=== PATIENT | male | born 1950 | race Caucasian/White ===

== ENCOUNTER 2018-07-30 15:42 | Outpatient (REF) | payer MEDICARE, MEDICAID, SELFPAY ==
[2018-07-30 21:36] LABS: Anion Gap 12.3 mmol/L (3-11); BUN 9 mg/dL (7-18); CO2 24.7 mmol/L (21.0-32.0); CREATININE 0.94 mg/dL (0.70-1.30); Calcium 9.6 mg/dL (8.5-10.1); Chloride 98 mmol/L (98-107); Glucose 105 mg/dL (70-100); Potassium 3.9 mmol/L (3.5-5.1); Sodium 135 mmol/L (136-145)
== END 2018-07-30 16:02 ==
LOC: NCHCN 15:42
PROVIDERS: PCP Nurse Practitioner Family; Visit Provider Nurse Practitioner Family
DX: I10 Essential (primary) hypertension (principal)
CPT/HCPCS: 80048

== ENCOUNTER 2019-07-18 10:43 | Outpatient (REF) | payer MEDICARE, MEDICAID, SELFPAY ==
[2019-07-18 21:07] LABS: Anion Gap 10.4 mmol/L (3-11); BUN 9 mg/dL (7-18); CO2 24.6 mmol/L (21.0-32.0); CREATININE 1.04 mg/dL (0.70-1.30); Chloride 98 mmol/L (98-107); Glucose 95 mg/dL (70-100); Potassium 4.4 mmol/L (3.5-5.1); Sodium 133 mmol/L (136-145)
[2019-07-18 21:27] LABS: HGB 14.9 g/dL (13.5-17.5); Mean Corp. HGB Concentration 33.9 g/dL (32.0-36.0); Mean Corpuscular Hemoglobin 31.9 pg (27.0-33.0); Mean Corpuscular Volume 94.2 fL (80-95); Mean Platelet Volume 10.2 fL (8.0-11.0); Platelet Count 221 x1000/uL (130-400); RBC 4.67 m/cumm (4.50-6.00); RBC Distribution Width 13.6 % (11.8-14.1); White Blood Cell Count 7.45 k/cumm (4.4-10.8)
[2019-07-18 21:55] LABS: Hemoglobin A1C 5.6 % (4.5-6.2)
== END 2019-07-18 11:03 ==
LOC: NCHCN 10:43
PROVIDERS: PCP Nurse Practitioner Family; Visit Provider Nurse Practitioner Family
DX: I10 Essential (primary) hypertension (principal); R73.9 Hyperglycemia, unspecified; J44.9 Chronic obstructive pulmonary disease, unspecified; R91.1 Solitary pulmonary nodule; E78.5 Hyperlipidemia, unspecified; E66.9 Obesity, unspecified
CPT/HCPCS: 80048; 85027; 83036

== ENCOUNTER 2020-01-14 09:45 | Outpatient (REF) | payer MEDICARE, MEDICAID, SELFPAY ==
[2020-01-14 20:34] LABS: ALT 30 U/L (16-63); AST 29 U/L (15-37); Albumin 4.1 g/dL (3.4-5.0); Alkaline Phosphatase 126 U/L (46-116); Anion Gap 6.8 mmol/L (3-11); BUN 10 mg/dL (7-18); Bilirubin, Total 0.4 mg/dL (0.2-1.0); CO2 30.2 mmol/L (21.0-32.0); CREATININE 1.13 mg/dL (0.70-1.30); Calcium 9.2 mg/dL (8.5-10.1); Calculated LDL 127 mg/dL (<100); Chloride 99 mmol/L (98-107); Cholesterol 191 mg/dL (<200); Glucose 121 mg/dL (74-106); HDL Cholesterol 53 mg/dL (40-60); Potassium 4.5 mmol/L (3.5-5.1); Sodium 136 mmol/L (136-145); Total Protein 7.7 g/dL (6.4-8.2); Triglyceride 56 mg/dL (<150)
== END 2020-01-14 10:05 ==
LOC: NCHCO 09:45
PROVIDERS: PCP Nurse Practitioner Family; Visit Provider Nurse Practitioner Family
DX: E78.5 Hyperlipidemia, unspecified (principal); I10 Essential (primary) hypertension
CPT/HCPCS: 80053; 80061

== ENCOUNTER 2020-02-26 07:47 | Outpatient (REF) | payer MEDICARE, MEDICAID, SELFPAY ==
[2020-02-26 21:28] LABS: ALT 33 U/L (16-63); AST 34 U/L (15-37); Albumin 4.2 g/dL (3.4-5.0); Alkaline Phosphatase 113 U/L (46-116); Anion Gap 7.5 mmol/L (3-11); BUN 16 mg/dL (7-18); Bilirubin, Total 0.4 mg/dL (0.2-1.0); CO2 28.5 mmol/L (21.0-32.0); CREATININE 1.02 mg/dL (0.70-1.30); Calculated LDL 93 mg/dL (<100); Chloride 99 mmol/L (98-107); Cholesterol 155 mg/dL (<200); Glucose 101 mg/dL (74-106); HDL Cholesterol 55 mg/dL (40-60); Potassium 4.5 mmol/L (3.5-5.1); Sodium 135 mmol/L (136-145); Total Protein 7.7 g/dL (6.4-8.2); Triglyceride 39 mg/dL (<150)
== END 2020-02-26 08:07 ==
LOC: NCHCN 07:47
PROVIDERS: PCP Nurse Practitioner Family; Visit Provider Nurse Practitioner Family
DX: E78.5 Hyperlipidemia, unspecified (principal)
CPT/HCPCS: 80053; 80061

== ENCOUNTER 2021-02-22 07:56 | Outpatient (REF) | payer MEDICARE, MEDICAID, SELFPAY ==
[2021-02-22 22:37] LABS: ALT 24 U/L (16-63); AST 23 U/L (15-37); Albumin 4.3 g/dL (3.4-5.0); Alkaline Phosphatase 132 U/L (46-116); Anion Gap 10.4 mmol/L (3-11); Bilirubin, Total 0.6 mg/dL (0.2-1.0); CO2 27.6 mmol/L (21.0-32.0); CREATININE 0.9 mg/dL (0.70-1.30); Calcium 9.1 mg/dL (8.5-10.1); Calculated LDL 62 mg/dL (<100); Chloride 100 mmol/L (98-107); Cholesterol 129 mg/dL (<200); Glucose 120 mg/dL (74-106); HDL Cholesterol 52 mg/dL (40-60); Potassium 3.9 mmol/L (3.5-5.1); Sodium 138 mmol/L (136-145); Triglyceride 79 mg/dL (<150)
[2021-02-22 22:53] LABS: BUN 17 mg/dL (7-18); Total Protein 8.1 g/dL (6.4-8.2)
== END 2021-02-22 07:57 | disposition home or self-care (01) ==
LOC: NCHCN 07:56
PROVIDERS: PCP Nurse Practitioner Family; Visit Provider Nurse Practitioner Family
DX: E78.5 Hyperlipidemia, unspecified (principal); I10 Essential (primary) hypertension
CPT/HCPCS: 80053; 80061

== ENCOUNTER 2021-02-25 11:31 | Outpatient (REF) | payer MEDICARE, MEDICAID, SELFPAY ==
[2021-02-25 13:32] LABS: ALT 24 U/L (16-63); AST 24 U/L (15-37); Albumin 4.3 g/dL (3.4-5.0); Alkaline Phosphatase 127 U/L (46-116); Bilirubin, Direct 0.2 mg/dL (0.0-0.2); Bilirubin, Total 0.6 mg/dL (0.2-1.0); Total Protein 8.1 g/dL (6.4-8.2)
[2021-02-25 13:51] LABS: GGT 23 U/L (15-85)
[2021-02-25 18:21] LABS: Vitamin D 25 Total 16.7 ng/mL (30-100)
== END 2021-02-25 11:32 | disposition home or self-care (01) ==
LOC: NCHCN 11:31
PROVIDERS: PCP Nurse Practitioner Family; Visit Provider Nurse Practitioner Family
DX: M89.9 Disorder of bone, unspecified (principal); E83.30 Disorder of phosphorus metabolism, unspecified; R74.8 Abnormal levels of other serum enzymes
CPT/HCPCS: 80076; 82306; 82977

== ENCOUNTER 2021-05-31 12:59 | Outpatient (REF) | payer MEDICARE, MEDICAID, SELFPAY ==
[2021-05-31 22:03] LABS: Vitamin D 25 Total 24.5 ng/mL (30-100)
[2021-05-31 22:23] LABS: ALT 22 U/L (16-63); AST 28 U/L (15-37); Albumin 4.3 g/dL (3.4-5.0); Alkaline Phosphatase 114 U/L (46-116); BUN 8 mg/dL (7-18); Bilirubin, Total 0.5 mg/dL (0.2-1.0); CREATININE 0.9 mg/dL (0.70-1.30); Calcium 9.1 mg/dL (8.5-10.1); Chloride 102 mmol/L (98-107); Glucose 93 mg/dL (74-106); Potassium 4.5 mmol/L (3.5-5.1); Sodium 139 mmol/L (136-145); Total Protein 7.8 g/dL (6.4-8.2)
== END 2021-05-31 13:00 | disposition home or self-care (01) ==
LOC: NCHCN 12:59
PROVIDERS: PCP Nurse Practitioner Family; Visit Provider Nurse Practitioner Family
DX: E55.9 Vitamin D deficiency, unspecified (principal); I10 Essential (primary) hypertension; R74.8 Abnormal levels of other serum enzymes
CPT/HCPCS: 80053; 82306

== ENCOUNTER 2021-06-14 17:42 | Outpatient (REF) | payer MEDICARE, MEDICAID, SELFPAY ==
[2021-06-14 15:21] LABS: Anion Gap 9.4 mmol/L (3-11); BUN 11 mg/dL (7-18); CO2 26.6 mmol/L (21.0-32.0); CREATININE 0.9 mg/dL (0.70-1.30); Calcium 9.4 mg/dL (8.5-10.1); Chloride 98 mmol/L (98-107); Glucose 97 mg/dL (74-106); Potassium 4.6 mmol/L (3.5-5.1); Sodium 134 mmol/L (136-145)
[2021-06-14 15:35] LABS: Vitamin D 25 Total 25.4 ng/mL (30-100)
== END 2021-06-14 17:43 | disposition home or self-care (01) ==
LOC: NCHCN 17:42
PROVIDERS: PCP Nurse Practitioner Family; Visit Provider Nurse Practitioner Family
DX: I10 Essential (primary) hypertension (principal); E55.9 Vitamin D deficiency, unspecified
CPT/HCPCS: 80048; 82306

== ENCOUNTER 2022-05-05 12:02 | Outpatient (REF) | payer MEDICARE, MEDICAID, SELFPAY ==
--- NOTE | 2022-05-05 11:30 | SKI_PTH ---
PATIENT: Chris Shelton LOC: [facility] [place] U#:[id number] AGE/SX: 71/M ROOM: RE05/05/[address]: Radha Terrazas : 1950 BED: DIS: 05/05/2022 SPEC #: [id number] RECD: 05/05/22 17:17 STATUS: SHAILESH DUNN #: [id number] BURT: 05/05/22 11:[address]: Radha Terrazas DEPT: Surgical Specimen RECD BY: Franny Dempsey Tissues: 1 - SKIN BIOPSY(SHAVE/PUNCH) Procedures: SKIN LEVEL 4 Comments: [id number]
--- OUTSIDE RECORDS SUMMARY | 2022-05-05 12:06 | XMS_ITS | Encounter Summary ---
:1950 Author Organization Formerly [facility] [place] [address] Care Team Providers Name Role Phone Radha Terrazas APRN Primary Care Provider Encounter Details Date Type Department Care Team Description 07/22/2019 Ancillary Procedure Radiology Library at Elio Pruitt, [facility] [place] [facility] [address] [address] Pulmonary Medicine [phone] [place], [place] [address] (Wo rk) Social History Tobacco Use Types Packs/Day Years Used Date Never Assessed Sex Assigned at Date Recorded Not on file documented as of this encounter Plan of Treatment Not on filedocumented as of this encounter Procedures Procedure Name Priority Date/Time Associated Diagnosis Comme nts FILM LIBRARY Routine 07/22/2019 12:00 AM Results for this STORAGE ONLY CT EDT procedure ar e in CHEST the results section. documented in this encounter Results Film Library- Storage Only CT Chest (07/22/2019 12:00 AM EDT) Specimen (Source) Anatomical Location Collection Method / Collectio n Time Received Time / Laterality Volume Narrative [facility] - 08/20/2019 2:56 PM EDT This exam is auto-finalizing. It's purpo se is for storage only. Armin Pruitt MD [facility] FILM LIBRARY ORDERABLES Performing Organization Address City/State/ZIP Code Phon e Number [place], [place] documented in this encounter Visit Diagnoses Not on filedocumented in this encounter Care Teams Home Demonstration Agent Relationship Specialty Start Date End Date Radha Terrazas APRN PCP - General Family Medicine 05/23/19 [address] [place] [address] documented as of this encounter
--- OUTSIDE RECORDS SUMMARY | 2022-05-05 12:06 | XMS_ITS | Encounter Summary ---
:1950 Author Organization [facility] [place] [address] Care Team Providers Name Role Phone Radha Terrazas APRN Primary Care Provider Encounter Details Date Type Department Care Team Description 07/09/2019 Telephone Pulmonology at [facility] [address] Social History Tobacco Use Types Packs/Day Years Used Date Never Assessed Sex Assigned at Date Recorded Not on file documented as of this encounter Miscellaneous Notes Telephone Encounter - Israel Amaya II - 07/09/2019 11:24 AM EDT [facility] No answer. Needs in-person visit. documented in this encounter Plan of Treatment Not on filedocumented as of this encounter Visit Diagnoses Not on filedocumented in this encounter Care Teams Snack Bar Cashier Relationship Specialty Start Date End Date Radha Terrazas APRN PCP - General Family Medicine 05/23/19 [address] [place] [address] documented as of this encounter
--- OUTSIDE RECORDS SUMMARY | 2022-05-05 12:06 | XMS_ITS | Clinical Summary ---
:1950 Author Organization [facility] [address] Care Team Providers Name Role Phone MkRadha Fletcher GHOSH Primary Care Provider Social History Tobacco Use Types Packs/Day Years Used Date Never Assessed Sex Assigned at Date Recorded Not on file Last Filed Vital Signs Vital Sign Reading Time Taken Comments Blood Pressure 104/76 06/25/2019 10:11 AM EDT Pulse 103 06/25/2019 10:11 AM EDT Temperature 36.4 ??C (97.5 ??F) 06/25/2019 10:11 AM EDT Respiratory Rate 18 06/25/2019 10:11 AM EDT Oxygen Saturation 94% 06/25/2019 10:11 AM EDT Inhaled Oxygen Concentration - - Weight - - Height - - Body Mass Index - - Plan of Treatment Health Maintenance Due Date Last Done Comments Covid-19 Vaccine (#1) 1954 Hepatitis C Screening 1967 Lipid Screening 1967 Tdap adult 1968 Tetanus vaccine 1968 Colonoscopy 1994 Zoster vaccine (1 of 2) 1999 Advance Directive 2004 Pneumoccocal Vaccine: 65+ (1 - PCV) 2014 Influenza (Flu) vaccine (1 of 1 - Influenza standard 06/23/2022 series) Insurance Payer Benefit Plan / Subscriber ID Effective Dates Phone Addre ss Type Group MEDICARE MEDICARE PART [id number] 2019-Presen [phone] [place] [address] [place] [id number] 2019-Prese [phone] [address] [place] [address] Care Teams Lead Accountant Relationship Specialty Start Date End Date Radha Terrazas APRN PCP - General Family Medicine 05/23/19 [address] [place], [place] [address]
--- OUTSIDE RECORDS SUMMARY | 2022-05-05 12:07 | XMS_ITS | Encounter Summary ---
:1950 Author Organization [facility] Address [address] [place] [address] Care Team Providers Name Role Phone Radha Terrazas APRN Primary Care Provider Encounter Details Date Type Department Care Team Description 02/09/2021 Orders Only [facility] Mainor Linares MD Radiology - Main Cam pus [address] [address] [address] [place], [place] [address] (Wo rk) Social History Tobacco Use Types Packs/Day Years Used Date Former Smoker Quit: 2016 Smokeless Tobacco: Never Used Alcohol Use Standard Drinks/Week Comments Not Currently 0 (1 standard drink = 0.6 oz pure alcoho l) Quit 10 years ago Alcohol Habits Answer Date Recorded How often do you have a drink containing alcohol? Not asked 09/21/2020 How many drinks containing alcohol do you have on a Not aske d 09/21/2020 typical day when you are drinking? How often do you have six or more drinks on one Not asked 09/21/2020 occasion? Comment: Quit 10 years ago 09/21/2020 Sex Assigned at Date Recorded Male 02/19/2021 14:37 EDT COVID-19 Exposure Response Date Recorded In the last month, have you been in contact with No / Unsure 02/05/2021 10:44 EDT someone who was confirmed or suspected to have Coronavirus / COVID-19? documented as of this encounter Functional Status Functional Status Response Date of Assessment Because of a physical, mental, or emotional condition, No 10/14/2020 does this person have difficulty doing errands alone such as visiting a doctor's office or shopping? Cognitive Status Response Date of Assessment Because of a physical, mental, or emotional condition, No 10/14/2020 does this person have serious difficulty concentrating, remembering, or making decisions? documented as of this encounter Plan of Treatment Upcoming Encounters Date Type Specialty Care Team Description 09/26/2022 Office Visit Hematology and Oncology Nessa Sullivan MD [address] [place], [facility] [address] [place], [place] [address] (Wo rk) documented as of this encounter Visit Diagnoses Not on filedocumented in this encounter Care Teams Engineering Leader Relationship Specialty Start Date End Date Radha Terrazas APRN PCP - General 08/23/20 [address] [place] [address] documented as of this encounter
--- OUTSIDE RECORDS SUMMARY | 2022-05-05 12:07 | XMS_ITS | Encounter Summary ---
:1950 Author Organization [facility] Address [address] [place] [address] Care Team Providers Name Role Phone Radha Terrazas APRN Primary Care Provider Reason for Visit (Routine/Next Available) - Receiving Office to Obtain Authorization Specialty Diagnoses / Procedures Referred By Contact Refer red To Contact Procedures Imaging, External CT OUTSIDE IMAGES CHEST Referral ID Status Reason Start Expiration Visits Visits Date Date Requested Authorized [id number] Receiving Office 1 to Obtain 1 Authorization Encounter Details Date Type Department Care Team Description 07/26/2021 Hospital Encounter [facility] Secondary Reads [place] Social History Tobacco Use Types Packs/Day Years Used Date Former Smoker Quit: 2015 Smokeless Tobacco: Never Used Alcohol Use Standard [...] at Date Recorded Male 02/19/2021 14:37 EDT documented as of this encounter Functional Status [...] making decisions? documented as of this encounter Medications at Time of Discharge Medication Sig Dispensed Refills Start Date End Date acetaminophen (TYLENOL) Take 2 Tabs by mouth 0 500 mg tablet every 6 hours as needed for Pain or Fever (mild pain). albuterol 90 mcg/actuation Inhale 1-2 Puffs as 0 inhaler directed every 4 hours as needed for Wheezing. aspirin 81 mg EC tablet Take 81 mg by mouth 0 daily. atorvastatin (LIPITOR) 10 Take 20 mg by mouth 0 mg tablet at bedtime. calcium carbonate (TUMS) Take 2 Tabs by mouth 0 1 12/02/2019 200 mg calcium (500 mg) 4 times daily as tablet,chewable needed for Heartburn. docusate sodium (COLACE) Take 1 Cap by mouth 2 0 10/01/2020 100 mg capsule times daily as needed for Constipation. documented as of this encounter Discharge Disposition Disposition Code Departure Means Destination Home or Self Care documented in this encounter Plan of Treatment Upcoming Encounters Date Type Specialty Care Team Description 09/26/2022 Office Visit Hematology and Oncology Nessa Sullivan MD 111 [facility], [facility] 2 [place], [place] [address] (Wo rk) documented as of this encounter Procedures Procedure Name Priority Date/Time Associated Diagnosis Comme nts CT OUTSIDE IMAGES Routine 09/17/2021 12:32 Result s for this CHEST EST procedure are i n the results section. documented in this encounter Results CT OUTSIDE IMAGES CHEST (09/17/2021 12:32 EST) Specimen Narrative 09/17/2021 12:32 EST This is a non-reportable exam. documented in this encounter Visit Diagnoses Not on filedocumented in this encounter Care Teams Manager Travel Relationship Specialty Start Date End Date Radha Terrazas APRN PCP - General 08/23/20 [address] [place] [address] documented as of this encounter
--- OUTSIDE RECORDS SUMMARY | 2022-05-05 12:07 | XMS_ITS | Encounter Summary ---
:1950 Author Organization [facility] Address [address] [place] [address] Care Team Providers Name Role Phone Radha Terrazas APRN Primary Care Provider Reason for Visit Reason Onset Date Comments Other 03/22/2022 Encounter Details Date Type Department Care Team Description 03/22/2022 Telephone [facility] Nessa Sullivan MD Other Hematology & Oncology - 111 [facility], [address] [place], [place] [id number] [place] [phone] (Wo rk) Social History Tobacco Use Types [...] making decisions? documented as of this encounter Miscellaneous Notes Telephone Encounter - Swathi Kebede - 03/22/2022 1030 EDT FAXED REQUEST TO [facility] RADIOLOGY DEPT TO PUSH RECENT CT CHEST TO US. Swathi Kebede 03/22/2022 10:31 documented in this encounter Plan of Treatment Upcoming Encounters Date Type Specialty Care Team Description 09/26/2022 Office Visit Hematology and Oncology Nessa Sullivan MD 111 [facility], [address] [place], [place] [address] (Wo rk) documented as of this encounter Visit Diagnoses Not on filedocumented in this encounter Care Teams Missile Facilities Repairer Relationship Specialty Start Date End Date Radha Terrazas APRN PCP - General 08/23/[address] [place] [address] documented as of this encounter
--- OUTSIDE RECORDS SUMMARY | 2022-05-05 12:07 | XMS_ITS | Encounter Summary ---
:1950 Author Organization [facility] Address [address] [place] [address] Care Team Providers Name Role Phone Radha Terrazas APRN Primary Care Provider Reason for Visit Reason Onset Date Comments Appointment Related 08/16/2021 Encounter Details Date Type Department Care Team Description 08/16/2021 Telephone [facility] Nessa Sullivan MD Appointment Related Hematology & Oncology 111 [facility], [facility] 111 [facility], [address] [place], [place] [address] [place] [address] [phone] (Wo rk) Social History Tobacco Use Types [...] this encounter Miscellaneous Notes Telephone Encounter - Ian Tolentino MA - 08/16/2021 0954 EDT Called patient to remind them about upcoming televideo appointment scheduled for 08/17/21. Left a voicemail. IAN TOLENTINO MA documented in this encounter Plan of Treatment Upcoming Encounters Date Type Specialty Care Team Description 09/26/2022 Office Visit Hematology and Oncology Nessa Sullivan MD 111 [facility], [facility] 2 [place], [place] [phone] (Wo rk) documented as of this encounter Visit Diagnoses Not on filedocumented in this encounter Care Teams Sign Builder Relationship Specialty Start Date End Date Radha Terrazas APRN PCP - General 08/23/20 [address] [place] [address] documented as of this encounter
--- OUTSIDE RECORDS SUMMARY | 2022-05-05 12:07 | XMS_ITS | Encounter Summary ---
:1950 Author Organization [facility] Address [address] [place] [address] Care Team Providers Name Role Phone Radha Terrazas APRN Primary Care Provider Reason for Referral Laboratory Services (STAT) - New Request Specialty Diagnoses / Procedures Referred By Contact Refer red To Contact Diagnoses NSCLC of right lung (HCC-CMS) (HCC) Nessa Sullivan MD Procedures CREATININE [address] [phone] Referral ID Status Reason Start Date Expiration Date Visits V isits Requested Authorized [id number] New Request 02/14/2022 1 1 Reason for Visit Reason Onset Date Comments Pre-visit Orders 02/14/2022 Follow-up 02/14/2022 Encounter Details Date Type Department Care Team Description 02/14/2022 Telephone [facility] Center Nessa Sullivan MD Pre-visit Orders; Hematology & Oncology 111 [facility] Follow-up - [address] [place] [address] [phone] (Wo rk) Social History Tobacco Use [...] documented as of this encounter Miscellaneous Notes Addendum Note - Beatrice Samuel RN - 02/14/2022 1239 EDT Addended by: BEATRICE SAMUEL on: 02/14/2022 12:39 Modules accepted: Orders Telephone Encounter - Beatrice Samuel RN - 02/14/2022 1239 EDT Order for BUN faxed to [facility]. elephone Encounter - Gerald Bennett - 02/14/2022 1142 EDT Lynn prasad requesting a BUN lab order as well for this patient. Please fax to [phone] signed by Gerald Bennett at 02/14/2022 11:43 EDT Telephone Encounter - Beatrice Samuel RN - 02/14/2022 1131 EDT Faxed Creatinine order to [facility] OP lab.[facility] radiology made aware. Telephone Encounter - Gerald Bennett - 02/14/[address] Chest scheduled Do we have updated labs within last 30 days for this patient? [facility] lab is asking that we send lab orders if this is not the case. Patient has CT scheduled for 02/16. [email or web address] signed by Gerald Bennett at 02/14/2022 11:19 EDT documented in this encounter Plan of Treatment Upcoming Encounters Date Type Specialty Care Team Description 09/26/2022 Office Visit Hematology and Oncology Nessa Sullivan MD [address] [facility], [facility] 2 [place], [place] [address] (Wo rk) Scheduled Orders Name Type Priority Associated Diagnoses Order S chedule CREATININE Lab STAT NSCLC of right lung (HCC-CMS ) Expected: 02/14/2022 (HCC) (Approximate), Expires: 02/14/2023 BUN Lab Routine NSCLC of right lung (HCC-CMS ) Expected: 02/14/2022 (HCC) (Approximate), Expires: 02/14/2023 documented as of this encounter Visit Diagnoses Diagnosis NSCLC of right lung (HCC-CMS) (HCC) - Pr imary documented in this encounter Care Teams Operations Management Professionals Relationship Specialty Start Date End Date Radha Terrazas APRN PCP - General 08/23/[address] [place] [address] documented as of this encounter
--- OUTSIDE RECORDS SUMMARY | 2022-05-05 12:07 | XMS_ITS | Encounter Summary ---
:1950 Author Organization [facility] Address [address] [place] [address] Care Team Providers Name Role Phone Radha Terrazas APRN Primary Care Provider Reason for Visit (Routine/Next Available) - Receiving Office to Obtain Authorization Specialty Diagnoses / Procedures Referred By Contact Refer red To Contact Procedures Unknown, Provider, CT OUTSIDE IMAGES CHEST Phone: Referral ID Status Reason Start Expiration Visits Visits Date Date Requested Authorized [id number] Receiving Office 03/22/2022 1 1 to Obtain Authorization Encounter Details Date Type Department Care Team Description 03/10/2022 Hospital Encounter [facility] Secondary Reads [place] Social History Tobacco Use [...] capsule times daily as needed for Constipation. lisinopriL (PRINIVIL) 10 Take 10 mg by mouth 0 mg tablet daily. documented as of this encounter Discharge Disposition Disposition Code Departure Means Destination Home or Self Care documented in this encounter Plan of Treatment Upcoming Encounters Date Type Specialty Care Team Description 09/26/2022 Office Visit Hematology and Oncology Nessa Sullivan MD 111 [facility], [facility] 2 [place], [place] [address] (Wo rk) documented as of this encounter Procedures Procedure Name Priority Date/Time Associated Diagnosis Comme nts CT OUTSIDE IMAGES Routine 03/22/2022 11:10 Result s for this CHEST EDT procedure are i n the results section. documented in this encounter Results CT OUTSIDE IMAGES CHEST (03/22/2022 11:10 EDT) Specimen Narrative 03/22/2022 11:10 EDT This is a non-reportable exam. documented in this encounter Visit Diagnoses Not on filedocumented in this encounter Care Teams Train Attendant Relationship Specialty Start Date End Date Radha Terrazas APRN PCP - General 08/23/20 [address] [place] [address] documented as of this encounter
--- OUTSIDE RECORDS SUMMARY | 2022-05-05 12:07 | XMS_ITS | Encounter Summary ---
:1950 Author Organization [facility] Address [address] [place] [address] Care Team Providers Name Role Phone Radha Terrazas APRN Primary Care Provider Reason for Visit Reason Onset Date Comments Appointment Related 10/25/2021 CT Scan 10/25/2021 Order to [facility] Encounter Details Date Type Department Care Team Description 10/25/2021 Telephone [facility] Center Nessa Sullivan MD Appointment Related; Hematology & Oncology [address] [facility] [address] Scan (Order to - [facility], [facility]) 111 [facility], [address] [place], [place] [address] [place] [address] [phone] (Wo rk) Social History Tobacco Use [...] this encounter Miscellaneous Notes Telephone Encounter - Mercedes Najera - 10/25/2021 1037 EST Patient's daughter, Dorcas calling to see if 03/17 appt can be changed to a zoom meeting? Would alsolike to confirm that order for ct scan has been sent to [facility]? Please call back to discuss documented in this encounter Plan of Treatment Upcoming Encounters Date Type Specialty Care Team Description 09/26/2022 Office Visit Hematology and Oncology Nessa Sullivan MD 111 [facility], [facility], [address] [place], [place] [address] (Wo rk) documented as of this encounter Visit Diagnoses Not on filedocumented in this encounter Care Teams Applications System Analyst Relationship Specialty Start Date End Date Radha Terrazas APRN PCP - General 08/23/20 [address] [place] [address] documented as of this encounter
--- OUTSIDE RECORDS SUMMARY | 2022-05-05 12:07 | XMS_ITS | Encounter Summary ---
:1950 Author Organization [facility] Address [address] [place] [address] Care Team Providers Name Role Phone Radha Terrazas APRN Primary Care Provider Reason for Referral Radiology Services (Routine/Next Available) - Authorized Specialty Diagnoses / Procedures Referred By Contact Refer red To Contact Diagnoses NSCLC of right lung ([facility]) ([facility]) Nessa Sullivan MD Procedures CT CHEST W CONTRAST CHG DIAGNOSTIC COMPUTED TOMOGRAPHY THORAX W/CONTRAST [address] [facility] Level 2 [place] [address] Referral ID Status Reason Start Date Expiration Date Visits V isits Requested Authorized [id number] Authorized 08/18/2021 10/22/2021 1 1 Reason for Visit Reason Comments Telemedicine Video Visit Encounter Details Date Type Department Care Team Description 08/17/2021 Telemedicine [facility] Nessa Sullivan, NSCL C of right lung Hematology & MD ([facility]) ([facility]) Oncology - [address] (Primary D x) [address] [place] [address] (Wo rk) Social History Tobacco Use [...] making decisions? documented as of this encounter Progress Notes Nessa Sullivan MD - 08/17/2021 1400 EDT Oncology follow up visit Date of Visit:08/17/2021 Reason for Consultation: Adjuvant therapy for squamous cell carcinoma of lung Referring Physician: Radha Terrazas Oncologic history: Chris Shelton is a 70 y.o. male with COPD, right lung nodule (which had been followed by serial CT scans and deemed to be stable). He had 1 week history of trouble breathing prior to presentation which progressively got worse and eventually he was seen at [facility] ED on 09/21/2020 and was transferred to [facility] due to refractory right-sided pneumothorax despite chest tube placement (had persistent air leak). He had a right-sided chest tube placement here at [facility] on 09/22/2020 and subsequently, was taken to the OR where Dr. Singh performed right video-assisted thoracoscopic surgery, right upper lobe wedge resection, right middle lobe wedge resection of nodule and mechanical and talc pleurodesis on 09/25/2020. His course was complicated by difficulty voiding, urinary retention - requiring delayed removal of [place] and he was put on Flomax. He also developed euvolemic hyponatremia due to decreased solute intake. He feels that he is recovering well from surgery after resolution of above complications. Currently denies any fevers, chills, night sweats. He did have some epistaxis after the Covid swab but it was minor and he is improving. Does not report any headaches or any neurologic issues. He has also complained of sinus issues (which I think could be contributing to foul taste in his mouth that he complained about earlier). History of Present Illness: Doing much better than the last time I saw him. Breathing is good, doing covid 19 precautions. Does not report any fevers, chills, night sweats, nausea, vomiting, diarrhea, constipation, abdominal pain, SHARPE or chest pain or any new neurologic issues (KELLY/blurred vision/focal deficits). Patient Active Problem List Diagnosis Date Noted ??? Spontaneous pneumothorax 09/21/2020 Priority: Medium PM PSH Past Medical History: Diagnosis Date ??? COPD (chronic obstructive pulmonary disease) ([facility]) ??? GIB (gastrointestinal bleeding) ??? HTN (hypertension) ??? Umbilical hernia recurred after mesh failure Past Surgical History: Procedure Laterality Date ??? UMBILICAL HERNIA REPAIR Lt foot surgery in 80s SOCIAL HISTORY FAMILY HISTORY Social History Tobacco Use ??? Smoking status: Former Smoker Quit date: 2016 Years since quittin.8 ??? Smokeless tobacco: Never Used Substance Use Topics ??? Alcohol use: Not Currently Comment: Quit 10 years ago Worked at [employer], and prior to his admission was moving heavy furniture around without difficulty.Previously he has worked in [employer]. Lives alone, but came to clinic with his daughter Dorcas.No family history on file. ALLERGIES No Known Allergies Current Outpatient Medications Medication ??? acetaminophen (TYLENOL) 500 mg tablet ??? albuterol 90 mcg/actuation inhaler ??? aspirin 81 mg EC tablet ??? atorvastatin (LIPITOR) 10 mg tablet ??? calcium carbonate (TUMS) 200 mg calcium (500 mg) tablet,chewable ??? docusate sodium (COLACE) 100 mg capsule No current facility-administered medications for this visit. REVIEW OF SYSTEMS: A complete 10 point review of systems was performed and is otherwise negative. Physical Exam: There were no vitals taken for this visit. General: Appears better than last visit, on the video. A full physical exam could not be done as this was a televisit, performed d/t COVID 19 pandemic. Labs: Lab Results Component Value Date WBC 7.66 09/29/2020 HGB 10.8 (L) 09/29/2020 HGB 11.3 (L) 2020 HGB 11.9 (L) 09/26/2020 HCT 31.3 (L) 09/29/2020 MCV 87 09/29/2020 RDWCV 14.3 (H) 09/29/2020 PLT 271 09/29/2020 Lab Results Component Value Date NA 130 (L) 10/01/2020 K 4.5 10/01/2020 CL 94 (L) 10/01/2020 CO2 31 10/01/2020 BUN 17 10/01/2020 CREATININE 0.55 (L) 10/01/2020 CALCGFR 105 10/01/2020 A. LUNG, RIGHT, UPPER LOBE, VIDEO-ASSISTED THORACOSCOPIC WEDGE RESECTION: - Squamous cell carcinoma, invasive, non-keratinizing (0.5 cm maximal dimension) (AJCC: pT1a, pNX). See comment and synoptic report. - Adjacent squamous cell carcinoma in situ. - Vascular invasion present (slide A9). - Tumor at least 0.15 cm from parenchymal (stapled) margin. - Uninvolved lung shows bullous emphysema with patchy subpleural interstitial fibrosis. - Apical pulmonary cap. 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 ?? B. LUNG, RIGHT, MIDDLE LOBE, VIDEO-ASSISTED THORACOSCOPIC WEDGE RESECTION: - Pulmonary hamartoma (2.0 cm maximal dimension). See comment. - Uninvolved lung shows: - Distal acinar (paraseptal) and centrilobular emphysema. - Subpleural interstitial fibrosis with foci of peribronchiolar metaplasia and incipient honeycomb change. - Fibrinous and eosinophilic pleuritis with reactive mesothelial hyperplasia consistent with historyof pneumothorax. Imaging: CT chest from [facility] 07.26.21 report was unremarkable, however, the images were not sent. I requestedthem again and checked PACS again on 09.11.21 and still no images received. Unfortunately, [facility] radiologist did not compare the CT to the most recent scan from [facility]. Assessment: Chris Shelton is a 70 y.o. male with past medical history of smoking (quit >5 years ago), COPD, hypertension, who developed spontaneous pneumothorax in August 2020, had persistent air leak after chest tube placement and was transferred to [facility] from [facility] ED for refractory pneumothorax. He underwent right video-assisted thoracoscopic surgery, right upper lobe wedge resection, rightmiddle lobe wedge resection of nodule and mechanical and talc pleurodesis on 09/25/2020. Right upper lobe lesion pathology showed squamous cell carcinoma, invasive, nonkeratinizing (0.5 cm) AJCC: pT1a, pNX. There was also adjacent squamous cell carcinoma in situ. Vascular invasion was present, however margins were negative (tumor at least 0.15 cm from parenchymal/stapled margin). Right middle lobe lung lesion was found to be a pulmonary hematoma (2 cm maximum dimension). He did not have any staging scans done at that time, so I ordered CT c/a/p. I explained to Chris and his daughter Dorcas that if this is the only tumor then I do not feel strongly about adjuvant chemotherapy given the size of the tumor being so small and margins being negative. However vascular invasion and the fact that this was not a lobectomy and lymph node dissection but rather was a wedge resection, does increase the risk of recurrence. He is 70 years old and after assessing pros and cons ofchemotherapy, it was decided to follow him with active surveillance. Last CT chest from 07.26.21 at [facility] was reported to be unremarkable, but I do not have the images despite requesting those multiple times. Plan: 1. F/U with me in [address] chest with contrast. I will continue CT chest for active surveillance every 6 months for first 2 years and then he will get annual exam and imaging for 5 years. Afterthat he can continue with low-dose lung CTs and follow-up with his PCP. 2. He is on ASA and statin, he has coronary and aortic atherosclerosis noted on prior imaging, and will continue to f/u with PCP. 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 I have asked the clinic to send the CT abd/pelvis results from 10/2020 to PCP. MD Kvng. The concept of ???Telemedicine?? has been described to the patient. Patient has been informed of the anticipated benefits and possible risks. Patient understands the information provided regarding telemedicine, has had the opportunity to ask questions about this information, and all questions have been answered to patient???s satisfaction. Patient consents for the use of telemedicine in his/her medical care and authorizes the transmission of any relevant medical information to providers and their staff involved in patient???s medical or mental health care. TELEMEDICINE VIDEO VISIT Today's visit was provided through telemedicine Zoom video conferencing: The location of the patient : Home The location of the provider: Office The following staff and their role did participate in today's encounter visit: Nessa Sullivan MD documented in this encounter Plan of Treatment Upcoming Encounters Date Type Specialty Care Team Description 09/26/2022 Office Visit Hematology and Oncology Nessa Sullivan MD [address] [facility], [facility], [facility] 2 [place], [place] [address] (Wo rk) Scheduled Orders Name Type Priority Associated Diagnoses Order S chedule CT CHEST W CONTRAST Imaging Routine NSCLC of right lung E xpected: 08/18/2021, ([facility]) Expires: 2022 documented as of this encounter Visit Diagnoses Diagnosis NSCLC of right lung (HCC-CMS) (HCC) - Pr imary documented in this encounter Historical Medications This list may reflect changes made after this encounter. Medication Sig Dispensed Refills Start Date End Date lisinopriL (PRINIVIL) 10 Take 10 mg by mouth 0 mg tablet daily. added in this encounter Care Teams Cement Mixer Driver Relationship Specialty Start Date End Date Radha Terrazas APRN PCP - General 08/23/20 [address] [place] [address] documented as of this encounter
--- OUTSIDE RECORDS SUMMARY | 2022-05-05 12:07 | XMS_ITS | Encounter Summary ---
:1950 Author Organization [facility] Address [address] [place] [address] Care Team Providers Name Role Phone Radha Terrazas APRN Primary Care Provider Reason for Visit Reason Onset Date Comments Other 09/14/2021 Encounter Details Date Type Department Care Team Description 09/14/2021 Telephone [facility] Nessa Sullivan MD Other Hematology & Oncology - [address] [facility], [address] [place], [place] [id number] [place] [phone] (Wo rk) Social History Tobacco Use Types [...] Notes Telephone Encounter - Swathi Kebede - 09/14/2021 1053 EST FAXED RECENT NOTES TO PCP RADHA SEBASTIAN PER REQUEST. Swathi Kebede 09/14/2021 10:54 documented in this encounter Plan of Treatment Upcoming Encounters Date Type Specialty Care Team Description 09/26/2022 Office Visit Hematology and Oncology Nessa Sullivan MD 111 [facility] 2 [place], [place] [address] (Wo rk) documented as of this encounter Visit Diagnoses Not on filedocumented in this encounter Care Teams Transmission Supervisor Relationship Specialty Start Date End Date Radha Terrazas, DAVINA PCP - General 08/23/20 [address] [place] [address] documented as of this encounter
--- OUTSIDE RECORDS SUMMARY | 2022-05-05 12:07 | XMS_ITS | Clinical Summary ---
:1950 Author Organization [facility] Address [address] [place] [address] Care Team Providers Name Role Phone Radha Terrazas APRN Primary Care Provider Allergies No known active allergies Medications Medication Sig Dispensed Refills Start Date End Date Status atorvastatin (LIPITOR) Take 20 mg by 0 Active 10 mg tablet mouth at bedtime. albuterol 90 Inhale 1-2 Puffs 0 Active mcg/actuation inhaler as directed every 4 hours as needed for Wheezing. aspirin 81 mg EC tablet Take 81 mg by 0 Active mouth daily. acetaminophen (TYLENOL) Take 2 Tabs by 0 10/01/2020 Active 500 mg tablet mouth every 6 hours as needed for Pain or Fever (mild pain). calcium carbonate Take 2 Tabs by 0 10/01/2020 Active (TUMS) 200 mg calcium mouth 4 times (500 mg) daily as needed tablet,chewable for Heartburn. Additional Information Patient not taking. Reported on 08/17/2021 docusate sodium (COLACE) 100 Take 1 Cap by mouth 2 times 0 10/01/2020 Active mg capsule daily as needed for Constipation. lisinopriL (PRINIVIL) 10 mg Take 10 mg by mouth daily. 0 Active tablet Active Problems Patient Care Coordination Note Formatting of this note might be differe nt from the original. Patient has given permission for [facility] to verbally discuss the following information with Dorcas Solorzano who has the following relationship to the patient: Son/Daughter: Scheduling/Appt/Billing/Payment Informat ion (does not include clinical information unless specifically indicated with separate option) Medical Information including symptoms, diagnosis, medications, test results and treatment plan (does not include Mental Health unless specifically indicated with separate option) Permission remains in effect until the p atient elects to revoke it. 2020 # [id number] [place] Afshan Leigh 02/03/21 10:49 Problem Noted Date Spontaneous pneumothorax 09/21/2020 Encounters Date Type Specialty Care Team Description 03/22/2022 Telephone Hematology and Nessa Sullivan Other Oncology MD Kane 03/17/2022 Telemedicine Hematology and Nessa Sullivan NSCLC of rig ht lung Oncology MD Kane ([facility]) (HCC) (Primary Dx) 03/10/2022 Hospital Encounter 03/08/2022 Telephone Hematology Nessa Sterling Pre-visit Or ders Oncology MD Kane 02/14/2022 Telephone Hematology Nessa Sterling Pre-visit Or ders; Oncology MD Kane Follow-up from Last 3 Months Surgical History Surgery Date Site/Laterality Comments UMBILICAL HERNIA REPAIR Medical History Medical History Date Comments HTN (hypertension) COPD (chronic obstructive pulmonary disease) ([facility]) (HCC) Umbilical hernia recurred after mesh failure GIB (gastrointestinal bleeding) Social History Tobacco Use Types Packs/Day Years [...] at Date Recorded Male 02/19/2021 14:37 EDT Last Filed Vital Signs Vital Sign Reading Time Taken Comments Blood Pressure 150/85 10/14/2020 1449 EST Pulse 99 10/14/2020 1449 EST Temperature 36.8 ??C (98.2 ??F) 10/13/2020 1456 EST Respiratory Rate 16 10/13/2020 1456 EST Oxygen Saturation 97% 10/14/2020 1449 EST Inhaled Oxygen Concentration - - Weight 81.1 kg (178 lb 11.2 oz) 10/13/2020 1456 EST Height 177.8 cm (5' 10) 09/21/2020 1440 EST Body Mass Index 25.64 09/21/2020 1440 EST Plan of Treatment Upcoming Encounters Date Type Specialty Care Team Description 09/26/2022 Office Visit Hematology and Oncology Nessa Sullivan MD [address] [facility], [facility], [facility] 2 [place], [place] [address] (Wo rk) Health Maintenance Due Date Last Done Comments Hepatitis C Screen 1950 COVID-19 Vaccine (#1) 1955 Fall Risk Screening 2014 Procedures Procedure Name Priority Date/Time Associated Diagnosis Comme nts CT OUTSIDE IMAGES Routine 03/22/2022 11:10 Result s for this CHEST EDT procedure are i n the results section. from Last [address] OUTSIDE IMAGES CHEST (03/22/2022 11:10 EDT) Specimen Narrative 03/22/2022 11:10 EDT This is a non-reportable exam. from Last 3 Months Insurance Payer Benefit Plan / Subscriber ID Effective Phone Address T ype Group Dates MEDICARE MEDICARE A/B [id number] Effective for [address] [place] [address] MED[place] [id number] 2020-Pre [address] [place] sent [facility] [id number] Chris Shelton Personal/Family Self 1950 [address] (Home) [place] [address] Advance Directives For more information, please contact: [phone] Latest Code Status on File Code Status Date Activated Date Inactivated Comments Full Code 09/21/2020 14:13 10/01/2020 17:41 Reason for decision includes: Full code consistent with over all plan of care Who participated in the discussion? Not Discussed Care Teams Family Independence Case Manager Relationship Specialty Start Date End Date Radha Terrazas, GELATIN POWDER MIXER PCP - General 08/23/[address] [place] [id number]
--- OUTSIDE RECORDS SUMMARY | 2022-05-05 12:07 | XMS_ITS | Encounter Summary ---
:[address] [facility] Address [address] [place] [address] Care Team Providers Name Role Phone Radha Terrazas APRN Primary Care Provider Reason for Referral Radiology Services (Routine/Next Available) - Receiving Office to Obtain Authorization Specialty Diagnoses / Procedures Referred By Contact Refer red To Contact Diagnoses NSCLC of right lung ([facility]) ([facility]) Nessa Sullivan MD External Procedures CT CHEST W CONTRAST 111 [facility] Level [address] [place] [address] Referral ID Status Reason Start Expiration Visits Visits Date Date Requested Authorized [id number] Receiving Office 03/18/2022 1 1 to Obtain Authorization Reason for Visit Reason Comments Telemedicine Video Visit Encounter Details Date Type Department Care Team Description 03/17/2022 Telemedicine [facility] Nessa Sullivan NSCL C of right lung Hematology & MD ([facility]) ([facility]) Oncology - [facility] [address] (Primary D x) [address] [place] [address] (Wo rk) Social History Tobacco [...] encounter Progress Notes Nessa Sullivan MD - 03/17/2022 1130 EDT Images from the original note were not included. Oncology follow up visit Date of Visit:03/17/2022 Reason for Consultation: Adjuvant therapy for squamous cell carcinoma of lung Referring Physician: Radha Terrazas Oncologic history: Chris Shelton is a 71 y.o. male with COPD, right lung nodule (which had been followed by serial CT scans and deemed to be stable). He had 1 week history of trouble breathing prior to presentation which progressively got worse and eventually he was seen at [facility] ED on 09/21/2020 and was transferred to [facility] due to refractory right-sided pneumothorax despite chest tube placement (had persistent air leak). He had a right-sided chest tube placement here at [facility] on 09/22/2020 and subsequently, was taken to [...] complained about earlier). History of Present Illness: Multiple episodes of pneumonia (3-4 times in past 6 months). He was admitted multiple times and required steroid taper, currently on maintenance prednisone 5 mg p.o. daily with good results. Requiring supplemental oxygen 2 to 3 L with exertion. Otherwise sleeping well, and finally starting to get better after all these episodes of pneumonia. Currently does not report any fevers, chills, night sweats,changes in his appetite, nausea, vomiting, diarrhea, constipation. Breathing is relatively stable now. He is relieved to hear his CT chest results. Patient Active Problem List Diagnosis Date Noted ??? Spontaneous pneumothorax 09/21/2020 Priority: [facility] Past Medical History: Diagnosis Date ??? COPD (chronic obstructive pulmonary disease) ([facility]) ??? GIB (gastrointestinal bleeding) ??? HTN (hypertension) ??? Umbilical hernia recurred after mesh failure Past Surgical History: Procedure Laterality Date ??? UMBILICAL HERNIA REPAIR Lt foot surgery in 80s SOCIAL HISTORY FAMILY HISTORY Social History Tobacco Use ??? Smoking status: Former Smoker Quit date: 2016 Years since quittin.4 ??? Smokeless tobacco: Never Used Substance Use Topics ??? Alcohol use: Not Currently Comment: Quit 10 years ago Worked at [employer], and prior to his admission was moving heavy furniture around without difficulty.Previously he has worked in [employer]. Lives alone, but came to clinic with his daughter Dorcas.No family history on file. ALLERGIES No Known Allergies Current Outpatient Medications Medication ??? acetaminophen (TYLENOL) 500 mg tablet ??? albuterol 90 mcg/actuation inhaler ??? aspirin 81 mg EC tablet ??? atorvastatin (LIPITOR) 10 mg tablet ??? calcium carbonate (TUMS) 200 mg calcium (500 mg) tablet,chewable ??? docusate sodium (COLACE) 100 mg capsule ??? lisinopriL (PRINIVIL) 10 mg tablet No current facility-administered medications for this visit. [...] with historyof pneumothorax. Imaging: CT chest from [facility] 03.10.22: report was unremarkable, however, the images were not sent. I requested them again - this seems to be an ongoing issue though that images are not received in time from OSH. Assessment: Chris Shelton is a 71 y.o. male with past medical history of smoking (quit >5 years ago), COPD, hypertension, who developed spontaneous pneumothorax in August 2020, had persistent air leak after chest tube placement and was transferred to [facility] from [facility] ED for refractory pneumothorax. He underwent [...] with active surveillance. Last CT chest from 03.10.22 at [facility] was reported to be unremarkable, but [...] ectasia of the infra renal aorta, I have d/w him regarding possible referral to vascular for subsequent imaging or f/u with his PCP with imaging to see if the size is changing, he decided to f/u with PCP. Clinic team sent CT abd/pelvis results from 10/2020 to PCP. Reportedly the thoracic aortic dilatation isstable on 03.10.22 scan. MD Kvng. The concept of ???Telemedicine?? has [...] and Oncology Nessa Sullivan MD 111 [facility], [facility], [facility] 2 [place], [place] [address] (Wo rk) Scheduled Orders Name Type Priority Associated Diagnoses Order S chedule CT CHEST W CONTRAST Imaging Routine NSCLC of right lung E xpected: 03/18/2022, (HCC-CMS) (HCC) Expires: documented as of this encounter Visit Diagnoses Diagnosis NSCLC of right lung (HCC-CMS) (HCC) - Pr imary documented in this encounter Care Teams House Player Relationship Specialty Start Date End Date Radha Terrazas APRN PCP - General 08/23/20 [address] [place] [address] documented as of this encounter
--- OUTSIDE RECORDS SUMMARY | 2022-05-05 12:07 | XMS_ITS | Encounter Summary ---
:1950 Author Organization [facility] Address [address] [place] [address] Care Team Providers Name Role Phone Mk Radha Fletcher GHOSH Primary Care Provider Reason for Visit Consultation (Routine) - Specialty Diagnoses / Procedures Referred By Contact Refer red To Contact Pulmonology Diagnoses Pulmonary Nodule Jennifer Monge APRN [facility] Pulmonology 5c Procedures Telemed [facility] [address] [place] [address] [place] [address] Fax: Referral ID Status Reason Start Date Expiration Date Visits V isits Requested Authorized [id number] Consult, 05/23/2019 05/22/2020 1 1 [facility] Encounter Details Date Type Department Care Team Description 06/25/2019 TH Visit Pulmonology at [facility] Armin Pruitt, Stage 3 severe COPD by GOLD classification; (TeleHealth) [facility] Pulmonary nodule; [facility] Ex-smoker; [place], [place] Center Dyspnea on exertion [phone] Pulmonary [phone] [place], [place] [address] Social History Tobacco Use Types Packs/Day Years Used Date Never Assessed Sex Assigned at Date Recorded Not on file documented as of this encounter Last Filed Vital Signs Vital Sign Reading Time Taken Comments Blood Pressure 104/76 06/25/2019 10:11 AM EDT Pulse 103 06/25/2019 10:11 AM EDT Temperature 36.4 ??C (97.5 ??F) 06/25/2019 10:11 AM EDT Respiratory Rate 18 06/25/2019 10:11 AM EDT Oxygen Saturation 94% 06/25/2019 10:11 AM EDT Inhaled Oxygen Concentration - - Weight - - Height - - Body Mass Index - - documented in this encounter Progress Notes Armin Pruitt MD - 06/25/2019 10:00 AM EDT [facility] Section of Pulmonary Medicine COPD Clinic Consultation Date of Encounter: 06/25/2019 Referring Provider: Jennifer Monge Aprn [address] [place] [address] PCP: Radha Terrazas KINESIOLOGIST [address] [place] [address] Reason for Consult: I was asked to evaluate this patient for COPD management and a pulmonary nodule.I have personally interviewed and examined the patient. I have independently viewed his pulmonary function testing data. I saw Chris Shelton via telemedicine today. I was at [facility] and he was at [facility]. RT Jasmin ([facility]) assisted. HPI: I saw Chris Shelton in the COPD clinic today. 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 It sounds like he smoked heavily and drank fairly heavily several years but quit drinking a few years back and quit smoking completely 2 years ago. He had some exertional dyspnea for many years but this got better when he quit smoking. 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 He is able to climb up hills but often finds he stopped half way up to catch his breath if the hill is particularly steep or long. A little cough but not much sputum production. He rarely needs prednisone or antibiotics. He uses no inhaled medications. He was noted to have a pulmonary nodule on CT imaging in September 2017 at the [facility] and in September 2018 at [facility]. I do not yet have those images but both reports describe a 1.8 x 1.3 x 1.8 cm well-circumscribed right lower lobe nodule with areas of fat and calcification. There apparently is also some small calcified right lung nodules consistent with old granulomatous disease. September 2018 scan felt hilar and mediastinal lymph nodes were prominent. Review of Systems: Weight stable, no fevers or chills, no exertional chest pain, no ankle swelling Past Medical History: Hypertension, hyperlipidemia, PTSD, decreased hearing bilaterally, pulmonary nodule, GI bleed Past Surgical History: No cardiopulmonary surgical history Medications: No inhaled therapy, takes aspirin, atorvastatin, lisinopril, multivitamin Allergies: No known drug allergies Social History: Lived [place] Cat at home No birds in house 40 pack year smoking history, quit 2017 Family History: Uncle had TB Immunizations: Up-to-date with influenza and pneumococcal vaccinations Examination: BP 104/76 Pulse (!) 103 Temp 36.4 ??C (97.5 ??F) Resp 18 SpO2 94% General: Comfortable at rest Resp: Hyperinflated, chest expansion equal Resonant to percussion with vesicular breath sounds throughout No crackles or wheeze Skin: No rash Extremities: No clubbing, no cyanosis, no edema, calves soft and non tender Neurologic: No obvious cranial nerve palsy or limb weakness, normal gait Psych: Normal mood and affect Labs: None Imaging: No images available yet but I reviewed the written report of the CT scan performed September 2018 at [facility]. Summary is as in the HPI Pulmonary Function Tests: June 2019 FVC 3.03 (71%) FEV1 1.46L (47%) Ratio 0.48 Assessment: 1. COPD: GOLD stage 3 category A. This is moderate / severe disease. 2. Former smoker (43 pack years), quit 2 years ago 3. Pulmonary nodules GOLD Staging - Airflow FEV1 >80% 1 FEV1 <80% 2 FEV1 <50% 3 FEV1 <30% 4 GOLD Staging - Symptoms Annual Exacerbations CAT <10 CAT >10 0 or 1 A B 2 or more Ember Pa Shashigennyjose does have COPD. Technically he has GOL D stage III COPD with an FEV1 of 47% predicted although I suspect this would actually improved to GOL D stage II disease with appropriate bronchodilator therapy. Although he is minimally short of breath with exertion it does limit him somewhat with activities he likes to do such as hiking and camping. He agreed to try Anoro 1 puff daily and seeif we notice any improvement in his symptoms. Do not yet have images from CT scans of his chest but the description of the nodules is suspicious for old granulomatous disease. The larger nodule might be a Harmatoma by description. I doubt these nodules are malignant based on the description but I think a follow-up scan now is reasonable. Depending on what that shows we may stop any further imaging or he may choose to pursue lung cancer screeningat [facility], something he will be eligible for anyway. Follow up: In 2 weeks in person at [facility] with a CT scan of the chest same day Thank you for referring this patient to the pulmonary clinic. Armin Pruitt MD documented in this encounter Plan of Treatment Not on filedocumented as of this encounter Visit Diagnoses Diagnosis Stage 3 severe COPD by GOLD classificati on Pulmonary nodule Solitary pulmonary nodule Ex-smoker Personal history of tobacco use, present ing hazards to health Dyspnea on exertion Other dyspnea and respiratory abnormalit y documented in this encounter Care Teams Lambskin Trimmer Relationship Specialty Start Date End Date Radha Terrazas APRN PCP - General Family Medicine 05/23/19 [address] [place] [address] documented as of this encounter
--- OUTSIDE RECORDS SUMMARY | 2022-05-05 12:07 | XMS_ITS | Encounter Summary ---
:1950 Author Organization [facility] Address [address] [place] [address] Care Team Providers Name Role Phone Radha Terrazas APRN Primary Care Provider Reason for Visit Reason Onset Date Comments Pre-visit Orders 07/23/2021 Encounter Details Date Type Department Care Team Description 07/23/2021 Telephone [facility] Nessa Sullivan MD Pre-visit Orders Hematology & Oncology - 111 [facility], [address] [place], [place] [address] [place] [address] [phone] (Wo rk) Social History Tobacco Use [...] this encounter Miscellaneous Notes Telephone Encounter - Reina Paul, RN - 07/23/[address] chest order faxed to [facility] at [phone] signed by Reina Paul RN at 07/23/2021 11:01 EDTTelephone Encounter - Claire Iqbal - 07/23/2021 1014 EDT Candice is calling to report that she misplaced the patient's order for a chest CT. Please fax order [facility] at [phone]. documented in this encounter Plan of Treatment Upcoming Encounters Date Type Specialty Care Team Description 09/26/2022 Office Visit Hematology and Oncology Nessa Sullivan MD [address] [facility], [facility], [facility] 2 [place], [place] [address] (Wo rk) documented as of this encounter Visit Diagnoses Not on filedocumented in this encounter Care Teams Feed Inspection Supervisor Relationship Specialty Start Date End Date Radha Terrazas APRN PCP - General 08/23/20 [address] [place] [address] documented as of this encounter
--- OUTSIDE RECORDS SUMMARY | 2022-05-05 12:07 | XMS_ITS | Encounter Summary ---
:1950 Author Organization [facility] Address [address] [place] [address] Care Team Providers Name Role Phone Radha Terrazas APRN Primary Care Provider Reason for Visit Reason Onset Date Comments Other 09/13/2021 Encounter Details Date Type Department Care Team Description 09/13/2021 Telephone [facility] Nessa Sullivan MD Other Hematology & Oncology - 111 [facility], [address] [place], [place] [id number] [place] [phone] (Wo rk) Social History Tobacco Use Types [...] Notes Telephone Encounter - Swathi Kebede - 09/13/2021 1038 EST FAXED REQUEST TO [facility] TO PUSH CT IMAGES FROM 07/26/21 AND FAX REPORTS. Swathi Kebede 09/13/2021 10:38 documented in this encounter Plan of Treatment Upcoming Encounters Date Type Specialty Care Team Description 09/26/2022 Office Visit Hematology and Oncology Nessa Sullivan MD 111 [facility], [facility], [facility] 2 [place], [place] [address] (Wo rk) documented as of this encounter Visit Diagnoses Not on filedocumented in this encounter Care Teams Machine Ii Coremaker Relationship Specialty Start Date End Date Radha Terrazas APRN PCP - General 08/23/[address] [place] [address] documented as of this encounter
--- OUTSIDE RECORDS SUMMARY | 2022-05-05 12:07 | XMS_ITS | Encounter Summary ---
:1950 Author Organization [facility] Address [address] [place] [address] Care Team Providers Name Role Phone Radha Terrazas APRN Primary Care Provider Reason for Referral Radiology Services (Routine/Next Available) - Authorized Specialty Diagnoses / Procedures Referred By Contact Refer red To Contact Diagnoses NSCLC of right lung (HCC-CMS) (HCC) Nessa Sullivan MD Procedures CT CHEST WO CONTRAST CHG DIAGNOSTIC COMPUTED TOMOGRAPHY THORAX W/O CNTRST [address] [phone] Referral ID Status Reason Start Date Expiration Date Visits V isits Requested Authorized [id number] Authorized 03/08/2022 10/22/2022 1 1 Reason for Visit Reason Onset Date Comments Pre-visit Orders 03/08/2022 Encounter Details Date Type Department Care Team Description 03/08/2022 Telephone [facility] Nessa Sullivan MD Pre-visit Orders Hematology & Oncology - 111 [facility] [address] [address] [place], [place] [phone] (Wo rk) Social History Tobacco Use [...] encounter Miscellaneous Notes Telephone Encounter - Reina Paul RN - 03/08/2022 1439 EDT Spoke with Lynn. Verified CT w/o contrast okay and new order will be sent.. elephone Encounter - Antonio Martin - 03/08/2022 1421 EDT Lynn calling to let Dr Sullivan know that patient is scheduled currently for a CT scan 03/10. Due to a national IV shortage they will only be able to do this without contrast. If that's ok with Dr Sullivan they will need new orders. If she wants to wait they can reschedule. Please call back to advise. documented in this encounter Plan of Treatment Upcoming Encounters Date Type Specialty Care Team Description 09/26/2022 Office Visit Hematology and Oncology Nessa Sullivan MD 111 [place] [facility], [facility], [facility] 2 [place], [place] [address] (Wo rk) Scheduled Orders Name Type Priority Associated Diagnoses Order S chedule CT CHEST WO CONTRAST Imaging Routine NSCLC of right lung Expected: 03/08/2022, (HCC-CMS) (HCC) Expires: documented as of this encounter Visit Diagnoses Diagnosis NSCLC of right lung (HCC-CMS) (HCC) - Pr imary documented in this encounter Care Teams Register Of Deeds Relationship Specialty Start Date End Date Radha Terrazas APRN PCP - General 08/23/20 [address] [place] [phone] documented as of this encounter
--- OUTSIDE RECORDS SUMMARY | 2022-05-05 12:07 | XMS_ITS | Encounter Summary ---
:1950 Author Organization [facility] Address [address] [place] [address] Care Team Providers Name Role Phone Radha Terrazas APRN Primary Care Provider Encounter Details Date Type Department Care Team Description 02/19/2021 Orders Only [facility] Sarah Beth Summers Malignan t neoplasm of Hematology & Oncology - RN lung , unspecified [place] laterality, unspecified 111 [facility] part of lung (HCC-CMS) [place] [address] (Primary Dx) [phone] Social History Tobacco Use Types Packs/Day Years [...] Oncology Nessa Sullivan MD 111 [facility], [facility], [facility] 2 [place], [place] [address] (Wo rk) documented as of this encounter Visit Diagnoses Diagnosis Malignant neoplasm of lung, unspecified laterality, unspecified part of lung (HCC-CMS) (HCC) - Primary documented in this encounter Care Teams Pediatric Oncologist Relationship Specialty Start Date End Date Radha Terrazas APRN PCP - General 08/23/20 [address] [place] [address] documented as of this encounter
--- OUTSIDE RECORDS SUMMARY | 2022-05-05 12:08 | XMS_ITS | Encounter Summary ---
:1950 Author Organization [facility] Address [address] [place] [address] Care Team Providers Name Role Phone Radha Terrazas APRN Primary Care Provider Reason for Referral Radiology Services (Routine) - Authorization Not Required Specialty Diagnoses / Procedures Referred By Contact Refer red To Contact Diagnoses NSCLC of right lung (HCC-CMS) (HCC) SCC (squamous cell carcinoma) Hamartoma of lung (HCC-CMS) (HCC) Spontaneous pneumothorax Aneurysm (HCC-CMS) (HCC) Atherosclerosis Nessa Sullivan MD Procedures CT CHEST W CONTRAST [address] [phone] Referral ID Status Reason Start Expiration Visits Visits Date Date Requested Authorized [id number] Authorization Not 11/29/2020 1 1 Required Reason for Visit Radiology Services (Routine) - Authorization Not Required Specialty Diagnoses / Procedures Referred By Contact Refer red To Contact Diagnoses NSCLC of right lung (HCC-CMS) (HCC) SCC (squamous cell carcinoma) Hamartoma of lung (HCC-CMS) (HCC) Spontaneous pneumothorax Aneurysm (HCC-CMS) (HCC) Atherosclerosis Nessa Sullivan MD Procedures CT CHEST W CONTRAST [address] [address] Referral ID Status Reason Start Expiration Visits Visits Date Date Requested Authorized [id number] Authorization Not 11/29/2020 1 1 Required Encounter Details Date Type Department Care Team Description 02/05/2021 Hospital Encounter Therese Chavez CT NSCLC of right lung ([facility] ); [address] [facility] SCC (squamous cell carcinoma ); [place] [address] Hamartoma of lung ([facility]); [phone] Spontaneous pne umothorax; Aneurysm ([facility]); Atherosclerosis Social History Tobacco Use Types Packs/Day Years [...] Hematology and Oncology Nessa Sullivan MD [address] [place] [address] [facility], [facility], Level 2 [place], [place] [address] (Wo rk) documented as of this encounter Procedures Procedure Name Priority Date/Time Associated Diagnosis Comme nts CT CHEST W CONTRAST Routine 02/05/2021 11:30 NSCLC of right yahir ng Results for this EDT (HCC-CMS) procedure are in SCC (squamous cell the resul ts carcinoma) section. Hamartoma of lung (HCC-CMS) Spontaneous pneumothorax Aneurysm (HCC-CM S) Atherosclerosis documented in this encounter Results CT CHEST W CONTRAST (02/05/2021 11:30 EDT) Anatomical Region Laterality Modality Chest Computed Tomography Specimen Impressions [facility] - 02/05/2021 12:24 EDT 1. ??No evidence of recurrent or metastatic disease in the chest in this patient who is status post r ight upper (squamous cell carcinoma) and middle lobe (hematoma) wedge resection as well as pleurodesis. 2. ??Chronic bronchitis and emphysema. 3. ??Mild basilar fibrosis. 4. ??Coronary and aortic atherosclerosis . 5. ??Increase in size of right axillary lymph nodes, related to recent Covid 19 vaccination. Narrative [facility] - 02/05/2021 12:[address] CHEST W CONTRAST ??02/05/2021 11:30 AM Clinical History/Comments: Complex Patient Condition - See Comments Technique: A single breath-hold helical CT acquisit ion was performed through the chest on a multidetector-row scanner with a reconstructed slice thickness of 3 mm and retrospectively reconstructed 0.9 mm thick sec tions with 0.45 mm overlapping intervals . ??The scans were obtained from the lung apices through the bases during the intravenous administration of 70-100 cc of 350-370 mg% nonionic contrast injected at a rate of 2 cc/second. Scans were revie wed on a dedicated PACS workstation for analysis. Exam description: CT of the chest with c ontrast Comparison: 3 months prior Findings: Lower neck: No abnormalities. Chest wall soft tissues: New asymmetric right axillary lymph nodes in keeping with recent Covid 19 vaccination. Mediastinum and kaycee: No enlarged medias tinal or hilar lymph nodes. ??The esophagus appears normal. Heart and mediastinal vasculature: ??Harjinder cified plaques of the coronary arteries and aorta. Large airways: ??Mild diffuse large airw ays thickening. Secretions within the lower portions of the trachea. Lungs: ??Excessive centrilobular and par aseptal emphysema. Reticulations within the periphery of the lower lobes, right greater than left. Status post wedge resection within the right middle lobe. Addit ional suture material within the medial aspects of the right upper lobe extending to the apex. No new or enlarging nodules. Pleura: Right-sided pleural thickening. Upper abdomen (limited to upper abdomen, not optimized for abdominal imaging): No abnormalities. Bones: ??Multilevel degenerative disc di sease within the thoracic spine. Old right-sided rib fractures. Procedure Note Eduardo Jordan MD - 02/05/2021 CT CHEST W CONTRAST 02/05/2021 11:30 AM Clinical History/Comments: Complex Patient Condition - See Comments Technique: A single breath-hold helical CT acquisit ion was performed through the chest on a multidetector-row scanner with a reconstructed slice thickness of 3 mm and retrospectively reconstructed 0.9 mm thick sections with 0.45 mm overlapping intervals. The scans were obtained from the lung apices through the bases during the intravenous administration of 70-100 cc of 350-370 mg% nonionic contrast injected at a rate of 2 cc/second. Scans were reviewed on a dedicated [facility]. Exam description: CT of the chest with c ontrast Comparison: 3 months prior Findings: Lower neck: No abnormalities. Chest wall soft tissues: New asymmetric right axillary lymph nodes in keeping with recent Covid 19 vaccination. Mediastinum and kaycee: No enlarged medias tinal or hilar lymph nodes. The esophagus appears normal. Heart and mediastinal vasculature: Calci fied plaques of the coronary arteries and aorta. Large airways: Mild diffuse large airway s thickening. Secretions within the lower portions of the trachea. Lungs: Excessive centrilobular and jose e eptal emphysema. Reticulations within the periphery of the lower lobes, right greater than left. Status post wedge resection within the right middle lobe. Additional suture material within the medial aspects of th e right upper lobe extending to the apex. No new or enlarging nodules. Pleura: Right-sided pleural thickening. Upper abdomen (limited to upper abdomen, not optimized for abdominal imaging): No abnormalities. Bones: Multilevel degenerative disc dise ase within the thoracic spine. Old right-sided rib fractures. IMPRESSION 1. No evidence of recurrent or metastati c disease in the chest in this patient who is status post right upper (squamous cell carcinoma) and middle lobe (hematoma) wedge resection as well as pleurodesis. 2. Chronic bronchitis and emphysema. 3. Mild basilar fibrosis. 4. Coronary and aortic atherosclerosis. 5. Increase in size of right axillary ly mph nodes, related to recent Covid 19 vaccination. Performing Organization Address City/State/ZIP Code Phon e Number [facility] documented in this encounter Visit Diagnoses Diagnosis NSCLC of right lung (HCC-CMS) (HCC) SCC (squamous cell carcinoma) Squamous cell carcinoma of skin, site un specified Hamartoma of lung (HCC-CMS) (HCC) Benign neoplasm of bronchus and lung Spontaneous pneumothorax Other pneumothorax Aneurysm (HCC-CMS) (HCC) Aneurysm of unspecified site Atherosclerosis Generalized and unspecified atherosclero sis documented in this encounter Administered Medications Inactive Administered Medications - up to 3 most recent administrations Medication Order MAR Action Action Date Dose Rate Site iohexoL (OMNIPAQUE 350) solution 100 Given 02/05/2021 11:30 EDT 60 mL mL 100 mL, intravenous, Once in imaging, 1 dose, Starting on Mon02/05/21 at 1122, Until Mon02/05/21 at 1130, Routine, Imaging Protocol Orders documented in this encounter Orders Medications Ordered That Might Not Have Count Last Ord ered Date First Ordered Date Been Administered iohexoL (OMNIPAQUE 350) solution 100 mL 1 02/06/20 21 documented in this encounter Care Teams Payroll Clerk Relationship Specialty Start Date End Date Radha Terrazas APRN PCP - General 08/23/[address] [place] [address] documented as of this encounter
--- OUTSIDE RECORDS SUMMARY | 2022-05-05 12:08 | XMS_ITS | Encounter Summary ---
:1950 Author Organization [facility] Address [address] [place] [address] Care Team Providers Name Role Phone Radha Terrazas APRN Primary Care Provider Reason for Visit Reason Onset Date Comments Labs Only 12/23/2020 Encounter Details Date Type Department Care Team Description 12/23/2020 Telephone [facility] Nessa Sullivan MD Labs Only Hematology & Oncology - 111 [facility], [address], [address] [place], [place] [id number] [place] [phone] (Wo rk) Social History Tobacco Use Types [...] this encounter Miscellaneous Notes Telephone Encounter - Adrianna Patel RN - 12/23/2020 1352 EST Called, spoke with Dorcas and confirmed lab order sent to [facility] elephone Encounter - Adrianna Patel RN - 12/23/2020 1350 EST Orders entered and sent to [facility] for creatinine w/ GFR elephone Encounter - Laverne Manning - 12/23/2020 1313 EST Patient needs labs for CT; please send to [facility] as soon as possible Please call when ready documented in this encounter Plan of Treatment Upcoming Encounters Date Type Specialty Care Team Description 09/26/2022 Office Visit Hematology and Oncology Nessa Sullivan MD 111 [facility], [facility] 2 [place], [place] [phone] (Wo rk) documented as of this encounter Visit Diagnoses Diagnosis NSCLC of right lung (HCC-CMS) (HCC) - Pr imary documented in this encounter Care Teams Senior Web Services Developer Relationship Specialty Start Date End Date Radha Terrazas APRN PCP - General 08/23/[address] [place] [address] documented as of this encounter
--- OUTSIDE RECORDS SUMMARY | 2022-05-05 12:08 | XMS_ITS | Encounter Summary ---
:[address] [facility] Address [address] [place] [address] Care Team Providers Name Role Phone Radha Terrazas APRN Primary Care Provider Reason for Visit Reason Onset Date Comments Appointment Related 12/30/2020 Encounter Details Date Type Department Care Team Description 12/30/2020 Telephone [facility] Nessa Sullivan MD Appointment Related Hematology & Oncology 111 [facility], [facility] 111 [facility], Level 2 [place], [place] [id number] [place] [address] [phone] (Wo rk) Social History Tobacco Use [...] this encounter Miscellaneous Notes Telephone Encounter - Bonny Corcoran - 12/30/2020 1013 EST Called pts daughter back to see if she wants to move scans out till March because rosario is booked out that far. documented in this encounter Plan of Treatment Upcoming Encounters Date Type Specialty Care Team Description 09/26/2022 Office Visit Hematology and Oncology Nessa Sullivan MD 111 [facility], [facility] 2 [place], [place] [phone] (Wo rk) documented as of this encounter Visit Diagnoses Not on filedocumented in this encounter Care Teams Loading Manager Relationship Specialty Start Date End Date Radha Terrazas APRN PCP - General 08/23/[address] [place] [address] documented as of this encounter
--- OUTSIDE RECORDS SUMMARY | 2022-05-05 12:08 | XMS_ITS | Encounter Summary ---
:1950 Author Organization [facility] Address [address] [place] [address] Care Team Providers Name Role Phone Radha Terrazas APRN Primary Care Provider Reason for Visit Reason Onset Date Comments Labs Only 12/29/2020 Encounter Details Date Type Department Care Team Description 12/29/2020 Telephone [facility] Nessa Sullivan MD Labs Only Hematology & Oncology - 111 [facility], [address], Level 2 [place], [place] [id number] [place] [phone] (Wo rk) Social History Tobacco Use Types [...] this encounter Miscellaneous Notes Telephone Encounter - Josseline Sampson RN - 12/29/2020 1036 EST BMP order routed to [facility] lab and called to confirm order was sent. elephone Encounter - Ej Panda - 12/29/2020 1025 EST Facesheet for pt's lab states that provider wants GFR ratio, but only ordered creatinine and no BUN.highway technician looking for clarification. Paged nurse. Pt at lab. documented in this encounter Plan of Treatment Upcoming Encounters Date Type Specialty Care Team Description 09/26/2022 Office Visit Hematology and Oncology Nessa Sullivan MD [address] [facility], [facility], Level 2 [place], [place] [phone] (Wo rk) documented as of this encounter Visit Diagnoses Not on filedocumented in this encounter Care Teams General Farmworker Relationship Specialty Start Date End Date Radha Terrazas APRN PCP - General 08/23/[address] [place] [address] documented as of this encounter
--- OUTSIDE RECORDS SUMMARY | 2022-05-05 12:08 | XMS_ITS | Encounter Summary ---
:1950 Author Organization [facility] Address [address] [place] [address] Care Team Providers Name Role Phone Radha Terrazas APRN Primary Care Provider Encounter Details Date Type Department Care Team Description 11/30/2020 Orders Only [facility] MD Radiology - Main [place] [address] [address] [address] [place], [place] [phone] (Wo rk) Social History [...] Hematology and Oncology Nessa Sullivan MD 111 [facility], [facility] 2 [place], [place] [phone] (Wo rk) documented as of this encounter Visit Diagnoses Not on filedocumented in this encounter Care Teams Chef Kitchen Manager Relationship Specialty Start Date End Date Radha Terrazas APRN PCP - General 08/23/[address] [place] [phone] documented as of this encounter
--- OUTSIDE RECORDS SUMMARY | 2022-05-05 12:08 | XMS_ITS | Encounter Summary ---
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 Spontaneous pneumothorax; 111 [facility] Main Aneurysm (HCC-CMS); [place], [place] [address], [address] 2 Atherosclerosis [address] [place], [place] [phone] (Wo rk) Social History Tobacco Use [...] encounter Progress Notes Nessa Sullivan MD - 11/27/2020 1030 EST Oncology follow up visit Date of Visit:11/27/2020 Reason for Consultation: Adjuvant therapy for squamous cell carcinoma of lung Referring Physician: Radha Terrazas Oncologic history: Chris Shelton is a 70 y.o. male with COPD, right lung nodule (which had been followed by serial CT scans and deemed to be stable). He had 1 week history of trouble breathing prior to presentation which progressively got worse and eventually he was seen at [facility] ED on 09/21/2020 and was transferred to [facility] due to refractory right-sided pneumothorax despite chest tube placement (had persistent air leak). He had a right-sided chest tube placement here at [facility] on 09/22/2020 and subsequently, was taken to [...] complained about earlier). History of Present Illness: Healing well from surgery, outside is normal but he feels a twinge every now and then and feels thatthings are still healing inside. Does not report any fevers, chills, night sweats, nausea, vomiting,diarrhea, constipation, abdominal pain, SHARPE or chest pain or any new neurologic issues (KELLY/blurred vision/focal deficits). Patient Active Problem List Diagnosis Date Noted ??? Spontaneous pneumothorax 09/21/2020 Priority: [facility] PS Past Medical History: Diagnosis Date ??? COPD (chronic obstructive pulmonary disease) ([facility]) ??? GIB (gastrointestinal bleeding) ??? HTN (hypertension) ??? Umbilical hernia recurred after mesh failure Past Surgical History: Procedure Laterality Date ??? UMBILICAL HERNIA REPAIR Lt foot surgery in 80s SOCIAL HISTORY FAMILY HISTORY Social History Tobacco Use ??? Smoking status: Former Smoker Quit date: 2016 Years since quittin.1 ??? Smokeless tobacco: Never Used Substance Use Topics ??? 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 Lives alone, but came to clinic [...] docusate sodium (COLACE) 100 mg capsule ??? senna (SENOKOT) 8.6 mg tablet ??? TAMSulosin (FLOMAX) 0.4 mg capsule No current facility-administered medications for [...] consistent with historyof pneumothorax. Imaging: CT chest 21: IMPRESSION 1. Status post middle and upper lobe bleb resection without evidence of complication. 2. No new pulmonary nodules. 3. Severe smoking-related lung disease. 4. Coronary and aortic atherosclerotic disease. Upon my review, the Rt axillary nodes are enlarged but they appear normal in architecture along withthe subcarinal node, likely reactive given recent surgical resection and pleurodesis, will need close f/u on imaging. CT abdomen pelvis with contrast 11.19.20: IMPRESSION 1. No lymphadenopathy or metastatic disease identified in the abdomen or pelvis. 2. 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 Ectasia of the infrarenal abdominal aorta. I have personally reviewed above imaging and discussed with patient/family. Assessment: Chris Shelton is a 70 y.o. male with past medical history of smoking (quit >5 years ago), COPD, hypertension, who developed spontaneous pneumothorax in August 2020, had persistent air leak after chest tube placement and was transferred to [facility] from [facility] ED for refractory pneumothorax. He underwent [...] decided to follow him with active surveillance. Today, we reviewed CT c/a/p from 11.19.20. I'll f/u on the borderline nodes on next imaging, their architecture appears normal. He also has atherosclerosis and aneurismal changes as noted above. I have asked him to discuss with his PCP regarding those and will also send my note to them. Plan: 1. F/U with me in [address] chest with contrast. (I have reached out to pulmonary team regarding further w/u of the subcarinal node and will update the patient if changes in plan are warranted. Otherwise, I will continue CT chest for active surveillance every 6 months for first 2 years and thenhe will get annual exam and imaging for 5 years. After that he can continue with low-dose lung CTs and follow-up with his PCP. 2. He is on ASA and statin, I discussed with him regarding coronary and aortic atherosclerosis, and he will d/w them further. Regarding the aneurismal changes in splenic and iliac vessels and ectasia of the infra renal aorta, I d/w him regarding possible referral to vascular for subsequent imaging or f/u with his PCP with imaging to see if the size is changing. He will see his PCP for now. MD Kvng. The concept of ???Telemedicine?? has [...] : Home The location of the provider: Home office The following staff and their role did participate in today's encounter visit: Nessa Sullivan MD documented in this encounter Plan of Treatment Upcoming Encounters Date Type Specialty Care Team Description 09/26/2022 Office Visit Hematology and Oncology Nessa Sullivan MD [address] venue [facility], [facility], Level 2 [place], [place] [phone] (Wo rk) documented as of this encounter Results CT CHEST W CONTRAST (02/05/2021 11:30 EDT) Anatomical Region Laterality Modality Chest Computed Tomography Specimen Impressions [facility] - 02/05/2021 12:24 EDT 1. ??No evidence [...] related to recent Covid 19 vaccination. Narrative [facility] - 02/05/2021 12:[address] CHEST W [...] [facility]. Exam description: CT of the [...] Organization Address City/State/ZIP Code Phon e Number [facility] documented in this encounter Visit Diagnoses Diagnosis NSCLC of right lung (HCC-CMS) (HCC) - Pr imary SCC (squamous cell carcinoma) Squamous cell carcinoma of skin, site un specified Hamartoma of lung (HCC-CMS) (HCC) Benign neoplasm of bronchus and lung Spontaneous pneumothorax Other pneumothorax Aneurysm (HCC-CMS) (HCC) Aneurysm of unspecified site Atherosclerosis Generalized and unspecified atherosclero sis NSCLC of right lung (HCC-CMS) (HCC) SCC (squamous cell carcinoma) Squamous cell carcinoma of skin, site un specified Hamartoma of lung (HCC-CMS) (HCC) Benign neoplasm of bronchus and lung Spontaneous pneumothorax Other pneumothorax Aneurysm (HCC-CMS) (HCC) Aneurysm of unspecified site Atherosclerosis Generalized and unspecified atherosclero sis documented in this encounter Discontinued Medications Medication Sig Discontinue Reason Start Date End Date senna (SENOKOT) 8.6 mg Take 1-2 Tabs by 10/01/2020 0 11/27/2020 tablet mouth daily as needed (constipation). documented as of this encounter Care Teams Conference Services Manager Relationship Specialty Start Date End Date Radha Terrazas APRN PCP - General 08/23/[address] [place] [phone] documented as of this encounter
--- OUTSIDE RECORDS SUMMARY | 2022-05-05 12:08 | XMS_ITS | Encounter Summary ---
:1950 Author Organization [facility] Address [address] [place] [address] Care Team Providers Name Role Phone Radha Terrazas APRN Primary Care Provider Reason for Visit Reason Comments Telemedicine Video Visit Encounter Details Date Type Department Care Team Description 02/09/2021 Telemedicine [facility] Nessa Sullivan Mali gnant neoplasm of lung, unspecified laterality, unspecified part of lung (HCC-CMS) (Primary Dx); Hematology & MD Hamartoma of lung (HCC-CMS); Oncology - Main [address] [place] [address] SCC (squam ous cell carcinoma) [address] [place] [address] [address], [place] [phone] (Wo rk) Social History Tobacco [...] documented as of this encounter Progress Notes Chacorta Jimenes MD - 02/09/2021 1100 EDT Oncologyfollow up visit Date of Visit:02/09/2021 Reason for Consultation: Adjuvant therapy for squamous cell carcinoma of lung Referring Physician: Radha Terrazas The concept of ???Telemedicine?? has been described [...] role did participate in today's encounter visit: MD Chacorta Evans MD Oncologic history: Chris Shelton is a 70 y.o. male with COPD, right lung nodule (which had been followed by serial CT scans and deemed to be stable). He had 1 week history of trouble breathing prior to presentation which progressively got worse and eventually he was seen at [facility] ED on 09/21/2020 and was transferred to [facility] due to refractory right-sided pneumothorax despite chest tube placement (had persistent air leak). He had a right-sided chest tube placement here at [facility] on 09/22/2020 and subsequently, was taken to [...] euvolemic hyponatremia due to decreased solute intake. History of Present Illness: He feels that he is recovering well from surgery after resolution of above complications. Currently denies any fevers, chills, night sweats. Does not report any headaches or any neurologic issues. He has also complained of sinus issues (which I think could be contributing to foul taste in his mouth that he complained about earlier). He has an occasional cough but his lung capacity feels is improving significantly Patient Active Problem List Diagnosis Date Noted ??? Spontaneous pneumothorax 09/21/2020 Priority: Medium [facility] PSH Past Medical History: Diagnosis Date ??? COPD (chronic obstructive pulmonary disease) ([facility] ??? GIB (gastrointestinal bleeding) ??? HTN (hypertension) ??? Umbilical hernia recurred after mesh failure Past Surgical History: Procedure Laterality Date ??? UMBILICAL HERNIA REPAIR Lt foot surgery in 80s SOCIAL HISTORY FAMILY HISTORY Social History Tobacco Use ??? Smoking status: Former Smoker Quit date: 2016 Years since quittin.3 ??? Smokeless tobacco: Never Used Substance Use Topics ??? 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 Lives alone, but came to clinic with [...] as this was a televisit, performed d/t RADHA 19 pandemic. Labs: Lab Results Component Value [...] consistent with historyof pneumothorax. Imaging: CT chest 02-05-21 IMPRESSION 1. No evidence of recurrent or metastatic disease in the chest in this patient who is status post right upper (squamous cell carcinoma) and middle lobe (hematoma) wedge resection as well as pleurodesis. 2. Chronic bronchitis and emphysema. 3. Mild basilar fibrosis. 4. Coronary and aortic atherosclerosis. 5. Increase in size of right axillary lymph nodes, related to recent Covid 19 vaccination. ?? Assessment: Chris Shelton is a 70 y.o. male with past medical history of smoking (quit >5 years ago), COPD, hypertension, who developed spontaneous pneumothorax in August 2020, had persistent air leak after chest tube placement and was transferred to [facility] from [facility] ED for refractory pneumothorax. He underwent [...] a pulmonary hematoma (2 cm maximum dimension). I explained to Chris and his daughter [...] old and after assessing pros and cons of chemotherapy, it was decided to follow him with active surveillance. Today, we reviewed CT c/a/p from 02-05-. Still RITA and it cleared the previous suspicion of borderline lymphadenopathy so will go back to follow up with imaging every 6 months Plan: 1. F/U with in [address] chest with contrast. 2. Will follow up with surgery in regards of clearance for weight lifting so he can go back to work. This case was seen and discussed with Dr.Rehman Chacorta Jimenes MD PGY5 Hematology/Oncology pager [phone]. Attestation: I performed or was present during the potter or critical portions of the visit and participated in the management of the patient on 02.09.21. I agree with the findings and plan of care as documented in the resident's/fellow's note. Nessa Sullivan MD 02/10/2021 7:35 documented in this encounter Plan of Treatment Upcoming Encounters Date Type Specialty Care Team Description 09/26/2022 Office Visit Hematology and Oncology Nessa Sullivan MD 111 [facility] venue [facility], [facility] [place] [facility], [facility] 2 [place], [place] [phone] (Wo rk) documented as of this encounter Visit Diagnoses Diagnosis Malignant neoplasm of lung, unspecified laterality, unspecified part of lung (HCC-CMS) (HCC) - Primary Hamartoma of lung (HCC-CMS) (HCC) Benign neoplasm of bronchus and lung SCC (squamous cell carcinoma) Squamous cell carcinoma of skin, site un specified documented in this encounter Care Teams Meteorology Professor Relationship Specialty Start Date End Date Radha Terrazas APRN PCP - General 08/23/[address] [place] [phone] documented as of this encounter
--- OUTSIDE RECORDS SUMMARY | 2022-05-05 12:08 | XMS_ITS | Encounter Summary ---
:1950 Author Organization [facility] Address [address] [place] [address] Care Team Providers Name Role Phone Radha Terrazas APRN Primary Care Provider Reason for Visit Reason Onset Date Comments Results 10/26/2020 10/20/2020 laborator y test results Encounter Details Date Type Department Care Team Description 10/26/2020 Telephone [facility] Johan Torres Res ults (10/20/2020 Cardiothoracic Surgery - MD laboratory test Main [place] [address] [place] results) [address] [phone] [facility] Level 5 [place] [phone] (Wo rk) Social History Tobacco [...] been in contact with No / Unsure 10/14/2020 13:42 EST someone who was confirmed or suspected to [...] this encounter Miscellaneous Notes Telephone Encounter - Abigail Roth - 10/26/2020 1517 EST 10/20/20 laboratory test results received from [employer] and scanned into [employer]. Routing to Dr. Torres for her review. documented in this encounter Plan of Treatment Upcoming Encounters Date Type Specialty Care Team Description 09/26/2022 Office Visit Hematology and Oncology Nessa Sullivan MD 111 [facility], [facility] 2 [place] [phone] (Wo rk) documented as of this encounter Visit Diagnoses Not on filedocumented in this encounter Care Teams Hat Cutter Relationship Specialty Start Date End Date Radha Terrazas APRN PCP - General 08/23/[address] [place] [phone] documented as of this encounter
--- OUTSIDE RECORDS SUMMARY | 2022-05-05 12:08 | XMS_ITS | Encounter Summary ---
:1950 Author Organization [facility] Address [address] [place] [address] Care Team Providers Name Role Phone Radha Terrazas APRN Primary Care Provider Reason for Visit Reason Comments Urinary Retention Encounter Details Date Type Department Care Team Description 10/12/2020 Office Visit [facility] - Israel Aviles MD Urinary retention due [facility] [address] to benign prostatic [address] hyperplasia ([place] [address] [place]) [phone] [id number] Social History Tobacco Use Types Packs/Day Years Used Date Former Smoker Quit: 2016 Alcohol Use Standard Drinks/Week Comments Not Currently [...] been in contact with No / Unsure 10/12/2020 9:13 EST someone who was confirmed or suspected to have Coronavirus / COVID-19? documented as of this encounter Progress Notes Israel Aviles MD - 10/12/2020 0915 EST Chief Complaint: No chief complaint on file. Reason for Consult: Urology was asked to see Chris at the request of Radha Terrazas for evaluation of post op urinary retention. HPI: Chris is a 70 y.o. male with COPD, right lung mass was admitted to [facility] 09/21/20 for right pneumothorax. Had Thoractomy/wedge resection of mass RML on 09/25. Biopsy shows invasive SCCa of lung. Waddell in place. On tamsulosin. Here for voiding trial. Denies pre-surgical obstructive LUTS or previous urinary retention. C/o SHARPE but otherwise feeling reasonably well. No fever. Patient Active Problem List Diagnosis ??? Spontaneous pneumothorax PMH PSH Past Medical History: Diagnosis Date ??? COPD (chronic obstructive pulmonary disease) ([facility]) ??? GIB (gastrointestinal bleeding) ??? HTN (hypertension) ??? Umbilical hernia recurred after mesh failure Past Surgical History: Procedure Laterality Date ??? UMBILICAL HERNIA REPAIR Social History Family History Social History Tobacco Use ??? Smoking status: Former Smoker Quit date: 2016 Years since quittin.9 Substance Use Topics ??? Alcohol use: Not Currently Comment: Quit 10 years ago No family history on file. Medications Current Outpatient Medications: ??? acetaminophen (TYLENOL) 500 mg tablet, Take 2 Tabs by mouth every 6 hours as needed for Pain or Fever (mild pain)., Disp: , Rfl: ??? albuterol 90 mcg/actuation inhaler, Inhale 1-2 Puffs as directed every 4 hours as needed for Wheezing., Disp: , Rfl: ??? aspirin 81 mg EC tablet, Take 81 mg by mouth daily., Disp: , Rfl: ??? atorvastatin (LIPITOR) 10 mg tablet, Take 20 mg by mouth at bedtime., Disp: , Rfl: ??? calcium carbonate (TUMS) 200 mg calcium (500 mg) tablet,chewable, Take 2 Tabs by mouth 4 times daily as needed for Heartburn., Disp: , Rfl: ??? docusate sodium (COLACE) 100 mg capsule, Take 1 Cap by mouth 2 times daily as needed for Constipation., Disp: , Rfl: ??? methocarbamoL (ROBAXIN) 500 mg tablet, Take 1 Tab by mouth 3 times daily as needed for Pain or Muscle Spasms., Disp: 21 Tab, Rfl: 0 ??? senna (SENOKOT) 8.6 mg tablet, Take 1-2 Tabs by mouth daily as needed (constipation)., Disp: , Rfl: ??? TAMSulosin (FLOMAX) 0.4 mg capsule, Take 1 Cap by mouth daily for 90 days., Disp: 30 Cap, Rfl: 2 Allergies No Known Allergies Review of Systems: Review of Systems Constitutional: Negative. HENT: Positive for hearing loss. Eyes: Negative. Respiratory: Positive for shortness of breath. Cardiovascular: Negative. Gastrointestinal: Negative. Genitourinary: Negative. Musculoskeletal: Negative. Skin: Negative. Neurological: Negative. Endo/Heme/Allergies: Negative. Psychiatric/Behavioral: Negative. Objective/Physical Exam: Vital Signs: There were no vitals taken for this visit. Exam: Constitutional: Alert, in no distress. Using wheelchair. BIG SANDY Respiratory: Respirations unlabored. Intact dressing right side of chest Cardiovascular: Pulse regular. Gastrointestinal: Abdomen soft, non tender. Genital: Circumcised phallus with patent meatus at the tip, [address] Testes descended bilaterally without masses. Rectal: deferred Musculoskeletal: Extremities warm without edema. Skin: Skin warm and dry. Neuro: alert and oriented Data Review: NA Labs: BMP: Lab Results Component Value Date NA 130 (L) 10/01/2020 K 4.5 10/01/2020 CL 94 (L) 10/01/2020 CO2 31 10/01/2020 BUN 17 10/01/2020 CREATININE 0.55 (L) 10/01/2020 CALCIUM 9.0 09/22/2020 MG 1.9 09/29/2020 LABALBU 2.9 (L) 2020 Other Studies: N/A Impression: Lung CA/pneumothorax: post thoracotomy urinary retention. Waddell out today for voiding trial. Is on tamsulosin. Daughter present. Denies previous symptoms. Will call back later today to check in. Continue alpha jaylan. Suggestions/Recommendations: As above. 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
--- OUTSIDE RECORDS SUMMARY | 2022-05-05 12:08 | XMS_ITS | Encounter Summary ---
:1950 Author Organization [facility] Address [address] [place] [address] Care Team Providers Name Role Phone Radha Terrazas APRN Primary Care Provider Reason for Referral Radiology Services (Routine) - Authorization Not Required Specialty Diagnoses / Procedures Referred By Contact Refer red To Contact Diagnoses SCC (squamous cell carcinoma) NSCLC of right lung (HCC-CMS) (HCC) Hamartoma of lung (HCC-CMS) (HCC) Nessa Sullivan MD Procedures CT ABDOMEN PELVIS W CONTRAST [address] [address] Referral ID Status Reason Start Expiration Visits Visits Date Date Requested Authorized [id number] Authorization Not 11/01/2020 1 1 Required adiology Services (Routine) - Authorization Not Required Specialty Diagnoses / Procedures Referred By Contact Refer red To Contact Diagnoses SCC (squamous cell carcinoma) NSCLC of right lung (HCC-CMS) (HCC) Hamartoma of lung (HCC-CMS) (HCC) Nessa Sullivan MD Procedures CT CHEST W CONTRAST [address] [address] Referral ID Status Reason Start Expiration Visits Visits Date Date Requested Authorized [id number] Authorization Not 11/01/2020 1 1 Required Reason for Visit Reason Comments New Patient Visit Consult (Routine) - Authorization Not Required Specialty Diagnoses / Referred By Contact Referred To Contact Procedures Hematology and Diagnoses Spontaneous pneumothorax Lung nodule Lung cancer ([facility]) ([facility]) Johan Torres MD [facility] Hem/Onc Oncology [address] [place] [address] [address], [address] [place], [place] Fax: [phone] Referral ID Status Reason Start Expiration Visits Visits Date Date Requested Authorized [id number] Authorization Specialty 10/01/20 1 1 Not Required Services 20 Required Encounter Details Date Type Department Care Team Description 10/13/2020 Office Visit [facility] Nessa Sullivan Tul, SCC (squamous cell carcinoma) (Primary Dx); Hematology & MD NSCLC of right lung ([facility]); Oncology - Main [address] [place] [address] Hamartoma of lung ([facility]) [address] [place] [address] [address], [place] [address] (Wo rk) Social History Tobacco [...] / COVID-19? documented as of this encounter Last Filed Vital Signs Vital Sign Reading Time Taken Comments Blood Pressure 159/89 10/13/2020 1456 EST Pulse 112 10/13/2020 1456 EST Temperature 36.8 ??C (98.2 ??F) 10/13/2020 1456 EST Respiratory Rate 16 10/13/2020 1456 EST Oxygen Saturation 92% 10/13/2020 1456 EST Inhaled Oxygen Concentration - - Weight 81.1 kg (178 lb 11.2 oz) 10/13/2020 1456 EST Height - - Body Mass Index 25.64 09/21/2020 1440 EST documented in this encounter Progress Notes Nessa Sullivan MD - 10/13/2020 1500 EST Images from the original note were not included. Oncology New Patient Consult Date of Visit:10/13/2020 Reason for Consultation: Adjuvant therapy for squamous cell carcinoma of lung Referring Physician: Radha Terrazas History of Present Illness: Chris Shelton is a 70 y.o. male with COPD, right lung nodule (which had been followed by serial CT scans and deemed to be stable). He had 1 week history of trouble breathing prior to presentation which progressively got worse and eventually he was seen at [facility] ED on 09/21/2020 and was transferred to [facility] due to refractory right-sided pneumothorax despite chest tube placement (had persistent air leak). He had a right-sided chest tube placement here at [facility] on 09/22/2020 and subsequently, was taken [...] his mouth that he complained about earlier). Patient Active Problem List Diagnosis Date Noted ??? Spontaneous pneumothorax 09/21/2020 Priority: Medium [facility] Past Medical History: Diagnosis Date ??? COPD (chronic obstructive pulmonary disease) ([facility]) ??? GIB (gastrointestinal bleeding) ??? [...] Comment: Quit 10 years ago Worked at [employer], and prior to his admission was moving heavy furniture around without difficulty.Previously he has worked in [facility] [employer] [facility]. Lives alone, but came to clinic with his daughter Dorcas.No family history on file. ALLERGIES No Known Allergies Current Outpatient Medications Medication ??? acetaminophen (TYLENOL) 500 mg tablet ??? albuterol 90 mcg/actuation inhaler ??? aspirin 81 mg EC tablet ??? atorvastatin (LIPITOR) 10 mg tablet ??? calcium carbonate (TUMS) 200 mg calcium (500 mg) tablet,chewable ??? docusate sodium (COLACE) 100 mg capsule ??? methocarbamoL (ROBAXIN) 500 mg tablet ??? senna (SENOKOT) 8.6 mg tablet ??? TAMSulosin (FLOMAX) 0.4 mg capsule No current facility-administered medications for this visit. REVIEW OF SYSTEMS: A complete 10 point review of systems was performed and is otherwise negative. Physical Exam: BP (!) 159/89 Pulse (!) 112 Temp 36.8 ??C (98.2 ??F) (Skin) Resp 16 Wt 81.1 kg (178 lb 11.2 oz) SpO2 92% BMI 25.64 kg/m?? General: Nontoxic, no apparent distress, appears stated age. Has bilateral periorbital edema. Eyes: Sclerae anicteric, pupils equally reactive to light. Extraocular movements grossly intact. ENT/neck: Oral mucosa without lesions. Oropharynx is clear. Neck is supple, without masses or thyromegaly. Chest is clear to auscultation bilaterally. Multiple right-sided healing wounds on the chest wall from VATS. No erythema or pus noted around the incisions. Cardiovascular: Regular rate and rhythm, no murmurs, gallops or rubs. Abdomen is soft, nontender, nondistended with normal abdominal bowel sounds, no hepatosplenomegaly, no palpable masses. Extremities: No clubbing, cyanosis or edema. Heme/lymph: No cervical, supraclavicular, axillary adenopathy. Neuro: Oriented and appropriate. CN II-XII grossly intact, non focal. Labs: Lab Results Component Value Date WBC [...] CREATININE 0.55 (L) 10/01/2020 CALCGFR 105 10/01/2020 No results found for: PROTIME, INR, PTT A. LUNG, RIGHT, UPPER LOBE, VIDEO-ASSISTED THORACOSCOPIC [...] reactive mesothelial hyperplasia consistent with historyof pneumothorax. Assessment: Chris Shelton is a 70 y.o. male with past medical history of smoking (quit 5 years ago), COPD, hypertension, who developed spontaneous pneumothorax in August 2020, had persistent air leak after chest tube placement and was transferred to [facility] from [facility] ED for refractory pneumothorax.He underwent right video-assisted thoracoscopic surgery, right upper lobe wedge resection, right middle lobe wedge resection of nodule and mechanical and talc pleurodesis on 09/25/2020. Right upper lobelesion pathology showed squamous cell carcinoma, invasive, nonkeratinizing (0.5 cm) AJCC: pT1a, pNX.There was also adjacent squamous cell carcinoma in situ. Vascular invasion was present, however margins were negative (tumor at least 0.15 cm from parenchymal/stapled margin). Right middle lobe lung lesion was found to be a pulmonary hematoma (2 cm maximum dimension). I tried to look up the imaging from this admission and to see if there was any PET scan done for staging after the cancer was found. However, I did not find any scans though there are some x-rays in [facility]. I am not sure if this is because of the cyber attack that I am not able to see any scans or if they were never done. I explained to Chris and his daughter [...] decided to follow him with active surveillance. Though again this will depend on if this is the only tumor (squamous cell cancer right upper lobe). I told him that the hemartoma is a benign tumor and would not need any further therapy after resection. Plan: 1. I have reached out to our clinic staff to obtain CT images if they were done at [facility] (the only scan I could find in PACS was the July 2020 CT chest, which I reviewed with patient and his daughter). We will need to check if he had any PET scan or other scans to complete staging (CT abdomen and pelvis). If this is the only lesion, the size is small and he would not need a brain MRI, given no concerning symptoms. 2. I will continue CT chest for active surveillance every 6 months for first 2 years and then he will get annual exam and imaging for 5 years. After that he can continue with low-dose lung CTs and follow-up with his PCP. MD Kvng. documented in this encounter Plan of Treatment Upcoming Encounters Date Type Specialty Care Team Description 09/26/2022 Office Visit Hematology and Oncology Nessa Sullivan MD [address] [facility], [facility], [address] [place], [place] [address] (Wo rk) documented as of this encounter Results CT ABDOMEN PELVIS W CONTRAST (11/19/2020 12:38 EST) Anatomical Region Laterality Modality Body, Abdomen, Pelvis, Abdomen and Pelvis Computed Tomography Specimen Impressions [facility] - 11/19/2020 15:08 EST 1. No lymphadenopathy or metastatic dise ase identified in the abdomen or pelvis. 2. 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 Ectasia of the infrarenal abdominal aorta. Narrative [facility] - 11/19/2020 15:[address] ABDOMEN PELVIS W CONTRAST ??11/19/2020 12:30 PM Signs and Symptoms/Comments: ?? Complex Patient Condition - See Comments Technique: CT of the abdomen and pelvis was perform ed following the administration intravenous contrast; coronal and sagittal multiplanar reconstructions generated. Comparison: Prior chest CTs. Ultrasound October 04, 2017 Findings: Lower chest: For findings in the chest r efer to the dedicated report of the concurrent chest CT. Hepatobiliary: No suspicious hepatic les ion. Tiny hypoattenuating hepatic lesions are too small to accurately characterize on CT. Cholelithiasis. Normal caliber biliary tree. Spleen, pancreas, adrenal glands: No kirt picious lesions. Kidneys, ureters, bladder: No suspicious renal lesion. No hydroureteronephrosis. Urinary bladder is mildly thick-walled circumferentially. Prostate, seminal vesicles: Unremarkable for age. Bowel: Extensive colonic diverticulosis. No obstruction or acute inflammatory changes. Normal appendix. Peritoneal cavity / Subperitoneal space: No free fluid or free air. Lymphovascular: Aorta and branch vessels are atherosclerotic, with a fusiform splenic artery aneurysm measuring up to 1.6 cm in diameter. Right common iliac artery aneurysm measuring up to 2.2 cm in cale meter. Infrarenal abdominal aorta is ect atic at 2.5 cm. Circumaortic left renal vein. No lymphadenopathy. Abdominal wall: No bowel containing leti ia. Small periumbilical fat containing hernia. Musculoskeletal: No suspicious osseous l esions. Multilevel degenerative disc disease and facet arthropathy. Mild leftward curvature of the lumbar spine. Travel Clerk: No additional findings. Procedure Note Figueroa Fan MD - 021 CT ABDOMEN PELVIS W CONTRAST 11/19/2020 1 2:30 PM Signs and Symptoms/Comments: Complex Patient Condition - See Comments Technique: CT of the abdomen and pelvis was perform ed following the administration intravenous contrast; coronal and sagittal multiplanar reconstructions generated. Comparison: Prior chest CTs. Ultrasound October 04, 2017 Findings: Lower chest: For findings in the chest r efer to the dedicated report of the concurrent chest CT. Hepatobiliary: No suspicious hepatic les ion. Tiny hypoattenuating hepatic lesions are too small to accurately characterize on CT. Cholelithiasis. Normal caliber biliary tree. Spleen, pancreas, adrenal glands: No kirt picious lesions. Kidneys, ureters, bladder: No suspicious renal lesion. No hydroureteronephrosis. Urinary bladder is mildly thick-walled circumferentially. Prostate, seminal vesicles: Unremarkable for age. Bowel: Extensive colonic diverticulosis. No obstruction or acute inflammatory changes. Normal appendix. Peritoneal cavity / Subperitoneal space: No free fluid or free air. Lymphovascular: Aorta and branch vessels are atherosclerotic, with a fusiform splenic artery aneurysm measuring up to 1.6 cm in diameter. Right common iliac artery aneurysm measuring up to 2.2 cm in diameter. Infrarenal abdominal aorta is ectatic at 2.5 cm. Circumaortic left renal vein. No lymphadenopathy. Abdominal wall: No bowel containing leti ia. Small periumbilical fat containing hernia. Musculoskeletal: No suspicious osseous l esions. Multilevel degenerative disc disease and facet arthropathy. Mild leftward curvature of the lumbar spine. Travel Clerk: No additional findings. IMPRESSION 1. No lymphadenopathy or metastatic dise ase identified in the abdomen or pelvis. 2. 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 Ectasia of the infrarenal abdominal aorta. Performing Organization Address City/State/ZIP Code Phon e Number [facility] CT CHEST W CONTRAST (11/19/2020 12:38 EST) Anatomical Region Laterality Modality Chest Computed Tomography Specimen Impressions [facility] - 11/19/2020 13:26 EST 1. Status post middle and upper lobe bleb resection without evidence of complication. 2. No new pulmonary nodules. 3. Severe smoking-related lung disease. 4. Coronary and aortic atherosclerotic d isease Narrative [facility] - 11/19/2020 13:[address] CHEST W CONTRAST ??11/19/2020 12:30 PM Clinical History/Comments: Lung carcinoma Technique: A single breath-hold helical CT acquisit ion was performed through the chest on a multidetector-row scanner with a reconstructed slice thickness of 3 mm and retrospectively reconstructed 0.9 mm thick sec tions with 0.45 mm overlapping intervals . ??The scans were obtained from the lung apices through the bases during the intravenous administration of 70-100 cc of 370 mg% nonionic contrast injected at a r ate of 2 cc/second. Scans were reviewed on a dedicated PACS workstation for analysis. Comparison: Outside studies 10/08/2018 and 0 Findings: CT of the chest performed after IV contr ast administration. Lower neck: No significant abnormality Mediastinum: The proximal brachiocephali c and left subclavian arteries are mildly narrowed by atherosclerotic plaque. Mixed hard and soft plaque is present throughout the azygos arch and descending aort a. The cardiac chambers and great vessel s are normal size, and there is no evidence of pericardial disease. Subepicardial fat in the LV apex is likely normal variant. The coronary arteries are heavily calcified. A subcarinal node has enlarged from 7 mm to 12 mm in short axis. There are no other enlarged or enlarging mediastinal or hilar nodes. The central airways and esophagus are normal size. Pleura: Tiny right pleural effusion is n ew since last July and likely surgery related. No pleural fluid is seen on the left. Lungs: The patient has had interval wedg e resection of a right middle lobe hamartoma and right apical bulla wedge resection. Mild fibrosis in the right base is likely operative. No new nodules are ident ified. Airways are diffusely thickened w ith secretions in the lower lobes. Severe emphysema is present in the upper lobes. Upper abdomen (limited to upper abdomen, not optimized for abdominal imaging):For a discussion of findings in the abdomen, please refer to the report of the dedicated abdominal CT from today. Bones and soft tissues of the chest wall : Enlarged right axillary nodes are stable and have fatty kaycee, consistent with benign etiology. The soft tissues otherwise unremarkable. Stable multilevel verteb ral body height loss is likely due to os teoporosis. No skeletal metastases are identified. Procedure Note Mainor Linares MD - 11/19/2020 CT CHEST W CONTRAST 11/19/2020 12:30 PM Clinical History/Comments: Lung carcinoma Technique: A single breath-hold helical CT acquisit ion was performed through the chest on a multidetector-row scanner with a reconstructed slice thickness of 3 mm and retrospectively reconstructed 0.9 mm thick sections with 0.45 mm overlapping intervals. The scans were obtained from the lung apices through the bases during the intravenous administration of 70-100 cc of 370 mg% nonionic contrast injected at a rate of 2 cc/second. Scans were reviewed on a dedicated PACS workstation for analysis. Comparison: Outside studies 10/08/2018 and 0 Findings: CT of the chest performed after IV contr ast administration. Lower neck: No significant abnormality Mediastinum: The proximal brachiocephali c and left subclavian arteries are mildly narrowed by atherosclerotic plaque. Mixed hard and soft plaque is present throughout the azygos arch and descending aorta. The cardiac chambers and great vessels are normal si ze, and there is no evidence of pericardial disease. Subepicardial fat in the LV apex is likely normal variant. The coronary arteries are heavily calcified. A subcarinal node has enlarged from 7 mm to 12 mm in short axis. There are no other enlarged or enlarging mediastinal or hilar nodes. The central airways and esophagus are normal size. Pleura: Tiny right pleural effusion is n ew since last July and likely surgery related. No pleural fluid is seen on the left. Lungs: The patient has had interval wedg e resection of a right middle lobe hamartoma and right apical bulla wedge resection. Mild fibrosis in the right base is likely operative. No new nodules are identified. Airways are diffusely thickened with secretions in t he lower lobes. Severe emphysema is present in the upper lobes. Upper abdomen (limited to upper abdomen, not optimized for abdominal imaging):For a discussion of findings in the abdomen, please refer to the report of the dedicated abdominal CT from today. Bones and soft tissues of the chest wall : Enlarged right axillary nodes are stable and have fatty kaycee, consistent with benign etiology. The soft tissues otherwise unremarkable. Stable multilevel vertebral body height loss is likely due to osteoporosis. No s keletal metastases are identified. IMPRESSION 1. Status post middle and upper lobe ble b resection without evidence of complication. 2. No new pulmonary nodules. 3. Severe smoking-related lung disease. 4. Coronary and aortic atherosclerotic d isease Performing Organization Address City/State/ZIP Code Phon e Number [facility] documented in this encounter Visit Diagnoses Diagnosis SCC (squamous cell carcinoma) - Primary Squamous cell carcinoma of skin, site un specified NSCLC of right lung (HCC-CMS) (HCC) Hamartoma of lung (HCC-CMS) (HCC) Benign neoplasm of bronchus and lung SCC (squamous cell carcinoma) Squamous cell carcinoma of skin, site un specified NSCLC of right lung (HCC-CMS) (HCC) Hamartoma of lung (HCC-CMS) (HCC) Benign neoplasm of bronchus and lung documented in this encounter Discontinued Medications Medication Sig Discontinue Reason Start Date End Date methocarbamoL (ROBAXIN) Take 1 Tab by 10/01/2020 500 mg tablet mouth 3 times daily as needed for Pain or Muscle Spasms. documented as of this encounter Care Teams Count Room Clerk Relationship Specialty Start Date End Date Radha Terrazas APRN PCP - General 08/23/[address] [place] [address] documented as of this encounter
--- OUTSIDE RECORDS SUMMARY | 2022-05-05 12:08 | XMS_ITS | Encounter Summary ---
:1950 Author Organization [facility] Address [address] [place] [address] Care Team Providers Name Role Phone Radha Terrazas APRN Primary Care Provider Reason for Visit Reason Onset Date Comments Results 10/14/2020 10/13/20 Laboratory Test Results Encounter Details Date Type Department Care Team Description 10/14/2020 Telephone [facility] Johan Torres Res ults (10/13/20 Cardiothoracic Surgery - MD Laboratory Test Main [place] [address] Results) [address] [place], [place] [id number] [place] [address] [facility] [address] [place] [address] (Wo rk) Social History Tobacco [...] Notes Telephone Encounter - Abigail Roth - 10/14/2020 0845 EST 10/13/20 Laboratory test results received from [facility] and scanned into [employer]) for Dr. Torres's review. Patient to be seen today for post-operative visit. documented in this encounter Plan of Treatment Upcoming Encounters Date Type Specialty Care Team Description 09/26/2022 Office Visit Hematology and Oncology Nessa Sullivan MD 111 [facility], [facility] 2 [place], [place] [address] (Wo rk) documented as of this encounter Visit Diagnoses Not on filedocumented in this encounter Care Teams Procurement Internship Relationship Specialty Start Date End Date Radha Terrazas APRN PCP - General 08/23/[address] [place] [address] documented as of this encounter
--- OUTSIDE RECORDS SUMMARY | 2022-05-05 12:08 | XMS_ITS | Encounter Summary ---
:1950 Author Organization [facility] Address [address] [place] [address] Care Team Providers Name Role Phone Radha Terrazas APRN Primary Care Provider Reason for Visit Reason Onset Date Comments Results 11/26/2020 Encounter Details Date Type Department Care Team Description 11/26/2020 Telephone [facility] Parrish Torres MD Results Cardiothoracic Surgery - [address] [place] [address], [address], [address] [place], [place] [address] [place] [address] [phone] [address] (Wo rk) Social History Tobacco Use [...] this encounter Miscellaneous Notes Telephone Encounter - Jaquelin Sanders RN - 11/27/2020 0830 EST Labs reviewed and PCP has a copy. Pt no longer following with us. elephone Encounter - Abigail Roth - 11/26/2020 1641 EST 11/24/2020 laboratory test results received from [facility] and scanned into [employer]. Routing to CT Surgery cardiac nurse. documented in this encounter Plan of Treatment Upcoming Encounters Date Type Specialty Care Team Description 09/26/2022 Office Visit Hematology and Oncology Nessa Sullivan MD 111 [facility], [facility], [facility] [address] [place], [place] [address] (Wo rk) documented as of this encounter Visit Diagnoses Not on filedocumented in this encounter Care Teams Straw Baler Relationship Specialty Start Date End Date Radha Terrazas APRN PCP - General 08/23/[address] [place] [address] documented as of this encounter
--- OUTSIDE RECORDS SUMMARY | 2022-05-05 12:08 | XMS_ITS | Encounter Summary ---
:1950 Author Organization [facility] Address [address] [place] [address] Care Team Providers Name Role Phone Radha Terrazas APRN Primary Care Provider Encounter Details Date Type Department Care Team Description 11/02/2020 Orders Only [facility] Leonor Muñoz MD Radiology - Main [place] [address] [address] [address] [place], [place] [address] (Wo rk) Social History [...] Hematology and Oncology Nessa Sullivan MD 111 [facility], [facility] 2 [place], [place] [address] (Wo rk) documented as of this encounter Visit Diagnoses Not on filedocumented in this encounter Care Teams Head Cook Relationship Specialty Start Date End Date Radha Terrazas APRN PCP - General 08/23/20 [address] [place] [address] documented as of this encounter
--- OUTSIDE RECORDS SUMMARY | 2022-05-05 12:08 | XMS_ITS | Encounter Summary ---
:1950 Author Organization [facility] Address [address] [place] [address] Care Team Providers Name Role Phone Radha Terrazas APRN Primary Care Provider Reason for Visit Reason Onset Date Comments Other 10/13/2020 Encounter Details Date Type Department Care Team Description [facility] - [address] [place] [address], [address], [address] [place], [place] [address] [place] [address] [phone] (Wo rk) Social History Tobacco Use [...] / COVID-19? documented as of this encounter Miscellaneous Notes Telephone Encounter - Rena Parham - 10/13/2020 1633 EST TC to patient to advise that patient should arrive 30 minutes prior to his post operative appointment on Monday10/14/[address] Torres so that he may have a CXR. Did not reach patient, but left details on his voice mail. Waiting for patient to call the office to confirm this phone call. documented in this encounter Plan of Treatment Upcoming Encounters Date Type Specialty Care Team Description 09/26/2022 Office Visit Hematology and Oncology Nessa Sullivan MD 111 [facility], [facility] 2 [place], [place] [address] (Wo rk) documented as of this encounter Visit Diagnoses Not on filedocumented in this encounter Care Teams Environmental Compliance Inspector Relationship Specialty Start Date End Date Radha Terrazas APRN PCP - General 08/23/20 [address] [place] [phone] documented as of this encounter
--- OUTSIDE RECORDS SUMMARY | 2022-05-05 12:08 | XMS_ITS | Encounter Summary ---
:1950 Author Organization [facility] Address [address] [place] [address] Care Team Providers Name Role Phone Radha Terrazas APRN Primary Care Provider Reason for Visit Reason Onset Date Comments Home Health 11/25/2020 Encounter Details Date Type Department Care Team Description 11/25/2020 Telephone [facility] Parrish Torres MD [facility] Cardiothoracic Surgery - [address] [place] [address], [address], [address] 5 [place], [place] [address] [place] [address] [phone] (Wo rk) Social History Tobacco Use [...] Telephone Encounter - Jaquelin Sanders RN - 11/25/[address] Surgery Update Gaby RN with [facility] made aware that labs should now be followed by his PCP. Pt had his post-op visit on 10/[address] Torres and she is not following him anymore except prn. Gaby will call the PCP and future orders for his care to go to PCP. She verbalized understanding. elephone Encounter - Rena Parham - 11/25/2020 0811 EST Gaby, Nurse, from [facility] calls to see if patient still needs weekly labs drawn. documented in this encounter Plan of Treatment Upcoming Encounters Date Type Specialty Care Team Description 09/26/2022 Office Visit Hematology and Oncology Nessa Sullivan MD 111 [facility], [facility], [facility] 2 [place], [place] [address] (Wo rk) documented as of this encounter Visit Diagnoses Not on filedocumented in this encounter Care Teams Brick And Block Mason Relationship Specialty Start Date End Date Radha Terrazas APRN PCP - General 08/23/[address] [place] [address] documented as of this encounter
--- OUTSIDE RECORDS SUMMARY | 2022-05-05 12:08 | XMS_ITS | Encounter Summary ---
:1950 Author Organization [facility] Address [address] [place] [address] Care Team Providers Name Role Phone Radha Terrazas APRN Primary Care Provider Encounter Details Date Type Department Care Team Description 10/12/2020 Travel Social History Tobacco Use Types Packs/Day Years [...] / COVID-19? documented as of this encounter Plan of Treatment Upcoming Encounters Date Type Specialty Care Team Description 09/26/2022 Office Visit Hematology and Oncology Nessa Sullivan MD [address] [facility], [facility], Level 2 [place], [place] [address] (Wo rk) documented as of this encounter Visit Diagnoses Not on filedocumented in this encounter Care Teams Director Of Science Relationship Specialty Start Date End Date Radha Terrazas REIMBURSEMENT SPEC PCP - General 08/23/[address] [place] [phone] documented as of this encounter
--- OUTSIDE RECORDS SUMMARY | 2022-05-05 12:08 | XMS_ITS | Encounter Summary ---
:[address] [facility] Address [address] [place] [address] Care Team Providers Name Role Phone Radha Terrazas APRN Primary Care Provider Reason for Referral Radiology Services (Routine) - Authorization Not Required Specialty Diagnoses / Procedures Referred By Contact Refer red To Contact Diagnoses SCC (squamous cell carcinoma) NSCLC of right lung (HCC-CMS) (HCC) Hamartoma of lung (HCC-CMS) (HCC) Nessa Sullivan MD Procedures CT ABDOMEN PELVIS W CONTRAST [address] [address] Referral ID Status Reason Start Expiration Visits Visits Date Date Requested Authorized [id number] Authorization Not 11/01/2020 1 1 Required adiology Services (Routine) - Authorization Not Required Specialty Diagnoses / Procedures Referred By Contact Refer red To Contact Diagnoses SCC (squamous cell carcinoma) NSCLC of right lung (HCC-CMS) (HCC) Hamartoma of lung (HCC-CMS) (HCC) Nessa Sullivan MD Procedures CT CHEST W CONTRAST [address] [phone] Referral ID Status Reason Start Expiration Visits Visits Date Date Requested Authorized [id number] Authorization Not 11/01/2020 1 1 Required Reason for Visit Radiology Services (Routine) - Authorization Not Required Specialty Diagnoses / Procedures Referred By Contact Refer red To Contact Diagnoses SCC (squamous cell carcinoma) NSCLC of right lung (HCC-CMS) (HCC) Hamartoma of lung (HCC-CMS) (HCC) Nessa Sullivan MD Procedures CT ABDOMEN PELVIS W CONTRAST 111 [facility], [facility] 2 [place] [address] Referral ID Status Reason Start Expiration Visits Visits Date Date Requested Authorized [id number] Authorization Not 11/01/2020 1 1 Required Encounter Details Date Type Department Care Team Description 11/19/2020 Hospital Encounter Therese Chavez CT SCC (squamous cell carcinoma ); 790 [facility] NSCLC of right lung (HCC-CMS ); [place] [address] Hamartoma of lung (HCC-CMS) [phone] Social History Tobacco Use Types Packs/Day Years [...] Pain or Fever (mild pain). albuterol 90 Inhale 1-2 Puffs as 0 mcg/actuation inhaler directed every 4 hours as needed [...] sodium (COLACE) Take 1 Cap by mouth 0 100 mg capsule 2 times daily as needed for Constipation. senna (SENOKOT) 8.6 mg Take 1-2 Tabs by 0 020 11/27/2020 tablet mouth daily as needed (constipation). TAMSulosin (FLOMAX) 0.4 Take 1 Cap by mouth 30 Cap 2 08/202012/31/2020 mg capsule daily for 90 days. documented as of this encounter Discharge Disposition Disposition Code Departure Means Destination Home or Self Care documented in this encounter Plan of Treatment Upcoming Encounters Date Type Specialty Care Team Description 09/26/2022 Office Visit Hematology and Oncology Nessa Sullivan MD 111 [facility], [facility], Level 2 [place], [place] [address] (Wo rk) documented as of this encounter Procedures Procedure Name Priority Date/Time Associated Diagnosis Comme nts CT CHEST W CONTRAST Routine 11/19/2020 12:38 SCC (squamous les l Results for this EST carcinoma) procedure are in NSCLC of right lung the resu lts ([facility]) section. Hamartoma of lung (HCC-CMS) CT ABDOMEN PELVIS W Routine 11/19/2020 12:38 SCC (squamous les l Results for this CONTRAST EST carcinoma) procedure are in NSCLC of right lung the resu lts ([facility]) section. Hamartoma of lung (HCC-CMS) documented in this encounter Results CT ABDOMEN PELVIS W CONTRAST (11/19/2020 12:38 EST) Anatomical Region Laterality Modality Body, Abdomen, Pelvis, Abdomen and Pelvis Computed Tomography Specimen Impressions [facility] - 11/19/2020 15:08 EST 1. No lymphadenopathy or metastatic dise ase identified in the abdomen or pelvis. 2. 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 Ectasia of the infrarenal abdominal aorta. Narrative [facility] - 11/19/2020 15:[address] ABDOMEN PELVIS [...] Mild leftward curvature of the lumbar spine. Accountant Controller: No additional findings. Procedure Note Figueroa Fan [...] Mild leftward curvature of the lumbar spine. Accountant Controller: No additional findings. IMPRESSION 1. No lymphadenopathy or metastatic dise ase identified in the abdomen or pelvis. 2. 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 Ectasia of the infrarenal abdominal aorta. Performing Organization Address City/State/ZIP Code Phon e Number [facility] CT CHEST W CONTRAST (11/19/2020 12:38 EST) Anatomical Region Laterality Modality Chest Computed Tomography Specimen Impressions [facility] - 11/19/2020 13:26 EST 1. Status post middle and upper lobe bleb resection without evidence of complication. 2. No new pulmonary nodules. 3. Severe smoking-related lung disease. 4. Coronary and aortic atherosclerotic d isease Narrative [facility] - 11/19/2020 13:26 [...] Organization Address City/State/ZIP Code Phon e Number [facility] documented in this encounter Visit Diagnoses Diagnosis SCC (squamous cell carcinoma) Squamous cell carcinoma of skin, site un specified NSCLC of right lung (HCC-CMS) (HCC) Hamartoma of lung (HCC-CMS) (HCC) Benign neoplasm of bronchus and lung documented in this encounter Administered Medications Inactive Administered Medications - up to 3 most recent administrations Medication Order MAR Action Action Date Dose Rate Site iohexoL (OMNIPAQUE 350) solution 100 Given 11/19/2020 12:38 EST 95 mL mL 100 mL, intravenous, Once in imaging, 1 dose, Starting on Ivy 11/19/20 at 1224, Until Ivy 11/19/20 at 1238, Routine, Imaging Protocol Orders documented in this encounter Orders Medications Ordered That Might Not Have Count Last Ord ered Date First Ordered Date Been Administered iohexoL (OMNIPAQUE 350) solution 100 mL 1 11/19/19 21 documented in this encounter Care Teams Chain Maker Hand Relationship Specialty Start Date End Date Radha Terrazas, HUMAN RESOURCES CLERK PCP - General 08/23/20 [address] [place] [id number] documented as of this encounter
--- OUTSIDE RECORDS SUMMARY | 2022-05-05 12:08 | XMS_ITS | Encounter Summary ---
:1950 Author Organization [facility] Address [address] [place] [address] Care Team Providers Name Role Phone Radha Terrazas APRN Primary Care Provider Reason for Referral Radiology Services (Routine) - Authorization Not Required Specialty Diagnoses / Procedures Referred By Contact Refer red To Contact Diagnoses Spontaneous pneumothorax Randee Castro, SENIOR RELIABILITY ENGINEER Procedures XR CHEST 2 VIEWS [address] [address] Referral ID Status Reason Start Expiration Visits Visits Date Date Requested Authorized [id number] Authorization Not 1 1 Required 0 Reason for Visit Radiology Services (Routine) - Authorization Not Required Specialty Diagnoses / Procedures Referred By Contact Refer red To Contact Diagnoses Spontaneous pneumothorax Randee Castro, SENIOR RELIABILITY ENGINEER Procedures XR CHEST 2 VIEWS [address] [address] Referral ID Status Reason Start Expiration Visits Visits Date Date Requested Authorized [id number] Authorization Not 1 1 Required 0 Encounter Details Date Type Department Care Team Description 10/14/2020 Hospital [facility]counter [facility] Rad[facility] - [facility] pneumo thorax [address] [address] Social History Tobacco Use Types Packs/Day Years [...] Hematology and Oncology Nessa Sullivan MD [address] [facility], [facility], Level 2 [place], [place] [address] (Wo rk) documented as of this encounter Procedures Procedure Name Priority Date/Time Associated Diagnosis Comme nts XR CHEST 2 VIEWS Routine 10/14/2020 14:11 Spontaneous Results for this EST pneumothorax procedure are i n the results section. documented in this encounter Results XR CHEST 2 VIEWS (10/14/2020 14:11 EST) Anatomical Region Laterality Modality Computed Radiography Specimen Impressions [facility] - 10/14/2020 14:23 EST Satisfactory appearance of the chest, st atus post right VATS and wedge resection. Tiny amount of residual subcutaneous emp hysema in the right chest wall. Narrative [facility] - 10/14/2020 14:23 EST XR CHEST 2 VIEWS ??10/14/2020 2:00 PM Clinical History/Comments: s/p right vats and wedge resection, now at f/u in clinic Comparison:Chest x-ray dated 09/29/2020 Technique: PA and lateral views of the c hest were performed using dual energy technique with soft tissue and bone reconstructions. Findings: Previously seen right chest tubes have b een removed. Staple line noted in the right lower jordan g, and there is slight tenting of the right hemidiaphragm consistent with volume loss related to lung resection. Very slight blunting of the right costophrenic an gle on the frontal view is likely relate d to pulmonary hyperinflation due to COPD, less likely representing a very tiny pleural effusion. Left lung appears clear. No pneumothorax is seen. Cardiomediastinal silhouette is normal i n size and contour. Very mild aortic arch calcium is present. Mild lower thoracic spinal degenerative changes are noted. There is a tiny amount of residual subcutaneous emphysema in the right chest wall. Procedure Note Leonor Muñoz MD - 10/14/2020 XR CHEST 2 VIEWS 10/14/2020 2:00 PM Clinical History/Comments: s/p right vats and wedge resection, now at f/u in clinic Comparison:Chest x-ray dated 09/29/2020 Technique: PA and lateral views of the c hest were performed using dual energy technique with soft tissue and bone reconstructions. Findings: Previously seen right chest tubes have b een removed. Staple line noted in the right lower jordan g, and there is slight tenting of the right hemidiaphragm consistent with volume loss related to lung resection. Very slight blunting of the right costophrenic angle on the frontal view is likely related to pulmon reinaldo hyperinflation due to COPD, less likely representing a very tiny pleural effusion. Left lung appears clear. No pneumothorax is seen. Cardiomediastinal silhouette is normal i n size and contour. Very mild aortic arch calcium is present. Mild lower thoracic spinal degenerative changes are noted. There is a tiny amount of residual subcutaneous emphysema in the right chest wall. IMPRESSION Satisfactory appearance of the chest, st atus post right VATS and wedge resection. Tiny amount of residual subcutaneous emphysema in the right chest wall. Performing Organization Address City/State/ZIP Code Phon e Number [facility] documented in this encounter Visit Diagnoses Diagnosis Spontaneous pneumothorax Other pneumothorax documented in this encounter Care Teams Licensing Representative Relationship Specialty Start Date End Date Radha Terrazas APRN PCP - General 08/23/20 [address] [place] [id number] documented as of this encounter
--- OUTSIDE RECORDS SUMMARY | 2022-05-05 12:08 | XMS_ITS | Encounter Summary ---
:1950 Author Organization [facility] Address [address] [place] [address] Care Team Providers Name Role Phone Radha Terrazas APRN Primary Care Provider Reason for Visit Reason Onset Date Comments Appointment Related 02/08/2021 Encounter Details Date Type Department Care Team Description 02/08/2021 Telephone [facility] Nessa Sullivan MD Appointment Related Hematology & Oncology 111 [facility], [facility] 111 [facility], Level 2 [place], [place] [address] [place] [address] [phone] (Wo rk) Social History Tobacco Use [...] Telephone Encounter - Ian Tolentino MA - 02/08/2021 0911 EDT Called patient regarding telemedicine visit on 02/09/21. Left a voicemail with the patient. Will callback later. IAN TOLENTINO MA documented in this encounter Plan of Treatment Upcoming Encounters Date Type Specialty Care Team Description 09/26/2022 Office Visit Hematology and Oncology Nessa Sullivan MD 111 [facility], [facility] 2 [place], [place] [address] (Wo rk) documented as of this encounter Visit Diagnoses Not on filedocumented in this encounter Care Teams Weatherization Field Technician Relationship Specialty Start Date End Date Radha Terrazas APRN PCP - General 08/23/20 [address] [place] [address] documented as of this encounter
--- OUTSIDE RECORDS SUMMARY | 2022-05-05 12:08 | XMS_ITS | Encounter Summary ---
:1950 Author Organization [facility] Address [address] [place] [address] Care Team Providers Name Role Phone Radha Terrazas APRN Primary Care Provider Reason for Visit Reason Comments Post-OP Follow Up soreness, at times lighthead ed if he pushes it too much Follow Up (Other (Specify in Question)) - Authorization Not Required Specialty Diagnoses / Procedures Referred By Contact Refer red To Contact Cardiothoracic Surgery Diagnoses Spontaneous pneumothorax Johan Torres, Ep5 Ct Surgery MD [address] [place] [address] [facility] Fax: [address] [address] Referral ID Status Reason Start Expiration Visits Visits Date Date Requested Authorized [id number] Authorization Specialty 10/01/20 1 1 Not Required Services 20 Required Encounter Details Date Type Department Care Team Description 10/14/2020 Post-op Visit [facility] Johan Torres Sp ontaneous Cardiothoracic Surgery pneumothorax - [address] (Primary Dx) [address] [phone] [address] Social History Tobacco Use Types Packs/Day Years [...] EST Pulse 99 10/14/2020 1449 EST Temperature - - Respiratory Rate - - Oxygen Saturation 97% 10/14/2020 1449 EST Inhaled Oxygen Concentration - - Weight - - Height - - Body Mass Index - - documented in this encounter Functional Status Functional Status Response [...] making decisions? documented as of this encounter Patient Instructions Patient InstructionsJaquelin Sanders RN - 10/14/2020 14:[address] Torres follow with your Primary Care Provider. If you have shortness of breath, pain seek medical attention right away. Dr. Torres [phone] signed by Jaquelin Sanders RN at 10/14/2020 15:21 EST documented in this encounter Progress Notes Johan Torres MD - 10/14/2020 1430 EST Postop right VATS, right upper lobe wedge resection, right middle lobe wedge resection, mechanical and talc pleurodesis on 09/25/2020 SUBJECTIVE: Chris Shelton was seen in the office today. He was recently admitted for a right spontaneous pneumothorax. He had an unresolved air leak, therefore, he underwent the above procedure. 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 In addition he had ongoing issues with hyponatremia and was seen by nephrology for this. He was discharged to home on postop day #6. Feeling quite well, no shortness of breath, breathing easier. Has been ambulating more. States that he saw someoen from lung clinic for the squamous cell carcinoma that was found in the OR, and that they are planning on surveillance for now. OBJECTIVE: BP (!) 150/85 Pulse 99 SpO2 97% . His chest is clear to auscultation and percussion. His heart shows a regular rhythm without murmurs or rubs. Chest XRay: 10/14/20 IMPRESSION Satisfactory appearance of the chest, status post right VATS and wedge resection. Tiny amount of residual subcutaneous emphysema in the right chest wall. I have personally reviewed and visualized the above radiologic images ASSESSMENT: Chris Shelton returns to my clinic s/p right VATS, right upper lobe wedge resection,right middle lobe wedge resection, mechanical and talc pleurodesis I would not change any of his current medications at the present time, which include: Current Outpatient Medications Medication ??? acetaminophen (TYLENOL) 500 mg tablet ??? albuterol 90 mcg/actuation inhaler ??? aspirin 81 mg EC tablet ??? atorvastatin (LIPITOR) 10 mg tablet ??? calcium carbonate (TUMS) 200 mg calcium (500 mg) tablet,chewable ??? docusate sodium (COLACE) 100 mg capsule ??? senna (SENOKOT) 8.6 mg tablet ??? TAMSulosin (FLOMAX) 0.4 mg capsule No current facility-administered medications for this visit. . PLAN: 1. No change in medications. 2. Continue close follow up with Radha Terrazas. 3. Follow-up in this office on a PRN basis. Johan Torres MD 10/14/2020 documented in this encounter Plan of Treatment Upcoming Encounters Date Type Specialty Care Team Description 09/26/2022 Office Visit Hematology and Oncology Nessa Sullivan MD 111 [facility], [facility], [facility] 2 [place], [place] [address] (Wo rk) documented as of this encounter Visit Diagnoses Diagnosis Spontaneous pneumothorax - Primary Other pneumothorax documented in this encounter Care Teams Welfare Service Aide Relationship Specialty Start Date End Date Radha Terrazas APRN PCP - General 08/23/20 [address] [place] [address] documented as of this encounter
--- OUTSIDE RECORDS SUMMARY | 2022-05-05 12:08 | XMS_ITS | Encounter Summary ---
:1950 Author Organization [facility] Address [address] [place] [address] Care Team Providers Name Role Phone Radha Terrazas APRN Primary Care Provider Reason for Visit Reason Onset Date Comments Appointment Related 10/12/2020 Encounter Details Date Type Department Care Team Description 10/12/2020 Telephone [facility] Nessa Sullivan MD Appointment Related Hematology & Oncology 111 [facility], [address], Level 2 [place], [place] [address] [place] [address] [phone] (Wo rk) Social History Tobacco Use [...] this encounter Miscellaneous Notes Telephone Encounter - Angel Ivy - 10/12/2020 0949 EST Called Dorcas and told her I had nothing for 10/14 but told her that we could move out the appointment to 10/21 and he could see CT surgery at 11:[address] Edwards at 2:30 and she asked her dad and he will keep it scheduled as is. elephone Encounter - Meka Pierre - 10/12/2020 0905 EST Reason for Call: Appointment Related Summary/Symptoms: Patient's daughter Dorcas was hoping to change the NPV from 10/13 @ 3pm to 10/14 as patient has an a post op EP5 CT Surgery at 2:30 and he is coming from [place] Patient has hearing issues please call Dorcas back as soon as possible Meka Pierre 10/12/2020 9:05 documented in this encounter Plan of Treatment Upcoming Encounters Date Type Specialty Care Team Description 09/26/2022 Office Visit Hematology and Oncology Nessa Sullivan MD 111 [facility], [facility], [facility] 2 [place], [place] [address] (Wo rk) documented as of this encounter Visit Diagnoses Not on filedocumented in this encounter Care Teams Brake Machine Operator Relationship Specialty Start Date End Date Radha Terrazas APRN PCP - General 08/23/20 [address] [place] [address] documented as of this encounter
--- OUTSIDE RECORDS SUMMARY | 2022-05-05 12:08 | XMS_ITS | Encounter Summary ---
:1950 Author Organization [facility] Address [address] [place] [address] Care Team Providers Name Role Phone Radha Terrazas APRN Primary Care Provider Encounter Details Date Type Department Care Team Description 02/05/2021 Travel Social History Tobacco Use Types Packs/Day [...] Hematology and Oncology Nessa Sullivan MD 111 [facility], [facility], [facility] 2 [place], [place] [address] (Wo rk) documented as of this encounter Visit Diagnoses Not on filedocumented in this encounter Care Teams Concrete Gun Operator Relationship Specialty Start Date End Date Radha Terrazas APRN PCP - General 08/23/[address] [place] [address] documented as of this encounter
--- OUTSIDE RECORDS SUMMARY | 2022-05-05 12:08 | XMS_ITS | Encounter Summary ---
:1950 Author Organization [facility] Address [address] [place] [address] Care Team Providers Name Role Phone Radha Terrazas APRN Primary Care Provider Reason for Visit Reason Onset Date Comments Appointment Related 12/29/2020 CT and Follow up Encounter Details Date Type Department Care Team Description 12/29/2020 Telephone [facility] Nessa Sullivan MD Appointment Related Hematology & Oncology 111 [facility] (CT and Follow up) - [facility], [address], [address] 2 [place], [place] [address] [place] [address] [phone] (Wo rk) Social History Tobacco Use [...] this encounter Miscellaneous Notes Telephone Encounter - Mickie Roldan - 12/29/2020 1342 EST Patient has a CT scheduled at [facility] in January. Daughter would like to know if it can be done at [facility] instead and then he needs a follow up. Can that be a Zoom visit? Please call to confirm documented in this encounter Plan of Treatment Upcoming Encounters Date Type Specialty Care Team Description 09/26/2022 Office Visit Hematology and Oncology Nessa Sullivan MD 111 [facility], Level [address] [place], [place] [address] (Wo rk) documented as of this encounter Visit Diagnoses Not on filedocumented in this encounter Care Teams Damage Cutter Relationship Specialty Start Date End Date Radha Terrazas APRN PCP - General 08/23/[address] [place] [address] documented as of this encounter
--- OUTSIDE RECORDS SUMMARY | 2022-05-05 12:08 | XMS_ITS | Encounter Summary ---
:1950 Author Organization [facility] Address [address] [place] [address] Care Team Providers Name Role Phone Radha Terrazas APRN Primary Care Provider Encounter Details Date Type Department Care Team Description 11/02/2020 Orders Only [facility] Jaki Olivia MD Radiology - Main Cam pus [address] [place] [address] [place] [address] [phone] Social History Tobacco Use Types Packs/Day Years [...] Hematology and Oncology Nessa Sullivan MD 111 [facility] 2 [place], [place] [address] (Wo rk) documented as of this encounter Visit Diagnoses Not on filedocumented in this encounter Care Teams Division Order Technician Relationship Specialty Start Date End Date Radha Terrazas APRN PCP - General 08/23/[address] [place] [address] documented as of this encounter
--- OUTSIDE RECORDS SUMMARY | 2022-05-05 12:08 | XMS_ITS | Encounter Summary ---
:1950 Author Organization [facility] Address [address] [place] [address] Care Team Providers Name Role Phone Radha Terrazas APRN Primary Care Provider Reason for Visit Reason Onset Date Comments Results 10/07/2020 10/06/20 lab results Encounter Details Date Type Department Care Team Description 10/07/2020 Telephone [facility] Johan Torres Res ults (10/06/20 Cardiothoracic Surgery - lab results) [address] [phone] [facility] Level 5 [place] [address] (Wo rk) Social History Tobacco [...] been in contact with No / Unsure 09/21/2020 8:24 EST someone who was confirmed or suspected to have Coronavirus / COVID-19? documented as of this encounter Miscellaneous Notes Telephone Encounter - Jaquelin Sanders, ALICIA - 10/07/2020 1111 EST I have given to Dr. Torres for her review. elephone Encounter - Abigail Roth - 10/07/2020 1048 EST 10/06/2020 laboratory test results received from [facility]. Copy faxed to CT Surgery RN at extension [phone]. Original placed in patient's paper chart. documented in this encounter Plan of Treatment Upcoming Encounters Date Type Specialty Care Team Description 09/26/2022 Office Visit Hematology and Oncology Nessa Sullivan MD 111 [facility], [address] [place], [place] [address] (Wo rk) documented as of this encounter Visit Diagnoses Not on filedocumented in this encounter Care Teams Architect In Training Relationship Specialty Start Date End Date Radha Terrazas APRN PCP - General 08/23/20 [address] [place] [address] documented as of this encounter
--- OUTSIDE RECORDS SUMMARY | 2022-05-05 12:08 | XMS_ITS | Encounter Summary ---
:[address] [facility] Address [address] [place] [address] Care Team Providers Name Role Phone Radha Terrazas APRN Primary Care Provider Reason for Visit Reason Onset Date Comments Results 11/17/2020 Laboratory Test Resu lts Encounter Details Date Type Department Care Team Description 11/17/2020 Telephone [facility] Johan Torres Res ulsneha (Laboratory Cardiothoracic Surgery - MD Test Results) [phone] [place] [address] [facility] Level [address] [place] [address] (Wo rk) Social History Tobacco [...] Telephone Encounter - Jaquelin Sanders RN - 11/17/2020 1453 EST Labs reviewed and routed to Dr. Torres. elephone Encounter - Abigail Roth - 11/17/2020 1131 EST 11/10/2020 laboratory test results received from [facility] and scanned into [employer]. Routing to CT Surgery microsoft application developer. documented in this encounter Plan of Treatment Upcoming Encounters Date Type Specialty Care Team Description 09/26/2022 Office Visit Hematology and Oncology Nessa Sullivan MD 111 [facility], Level [address] [place], [place] [address] (Wo rk) documented as of this encounter Visit Diagnoses Not on filedocumented in this encounter Care Teams Securities Teller Relationship Specialty Start Date End Date Radha Terrazas APRN PCP - General 08/23/[address] [place] [address] documented as of this encounter
--- OUTSIDE RECORDS SUMMARY | 2022-05-05 12:08 | XMS_ITS | Encounter Summary ---
:1950 Author Organization [facility] Address [address] [place] [address] Care Team Providers Name Role Phone Radha Terrazas APRN Primary Care Provider Encounter Details Date Type Department Care Team Description 10/14/2020 Travel Social History Tobacco Use Types Packs/Day [...] Hematology and Oncology Nessa Sullivan MD 111 [facility], [facility], Level 2 [place], [place] [address] (Wo rk) documented as of this encounter Visit Diagnoses Not on filedocumented in this encounter Care Teams Product Development Actuary Relationship Specialty Start Date End Date Radha Terrazas, CANOE INSPECTOR PCP - General 08/23/20 [address] [place] [address] documented as of this encounter
--- OUTSIDE RECORDS SUMMARY | 2022-05-05 12:08 | XMS_ITS | Encounter Summary ---
:1950 Author Organization [facility] Address [address] [place] [address] Care Team Providers Name Role Phone Radha Terrazas APRN Primary Care Provider Reason for Visit Reason Onset Date Comments Results 11/19/2020 chemistry lab result s Encounter Details Date Type Department Care Team Description 11/19/2020 Telephone [facility] Johan Torres Res ults (chemistry Cardiothoracic Surgery - MD lab results) [phone] [place] [address] [facility] 5 [place] [address] (Wo rk) Social History Tobacco [...] Telephone Encounter - Jaquelin Sanders RN - 11/19/[address] Torres with lab results. elephone Encounter - Abigail Roth - 11/19/2020 1537 EST Chemistry lab results, dated 11/18/19, received from [facility] and scanned into [employer]. Routing to CT Surgery RN for review. documented in this encounter Plan of Treatment Upcoming Encounters Date Type Specialty Care Team Description 09/26/2022 Office Visit Hematology and Oncology Nessa Sullivan MD [address] [facility], [address] [place], [place] [address] (Wo rk) documented as of this encounter Visit Diagnoses Not on filedocumented in this encounter Care Teams Gore Seamer Relationship Specialty Start Date End Date Radha Terrazas APRN PCP - General 08/23/[address] [place] [address] documented as of this encounter
--- OUTSIDE RECORDS SUMMARY | 2022-05-05 12:08 | XMS_ITS | Encounter Summary ---
:1950 Author Organization [facility] Address [address] [place] [address] Care Team Providers Name Role Phone Radha Terrazas APRN Primary Care Provider Reason for Visit Reason Onset Date Comments Post-OP Follow Up 10/05/2020 Encounter Details Date Type Department Care Team Description 10/05/2020 Telephone [facility] Jaquelin Sanders RN Post -OP Follow Up Cardiothoracic Surgery - [facility] [address] [place] [address] Social History Tobacco Use Types Packs/Day Years [...] Notes Telephone Encounter - Abigail Roth - 10/05/2020 1648 EST Patient's daughter calling with patient's correct phone number of [phone]. Corrected phone number entered into [employer]. elephone Encounter - Jaquelin Sanders RN - 10/05/[address] Surgery Update Call out to patient to discuss progress. Patient's phone only with a fast busy signal x 3. I left a message for his emergency contact if she can ask him to call our office and ask to speak with me (nurse) to discuss his progress. documented in this encounter Plan of Treatment Upcoming Encounters Date Type Specialty Care Team Description 09/26/2022 Office Visit Hematology and Oncology Nessa Sullivan MD 111 [facility], [facility] 2 [place], [place] [phone] (Wo rk) documented as of this encounter Visit Diagnoses Not on filedocumented in this encounter Care Teams Sack Maker Relationship Specialty Start Date End Date Radha Terrazas APRN PCP - General 08/23/20 [address] [place] [address] documented as of this encounter
--- OUTSIDE RECORDS SUMMARY | 2022-05-05 12:08 | XMS_ITS | Encounter Summary ---
:1950 Author Organization [facility] Address [address] [place] [address] Care Team Providers Name Role Phone Radha Terrazas APRN Primary Care Provider Reason for Visit Reason Onset Date Comments Other 11/03/2020 Encounter Details Date Type Department Care Team Description 11/03/2020 Telephone [facility] Center Nessa Sullivan MD Other Hematology & Oncology - 111 [facility], [address] [place], [place] [phone] [place] [phone] (Wo rk) Social History Tobacco Use Types [...] Notes Telephone Encounter - Swathi Kebede - 11/03/2020 1015 EST FAXED TO [facility] TO SEE IF PET SCAN WAS DONE THERE BETWEEN JUL AND SEP 2020 .CHECKED WITH OUR RADIOLOGY DEPT WAS NOT DONE HERE.RECIVED FAX FROM [facility] PAUL DO PET SCANS THERE AND WAS NOT DONE HERE. Swathi Kebede 11/03/2020 10:18 documented in this encounter Plan of Treatment Upcoming Encounters Date Type Specialty Care Team Description 09/26/2022 Office Visit Hematology and Oncology Nessa Sullivan MD 111 [facility], Level [address] [place], [place] [address] (Wo rk) documented as of this encounter Visit Diagnoses Not on filedocumented in this encounter Care Teams Bone Worker Relationship Specialty Start Date End Date Radha Terrazas APRN PCP - General 08/23/20 [address] [place] [address] documented as of this encounter
--- OUTSIDE RECORDS SUMMARY | 2022-05-05 12:08 | XMS_ITS | Encounter Summary ---
:1950 Author Organization [facility] Address [address] [place] [address] Care Team Providers Name Role Phone Radha Terrazas APRN Primary Care Provider Reason for Visit Reason Onset Date Comments Appointment Related 02/08/2021 Encounter Details Date Type Department Care Team Description 02/08/2021 Telephone [facility] Nessa Sullivan MD Appointment Related Hematology & Oncology 111 [facility], [facility] 111 [facility], Level 2 [place], [place] [phone] [place] [address] [phone] (Wo rk) Social History Tobacco Use [...] Encounter - Ian Tolentino MA - 02/08/2021 1057 EDT Called patient a second time regarding telemedicine appt on 02/09/21. Unable to reach patient. IAN TOLENTINO MA documented in this encounter Plan of Treatment Upcoming Encounters Date Type Specialty Care Team Description 09/26/2022 Office Visit Hematology and Oncology Nessa Sullivan MD 111 [facility], Level [address] [place], [place] [address] (Wo rk) documented as of this encounter Visit Diagnoses Not on filedocumented in this encounter Care Teams Caster Operator Relationship Specialty Start Date End Date Radha Terrazas APRN PCP - General 08/23/20 [address] [place] [address] documented as of this encounter
--- OUTSIDE RECORDS SUMMARY | 2022-05-05 12:09 | XMS_ITS | Encounter Summary ---
:1950 Author Organization [facility] Address [address] [place] [address] Care Team Providers Name Role Phone Radha Terrazas APRN Primary Care Provider Encounter Details Date Type Department Care Team Description 09/21/2020 Hospital Encounter [facility] Secondary Reads [place] Social History Tobacco [...] / COVID-19? documented as of this encounter Medications at Time of Discharge Medication Sig Dispensed Refills Start Date End Date acetaminophen (TYLENOL) Take 2 Tabs by 0 10/01/20 20 500 mg tablet mouth every 6 hours as needed for Pain or Fever (mild pain). calcium carbonate (TUMS) Take 2 Tabs by 0 020 200 mg calcium (500 mg) mouth 4 times daily tablet,chewable as needed for Heartburn. docusate sodium (COLACE) Take 1 Cap by mouth 0 100 mg capsule 2 times daily as needed for Constipation. methocarbamoL (ROBAXIN) Take 1 Tab by mouth 21 Tab 0 07/202010/13/2020 500 mg tablet 3 times daily as needed for Pain or Muscle Spasms. senna (SENOKOT) 8.6 mg Take 1-2 Tabs by 0 020 11/27/2020 tablet mouth daily as needed (constipation). TAMSulosin (FLOMAX) 0.4 mg Take 1 Cap by mouth 30 Cap 2 10/02/2020 12/31/2020 capsule daily for 90 days. urea (URE-NA) 15 gram oral Take 15 g by mouth 60 Packet 0 1 12/02/2019 10/01/2020 powder packet 2 times daily for 30 days. documented as of this encounter Discharge Disposition Disposition Code Departure Means Destination Home or Self Care documented in this encounter Plan of Treatment Upcoming Encounters Date Type Specialty Care Team Description 09/26/2022 Office Visit Hematology and Oncology Nessa Sullivan MD 111 [facility], [facility] 2 [place], [place] [address] (Wo rk) documented as of this encounter Procedures Procedure Name Priority Date/Time Associated Diagnosis Comme nts XR OUTSIDE IMAGES Routine 10/01/2020 9:43 EST Res ults for this CHEST procedure are i n the results section. documented in this encounter Results XR OUTSIDE IMAGES CHEST (10/01/2020 9:43 EST) Specimen Narrative 10/01/2020 9:43 EST This is a non-reportable exam. documented in this encounter Visit Diagnoses Not on filedocumented in this encounter Care Teams Artificial Snow Making Machine Operator Relationship Specialty Start Date End Date Radha Terrazas APRN PCP - General 08/23/20 [address] [place] [address] documented as of this encounter
--- OUTSIDE RECORDS SUMMARY | 2022-05-05 12:09 | XMS_ITS | Encounter Summary ---
:1950 Author Organization [facility] Address [address] [place] [address] Care Team Providers Name Role Phone Radha Terrazas APRN Primary Care Provider Encounter Details Date Type Department Care Team Description 09/29/2020 Anesthesia Event [facility] [place] [facility] Alyce Turpin APRN [address] [place], [place] [phone] Anesthesia Record Procedure Summary Procedure Name Responsible Anesthesia Start Anesthesia Stop Anesthesiologist Time Time ANESTHESIA PAIN SERVICE FOLLOW-UP/ROUNDING Events No events on file. No medications on file. Agents No agents on file. Blood No blood administrations on file. Lines, Drains, and Airways No LDAs on file. documented in this encounter Social History Tobacco Use Types Packs/Day Years [...] [address] [facility], [facility], [facility] 2 [place], [place] [address] (Wo rk) documented as of this encounter Visit Diagnoses Not on filedocumented in this encounter Care Teams Activity Leader Relationship Specialty Start Date End Date Radha Terrazas APRN PCP - General 08/23/[address] [place] [address] documented as of this encounter
--- OUTSIDE RECORDS SUMMARY | 2022-05-05 12:09 | XMS_ITS | Encounter Summary ---
:1950 Author Organization [facility] Address [address] [place] [address] Care Team Providers Name Role Phone Radha Terrazas APRN Primary Care Provider Encounter Details Date Type Department Care Team Description 09/26/2020 Anesthesia Event [facility] [place] [facility] Darryl Watson MD 111 [facility] [address] [place] [address] [address] [place] [address] (Wo rk) Anesthesia Record Procedure Summary Procedure Name Responsible [...] Oncology Nessa Sullivan MD 111 [facility], [facility] 2 [place], [place] [address] (Wo rk) documented as of this encounter Visit Diagnoses Not on filedocumented in this encounter Care Teams Coding Support Specialist Relationship Specialty Start Date End Date Radha Terrazas APRN PCP - General 08/23/[address] [place] [address] documented as of this encounter
--- OUTSIDE RECORDS SUMMARY | 2022-05-05 12:09 | XMS_ITS | Encounter Summary ---
:1950 Author Organization [facility] Address [address] [place] [address] Care Team Providers Name Role Phone Radha Terrazas APRN Primary Care Provider Encounter Details Date Type Department Care Team Description 09/25/2020 Anesthesia Event [facility] Horacio Ramos MD 111 [facility] [address] (Wo rk) Anesthesia Record Procedure Summary Procedure [...] Hematology and Oncology Nessa Sullivan MD 111 [facility] [place] [facility], [facility], [facility] 2 [place], [place] [address] (Wo rk) documented as of this encounter Visit Diagnoses Not on filedocumented in this encounter Care Teams Industrial Maintenance Tech Relationship Specialty Start Date End Date Radha Terrazas APRN PCP - General 08/23/[address] [place] [address] documented as of this encounter
--- OUTSIDE RECORDS SUMMARY | 2022-05-05 12:09 | XMS_ITS | Encounter Summary ---
:1950 Author Organization [facility] Address [address] [place] [address] Care Team Providers Name Role Phone Radha Terrazas APRN Primary Care Provider Encounter Details Date Type Department Care Team Description 09/21/2020 Travel Social History Tobacco Use Types Packs/Day [...] Hematology and Oncology Nessa Sullivan MD [address] [place] [facility], [facility], Level [address] [place], [place] [address] (Wo rk) documented as of this encounter Visit Diagnoses Not on filedocumented in this encounter Care Teams Repairer Pump Relationship Specialty Start Date End Date Radha Terrazas CREATIVE WRITING TEACHER PCP - General 08/23/[address] [place] [phone] documented as of this encounter
--- OUTSIDE RECORDS SUMMARY | 2022-05-05 12:09 | XMS_ITS | Encounter Summary ---
:1950 Author Organization [facility] Address [address] [place] [address] Care Team Providers Name Role Phone Radha Terrazas APRN Primary Care Provider Reason for Visit Auth/Cert Specialty Diagnoses / Procedures Referred By Contact Refer red To Contact Diagnoses Spontaneous pneumothorax Pleural fistula Referral ID Status Reason Start Date Expiration Date Visits Requ ested Visits Authorized [id number] 1 1 Encounter Details Date Type Department Care Team Description 09/25/2020 Anesthesia Event [facility] OR Drew Verdugo MD [address] [phone] [place] [address] Reji Contreras III, MD [address] [phone] [place], [place] [id number] Anesthesia Record Procedure Summary Procedure Name Responsible Anesthesia Start Anesthesia Stop Anesthesiologist Time Time Right Video Assisted Drew Verdugo MD 09/25/20 1505 1807 Thoracoscopic Surgery, Pleurodesis, Wedge Resection (Right Chest) Events Date Time Event Comment 09/25/2020 1505 An Start The patient was re-evaluated immediately before moderate or deep sedation use, before anesthesia induction, or be fore the anesthesia procedure. 1505 An Start Data 1521 An Induction The patient was reevaluated immediately before moderate or deep sedation use and before anesthesia induction. 1527 An Intubation 1539 Anesthesia Ready 1602 An one lung vent Right lung isol ated and not ventilated. 1722 An Two-Lung Vent 1746 An Extubation 1757 an stop data 1807 Handoff to RN I completed my h andoff to the receiving nurse during which we: 1. Hien ntified the patient 2. Identified the responsible provider 3. Reviewed the pertinent medical history 4. Discussed the surgical course 5. Reviewed intra-o p anesthesia management and issues during anesthesi a 6. Set expectations for post-procedure p eriod 7. Allowed opportunity for questions and ac knowledgement of understanding. 180 An Stop Name Total dexaMETHasone 4 mg/mL injection 8 mg fentanyl citrate (PF) injection 150 mcg HYDROmorphone vial 2 mg/mL 0.8 mg lidocaine 2% (PF) injection glass vial 100 mg midazolam 1 mg/mL 2 mL vial 1 mg ondansetron (PF) (ZOFRAN) injection 4 mg propOFol (DIPRIVAN) injection 200 mg rocuronium 10 mg/mL vial 90 mg lactated ringers (LR) infusion Cannot be calculated ceFAZolin (ANCEF) syringe 2 g 2 g esmolol vial 10 mg/mL 40 mg sodium chloride (PF) 15 mL with bupivacaine (PF) ([place] SUSANNE) 5 mL 15 mL acetaminophen 10 mg/ml 100 mL infusion 1,000 mg Agents Name Insp Sevoflurane Exp Sevoflurane O2 N2O Air Blood No blood administrations on file. Lines, Drains, and Airways Type Details Placement Removal Wound Other (ERROR) 09/25/20 1658 by Garrett Oneal, plate shear operator 09/25/20; Incision; 09/25/20 0000 by Right, Lateral; Chest; 3 Garrett Oneal, trocar sites; N RN Chest Tube 09/21/20 (placed at 09/21/20 1436 by 09/25/20 16 07 by OSH;unaware of actual Sade Tobar RN Moreschi, Patrice, placement date); 1436 RN (unaware of exact time -OSH); Other (Comment) (lateral); 9 Latvian (per RN report from Gavin Stephenson); Suction; 09/25/20; 1607 Peripheral IV 09/21/20; 1525; 09/28/20; 09/21/20 1525 by 10/01 1440 by 20; 1.25; B Campuzano Peters, KalinaALICIA epperson Jo seph, RN Introcan; Left, Posterior, Lateral, Distal; Forearm; Inserted by RN; 1; None; 2% Chlorhexidine with IPA; 10/01/20; 1440; Discharged; No complications Epidural (must 09/25/20; 1131 (created 09/25/20 1131 by 0 0915 by document CSMTs and via procedure Horacio Chase MD Apjohn, McK enzie, urinary function) documentation); 09/29/20; RN 0915 (Removed by MD) Urethral Catheter 09/25/20; 1537; Inserted 09/25/20 1537 by 06/11 1030 by by RN; Intraoperative Garrett Oneal Apjohn, McKenzie, monitoring, Selected RN hand frame surgical elastic knitter procedures/Epidural; Non-latex; 16 fr; 10 ml; Yes; 09/29/20; 1030 Non-Surgical Airway 09/25/20; 1606 (created 09/25/20 1606 by 02/09 1746 by via procedure Marky Aldana, B enjamin documentation); 09/25/20; MD Joyce Cook, 1746 Chest Tube 09/25/20; 1729; In OR by 09/25/20 1729 by 1630 by MD; 1; Right; Fifth Tierra Mathew RN Reed, Krysta green, RN intercostal space; 32 Latvian; [place]/nonsuction water seal drainage; 09/29/20; 1630 (removed by ) Chest Tube 09/25/20; 1731; In OR by 09/25/20 1731 by 1630 by MD; 2; Right; Fifth Tierra Mathew RN Reed, Kels ey, RN intercostal space; 32 Latvian; [place]/nonsuction water seal drainage; 09/29/20; 1630 (removed by ) documented in this encounter Social History Tobacco Use Types Packs/Day Years Used Date Former Smoker Quit: 2015 Alcohol Use Standard Drinks/Week Comments Not Currently [...] / COVID-19? documented as of this encounter OR Notes Anesthesia Postprocedure Evaluation - Drew Verdugo MD - 09/25/2020 1807 EST Patient: Chris Shelton Vital signs were reviewed with the recovery nurse. Complete vitals history is available in the Epic flowsheets. Vitals Value Taken Time BP 107/66 09/25/20 1806 Temp 36.2 09/25/20 1807 Resp 24 09/25/20 1807 Pulse From Oximetry 97 BPM 09/25/20 1807 SpO2 100 % 09/25/20 1807 Vitals shown include unvalidated device data. Last Pain Score - Numeric Pain Level (Scale 1-10): 0 Type of Anesthesia - general Anesthesia Post Evaluation Post-procedure vitals reviewed and are stable. Level of consciousness: alert and oriented Temperature status: normothermia Respiratory status: airway patent and nasal cannula Cardiovascular status: acceptable and stable Hydration status: adequate Nausea/Vomiting: none Pain management: adequate and regional anesthesia for post-op analgesia Post-Op Assessment: patient tolerated procedure well with no complications and patient satisfied with anesthesia care Patient participation: able to participate Disposition: inpatient Anesthesia Complications: No apparent anesthesia complications nesthesia Procedure Notes - Marky Aldana MD - 09/25/2020 1603 ESTAssociated Order(s): Airway Airway Date/Time: 09/25/2020 15:27 Urgency: elective General Information and Staff Patient location during procedure: OR Anesthesiologist: Drew Verdugo MD Resident/PHLEBOTOMY LAB ASSISTANT: Marky Aldana MD Performed: resident/PHLEBOTOMY LAB ASSISTANT/AA Indications and Patient Condition Indications for airway management: anesthesia Sedation level: GA Preoxygenated: yes Patient position: sniffing MILS Maintained: No Ventilation assessment: 5 - Two providers required (Oral airway inserted, aguayo, prominent nose, sunken cheeks, adentulous) Final Airway Details Final airway type: endotracheal airway Successful airway: ETT - double lumen left Cuffed: yes Successful intubation technique: flexible bronchoscopy Facilitating devices/methods: intubating stylet Endotracheal tube insertion site: oral Blade: Daniele Blade size: #4 ETT DL size (fr): 39 Placement verified by: chest auscultation, capnometry and single lung ventilation Measured from: teeth Number of attempts at approach: 1 Anesthesia Procedure Notes - Horacio Chase MD - 09/25/2020 1130 ESTAssociated Order(s): Epidural Block Epidural Block Patient location during procedure: floor Start time: 09/25/2020 10:55 End time: 09/25/2020 11:15 Staffing Performed: anesthesiologist Anesthesiologist: Horacio Chase MD Preanesthetic Checklist Completed: patient identified, IV checked, risks and benefits discussed, surgical consent, monitors and equipment checked, pre-op evaluation and timeout performed Epidural Patient position: sitting Prep: ChloraPrep, site prepped and draped, skin prep agent completely dried prior to procedure, sterile gloves, mask used and subcutaneous lidocaine Patient monitoring: BP cuff, heart rate, cafeteria monitor and continuous pulse ox Approach: left paramedian Location: thoracic (1-12) T6-7 Injection technique: FELISHA saline Needle Needle type: Tuohy Needle gauge: 17 G Needle length: 3.5 in Catheter type: end hole Catheter size: 20 G Test dose: negative, lidocaine 1.5% with epinephrine 1-to-200,000 and 3 mL Assessment Events: no paresthesia Additional Notes 1 attempt Reason for block: at surgeon's request, for post-op pain management nesthesia Preprocedure Evaluation - Horacio Chase MD - 09/25/2020 1035 EST Anesthesia Preprocedure Evaluation Patient Medical History, including Anesthesia History reviewed. Chart and Nursing Notes reviewed, including NPO status and Medication History. Additional ROS/History Findings: Review of Systems Constitutional: Negative for chills and fever. Respiratory: Negative for cough and wheezing. Cardiovascular: Negative for chest pain. Gastrointestinal: Negative for heartburn, nausea and vomiting. Musculoskeletal: Negative for joint pain and neck pain. Relevant Problems Anesthesia (-) History of anesthesia complications (-) Motion sickness (-) PONV (postoperative nausea and vomiting) (-) Sleep apnea PULMONARY (-) Pneumonia (-) Recent URI (-) Sleep apnea Neuro/Psych (-) Neuromuscular disease ([facility]) (-) Seizures ([facility]) (-) TIA (transient ischemic attack) CARDIOVASCULAR (-) CAD (coronary artery disease) (-) SHARPE (dyspnea on exertion) (Lifts and moves furniture kristie not in the hospital) (-) KS (myocardial infarction) ([facility]) GASTROINTESTINAL (-) Gastroesophageal reflux disease /Renal (-) Liver disease (-) Renal disease ENDO/GI (-) Diabetes mellitus type 1 ([facility]) (-) Diabetes mellitus, type 2 ([facility]) (-) Hyperthyroidism (-) Hypothyroidism Other (-) Arthritis (-) Blood dyscrasia syndrome Past Medical History: Diagnosis Date ??? COPD (chronic obstructive pulmonary disease) ([facility]) ??? GIB (gastrointestinal bleeding) ??? HTN (hypertension) ??? Umbilical hernia recurred after mesh failure Past Surgical History: Procedure Laterality Date ??? UMBILICAL HERNIA REPAIR Past Anesthetics No issues with anesthesia Social History Socioeconomic History ??? Marital status: Spouse name: Not on file ??? Number of children: Not on file ??? Years of education: Not on file ??? Highest education level: Not on file Occupational History ??? Not on file Social Needs ??? Financial resource strain: Not on file ??? Food insecurity Worry: Not on file Inability: Not on file ??? Transportation needs Medical: Not on file Non-medical: Not on file Tobacco Use ??? Smoking status: Former Smoker Quit date: 2016 Years since quittin.9 Substance and Sexual Activity ??? Alcohol use: Not Currently Comment: Quit 10 years ago ??? Drug use: Not on file ??? Sexual activity: Not on file Lifestyle ??? Physical activity Days per week: Not on file Minutes per session: Not on file ??? Stress: Not on file Relationships ??? Social connections Talks on phone: Not on file Gets together: Not on file Attends baptism service: Not on file Active member of club or organization: Not on file Attends meetings of clubs or organizations: Not on file Relationship status: Not on file ??? Intimate partner violence Fear of current or ex partner: Not on file Emotionally abused: Not on file Physically abused: Not on file Forced sexual activity: Not on file Other Topics Concern ??? Not on file Social History Narrative ??? Not on file No current facility-administered medications on file prior to encounter. Current Outpatient Medications on File Prior to Encounter Medication Sig Dispense Refill ??? albuterol 90 mcg/actuation inhaler Inhale 1-2 Puffs as directed every 4 hours as needed for Wheezing. ??? aspirin 81 mg EC tablet Take 81 mg by mouth daily. ??? atorvastatin (LIPITOR) 10 mg tablet Take 20 mg by mouth at bedtime. ??? lisinopriL (PRINIVIL) 40 mg tablet Take 40 mg by mouth daily. Current Facility-Administered Medications Medication Route Frequency ??? acetaminophen (TYLENOL) tablet 1,000 mg oral Q6H PRN ??? albuterol inhaler 90-180 mcg inhalation Q4H PRN ??? aspirin EC tablet 81 mg oral DAILY ??? atorvastatin (LIPITOR) tablet 20 mg oral QHS ??? calcium carbonate (TUMS) 200 mg calcium (500 mg) per chewable tablet tablet,chewable 2 Tab oral QID PRN ??? calcium carbonate (TUMS) 200 mg calcium (500 mg) per chewable tablet tablet,chewable ??? ceFAZolin (ANCEF) syringe 2 g intravenous PRE-OP ONCE ??? chlorhexidine gluconate 2 % cloth 1 Each topical DAILY ??? docusate sodium (COLACE) capsule 100 mg oral BID Or ??? docusate (COLACE) liquid 100 mg per ng tube BID ??? electrolyte-A (PLASMALYTE-A) solution intravenous CONTINUOUS ??? enoxaparin (LOVENOX) injection 40 mg subcutaneous QHS ??? HYDROmorphone (DILAUDID) tablet 4 mg oral Q4H PRN ??? lidocaine 5 % (LIDODERM) patch 1 Patch transdermal DAILY ??? methocarbamoL (ROBAXIN) tablet 1,000 mg oral QID ??? ondansetron (PF) (ZOFRAN) injection 4 mg intravenous Q6H PRN ??? senna (SENOKOT) tablet 1-2 Tab oral BID PRN ??? sterile talc intrapleural powder 3 g intrapleural RE[employer]ERATION PLANT OPERATOR TO O.R. No Known Allergies Lab Results Component Value Date WBC 9.56 09/25/2020 HGB 13.5 (L) 09/25/2020 HCT 38.0 (L) 09/25/2020 MCV 86 09/25/2020 PLT 234 09/25/2020 Lab Results Component Value Date NA 125 (L) 09/25/2020 K 4.9 09/25/2020 CL 90 (L) 09/25/2020 CO2 24 09/25/2020 Lab Results Component Value Date BUN 8 (L) 09/25/2020 Lab Results Component Value Date CREATININE 0.48 (L) 09/25/2020 No results found for: INR, PROTIME No results found for: PTT Blood Type: O Patient Vitals for the past 24 hrs: BP Temp Temp src Resp SpO2 Weight 09/25/20 0957 108/77 36.7 ??C (98.1 ??F) Oral 16 92 % ??? 09/25/20 0630 109/73 36.5 ??C (97.7 ??F) Oral 18 93 % 77.1 kg (169 lb 14.4 oz) 09/25/20 0600 ? 91 % ??? 09/25/20 0500 ? 92 % ??? 09/25/20 0400 ? 90 % ??? 09/25/20 0300 ? 95 % ??? 09/25/20 0203 (!) 137/97 37.1 ??C (98.8 ??F) Oral 16 95 % ??? 09/24/20 2223 123/77 36.5 ??C (97.7 ??F) Oral 20 93 % ??? 09/24/20 1409 109/74 36.4 ??C (97.6 ??F) Oral 18 97 % ??? Physical Exam Airway Mallampati: II TM distance: >3 FB Neck ROM: full Cardiovascular Rhythm: regular Rate: normal Dental Comments: Edentulous Pulmonary Breath sounds clear to auscultation Abdominal Anesthesia Plan ASA 2 Anesthesia Type - general Block for post-op pain? Yes - via epidural Anesthesia plan and risks discussed. Informed consent obtained from patient. Specific risks discussed were bleeding, headache, dental injury, nausea, vomiting, nerve damage, infection and ICU placement. PAT Note (Notes from 08/26/20 through 09/25/20) No notes of this type exist for this encounter. documented in this encounter Plan of Treatment Upcoming Encounters Date Type Specialty Care Team Description 09/26/2022 Office Visit Hematology and Oncology Nessa [place] MD 111 [facility], [facility], [facility] [address] [place], [place] [phone] (Wo rk) documented as of this encounter Procedures Procedure Name Priority Date/Time Associated Comments Diagnosis ANESTHESIA Routine 09/25/2020 16:03 Results for this INTUBATION EST procedure are i n the results section. ANESTHESIA EPIDURAL Routine 09/25/2020 11:30 Resu lts for this BLOCK EST procedure are i n the results section. documented in this encounter Results KS AN ELECTIVE ENDOTRACHEAL AIRWAY (09/25/2020 16:03 EST) Narrative Marky Aldana MD - 09/25/2020 16: 03 EST Marky Aldana MD ? 09/25/2020 16:06 Airway Date/Time: 09/25/2020 15:27 Urgency: elective General Information and Staff Patient location during procedure: OR Anesthesiologist: Drew Verdugo MD Resident/PHLEBOTOMY LAB ASSISTANT: Marky Aldana MD Performed: resident/PHLEBOTOMY LAB ASSISTANT/AA Indications and Patient Condition Indications for airway management: anest hesia Sedation level: GA Preoxygenated: yes Patient position: sniffing MILS Maintained: No Ventilation assessment: 5 - Two provider s required (Oral airway inserted, aguayo, prominent nose, sunken cheeks, ad entulous) Final Airway Details Final airway type: endotracheal airway Successful airway: ETT - double lumen le ft Cuffed: yes Successful intubation technique: flexibl e bronchoscopy Facilitating devices/methods: intubating stylet Endotracheal tube insertion site: oral Blade: Daniele Blade size: #4 ETT DL size (fr): 39 Placement verified by: chest auscultatio n, capnometry and single lung ventilation Measured from: teeth Number of attempts at approach: 1 ANESTHESIA EPIDURAL BLOCK (09/25/2020 11:30 EST) Narrative [facility] - 09/25/2020 11:30 E Horacio Morfin MD ? 09/25/2020 11:31 Epidural Block Patient location during procedure: floor Start time: 09/25/2020 10:55 End time: 09/25/2020 11:15 Staffing Performed: anesthesiologist Anesthesiologist: Horacio Chase MD Preanesthetic Checklist Completed: patient identified, IV checke d, risks and benefits discussed, surgical consent, monitors and equipment checked, pre-op evaluation and timeout performed Epidural Patient position: sitting Prep: ChloraPrep, site prepped and drape d, skin prep agent completely dried prior to procedure, sterile gloves , mask used and subcutaneous lidocaine Patient monitoring: BP cuff, heart rate, cafeteria monitor and continuous pulse ox Approach: left paramedian Location: thoracic (1-12) ??T6-7 Injection technique: FELISHA saline Needle Needle type: Tuohy Needle gauge: 17 G Needle length: 3.5 in Catheter type: end hole Catheter size: 20 G Test dose: negative, lidocaine 1.5% with epinephrine 1-to-200,000 and 3 mL Assessment Events: no paresthesia Additional Notes 1 attempt Reason for block: at surgeon's request, for post-op pain management Performing Organization Address City/State/ZIP Code Phon e Number [facility] documented in this encounter Visit Diagnoses Not on filedocumented in this encounter Administered Medications Inactive Administered Medications - up to 3 most recent administrations Medication Order MAR Action Action Date Dose Rate Site acetaminophen (OFIRMEV) IV Given 09/25/2020 16:45 EST 1,000 mg solution PRN, Starting on Mon09/25/20 at 1645, Until Mon09/25/20 at 1807, Routine, Anesthesia Intraprocedure ceFAZolin (ANCEF) syringe 2 g Given 09/25/2020 15:37 EST 2 g 2 g, intravenous, Administer over 10 Minutes, PRE-OP ONCE, 1 dose, On Mon09/25/20 at 0600, Routine dexaMETHasone (DECADRON) injection Given 09/25/2020 15:56 EST 8 mg PRN, Starting on Mon09/25/20 at 1556, Until Mon09/25/20 at 1807, Routine, Anesthesia Intraprocedure esmoloL (BREVIBLOC) injection Given 09/25/2020 16:00 EST 20 mg PRN, Starting on Mon09/25/20 at 1600, Until Mon09/25/20 at 1807, Routine, Anesthesia Intraprocedure Given 09/25/2020 15:28 EST 20 mg fentaNYL citrate (PF) injection Given 09/25/2020 16:20 EST 50 mcg PRN, Starting on Mon09/25/20 at 1521, Until Mon09/25/20 at 1807, Routine, Anesthesia Intraprocedure Given 09/25/2020 15:21 EST 100 mcg HYDROmorphone (DILAUDUD) 2 mg/mL injecti on Given 09/25/2020 17:24 EST 0.4 mg PRN, Starting on Mon09/25/20 at 1631, Until Mon09/25/20 at 1807, Routine, Anesthesia Intraprocedure Given 09/25/2020 16:31 EST 0.4 mg lactated ringers (LR) infusion New Bag 09/25/2020 15:05 EST intravenous, FA IP EQF CONTINUOUS PRN FOR ONE STEP MEDS, Starting on Mon09/25/20 at 1505, Until Mon09/25/20 at 1807, Routine, Anesthesia Intraprocedure lidocaine (PF) 20 mg/mL (2 %) injection Given 09/25/2020 15:21 EST 100 mg PRN, Starting on Mon09/25/20 at 1521, Until Mon09/25/20 at 1807, Routine, Anesthesia Intraprocedure midazolam (PF) (VERSED) injection Given 09/25/2020 15:19 EST 1 mg PRN, Starting on Mon09/25/20 at 1519, Until Mon09/25/20 at 1807, Routine, Anesthesia Intraprocedure ondansetron (PF) (ZOFRAN) injection Given 09/25/2020 17:27 EST 4 mg PRN, Starting on Mon09/25/20 at 1727, Until Mon09/25/20 at 1807, Routine, Anesthesia Intraprocedure propOFol (DIPRIVAN) injection Given 09/25/2020 17:39 EST 70 mg PRN, Starting on Mon09/25/20 at 1522, Until Mon09/25/20 at 1807, Routine, Anesthesia Intraprocedure Given 09/25/2020 15:26 EST 30 mg Given 09/25/2020 15:22 EST 100 mg rocuronium (ZEMURON) injection Given 09/25/2020 17:20 EST 10 mg PRN, Starting on Mon09/25/20 at 1633, Until Mon09/25/20 at 1807, Routine, Anesthesia Intraprocedure Given 09/25/2020 16:33 EST 20 mg Given 09/25/2020 15:23 EST 60 mg sodium chloride (PF) 15 mL with bupivacaine (PF) Bolus 09/25/2020 17:27 EST 2 mL (MARCAINE) 5 mL FA IP EQF CONTINUOUS PRN FOR ONE STEP MEDS, Starting on Mon09/25/20 at 1620, Until Mon09/25/20 at 1807, Routine, Anesthesia Intraprocedure Bolus 09/25/2020 17:05 EST 3 mL Bolus 09/25/2020 16:31 EST 6 mL documented in this encounter Care Teams Family Services Assistant Relationship Specialty Start Date End Date Radha Terrazas APRN PCP - General 08/23/20 [address] [place] [phone] documented as of this encounter
--- OUTSIDE RECORDS SUMMARY | 2022-05-05 12:09 | XMS_ITS | Encounter Summary ---
:1950 Author Organization [facility] Address [address] [place] [address] Care Team Providers Name Role Phone Reina Terrazasily [place] GHOSH Primary Care Provider Encounter Details Date Type Department Care Team Description 2020 Anesthesia Event [facility] ANESTHES Mehul Cantor MD [address] [place], [place] [id number] [place] [id number] (Wo rk) Anesthesia Record Procedure Summary Procedure Name Responsible Anesthesia Start Anesthesia Stop Anesthesiologist Time Time ANESTHESIA PAIN SERVICE FOLLOW-UP/ROUNDING Events No events on file. No medications on file. Agents No agents on file. Blood No blood administrations on file. Lines, Drains, and Airways Type Details Placement Removal Wound Other (ERROR) 09/25/20 1658 by Garrett Oneal RN Wound 09/25/20; Incision; Right, 09/25/20 0000 by Vandana Lpoez; Chest; 3 trocar ALICIA Tucker sites; N Urethral Catheter 09/30/20; 0619; Inserted by 09/30/20 0619 by Latrice Rodriguez RN; Acute urinary retention; RN Straight-tip; 14 fr; 10 ml; Yes documented in this encounter Social History Tobacco [...] Hematology and Oncology Nessa [place] MD 111 [facility], [facility], [facility] [address] [place], [place] [phone] (Wo rk) documented as of this encounter Visit Diagnoses Not on filedocumented in this encounter Care Teams Valuer Relationship Specialty Start Date End Date Radha Terrazas APRN PCP - General 08/23/20 [address] [place] [phone] documented as of this encounter
--- OUTSIDE RECORDS SUMMARY | 2022-05-05 12:09 | XMS_ITS | Encounter Summary ---
:1950 Author Organization [facility] Address [address] [place] [address] Care Team Providers Name Role Phone Radha Terrazas APRN Primary Care Provider Encounter Details Date Type Department Care Team Description 09/19/2020 Hospital Encounter [facility] Secondary Reads [place] Social History Tobacco Use Types Packs/Day Years Used Date Never Assessed Sex Assigned at Date Recorded Male 02/19/2021 14:37 EDT documented as of this encounter Discharge Disposition Disposition Code Departure Means Destination Home or Self Care documented in this encounter Plan of Treatment Upcoming Encounters Date Type Specialty Care Team Description 09/26/2022 Office Visit Hematology and Oncology Nessa [place] MD 111 [facility], [facility] [address] [place], [place] [phone] (Wo rk) documented as of this encounter Procedures Procedure Name Priority Date/Time Associated Diagnosis Comme nts XR OUTSIDE IMAGES Routine 10/01/2020 9:45 EST Res ults for this CHEST procedure are i n the results section. documented in this encounter Results XR OUTSIDE IMAGES CHEST (10/01/2020 9:45 EST) Specimen Narrative 10/01/2020 9:45 EST This is a non-reportable exam. documented in this encounter Visit Diagnoses Not on filedocumented in this encounter Care Teams Wet Process Operator Relationship Specialty Start Date End Date Radha Terrazas APRN PCP - General 08/23/20 [address] [place] [phone] documented as of this encounter
--- OUTSIDE RECORDS SUMMARY | 2022-05-05 12:09 | XMS_ITS | Encounter Summary ---
:1950 Author Organization [facility] Address [address] [place] [address] Care Team Providers Name Role Phone Radha Terrazas APRN Primary Care Provider Encounter Details Date Type Department Care Team Description 09/20/2020 Hospital Encounter [facility] Secondary Reads [place] Social History Tobacco Use [...] Hematology and Oncology Nessa Sullivan MD [address] [facility], [facility] [address] [place], [place] [address] (Wo rk) documented as of this encounter Procedures Procedure Name Priority Date/Time Associated Diagnosis Comme nts XR OUTSIDE IMAGES Routine 10/01/2020 9:44 EST Res ults for this CHEST procedure are i n the results section. documented in this encounter Results XR OUTSIDE IMAGES CHEST (10/01/2020 9:44 EST) Specimen Narrative 10/01/2020 9:44 EST This is a non-reportable exam. documented in this encounter Visit Diagnoses Not on filedocumented in this encounter Care Teams Bottom Loader Relationship Specialty Start Date End Date Radha Terrazas APRN PCP - General 08/23/20 [address] [place] [address] documented as of this encounter
--- OUTSIDE RECORDS SUMMARY | 2022-05-05 12:09 | XMS_ITS | Encounter Summary ---
:1950 Author Organization [facility] Address [address] [place] [id number] Care Team Providers Name Role Phone Radha Terrazas APRN Primary Care Provider Reason for Visit Reason Onset Date Comments Other 09/24/2020 schedule patient for surgery Encounter Details Date Type Department Care Team Description 09/24/2020 Telephone [facility] Johan Torres, [facility] er (schedule Cardiothoracic Surgery - MD patient for surgery) [id number] [place] [address] [facility] [address] [place] [address] (Wo rk) Social History Tobacco [...] Notes Telephone Encounter - Abigail Roth - 09/24/2020 1330 EST Case request in [facility] for patient to have Right VATS, Pleurodesis, Possible Wedge Resection, PossibleThoracotomy on 09/25/2020, 2nd case, with Dr. Torres. [facility] portion of Case Request completed (Case #[id number]) and sent to OR Scheduling. Await response. documented in this encounter Plan of Treatment Upcoming Encounters Date Type Specialty Care Team Description 09/26/2022 Office Visit Hematology and Oncology Nessa Sullivan MD [address] [facility], [facility], [facility] [address] [place], [place] [address] (Wo rk) documented as of this encounter Visit Diagnoses Not on filedocumented in this encounter Care Teams Operations Examiner Relationship Specialty Start Date End Date Radha Terrazas APRN PCP - General 08/23/[address] [place] [address] documented as of this encounter
--- OUTSIDE RECORDS SUMMARY | 2022-05-05 12:09 | XMS_ITS | Encounter Summary ---
:[address] [facility] Address [address] [place] [address] Care Team Providers Name Role Phone Radha Terrazas APRN Primary Care Provider Encounter Details Date Type Department Care Team Description 09/27/2020 Anesthesia Event MAIN CUMMAQUID ANESTHES Darryl Watson MD 111 [facility] [address] [place] [address] [address] [place] [address] (Wo rk) Anesthesia Record Procedure [...] Hematology and Oncology Nessa Sullivan MD 111 [facility], [facility] 2 [place], [place] [address] (Wo rk) documented as of this encounter Visit Diagnoses Not on filedocumented in this encounter Care Teams Metal Drawer Relationship Specialty Start Date End Date Radha Terrazas APRN PCP - General 08/23/[address] [place] [address] documented as of this encounter
--- OUTSIDE RECORDS SUMMARY | 2022-05-05 12:09 | XMS_ITS | Encounter Summary ---
:1950 Author Organization [facility] Address [address] [place] [address] Care Team Providers Name Role Phone Radha Terrazas APRN Primary Care Provider Reason for Visit Auth/Cert Specialty Diagnoses / Procedures Referred By Contact Refer red To Contact Diagnoses Spontaneous pneumothorax Pleural fistula Referral ID Status Reason Start Date Expiration Date Visits Requ ested Visits Authorized [id number] 1 1 Encounter Details Date Type Department Care Team Description 09/25/2020 Surgery [facility] OR Johan Torres MD Right Video Assisted [address] [facility] e [address] [facility] Thoracoscopic Surgery, [place], [place] [id number] [place] [address], East Pleurodesis, Wedge [phone] Pavilion, Level 5 Resection [[id number] [place], [place] (CPT??)] [id number] (Wo rk) Surgery Details Date/Time Status Location OR Service Patient Case Case Traum a Class Class Type Case? 09/25/20 1330 Posted [facility] OR [facility] Cardiothoracic Inpatient F - Less than 24 hours Panel 1 Procedure LRB Anes Op Region Wound Class Commen ts Right Video Assisted Thoracoscopic Right General Chest C lass I/ Clean Surgery, Pleurodesis, Wedge Resection . Right General Chest Class I/ Clean Surgeon Surgeon Role Service Panel Johan Torres MD Primary Cardiothoracic 1 Jhonatan Epstein MD Resident - Assisting General 1 Special Needs 3gm Sterile Talc Ordered, Obtain from rica. Social History Tobacco Use Types Packs/Day Years [...] Sign Reading Time Taken Comments Blood Pressure 116/76 09/25/2020 1100 EST Pulse 96 09/22/2020 1454 EST Temperature 36.7 ??C (98.1 ??F) 09/25/2020 0957 EST Respiratory Rate 16 09/25/2020 0957 EST Oxygen Saturation 95% 09/25/2020 1300 EST Inhaled Oxygen Concentration - - Weight 77.1 kg (169 lb 14.4 oz) 09/25/2020 0630 EST Height 177.8 cm (5' 10) 09/21/2020 1440 EST Body Mass Index 24.38 09/21/2020 1440 EST documented in this encounter Discharge Summaries Herminiabhanumateo Randeeeliud Castellano APRN - 09/23/2020 0905 EST Cardiothoracic Surgery Discharge Summary Primary Care Provider: Radha Terrazas Attending Physician: Dr. Johan Torres Admit Date: 09/21/2020 Discharge Date: 10/01/2020 Disposition: Home with home health Problems and Procedures Admitting Diagnosis: Spontaneous pneumothorax Final Hospital Diagnosis: Spontaneous PTX Additional Problems Managed in the Hospital Active Hospital Problems Diagnosis Date Noted ??? *Spontaneous pneumothorax 09/21/2020 Resolved Hospital Problems No resolved problems to display. Operations and Procedures ?? Bedside placement 24Fr Rightchest tube on 09/22/2020 ?? RIGHT Video Assisted Thoracoscopic Surgery, Right upper lob wedge resection, right middle lobe wedge resection of nodule and mechanical and talc pleurodesis on 09/25/2020 History of Presentation Patient is a 69 y.o. male with a past medical history significant for COPD, and a right lower lobe lung nodule that had been followed by serial CT scans and deemed to be stable. Rhiannon notes he started having trouble breathing approximately 1 week ago, he said this came and went ultimately on Monday e vening his daughter convinced him to go to the ED at [facility], and on 1119 [facility] he underwent work-upincluding chest CT scan concerning for pneumothorax on the right side, general surgery at that institution was consulted and placed a right-sided 9 Lithuanian trocar guided chest tube, per chart review this resolve the pneumothorax but the patient had persistent air leak over the past 2 days. Surgeon at that institution reached out to Dr. Singh for elevation of care and further management of nonresolved airleak, as such patient presents to [facility] today to our service. ?? Upon speaking to Rhiannon he complains of some right-sided discomfort at the chest tube site but otherwise breathing is much improved since placement of the chest tube, is not having any pain unless he moves around in bed. Says his breathing is close to back to his baseline but a little bit short of breath at times. He notes he is normally able to climb a flight of stairs without shortness of breath, has not had uses albuterol inhaler for quite some time until this current episode. 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 Patient denies Abdominal pain, Nausea, Vomiting, Fever, Chills, Sweats, Constipation, Diarrhea, Melena, Change in bowel habits, dysuria, urinary frequency, numbness, or tingling. Endorses foul taste in his mouth. Hospital Course Rhiannon Shelton was admitted to the [facility] on 09/21/2020 via the transfer from [facility] ED. He had a refractory right-sided PTX despite chest tube placement. He was brought to the operating room where Dr. Torres performed surgery as described above. Intra-operatively the patient was noted to have a concerning mass at the RML that had been previously followed by serial CT scans. This area was resected and sent for biopsy. The patient additionally had his RUL resecteddue to the defect causing his PTX, this was also sent for pathology. He tolerated the procedure welland was brought to the Post Anesthesia Care Unit for recovery. After a brief period of time he was tr ansferred to the floor for continued rehabilitation. The patient continued to have an active air leak for several days post- operatively. By POD #4 the air leak had resolved and he was able to have his chest tubes removed. Patient was able to have his epidural removed without any issues. His waddell was removed on multiple occasions but unfortunately he had urinary retention. He was ultimately started on Flomax and was discharged home with a waddell catheter. He was referred to Urology at [facility] to have an outpatient voiding trial. During the patient's hospitalization he had ongoing issues with hyponatremia. His brandy was 125. Nephrology was consulted for this and ultimately recommended fluid restriction of 1L and added PO Urea-Na. He responded well to this with his Na being 130 at the time of discharge. The etiology was thoughtto be due to low protein intake. At the time of discharge the patient was recommended to consume a high protein diet and/or protein supplements. His PCP's office was notified of this and he was orderedto have weekly BMP's to closely follow this. Lastly, the pathology results came back on the patient prior to his discharge. 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 The patient was informed of these results as well as his PCP. He is being referred to [facility] for further review and follow up. By postoperative day #6 he had met all criteria for discharge to home. He had been weaned off supplemental oxygen to room air. Pain was controlled on oral medications. He had walked 5 minutes. He was tolerating a regular diet and had a bowel movement. Allergies and Immunizations No Known Allergies There is no immunization history on file for this patient. Transition of Care Plans Condition at Discharge Good Assessment at Discharge Blood pressure 110/75, pulse 88, temperature 36.8 ??C (98.2 ??F), temperature source Oral, resp. rate 20, height 177.8 cm (70), weight 77.1 kg (169 lb 14.4 oz), SpO2 96 %. Admission Wt: Last Wt: Last 5 Weights Filed This Admission 09/21/20 1552 09/22/20 0518 09/24/20 0600 09/25/20 0630 Weight: 77.8 kg (171 lb 8 oz) 76.1 kg (167 lb 12.3 oz) 79 kg (174 lb 1.6 oz) 77.1 kg (169 lb 14.4 oz) Pertinent Physical Exam Findings General Appearance: alert, cooperative, no distress Lung: clear to auscultation bilaterally Heart: regular rate and rhythm Abdomen: NT, ND, BS+ Extremities: Warm and well perfused, No edema Skin: Skin color, temperature, turgor normal. No rashes or lesions Incision(s)/Wound(s): Incisions approximated, clean/dry. Waddell in place draining yellow urine Important Lab Data Lab Results Component Value Date NA 130 (L) 10/01/2020 K 4.5 10/01/2020 CL 94 (L) 10/01/2020 CO2 31 10/01/2020 BUN 17 10/01/2020 CREATININE 0.55 (L) 10/01/2020 CALCGFR 105 10/01/2020 Complete Blood Count Lab Results Component Value Date ABO O 09/25/2020 WBC 7.66 09/29/2020 RBC 3.61 (L) 09/29/2020 HGB 10.8 (L) 09/29/2020 HCT 31.3 (L) 09/29/2020 MCV 87 09/29/2020 MCH 29.9 09/29/2020 MCHC 34.5 09/29/2020 PLT 271 09/29/2020 MPV 9.5 09/29/2020 RDWCV 14.3 (H) 09/29/2020 Coagulation No results found for: DDIMER, FIBRINOGEN, FDP, BLEEDINGTIME, PTT, APTT, PROTIME, INR Relevant Studies at Discharge CXR 09/29/2020 IMPRESSION 1. Pleural thickening on the right likely reflects minimal residual pleural effusion. 2. Possible tiny residual right pneumothorax. 3. Improved right lower lung hazy opacities likely reflecting improved atelectasis status post pleural decompression. Surgical Pathology A. LUNG, RIGHT, UPPER LOBE, VIDEO-ASSISTED THORACOSCOPIC [...] reactive mesothelial hyperplasia consistent with historyof pneumothorax. Discharge Follow Up Follow Up Appointments ?? The patient was referred to Dr. Torres with CT Surgery in 2 weeks with a chest x-ray. ?? The patient was referred to Urology at [facility] in 1 week for an outpatient voiding trial. ?? The patient was referred to his PCP, Radha Terrazas in 1-2 weeks for review of his hospitalization and medications. ?? The patient was referred to Lung [facility] at [facility] in the next few weeks for follow up on his new cancer diagnosis. For questions regarding this document or issues relating to this hospitalization on the Cardiothoracic Surgery Service, please contact Dr. Torres's office at . Discharge summary completed by Randee Castro APRN on 10/02/2020 documented in this encounter Discharge Instructions Discharge Instr - Randee Esquivel APRN - 10/01/2020 12:49 EST Waddell Care Preventing Infection Keep the drainage bag below the level of your bladder and off the floor at all times. Keep the catheter secured to your thigh to prevent it from moving. Don???t lie on your catheter or block the flow of urine in the tubing. Shower daily to keep the catheter clean. Clean your hands before and after touching the catheter or bag. Cleaning Your Catheter 1. Wash your hands thoroughly with soap and water. 2. Using mild soap and water, clean your genital area. ? Men should retract the foreskin, if needed, and clean the area, including the penis. ? Women should separate the labia, and clean the area from front to back. 3. Clean your urethra (urinary opening), which is where the catheter enters your body. 4. Clean the catheter from where it enters your body and then down, away from your body. Hold the catheter at the point it enters your body so that you don???t put tension on it. 5. Rinse the area well and dry it gently. documented in this encounter Medications at Time of Discharge [...] 90 days. documented as of this encounter Ordered Prescriptions Prescription Sig Dispensed Refills Start Date End Date docusate sodium (COLACE) Take 1 Cap by mouth 0 100 mg capsule 2 times daily as needed for Constipation. calcium carbonate (TUMS) Take 2 Tabs by 0 020 200 mg calcium (500 mg) mouth 4 times daily tablet,chewable as needed for Heartburn. acetaminophen (TYLENOL) Take 2 Tabs by 0 10/01/20 20 500 mg tablet mouth every 6 hours as needed for Pain or Fever (mild pain). methocarbamoL (ROBAXIN) Take 1 Tab by mouth 21 Tab 0 07/202010/13/2020 500 mg tablet 3 times daily as needed for Pain or Muscle Spasms. urea (URE-NA) 15 gram oral Take 15 g by mouth 60 Packet 0 1 12/02/2019 10/01/2020 powder packet 2 times daily for 30 days. TAMSulosin (FLOMAX) 0.4 mg Take 1 Cap by mouth 30 Cap 2 10/02/2020 12/31/2020 capsule daily for 90 days. senna (SENOKOT) 8.6 mg Take 1-2 Tabs by 0 020 11/27/2020 tablet mouth daily as needed (constipation). documented in this encounter Discharge Disposition Disposition Code Departure Means Destination Home-Health Care [facility] documented in this encounter Progress Notes Gaby Russell - 10/01/2020 1500 EST APPLIANCE ADJUSTER DISCHARGE NOTE: DISCHARGE DATE/TIME: Today 10/[address] OF DISCHARGE: home MODE OF TRANSPORT: dtr will come orange picker IM SIGNED (Y/): n/a FORMS ON CHART (Y/N): n/a ACCEPTING MD AND NUMBER: PCP Radha Terrazas [phone] RN REPORT/UNIT: [facility] for [facility] and [employer] [phone] PATIENT AWARE AND IN AGREEMENT OF PLAN: yes FAMILY NOTIFIED (IF APPLICABLE- Y/N): Yes dtr Dorcas MANUFACTURER REPRESENTATIVE/CHARGE/MD NOTIFIED (Y/N): yes Juana Russell RN CM #[id number] Deangelo Rao, PT - 10/01/2020 1316 EST [facility] Rehabilitation Therapy Acute Therapies [facility] Physical Therapy Discontinue/Discharge Note Date of Service: 10/01/2020 Precautions: activity as tolerated SUBJECTIVE: I feel much better OBJECTIVE: Intervention Completed Today: Time: 930 Total treatment time: 25 minutes. Timed code treatment minutes: 25 Vital signs were monitored and were stable throughout physical therapy session. HR 102 > 117 BP 110/75 at rest > 141/84 after activity SpO2 93% on RA with activity and NO SHARPE Airway clearance: cough dry Breath sounds: diminished > increased air entry post session Treatment: Therapeutic Exercises: ?? Breathing Exercises/airway clearance: Performed Paced/pursed lip breathing with all functional activity to maximize gas exchange and to decrease work of breathing with verbal cueing Performed IS to 1500 cc's x 10 followed by dry cough to clear airway with verbal cueing to maximize gas exchange/ventilation Therapeutic Activity: Bed mobility: rolling to sit independently Transfers: sit <> stand independently Gait/aerobic capacity training: Ambulated ~ 200 feet independently on RA with verbal cues for paced/pursed lip breathing control, with verbal cues for wide base of support to maximize balance and maintain center of gravity All above with verbal cues for safety and sequencing as well as energy conservation Stairs: up and down stairs per home set up independently with cues for pacing only Gait Speed^ (meters/second) independently 1.02 meters/sec. This test assesses walking speed over an established distance. Age/gender normative values (Willis, 2011) Age Gender 95% CI meters/second 20-29 Male 1.21-1.47 20-29 Female 1.08-1.49 30-39 Male 1.31-1.53 30-39 Female 1.25-1.41 40-49 Male 1.27-1.47 40-49 Female 1.22-1.42 50-59 Male 1.12-1.49 50-59 Female 1.10-1.55 60-69 Male 1.03-1.59 60-69 Female 0.97-1.45 70-79 Male 0.95-1.41 70-79 Female 0.83-1.50 80-89 Male 0.61-1.22 80-89 Female 0.56-1.17 Patients (age 65 and older) who are hospitalized with a gait speed < 0.4 meters/second had significantly decreased odds of discharge to home compared to patients with a gait speed > 0.6 meters/second. (Sophia, 2012) The minimal clinically important difference (MCID) for community-dwelling elderly is 0.05 to 0.13 meters/second. (Mary Ann, 2006) Patient/Family Education: Topic: Activity pacing/Energy conservation Balance Bed mobility Breathing exercises Discharge planning Equipment use Exercise Gait Home program Role of therapy Safety Stairs Transfers Learner: patient Method: verbal and demonstration Barriers to Learning: none noted Outcome: verbalized understanding and returned demonstration Team Communication: Functionally safe for HOME NO HOME PT NO equipment needed Patient has been seen in physical therapy since 09-30-20. In this reporting period 09-30-20 to 10-01-20 the patient has been seen by a physical therapist. Please refer to the physical therapy notes for specifics on the patient's functional status and treatment sessions. Relevant objective findings: AROUSAL, ATTENTION, AND COGNITION: Please refer above to Interventions Completed Today BALANCE, MOBILITY, AND GAIT: Gait Speed - Distance (M): 9.14 Gait Speed - Time (sec): 9 Gait Speed - Velocity (meters/sec): 1.02 meters/sec Please refer above to Interventions Completed Today ASSESSMENT: Physical therapy services in this setting have been discontinued secondary to: Goals met Physical Therapy Diagnosis: This patient was admitted for spontaneous pneumothorax>> s/p rightVATS for mechanical and talc pleurodesis right upper lobe wedge resection and right middle lobe wedge resection on 09/25/2020. Patient now presents with a physical therapy diagnosis of Impaired functional mobility with impairedstrength/deconditioning, impaired functional balance, impaired gas exchange/ventilation and impairedactivity tolerance/aerobic capacity. ? Physical Therapy Prognosis: Based on patient's prior level of independent function, good motivation,full understanding of postoperative activity guidelines/precations, progressing to NO need for physical assistance and NO need of supplemental O2 during last PT session, I now anticipate safe DC HOME. ?? Due to the above improved clinical findings , he is NOW functionally safe to be D/C to HOME when medically ready. ??ALL goals MET today ?? Short-Term Goals: n/a ?? n/a ?? Long-Term Goals: <7 days ?? Patient will be independent/supervision with all bed mobility demonstrating proper technique and sequencing ?? Patient will be independent/supervision with all transfers demonstrating proper technique and sequencing ?? Patient will ambulate without loss of balance with least restrictive device > = 150 feet independently/supervision while demonstrating proper technique and sequencing ?? Patient will be independent/supervision with stairs per home set up ?? Gait speed > 0.6 meters/sec with or without an assistive device ?? Patient will be independent with paced breathing exercises and use of IS >= 1000 mls followed by effective cough to clear airways ?? Patient will be independent with postoperative VATS guidelines, Home Walking program, symptom recognition, and techniques of energy conservation with all functional activity ?? Breath sounds will be Clear to auscultation and/or decreased adventitious sounds ?? All above with HR > 60 < 130; SBP > 90 < 180; RR < 35; Pain < 5/10; SPO2 > 87 % on least amount of FiO2 ?? PLAN: D/C Physical Therapy Recommended Discharge Destination: Home alone Recommended Discharge Services: No physical therapy follow-up services at this time Recommended Equipment Needs: No equipment necessary Other recommendations: No other consults recommended at this time Pager: [phone] DEANGELO MILLER, PT 10/01/2020 15:16 Desirae Benedict MD - 09/30/2020 1744 EST NEPHROLOGY CONSULT PROGRESS NOTE Admit Date: 09/21/2020 Hospital Day: LOS: 9 days Date of Service: 09/30/2020 Attending Physician: Johan Torres MD Reason for Consult: Hyponatremia 24-hour events/Subjective: No acute events overnight. Feeling better this morning. He was able to walk around. Breathing is better. He is tolerating the [place] ROS: 10 point review of system is as above, otherwise negative. Current medications; reviewed and notable for the following: Ure-Na 15 g BID Objective: I+O: Intake/Output Summary (Last 24 hours) at 09/30/2020 1747 Last data filed at 09/30/2020 1432 Gross per 24 hour Intake 30 ml Output 3100 ml Net -3070 ml Weight: Last 5 Weights Filed This Admission 09/21/20 1552 09/22/20 0518 09/24/20 0600 09/25/20 0630 Weight: 77.8 kg (171 lb 8 oz) 76.1 kg (167 lb 12.3 oz) 79 kg (174 lb 1.6 oz) 77.1 kg (169 lb 14.4 oz) Physical Examination: BP 119/72 (BP Cuff Location: Right arm, BP Patient Position: Semi fowlers) Pulse 88 Temp 36.4 ??C (97.5 ??F) (Oral) Resp 20 Ht 177.8 cm (70) Wt 77.1 kg (169 lb 14.4 oz) SpO2 97% BMI 24.38 kg/m?? General Appearance: No Acute Distress HEENT : Sclerae clear Heart: Regular Rate/Rhythm Lungs: Clear to Auscultation and Breathing non-labored; chest tubes removed Abdomen: Soft Extremities: No Edema : no waddell Neuro: No Tremors Psych: Awake, Alert, Oriented to Person, Place and Time Skin: normal coloration and turgor, no rashes, no suspicious skin lesions noted. Extracellular volume is assessed as normal Vascular Access: A dialysis access is not present. Data Review: Reviewed in [facility], notable for the following: Recent Labs 09/28/20 0958 09/29/20 0642 09/30/20 0544 NA 125* 126* 130* K 4.2 4.2 4.0 CL 87* 90* 92* CO2 30 33* 30 BUN 6* 7* 19 CREATININE 0.44* 0.49* 0.46* WBC 7.40 7.66 -- HGB 11.3* 10.8* -- PLT 283 271 -- Procedures/Studies during past 24 hours: Chest tubes removed ASSESSMENT: Euvolemic hyponatremia due to low solute intake. He is responding to Ure-Na with improvement in sodium to 130 this morning. RECOMMENDATIONS: - Continue Ure-Na 15 g BID for now - Encourage PO intake of protein-rich foods and supplements - Daily Na levels - Fluid restriction of 1L - Strict I/Os Desirae Russell MD 09/30/2020 17:44 Deangelo Rao, PT - 09/30/2020 1317 EST [facility] Rehabilitation Therapy Acute Therapies [facility] Physical Therapy Initial Evaluation Note Date of Service: 09/30/2020 Reason for Referral: Evaluate and treat Precautions: Activity as tolerated and Ambulate SUBJECTIVE: I would like to try Pain: No pain reported during the interview. OBJECTIVE: PatientProfile: Patient is a 70 y.o. male admitted on 09/21/2020 secondary to Spontaneous pneumothorax [J93.83] Per H&P note: Patient is a 69 y.o. male with a past medical history significant for COPD, and a right lower lobe lung nodule that had been followed by serial CT scans and deemed to be stable. Rhiannon notes he started having trouble breathing approximately 1 week ago, he said this came and went ultimately on Monday e vening his daughter convinced him to go to the ED at [facility], and on 11[address] [facility] he underwent work-upincluding chest CT scan concerning for pneumothorax on the right side, general surgery at that institution was consulted and placed a right-sided 9 Lithuanian trocar guided chest tube, per chart review this resolve the pneumothorax but the patient had persistent air leak over the past 2 days. Surgeon at that institution reached out to Dr. Singh for elevation of care and further management of nonresolved airleak, as such patient presents to [facility] today to our service. ?? Upon speaking to Rhiannon he complains of some right-sided discomfort at the chest tube site but otherwise breathing is much improved since placement of the chest tube, is not having any pain unless he moves around in bed. Says his breathing is close to back to his baseline but a little bit short of breath at times. He notes he is normally able to climb a flight of stairs without shortness of breath, has not had uses albuterol inhaler for quite some time until this current episode. 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 Patient denies Abdominal pain, Nausea, Vomiting, Fever, Chills, Sweats, Constipation, Diarrhea, Melena, Change in bowel habits, dysuria, urinary frequency, numbness, or tingling. Endorses foul taste in his mouth. OPERATIVE REPORT SERVICE DATE: ??09/25/2020 ?? PREOPERATIVE DIAGNOSIS:?Spontaneous pneumothorax with persistent air leak. ?? POSTOPERATIVE DIAGNOSIS:?Spontaneous pneumothorax with persistent air leak. ?? PROCEDURE:?Right video-assisted thorascopic surgery, mechanical and talc pleurodesis, right upperlobe wedge resection, right middle lobe wedge resection of nodule. ?? SURGEON:?Johan Torres MD. ?? The patient lives at [address] [facility] [address] Home environment Lives:alone Caregiver Support: Part-time assist Equipment Available: None Home Environment: apartment Home Layout: One story. 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 Spontaneous pneumothorax Past: Past Medical History: Diagnosis Date ??? COPD (chronic obstructive pulmonary disease) ([facility]) ??? GIB (gastrointestinal bleeding) ??? HTN (hypertension) ??? Umbilical hernia recurred after mesh failure Past Surgical History: Procedure Laterality Date ??? UMBILICAL HERNIA REPAIR Medications: Medications reviewed Arousal, Attention, and Cognition: Orientation: Oriented to person, place, and time Cardiopulmonary: Patient vital signs stable and patient not symptomatic during examination HR 106 at rest, 122 with activity and back to 112 at end of session BP 131/84 at rest, 125/72 with ambulation/activity SpO2 100% on 1 L nasal cannula at rest, 88% to 90% on room air trial with activity>> kept on room air and RN to monitor Pre:Breath Sounds:diminished all kellogg Crackles no Rhonchi no Wheeze no Post: Breath sounds: increased air entry Airway clearance: cough productive but not expectorated Integumentary/Anthropometric Characteristics: Palpation/Observation: No problem noted Skin: s/p right VATS procedure , incision sites C/D/I Edema: No Posture: Mild forward head, Protracted shoulders and Thoracic kyphosis Still with Waddell catheter in place Range of Motion and Joint Integrity: Active Range of Motion: Within normal limits except as noted Upper Quarter: Left Upper Extremity: Right Upper Extremity: Cervical Spine: WNL Lower Quarter: Left Lower Extremity: Right Lower Extremity: Lumbar Spine: N/E Muscle Performance: Strength: Manual muscle test completed in: Supine with Head of bed elevated 30 degrees All grossly >4/5 except noted below: Upper Quarter: Left Upper Extremity: Right Upper Extremity: Cervical Spine: functionally 3/5 Lower Quarter: Left Lower Extremity: Right Lower Extremity: Lumbar Spine: N/E Sensation, Reflexes, and Nerve Integrity: Light Touch Sensation: Upper Quarter:Intact C2-T1 Lower Quarter: Intact for lower extremities Neuromotor Function/Development: No problems noted Balance, Mobility, and Gait: Balance: No loss of balance observed throughout physical therapy session Gait Speed^ (meters/second) with close supervision and on room air 0.51 meters/sec. This test assesses walking speed over an established distance. Age/gender normative values (Willis, 2011) Age Gender 95% CI meters/second 20-29 Male 1.21-1.47 20-29 Female 1.08-1.49 30-39 Male 1.31-1.53 30-39 Female 1.25-1.41 40-49 Male 1.27-1.47 40-49 Female 1.22-1.42 50-59 Male 1.12-1.49 50-59 Female 1.10-1.55 60-69 Male 1.03-1.59 60-69 Female 0.97-1.45 70-79 Male 0.95-1.41 70-79 Female 0.83-1.50 80-89 Male 0.61-1.22 80-89 Female 0.56-1.17 Patients (age 65 and older) who are hospitalized with a gait speed < 0.4 meters/second had significantly decreased odds of discharge to home compared to patients with a gait speed > 0.6 meters/second. (Sophia, 2012) The minimal clinically important difference (MCID) for community-dwelling elderly is 0.05 to 0.13 meters/second. (Mary Ann, 2006) Mobility: Mobility evaluation as follows: All below with supervision assist of 1 and with cues for right thoracotomy/VATS precautions, sequencing and safety Rolling: Supine to sit: Sit to supine: Sit to stand: Stand to sit: Gait: Patient ambulated ~100 feet with minimal contact assist of 1/supervision while on room air trial, with very slow but steady gait pattern and cues for paced breathing and energy conservation Requiring several standing rest stops Self-Care, Home Management, Work, and Leisure: Outcomes: Not evaluated Informed Consent: The patient consented to the physical therapy evaluation. The patient agrees to and understands the physical therapy treatment plan and goals. Interventions Completed Today: Physical Therapy today at: 1030 Total treatment time: 30 minutes. Timed code treatment minutes: 10 Intervention included: Therapeutic exercises: Patient instructed in and performed Incentive Spirometer x 10 reps at 1000 ml's followed by dry cough which was non-productive. This was performed to effectively clear airway and maximize ventilation/gas exchange. Patient instructed in postoperative activity guidelines and VATS precautions, progressive walking plan for here with nursing to help expedite discharge to home along with cues for energy conservation techniques, self initiating rest periods coupled with pursed lip breathing to maximize functional endurance . Patient also instructed in planning movements and clustering activities to conserve energy. Patient instructed in deep breathing exercises and encouraged patient to cough in order to effectivelyclear airway to maximize gas exchange post -operatively to prevent post-op pulmonary complications. Patient/Family Education: Activity pacing/Energy conservation Balance Bed mobility Breathing exercises Discharge planning Equipment use Exercise Gait Positioning Precautions/protocol Role of therapy Safety Transfers Walking plan with nursing Symptom recognition Learner: patient and caregiver Method: verbal, demonstration Barriers to Learning: none noted Outcome: needs practice, verbalized understanding and returned demonstration Team Communication: Discussed with RN pre and post intervention. Recommend: ASSESSMENT: Upper Quarter Screen: No positive findings-no follow up needed Physical Therapy Diagnosis: This patient admitted for spontaneous pneumothorax>> s/p right VATS for mechanical and talc pleurodesis right upper lobe wedge resection and right middle lobe wedge resection on 09/25/2020. Patient now presents with a physical therapy diagnosis of Impaired functional mobility with impairedstrength/deconditioning, impaired functional balance, impaired gas exchange/ventilation and impairedactivity tolerance/aerobic capacity. Patient will continue to benefit from ongoing physical therapy in the acute care setting for safe discharge planning and to address these impairments which are likely related to pt's co-morbidities andrecent right VAT surgery. Physical Therapy Prognosis: Based on patient's prior level of independent function, good motivation,understanding of postoperative activity guidelines/precations, minimal need for physical assistance and minimal need for supplemental O2 during evaluation + intervention, anticipate steady functional gains with physical therapy and nursing in this setting to help expedite discharge to home and safe DCto home. Due to the above clinical findings and no support at home, anticipate D/C to HOME will be appropriate once he is functionally independent and weaned from oxygen fully and when medically ready. Physical therapy will continue to follow for safe discharge planning. Short-Term Goals: n/a ?? n/a Long-Term Goals: <7 days ?? Patient will be independent/supervision with all bed mobility demonstrating proper technique and sequencing ?? Patient will be independent/supervision with all transfers demonstrating proper technique and sequencing ?? Patient will ambulate without loss of balance with least restrictive device > = 150 feet independently/supervision while demonstrating proper technique and sequencing ?? Patient will be independent/supervision with stairs per home set up ?? Gait speed > 0.6 meters/sec with or without an assistive device ?? Patient will be independent with paced breathing exercises and use of IS >= 1000 mls followed by effective cough to clear airways ?? Patient will be independent with postoperative VATS guidelines, Home Walking program, symptom recognition, and techniques of energy conservation with all functional activity ?? Breath sounds will be Clear to auscultation and/or decreased adventitious sounds ?? All above with HR > 60 < 130; SBP > 90 < 180; RR < 35; Pain < 5/10; SPO2 > 87 % on least amount of FiO2 PLAN: Treatment/Intervention: Physical therapy will be provided by physical therapist and/or physical therapist evaluation assistant when medically appropriate. Frequency: daily for 2-3 or more times a week Intensity: 10- 50 minutes per session Duration: During hospitalization Interventions may include:Therapeutic exercises, Therapeutic activities and Gait training Patient/family education: Discharge planning, Equipment, Recommendations, Role of physical therapy/rehabilitation, Safety Further Data: Further mobility assessment Recommended Discharge Destination: Home alone but not until cleared for home by physical therapy Recommended Discharge Services: To be determined but likely will benefit from home nursing assessment Recommended Equipment Needs: No equipment necessary Other recommendations: No other consults recommended at this time Pager: [phone] DEANGELO MILLER, AIDEN 09/30/2020 15:20 Deangelo Rao, PT - 09/30/2020 3924 EST [facility] Rehabilitation Therapy Acute Therapy [facility] Physical Therapy Contact Note Date of Service: 09/30/2020 PT evaluation and intervention completed. Full note to follow. Patient ambulated on Room air ~ 100 feet with supervision with SpO2 88% and mild SHARPE Recommend: OOB to chair TID and ambulate in THOMAS TID with nursing assist of 1 WEAN O2 to keep SPO2 >= 88% Hopeful for Home when medically cleared In the next few days >>PENDING further functional and clinical progress HOME care services likely PT assessment ongoing DEANGELO MILLER, AIDEN 09/30/2020 13:15 [id number] Crow Sousa RN - 09/30/2020 1127 EST CM spoke with daughter who would be closest assist for patient upon discharge. Dorcas, daughter, can be reached at [phone] ext [phone] daily until 3pm and at [phone] after 3pm. Dorcas is tryingto coordinate when she would expect to orange picker patient and what that may entail as he lives alone and she lives an hour away from him. Stated he can be somewhat stubborn and would like to present information to him earlier to get him acclimated to the plans. If patient is requiring oxygen at home, a Home O2 eval will need to be performed and patient should meet requirements with his diagnosis of COPD. LOYDA will request MD care team to reach out to Dorcas for updates as she has not spoken with an MD since last Monday. LOYDA will continue to assist with discharge planning and follow up with Dorcas as information arises. [address] [phone] Jhonatan Epstein MD - 09/30/2020 0734 EST Surgery Progress Note Service Date: 09/30/2020 Admit Date: 09/21/2020 13:39 POD: 5 (09/21/2020) Procedure: R-VATS w/ mechanical and talc pleurodesis, RUL wedge resection, RML wedge resection ?? Chief Complaint: Spontaneous Pneumothorax 24 Hour Events: ?? Chest tube removed at bedside ?? PCEA removed by anesthesia ?? Straight cath for difficulty voiding this AM Subjective/Objective Subjective Mr. Shelton is feeling well, has slept more than ever since admission, denies pain/n/v/chest pain/SOB/lightheadedness/dizziness. Still manages to perform bedside exercises and tolerates PO well. Having difficulty with urination, nursing at bedside placing a waddell. Objective Vital Signs Temp: [36.4 ??C (97.5 ??F)-36.8 ??C (98.3 ??F)] , Heart Rate: [87 BPM-116 BPM] , Pulse: --, Pulse From Oximetry: --, Resp: [16-20] , BP: (104-131)/(63-80) , SpO2: [94 %-99 %] Physical Exam General Appearance: alert, cooperative, no distress Lung: clear to auscultation bilaterally Heart: regular rate and rhythm Abdomen: ND, NT, +BS Extremities: Warm and well perfused, no edema Skin: Skin color, temperature, turgor normal. No rashes or lesions Incision(s)/Wound(s): Right sided chest tube dressings are intact and draining small amounts of yellow serous fluid. Waddell being placed by nursing at bedside Is PICC or Central line present? No, PICC/Central line not present. Recent Labs 2058 09/29/20 0642 WBC 7.40 7.66 HGB 11.3* 10.8* HCT 33.3* 31.3* MCV 90 87 PLT 283 271 Recent Labs 09/28/2095709/29/20 0642 09/30/20 0544 NA 125* 126* 130* K 4.2 4.2 4.0 CL 87* 90* 92* CO2 30 33* 30 BUN 6* 7* 19 CREATININE 0.44* 0.49* 0.46* MG -- 1.9 -- CAION -- 1.09* -- SERGLU 112* -- -- Assessment/Plan Assessment 70 y.o.??male??with history of COPD who was transferred from OSH with spontaneous pneumothorax that did not response to a 9Fr tube, was transferred here and had a 24Fr tube but had persistent air leak and was taken to the OR for R VATS, mechanical and talc pleurodesis with RUL wedge resection and RML wedge resection. He is??now POD#??5 and is recovering appropriately from surgical standpoint. Chest tube incisions healing well with no air leaks. Post-removal cxr showed some residual right-sided pleural effusion and pneumothorax but improved RLL haziness from previous. Plan ReplaceFoley F/u urology outpatient F/u nephrology consult for hyponatremia, continue Ure-Na BID Fluid restriction to 1L Strict I/Os PT eval for safety, appreciate help Marcellus Barakat MS3 09/30/2020 7:34 Attestation statement: I was present with the medical student for the history, exam, medical decision making documented by him/her. I have personally performed my own physical exam and medical decisionmaking. I have verified and agree with (or, as indicated, have edited) the medical student's documentation. Jhonatan Epstein MD 09/30/2020 17:42 Jhonatan Purcell MD - 09/29/2020 1631 EST Procedure note: Chest tubes x2 removed at bedside and covered with occlusive dressing. Patient tolerated procedure and remained HD stable. No changes in respiratory status. Jhonatan Epstein MD 09/29/2020 16:31 Basil Alvarez - 09/29/2020 1307 EST Nutrition Initial Assessment: Medical Summary: Rhiannon Shelton is a 70 y.o. male admitted on 09/21/2020 who was transferred from OSH with spontaneous pneumothorax that did not response to a 9Fr tube, was transferred here and had a 24Fr tube but had persistent air leak and was taken to the OR for R VATS, mechanical and talc pleurodesis with RUL wedge resection and RML wedge resection. He is??now POD#??4 and is recovering appropriately from surgical standpoint. Chest tube draining still demonstrates intermittent air leak when coughing/deep inspiration. PCEA discontinued and pain appears managed at this time. ?? Subjective: Pt says the chocolate Boost is okay, says he'll drink it because he's thirsty. Was able to have a small bowel movement. Current Nutrition Orders: Diet Order: Regular Nutrition Focused Physical Findings: Digestive Systems: Last BM (09/29/20) Skin: surgical incisions Edema: none noted Anthropometrics: Height: 177.8cm Admission Weight: 77.1kg (09/25/20 Body mass index is 24.38 kg/m??. Wt Readings from Last 6 Encounters: 09/25/20 77.1 kg (169 lb 14.4 oz) ?? Pertinent Medications: Current Facility-Administered Medications Medication Route Frequency ??? acetaminophen (TYLENOL) tablet 1,000 mg oral Q6H PRN ??? albuterol inhaler 90-180 mcg inhalation Q4H PRN ??? aspirin EC tablet 81 mg oral DAILY ??? atorvastatin (LIPITOR) tablet 20 mg oral QHS ??? bisacodyL (DULCOLAX) suppository 10 mg rectal Now ??? calcium carbonate (TUMS) 200 mg calcium (500 mg) per chewable tablet tablet,chewable 2 Tab oral QID PRN ??? calcium carbonate (TUMS) 200 mg calcium (500 mg) per chewable tablet tablet,chewable ??? docusate sodium (COLACE) capsule 100 mg oral BID ??? enoxaparin (LOVENOX) injection 40 mg subcutaneous QHS ??? HYDROmorphone (DILAUDID) tablet 2 mg oral Q4H PRN ??? lidocaine 5 % (LIDODERM) patch 1 Patch transdermal DAILY ??? methocarbamoL (ROBAXIN) tablet 1,000 mg oral QID ??? ondansetron (PF) (ZOFRAN) injection 4 mg intravenous Q6H PRN ??? senna (SENOKOT) tablet 1-2 Tab oral BID PRN ??? urea (URE-NA) oral powder packet 15 g oral BID Relevant Labs: Lab Results Component Value Date WBC 7.66 09/29/2020 RBC 3.61 (L) 09/29/2020 HGB 10.8 (L) 09/29/2020 HCT 31.3 (L) 09/29/2020 MCV 87 09/29/2020 MCH 29.9 09/29/2020 PLT 271 09/29/2020 NA 126 (L) 09/29/2020 K 4.2 09/29/2020 CL 90 (L) 09/29/2020 CO2 33 (H) 09/29/2020 BUN 7 (L) 09/29/2020 CREATININE 0.49 (L) 09/29/2020 CALCIUM 9.0 09/22/2020 MG 1.9 09/29/2020 Estimated Nutrition Intake: 25-75% of meals ?? Assessment: Pt w/ variable PO intake and appetite in setting of acute illness. Eating 25- 75% of meals, likely not yet meeting calorie needs at this time. Recommend continue diet as ordered w/ high calorie/proteinBoost shakes, pt agreeable to continue w/ shakes. Add multivitamin w/ minerals to ensure micronutrient needs met. Continue to trend weight. Nutrition Risk Level: 2 (moderate) Medical Nutrition Therapy Plan and Recommendations: 1. Continue diet as ordered - encourage PO intake - Menu assist - Boost w/ meals 2. Add multivitamin w/ minerals 3. Monitor PO intake and BMs 4. Trend weight 5. Continue to monitor labs, I/Os, and skin Basil Benitez, MS RD CD Pager: [phone] Alyce Escudero CN - 09/29/2020 1036 EST Acute Pain Service Department of Anesthesiology DOS: 09/29/2020 CC: epidural for potential chest pain from R-VATS w/ mechanical and talc pleurodesis, RUL wedge resection, RML wedge resection Subjective: Deforge reports excellent pain control today. Epidural has been paused since 0145 d/t bradycardic episode with low bp. No c/o's of pruritis, chills, night sweats, or escalating back pain. No fever or excessive drowsiness. No new c/o's of weakness, numbness, or incontinence. Objective: Blood pressure 109/72, pulse 88, temperature 36.6 ??C (97.9 ??F), temperature source Oral, resp. rate 18, height 177.8 cm (70), weight 77.1 kg (169 lb 14.4 oz), SpO2 99 %. Temp (24hrs), Av.6 ??C (97.8 ??F), Min:36.2 ??C (97.2 ??F), Max:36.8 ??C (98.2 ??F) General: alert ,awake ,in NAD Heart: regular pulse Lungs: symmetric chest rise, non labored breathing Site: C/D/I, nontender, no discharge or erythema Neuro: Bilateral Lower extremities strength 5/5 WBC/Hgb/Hct/Plts: 7.66/10.8/31.3/271 (09/29 642) Assessment: 1. 70 y.o. male 2. POD #3 3. s/p right VATS with mechanical and talc pleurodesis,RUL wedge resection,RML wedge resection 4. T6-7 Epidural 5. Pain control: excellent 6. Anticoaguation:lovenox 40 mg subcutaneous @ 2100 09/28 7. Infusion rate: infusion off at time of rounds 8. Epidural solution: bupivacaine 0.95553% and hydromorphone 10mcg/ml Recommendations: 1. Pt without pain in light of epidural infusion dc. Decision to pull epidural catheter. Lovenox given 12hr prior to removal. Catheter removed by Dr. Duran Guerra,tip of epidural catheter intact. Minimal bleeding noted at epidural site. 2. APS to sign off. Please page APS at #[phone] with any questions. ALYCE ESCUDERO APRN 09/29/2020 10:37 Associated attestation - Rocky Light III, MD - 09/29/2020 1305 EST Attending Attestation: I have seen and evaluated the patient. I agree with the findings and plan of care as documented in the above note. Rocky Light MD 09/29/20 Jhonatan Epstein MD - 09/29/2020 4169 EST Surgery Progress Note Service Date: 09/29/2020 Admit Date: 09/21/2020 13:39 POD: 4 (09/21/2020) Procedure: R-VATS w/ mechanical and talc pleurodesis, RUL wedge resection, RML wedge resection Chief Complaint: Spontaneous Pneumothorax 24 Hour Events: ?? Chest tubes divided ?? Lightheadedness during BM, became bradycardic to 30's and hypotensive to 57/45 ?? Rapid response called ?? PCEA d/c'd, Narcan administered and 1Lfluid bolus, vitals rebounded appropriately Subjective/Objective Subjective is doing better this morning since his bradycardic episode at 0100. His PCEA is turned off and he doesn't express any pain currently. Denies lightheadedness/dizziness/chest pain/SOB/n/v. [place] manages to tolerate PO. Continues to do bedside exercise and use IS. Still feels need for BM Objective Vital Signs Temp: [36.2 ??C (97.2 ??F)-36.8 ??C (98.2 ??F)] , Heart Rate: [33 BPM-112 BPM] , Pulse: [88] , PulseFrom Oximetry: [88 BPM] , Resp: [16-20] , BP: (52-129)/(34-81) , SpO2: [92 %-99 %] Physical Exam General Appearance: alert, cooperative, no distress Lung: clear to auscultation bilaterally Heart: regular rate and rhythm Abdomen: NT, ND, BS+ Extremities: Warm and well perfused, No edema Skin: Skin color, temperature, turgor normal. No rashes or lesions Incision(s)/Wound(s): Chest tubes in place c/d/i draining serosang and intermittent airleak with cough, Waddell in place draining yellow urine, maybe single bubble in tube 2, unable to reproduce airleak however. Is PICC or Central line present? No, PICC/Central line not present. Recent Labs 09/28/20 0958 09/29/20 0642 WBC 7.40 7.66 HGB 11.3* 10.8* HCT 33.3* 31.3* MCV 90 87 PLT 283 271 Recent Labs 09/26/20 0935 09/28/20 0958 09/29/20 0642 NA 125* 125* 126* K 3.9 4.2 4.2 CL 89* 87* 90* CO2 26 30 33* BUN 11 6* 7* CREATININE -- 0.44* 0.49* MG -- -- 1.9 CAION -- -- 1.09* SERGLU -- 112* -- Assessment/Plan Assessment 70 y.o. male with history of COPD who was transferred from OSH with spontaneous pneumothorax that did not response to a 9Fr tube, was transferred here and had a 24Fr tube but had persistent air leak and was taken to the OR for R VATS, mechanical and talc pleurodesis with RUL wedge resection and RML wedge resection. He is now POD# 4 and is recovering appropriately from surgical standpoint. Chest tube draining still demonstrates intermittent air leak when coughing/deep inspiration. PCEA discontinued and pain appears managed at this time. Plan place to waterseal this am, plan for repeat PA/Lat cxr at 1400, if stable will dc tubes. If resp sxwill return to suction Remove PCEA and d/c waddell afterwards Regular Diet Hyponatremia workup, appears to be euvolemic, could be related to mineralocorticoid deficiency will discuss with nephrology today, start fluid restriction this am 2 L EP cards c/s this am for bradycardia (?vagal) vs developing heart block Marcellus Barakat 09/29/2020 7:27 Attestation statement: I was present with the medical student for the history, exam, medical decision making documented by him/her. I have personally performed my own physical exam and medical decisionmaking. I have verified and agree with (or, as indicated, have edited) the medical student's documentation. Jhonatan Epstein MD 09/29/2020 9:28 egiChase rose MD - 09/29/2020 0445 EST Rapid Response Team - Physician Note Rapid Response Team called to the bedside at 0200 on 09/29/2020 for hypotension and bradycardia. Subjective: Patient reported to the nurse prior to our arrival that he felt dizzy then he was noted to be bradycardic into the low 30s. Upon arrival, primary team at bedside and had administered narcan. Patient was complaining of having to have a bowel movement. Both HR and BP responded appropriately while we were in the room. Objective: BP 101/65 Pulse 88 Temp 36.4 ??C (97.6 ??F) (Oral) Resp 16 Ht 177.8 cm (70) Wt77.1 kg (169 lb 14.4 oz) SpO2 97% BMI 24.38 kg/m?? General: laying flat in bed, appears to be in no acute distress. Chest: diminished breath sounds throughout Data Reviewed: Reviewed hospital course. Reviewed labs from today and/or hospital course which are notable for: hyponatremia to 125, slightlyelevated AST to 51, stable hgb. Reviewed imaging from today and/or hospital course which are notable for: Most recent CXR on 09/28 [id number] with persistent small right apical pneumothorax, decreased right pleural effusion. Assessment: Rhiannon Shelton is 70 y.o. male with history notable for COPD who was initially admitted with spontaneous pneumothorax and hospital course notable for s/p R VATS, mechanical and talc pleurodesis with RUL and RML wedge resection who is currently POD#3 who developed hypotensive and bradycardic prompting initiation of the Rapid Response Team. Upon arrival, Rhiannon Shelton was found to bein no apparent distress with heart rates improving to the 60s and blood pressures climbing into the 90s/60s s/p narcan. Overall impression at this time is vasovagal episode due to possible straining while attempting to have a BM vs other cardiogenic causes vs. Opioid induced bradycardia (given the response with narcan). Plan: For hypotension, received 1L IVF. EKG was obtained. EKG showed 1st degree AV block. Appears that the primary team will repeat EKG at 0600 and if 1st degree AV block still present they plan to consult cardiology. We agree with this plan. Reviewed and confirmed Code Status is FULL. Disposition: no change Family was not updated. Primary team at bedside, will defer communication to them. Jamilah Levin MD 09/29/2020 4:45 I participated in the direct delivery of medical care for this patient, whose critical illness impairs one or more vital organ systems such that there is a high probability of imminent or life-threatening deterioration in the patient's condition. Called to bedside for symptomatic bradycardia, which was already improving by the time of my evaluation. On exam, RRR and bilateral breath sounds were present. Although, it is possible that this episode was vasovagal, review of telemetry showed sinus bradycardia as well as severe bradycardia with concern for sinus arrhythmia vs. Developing heart block (absent P-waves). I called Dr. Rivas (surgery resident) and discussed with her that based on telemetry review, would recommend cardiology consultation for further evaluation. Patient is not on any nj blocking agents. Continue telemetry at this time. Total time I spent in the delivery of critical care for the date of service was: 20 minutes Chase Knox MD 09/29/2020 6:41 Mame Pearce MD - 09/29/2020 0423 EST BRIEF ESS UPDATE NOTE Patient noted to be bradycardic and hypotension during attempted bowel movement earlier this morning. Rapid response called. I assessed the patient at bedside, breathing spontaneously, pulse in the mid30s, palpable femoral pulse, sonorous breathing. Epidural paused. Patient given narcan with immediate increase in responsiveness. CTABL and regular rhythm (lenard) on exam. Chest tubes with no air leak.As patient became more awake, HR seen to be increasing back to baseline 60-70s 1L bolus hung with improved BP. CXR with no evidence of pneumothorax. EKG obtained showing HR 78 and new 1st degree AV block with WI of 222. Unable to find previous EKG in chart. Tele review shows no history of heart block.After 15 min from initial rapid respons call, patient is asymptomatic, AAOx3 and HD stable; chief complaint being lack of bowel movement. Suppository x 1 ordered. This is likely a vagal episode, but new 1st degree heart block on EKG concerning. Will repeat EKG at 0600. If 1st degree block continues, will discuss EP cardiology consult. Mame Rivas MD 09/29/2020 4:39 General Surgery PGY-4 Pager [phone] Naresh Paz RN - 09/29/2020 0223 EST Rapid Response Team Nursing Note (SBAR) Team Times: Call Type: INCIDENT RESPONSE COORDINATOR Call Time: 199 Call Date: 09/29/20 Call Originator: Nurse ROBYN Arrival at Bedside: 201 Team Completion Time: 219 ROBYN Completion Time: 219 Code Status: Full Initial Vitals: BP: 93/64 Heart Rate: 86 BPM Resp: 16 SpO2: 95 % Skin Color: Appropriate, even tone Temp: 36.4 ??C (97.6 ??F) Temp src: Oral Neurological Assessment: Cardiovascular Assessment: Chest Pain: No Cardiac Rhythm: Normal sinus rhythm;Premature ventricular contraction EKG Status: Yes Respiratory Assessment: O2 Device: Nasal cannula O2 Flow Rate (L/min): 1 l/min Breath Sounds Bilateral: Diminished GI/ Assessment: Urinary Status: Waddell;Draining Patient Status: Disposition: Not Transferred Testing: X-Ray Team Members: ROBYN (Name): Adwoa Ness Hospitalist (Name): Jason ANC (Name): Lisesandra Patient Support (Name): Torsten Additional Detail: Called to bedside due to hypotension, and bradycardia. Per RN pt stated he felt dizzy, then appearedto have a bradycardic episode into the 30s. Surgical residents at bedside to assess. Atropine, and narcan given prior to ROBYN arrival. Medications had good results, pt heart rate in 70s. Pt was also given a 1L IVF bolus via IV placed by ROBYN. Pt bp elevated from 60s/30s-9s/60s. Pt endorses feeling much better, A&O x3. EKG was completed, labs were sent down, and CXR was done. Amaya Guerra MD - 2020 0946 EST Acute Pain Service Department of Anesthesiology DOS: 2020 CC: Chest Pain Subjective: Mr. Shelton reports excellent pain control today. No pain. Only has pain if chest tubes are accidentally pulled on. Does report some lightedheaded/dizziness this morning (last BP 123/75),but denies nausea. No symptoms over the weekend. PRN epidural doses have not been required. No c/o's of pruritis, chills, night sweats, or escalating back pain. No fever or excessive drowsiness. No new c/o's of weakness, numbness, or incontinence. Objective: Blood pressure 123/75, pulse 96, temperature 36.6 ??C (97.8 ??F), temperature source Oral, resp. rate 18, height 177.8 cm (70), weight 77.1 kg (169 lb 14.4 oz), SpO2 100 %. Temp (24hrs), Av.7 ??C (98.1 ??F), Min:36.6 ??C (97.8 ??F), Max:36.9 ??C (98.4 ??F) General: alert, cooperative, no distress Heart: regular pulse Lungs: symmetric chest rise, non labored breathing Site: some dried blood under locket, nontender, no discharge or erythema Neuro: Bilateral Lower extremities strength 5/5 WBC/Hgb/Hct/Plts: 9.07/11.9/33.9/241 (09/26 628) Assessment: 1. 70 y.o. male 2. POD #3 3. s/p R VATS, mechanical and talc pleurodesis, RUL wedge resection, RML wedge resection (09/25/20) 4. T6-7 Epidural 5. Pain control: excellent 6. Anticoaguation: enoxaparin 40mg QHS 7. Infusion rate: 8 2 20 14 8. Epidural solution: bupivacaine 0.125% and hydromorphone 10 mcg/ml, working well, some episodes ofhypotension over the weekend, unclear if symptomatic Recommendations: Epidural working well c/d/i, will switch solution to bupivacaine 0.29226% and hydromorphone 10mcg/mlto address hypotension Continue epidural with chest tube Please page APS at #[phone] with any questions. AMAYA GUERRA MD 2020 Associated attestation - Rocky Light III, MD - 2020 1258 EST Attending Attestation: I have seen and evaluated the patient. I agree with the findings and plan of care as documented in the above note. Rocky Light MD 09/28/20 Jhonatan Epstein MD - 2020 0716 EST Surgery Progress Note Service Date: 2020 Admit Date: 09/21/2020 13:39 POD: 3 (09/21/2020) Procedure: R-VATS w/ mechanical and talc pleurodesis, RUL wedge resection, RML wedge resection Chief Complaint: spontaneous pneumothorax 24 Hour Events: ?? BP improved since the weekend ?? Air leak improved but still present Subjective/Objective Subjective Mr. Shelton feels good today, feels that he is improving as expected. His pain is well controlled and he hasn't had to use the [employer] button. Tolerating PO and using IC frequently. Making efforts to ambulate by standing at bedside and walking in place/leg lifts. Denies Chest pain, SOB, n/v Objective Vital Signs Temp: [36.6 ??C (97.8 ??F)-36.9 ??C (98.4 ??F)] , Heart Rate: [84 BPM-102 BPM] , Pulse: --, Pulse From Oximetry: --, Resp: [18-20] , BP: (86-110)/(56-67) , SpO2: [94 %-100 %] Physical Exam General Appearance: alert, cooperative, no distress Lung: clear to auscultation bilaterally Heart: regular rate and rhythm Abdomen: ND, NT, +BS Extremities: Warm and well perfused, no edema Skin: Skin color, temperature, turgor normal. No rashes or lesions Incision(s)/Wound(s): Chest tube is c/d/i draining serosang with air leak when coughing/deep inspiration, Waddell in place draining yellow urine Is PICC or Central line present? No, PICC/Central line not present. Recent Labs 09/26/20 0628 09/26/20 0935 NA -- 125* K -- 3.9 CL -- 89* CO2 -- 26 BUN -- 11 CREATININE 0.45* -- Recent Labs 09/26/20 0628 WBC 9.07 HGB 11.9* HCT 33.9* MCV 86 PLT 241 Assessment/Plan Assessment 70 y.o. male with history of COPD who was transferred from OSH with spontaneous pneumothorax that did not response to a 9Fr tube, was transferred here and had a 24Fr tube but had persistent air leak and was taken to the OR for R VATS, mechanical and talc pleurodesis with RUL wedge resection and RML wedge resection. He is now POD# 3 and is recovering appropriately. Chest tube draining still demonstrates minor air leak when coughing/deep inspiration. Plan Continue Chest tube to LCWS through tomorrow morning, chest xray this am, and then plan to split offtubes to individual pleur-evacs to better characterize airleak Reduce basal rate of PCEA Maintain waddell while epidural is in place Regular Diet Multimodal pain control as written Hyponatremia workup, f/u repeat labs Marcellus Barakat MS3 2020 7:16 Attestation statement: I was present with the medical student for the history, exam, medical decision making documented by him/her. I have personally performed my own physical exam and medical decisionmaking. I have verified and agree with (or, as indicated, have edited) the medical student's documentation. My edits in blue Jhonatan Epstein MD 2020 8:48 Darryl Arndt MD - 09/27/2020 0953 EST Acute Pain Service Department of Anesthesiology DOS: 09/27/2020 CC: Chest Pain Subjective: Mr. Shelton reports excellent pain control today. PRN epidural doses have been required occasionally. No c/o's of pruritis, chills, night sweats, or escalating back pain. No fever or excessive drowsiness. No new c/o's of weakness, numbness, or incontinence. Objective: Blood pressure 98/59, pulse 96, temperature 36.6 ??C (97.8 ??F), temperature source Oral, resp. rate20, height 177.8 cm (70), weight 77.1 kg (169 lb 14.4 oz), SpO2 97 %. Temp (24hrs), Av.7 ??C (98.1 ??F), Min:36.6 ??C (97.8 ??F), Max:36.8 ??C (98.2 ??F) General: alert, cooperative, no distress Heart: regular pulse Lungs: symmetric chest rise, non labored breathing Site: C/D/I, nontender, no discharge or erythema Neuro: Bilateral Lower extremities strength 5/5 WBC/Hgb/Hct/Plts: 9.07/11.9/33.9/241 (09/26 628) Assessment: 1. 69 y.o. male 2. POD #2 3. s/p R VATS, mechanical and talc pleurodesis, RUL wedge resection, RML wedge resection (09/25/20) 4. T6-7 Epidural 5. Pain control: excellent 6. Anticoaguation: enoxaparin 40mg QHS 7. Infusion rate: 8 2 20 14 8. Epidural solution: bupivacaine 0.125% and hydromorphone 10 mcg/ml Recommendations: Continue current settings, epidural working well c/d/i Continue epidural with chest tube Please page APS at #[phone] with any questions. Matt Farias MD, PGY5 Fellow Pain Medicine, Anesthesiology 09/27/2020 9:56 Associated attestation - Jose Charles MD - 09/27/2020 1717 EST Attending attestation: I saw and examined the patient with the pain fellow/resident. I agree with the findings and plan of care documented in this note. Barbara Charles MD 09/27/2020 17:17 Real Negron MD - 09/27/[address] Surgery Progress Note Admit Date: 09/21/2020 LOS: 6 days CC: Spontaneous pneumothorax Procedure: R VATS, mechanical and talc pleurodesis, RUL wedge resection, RML wedge resection (09/25/20) Subjective: 24-Hour Events: SBP 76-84 overnight Otherwise no complaints Subjective: Had a relatively uneventful night. Patient has no symptoms from his marginally low systolic blood pressures. Did not push his PCEA button last night. Meds MAR Reviewed Objective: Vitals: BP: (76-94)/(48-62) Pulse: -- Temp: [36.7 ??C (98 ??F)-36.8 ??C (98.2 ??F)] Resp: [18-20] SpO2: [93 %-97 %] Admission weight: Weight : 77.8 kg (171 lb 8 oz) Most recent weight: Weight : 77.1 kg (169 lb 14.4 oz) Patient is on 2L NC I&O By Type - 3 Shifts Including Current In: 1492.2 [P.O.:240; I.V.:1119.2] Out: 830 [Urine:725; Chest Tube:105] Exam Gen: alert, conversant, NAD Heart: RRR Lungs: clear anteriorly, chest tubes with serosanguinous output and continued airleak Abd: S, NT, ND Ext: WWP, no LE edema bilaterally Neuro: AAOx3, moves all extremities to command Data Review WBC/Hgb/Hct/Plts: 9.07/11.9/33.9/241 (09/26 628) Na/K/Cl/CO2: 125/3.9/89/26 (09/26 935) BUN/Cr/glu/ALT/AST/amyl/lip: 11/--/--/--/--/--/-- (09/26 935) Assessment: Rhiannon Shelton is a 69yo. male with a history significant for COPD who was transferred from an OSH with a spontaneous right pneumothorax that failed to resolve with a 9Fr tube. This was exchanged for 24Fr surgical tube here but he had a persistent airleak so he was taken to the OR for R VATS, mechanical and talc pleurodesis, RUL wedge resection, RML wedge resection (of nodule) from which he is nowPOD#2. Recovering appropriately from a surgical standpoint, airleak cotinues. He has been tachycardic and now with marginally low BP. Will trial 500cc bolus to see if his blood pressures respond. Plan: Continue chest tubes to LCWS Epidural per APS Keep Waddell while epidural in place Reg diet Multimodal pain control as written 500 cc Plasmalyte Bolus REAL NEGRON MD 09/27/20 7:28 Cardiothoracic Surgery Housestaff I am post-call today and will be leaving the hospital by 10am. Please page the on-call CT Surgery resident with needs. Darryl Arndt MD - 09/26/2020 1018 EST Acute Pain Service Department of Anesthesiology DOS: 09/26/2020 CC: Chest Pain Subjective: Mr. Shelton reports excellent pain control today. PRN epidural doses have been required occasionally. No c/o's of pruritis, chills, night sweats, or escalating back pain. No fever or excessive drowsiness. No new c/o's of weakness, numbness, or incontinence. Objective: Blood pressure 92/62, pulse 96, temperature 36.7 ??C (98.1 ??F), temperature source Oral, resp. rate18, height 177.8 cm (70), weight 77.1 kg (169 lb 14.4 oz), SpO2 95 %. Temp (24hrs), Av.5 ??C (97.7 ??F), Min:36.2 ??C (97.2 ??F), Max:36.8 ??C (98.3 ??F) General: alert, cooperative, no distress Heart: regular pulse Lungs: symmetric chest rise, non labored breathing Site: C/D/I, nontender, no discharge or erythema Neuro: Bilateral Lower extremities strength 5/5 WBC/Hgb/Hct/Plts: 9.07/11.9/33.9/241 (09/26 628) Assessment: 1. 69 y.o. male 2. POD #1 3. s/p R VATS, mechanical and talc pleurodesis, RUL wedge resection, RML wedge resection (09/25/20) 4. TT6-7 Epidural 5. Pain control: excellent 6. Anticoaguation: enoxaparin 40mg QHS 7. Infusion rate: 8 2 20 14 8. Epidural solution: bupivacaine 0.125% and hydromorphone 10 mcg/ml Recommendations: Continue current settings, epidural working well c/d/i Please page APS at #[phone] with any questions. Matt Farias MD, PGY5 Fellow Pain Medicine, Anesthesiology 09/26/2020 10:18 Associated attestation - Jose Charles MD - 09/26/2020 6890 EST Attending attestation: I saw and examined the patient with the pain fellow/resident. I agree with the findings and plan of care documented in this note. Barbara Charles MD 09/26/2020 17:27 Vivien Anguiano MD - 09/26/[address] Surgery Progress Note Admit Date: 09/21/2020 LOS: 5 days CC: Spontaneous pneumothorax Procedure: R VATS, mechanical and talc pleurodesis, RUL wedge resection, RML wedge resection (09/25/20) Subjective: 24-Hour Events: To OR for above procedure 395cc from chest tube since OR Subjective: Mr. Shelton was again feeling well this morning, has no pain, has used his PCEA button afew times. Breathing feels much better than prior and he is no longer having the productive cough hehad preop. No new issues. Meds MAR Reviewed Objective: Vitals: BP: (78-121)/(49-82) Pulse: -- Temp: [36.2 ??C (97.2 ??F)-36.8 ??C (98.3 ??F)] Resp: [14-29] SpO2: [92 %-100 %] Admission weight: Weight : 77.8 kg (171 lb 8 oz) Most recent weight: Weight : 77.1 kg (169 lb 14.4 oz) Patient is on 2L NC I&O By Type - 3 Shifts Including Current In: 2033.9 [P.O.:275; I.V.:1555.8; IV Piggyback:120] Out: 1545 [Urine:1150; Chest Tube:395] Exam Gen: alert, conversant, NAD Heart: RRR Lungs: clear anteriorly, chest tubes with serosanguinous output and continued airleak Abd: S, NT, ND Ext: WWP, no LE edema bilaterally Neuro: AAOx3, moves all extremities to command Data Review WBC/Hgb/Hct/Plts: 9.07/11.9/33.9/241 (09/26 628) Na/K/Cl/CO2: 125/4.9/90/24 (09/25 703) BUN/Cr/glu/ALT/AST/amyl/lip: 8/0.48/--/--/--/--/-- (09/25 703) Assessment: Rhiannon Shelton is a 69yo. male with a history significant for COPD who was transferred from an OSH with a spontaneous right pneumothorax that failed to resolve with a 9Fr tube. This was exchanged for 24Fr surgical tube here but he had a persistent airleak so he was taken to the OR for R VATS, mechanical and talc pleurodesis, RUL wedge resection, RML wedge resection (of nodule) from which he is nowPOD#1. Recovering appropriately from a surgical standpoint, airleak cotinues. Plan: Continue chest tubes to LCWS at least through tomorrow morning Epidural per APS Keep Waddell while epidural in place Reg diet Multimodal pain control as written Vivien Anguiano MD 09/26/20 7:39 Cardiothoracic Surgery Housestaff Pager #[phone] I am post-call today and will be leaving the hospital by 10am. Please page the on-call CT Surgery resident with needs. Vivien Hopkins MD - 09/25/20202135 EST CARDIOTHORACIC SURGERY POST-OP CHECK PROCEDURE: R VATS, mechanical and talc pleurodesis, RUL wedge resection, RML wedge resection (of nodule) SUBJECTIVE: Mr. Shelton was feeling very well this evening, says he has zero pain. Breathing also feels much better. No issues. OBJECTIVE: VS: Temp: [36.2 ??C (97.2 ??F)-37.1 ??C (98.8 ??F)] Heart Rate: [67 BPM-118 BPM] BP: (106-137)/(56-97) Resp: [14-29] SpO2: [90 %-100 %] Gen: NAD, alert and oriented to conversation Pulm: clear anteriorly, no increased WOB, on 2L NC CV: RRR Abd: soft, nontender, nondistended Ext: WWPx4, minimal edema Incision/Dressing: OR dressing in place with some sanguinous strikethrough Drains/Tubes: 2x right-sided chest tubes in place with ss output and continued airleak; total 295cc output from chest tubes since placement (only 45cc over last 3h hours) ASSESSMENT: 69 y.o. male POD#0 s/p R VATS, mechanical and talc pleurodesis, RUL wedge resection, RMLwedge resection. Recovering appropriately on floor. Pain very well-controlled. PLAN: Continue chest tubes to LCWS Epidural per APS Keep Waddell while epidural in place Reg diet Vivien Anguiano MD PGY-2 Cardiothoracic Surgery #[id number] 09/25/2020 21:36 Benjamin Kennedy RN - 09/25/2020 1108 EST An Epidural catheter being placed by anesthesia.no medication available to infuse Pt has left for pre op . Kim Basil - 09/25/2020 1038 EST Nutrition Initial Assessment: Reason for Assessment: Day 5 NPO/clear liquid Medical Summary: Rhiannon Shelton is a 69 y.o. male admitted on 09/21/2020 with a past medical history significant for COPD OSH 9fr tube exchanged for 24fr surgical tube, still with air leak. Patient with stable, likely chronic hyponatremia. Higher Heart rates, possibly from pain he is not admitting. Current Nutrition Orders: Diet Order: NPO ?? Nutrition Focused Physical Findings: CT in place Digestive Systems: Last BM (unknown) Skin: WDL ?? Anthropometrics: Height: 177.8cm Admission Weight: 77.1kg (09/25/20) Body mass index is 24.38 kg/m??. Wt Readings from Last 6 Encounters: 09/25/20 77.1 kg (169 lb 14.4 oz) ?? Pertinent Medications: Current Facility-Administered Medications Medication Route Frequency ??? [...] sterile talc intrapleural powder 3 g intrapleural TAKER DOWN TO O.R. Relevant Labs: Lab Results Component Value Date WBC 9.56 09/25/2020 RBC 4.40 09/25/2020 HGB 13.5 (L) 09/25/2020 HCT 38.0 (L) 09/25/2020 MCV 86 09/25/2020 MCH 30.7 09/25/2020 PLT 234 09/25/2020 NA 125 (L) 09/25/2020 K 4.9 09/25/2020 CL 90 (L) 09/25/2020 CO2 24 09/25/2020 BUN 8 (L) 09/25/2020 CREATININE 0.48 (L) 09/25/2020 CALCIUM 9.0 09/22/2020 MG 2.0 09/22/2020 Estimated Nutrition Needs: BEE: 1542kcal @ 77.1kg (MSJ) Kcal: 3939-6342 @ 1.1-1.2x BEE Protein: 93g @ 1.2g/kg/bw Fluid: 1.85-2.3L @ 1ml/kcal-30ml/kg/bw ?? Estimated Nutrition Intake: NPO Assessment: Pt NPO for return to OR for VATS. Advance diet once medically appropriate s/p procedure. Monitor POintake and BMs; offer high calorie supplements if not eating adequate amounts. Continue to monitor I/Os and weight. Nutrition Risk Level: 2 (mdoerate) Medical Nutrition Therapy Plan and Recommendations: 1. Advance diet once medically appropriate - offer high calorie supplements if not taking adequate amounts PO 2. Monitor PO intake and BMs - Bowel regimen as needed 3. Trend weight 4. Monitor I/Os 5. Continue to monitor labs, I/Os, and skin ?? Basil Benitez, MS RD CD Pager: [phone] Jhonatan Epstein MD - 09/25/[address] Surgery Progress Note Admit Date: 09/21/2020 LOS: 4 days CC: Spontaneous pneumothorax Subjective: 24-Hour Events: Leak still present HR to 117 o/n Subjective: Doing okay, slept well. Pain controlled per patient appears stoic. Ready for surgery. Denies N/V/F/C/CP/SOB. Meds MAR Reviewed Objective: Vitals: BP: (105-137)/(73-97) Pulse: -- Temp: [36.4 ??C (97.5 ??F)-37.1 ??C (98.8 ??F)] Resp: [16-20] SpO2: [90 %-97 %] Admission weight: Weight : 77.8 kg (171 lb 8 oz) Most recent weight: Weight : 77.1 kg (169 lb 14.4 oz) Patient is on 0.5L NC I&O By Type - 3 Shifts Including Current In: 113.3 [I.V.:113.3] Out: 460 [Urine:400; Chest Tube:60] Exam Gen: alert, conversant, NAD Heart: RRR Lungs: clear anteriorly, improving anterior R chest subcu emphysema, s/s colored output in tube, ongoing impressive airleak Abd: S, NT, ND Ext: WWP, no LE edema bilaterally Neuro: AAOx3, moves all extremities to command Data Review WBC/Hgb/Hct/Plts: 7.86/12.5/35.9/216 (09/23 0536) Na/K/Cl/CO2: 125/3.8/89/25 (09/24 552) Assessment: Rhiannon Shelton is a 69 y.o. old male with a past medical history significant for COPD OSH 9fr tube exchanged for 24fr surgical tube, still with air leak. Patient with stable, likely chronic hyponatremia. Higher Heart rates, possibly from pain he is not admitting. Plan: - OR today 2nd case [x]npo [x] Consent for Right Vats, pleurodesis, possible thora, possible wedge [x] Book [x] Horacio [x] 2g ancef occupational therapist home based to OR [x] re do covid [x] Type and cross x 2 - O2 to maintain sats >88% - chest tube to -20 cmH20 suction - APS consult for epidural Jhonatan Epstein MD 09/25/20 7:04 Jhonatan Purcell MD - 09/24/[address] Surgery Progress Note Admit Date: 09/21/2020 LOS: 3 days CC: Spontaneous pneumothorax Subjective: 24-Hour Events: Leak still present Subjective: Sleeping this am but easily awakes. Pain controlled, coughing fit overnight but otherwise no SOB. Meds MAR Reviewed Objective: Vitals: BP: (121-143)/(72-99) Pulse: -- Temp: [36.3 ??C (97.3 ??F)-37 ??C (98.6 ??F)] Resp: [16-20] SpO2: [94 %-95 %] Admission weight: Weight : 77.8 kg (171 lb 8 oz) Most recent weight: Weight : 79 kg (174 lb 1.6 oz) Patient is on 0.5L NC I&O By Type - 3 Shifts Including Current In: 696 [P.O.:696] Out: 720 [Urine:575; Chest Tube:145] Exam Gen: alert, conversant, NAD Heart: RRR Lungs: clear anteriorly, improving anterior R chest subcu emphysema, s/s colored output in tube, ongoing impressive airleak Abd: S, NT, ND Ext: WWP, no LE edema bilaterally Neuro: AAOx3, moves all extremities to command Data Review WBC/Hgb/Hct/Plts: 7.86/12.5/35.9/216 (09/23 536) Na/K/Cl/CO2: 125/3.8/89/25 (09/24 552) BUN/Cr/glu/ALT/AST/amyl/lip: 7/0.59/--/--/--/--/-- (09/22 607) Assessment: Rhiannon Shelton is a 69 y.o. old male with a past medical history significant for COPD OSH 9fr tube exchanged for 24fr surgical tube, still with air leak. Patient with stable, likely chronic hyponatremia. Plan: - Reg diet, npo at midnight tonight [ ] Consent for Right Vats, pleurodesis, possible thora, possible wedge [x] Book [ ] Horacio [x] 2g ancef occupational therapist home based to OR - O2 to maintain sats >88% - chest tube to -20 cmH20 suction - Jhonatan Epstein MD 09/24/20 8:10 Cardiothoracic Surgery Housestaff honatan Epstein MD - 09/23/[address] Surgery Progress Note Admit Date: 09/21/2020 LOS: 2 days CC: Spontaneous pneumothorax Subjective: 24-Hour Events: 24 Fr chest tube placed and diminutive OSH tube removed Leak still present Subjective: Doing better, slept ok, pain improved. Minimal oxygen requirements and no SOB. Per RN some bloody drainage from site req dsg change Meds MAR Reviewed Objective: Vitals: BP: (98-129)/(70-80) Pulse: [96] Temp: [36.4 ??C (97.6 ??F)-36.8 ??C (98.2 ??F)] Resp: [18-22] SpO2: [93 %-98 %] Admission weight: Weight : 77.8 kg (171 lb 8 oz) Most recent weight: Weight : 76.1 kg (167 lb 12.3 oz) Patient is on 1L NC I&O By Type - 3 Shifts Including Current In: 100 [I.V.:100] Out: 92 [Chest Tube:92] Exam Gen: alert, conversant, NAD Heart: RRR Lungs: clear anteriorly, improving anterior R chest subcu emphysema, s/s colored output in tube, ongoing airleak Abd: S, NT, ND Ext: WWP, no LE edema bilaterally Neuro: AAOx3, moves all extremities to command Data Review WBC/Hgb/Hct/Plts: 7.86/12.5/35.9/216 (09/23 0536) Na/K/Cl/CO2: 125/4.1/89/25 (09/23 0536) BUN/Cr/glu/ALT/AST/amyl/lip: 7/0.59/--/--/--/--/-- (09/22 607) Assessment: Rhiannon Shelton is a 69 y.o. old male with a past medical history significant for COPD OSH 9fr tube exchanged yesterday for 24fr surgical tube, still with air leak. Plan: - Reg diet - O2 to maintain sats >88% - chest tube to -20 cmH20 suction, will plan to keep through day vs - discuss timing of VATS if fails Jhonatan Epstein MD 09/23/20 9:08 Cardiothoracic Surgery Housestaff Maya Ding RT - 09/22/2020 1627 EST Images from the original note were not included. Respiratory Consult/Progress Note Indications for Respiratory therapy: Atelectasis Data Vitals: Heart Rate: 100 BPM, Resp: 18, SpO2: 98 % FIO2/O2 Device: O2 Flow Rate (L/min): 0 l/min, , O2 Device: Nasal cannula, RT Orders: vpep Protocol Scoring: Bronchodilator/Inhalation Therapy Frequency Airway Clearance Therapy Frequency Airway Clearance - Clinical Indications: Infiltrate on CXR Breath Sounds: Clear / diminished Sputum: Small (tsp) / None Consistency: None Cough Effort: Strong/ non-productive Color: None Total Score: 0 Hyperinflation Therapy Frequency Hyperinflation - Clinical Indications: Atelectasis on CXR Breath Sounds: Other Surgery: No X-Ray / Atelectasis: Yes O2 Requirements: O2 at baseline Mobility Status: Mobile / at baseline Total: 3 Comment: PRN Action/Events Respiratory events; Pt started on vpep therapy. Changed to PRN PT able to perform 2000 on IS and is very strong. Response/Results Weaning and Toleration of treatments; PRN JANUARY RT JASBIR 09/22/20 Vivien Hopkins MD - 09/22/[address] Surgery Progress Note Admit Date: 09/21/2020 LOS: 1 day CC: Spontaneous pneumothorax Subjective: 24-Hour Events: Admitted to CT surgery Placed on 4L NC CXR w/ re-expansion edema, improving Subjective: Mr. Shelton was feeling better this morning. Says his pain is gone. Asking appropriate questions about the tube plan and why he is NPO, doesn't mind the latter since he says he has no appetite. No issues. Meds MAR Reviewed Objective: Vitals: BP 115/73 (BP Cuff Location: Right arm, BP Patient Position: Semi fowlers) Temp 36.5 ??C (97.7 ??F) (Oral) Resp 20 Ht 177.8 cm (70) Wt 76.1 kg (167 lb 12.3 oz) SpO2 94% BMI 24.07 kg/m?? BP: (91-133)/(61-83) Pulse: -- Temp: [36.4 ??C (97.6 ??F)-36.7 ??C (98.1 ??F)] Resp: [18-22] SpO2: [94 %-98 %] Admission weight: Weight : 77.8 kg (171 lb 8 oz) Most recent weight: Weight : 76.1 kg (167 lb 12.3 oz) Patient is on 4 liters/min via nasal prongs Intake/Output Summary (Last 24 hours) at 09/22/2020 1112 Last data filed at 09/22/2020 0941 Gross per 24 hour Intake 1029.99 ml Output 810 ml Net 219.99 ml I/O for Current Shift: 09/22 0700 - 09/22 1459 In: 175.8 [I.V.:175.8] Out: 55 Exam Gen: alert, conversant, NAD Heart: RRR Lungs: clear anteriorly, improving anterior and posterior R chest subcu emphysema, straw colored output in tube, ongoing airleak Abd: S, NT, ND Ext: WWP, no LE edema bilaterally Neuro: AAOx3, moves all extremities to command Data Review CBC: Recent Labs 09/21/20 2340 WBC 10.47* RBC 4.55 HGB 13.9 HCT 39.2* MCV 86 MCH 30.5 MCHC 35.5 PLT 254 NEUTROABS 7.31 BMP: Recent Labs 09/22/20 0607 NA 129* K 4.7 CL 91* CO2 30 BUN 7* CREATININE 0.59* CALCIUM 9.0 CALCCA 9.1 MG 2.0 Assessment: Rhiannon Shelton is a 69 y.o. old male with a past medical history significant for COPD now with right spontaneous ptx s/p 9F chest tube with resolution of ptx but ongoing air leak despite trouble shooting. Has right lung nodule that per report has been stable on serial CT scans. CXRs s/p tube placement with some apparent consolidation in RML but on review with chest radiology is c/w re- expansion edema. Does still have an airleak this morning, needs replacement tube. Plan: - keep NPO for now, low mIVF with plasmalyte - we will place surgical chest tube at bedside early this afternoon - continue 4L NC, after chest tube placement will wean to see what his requirement is Vivien Anguiano MD 09/22/20 11:12 Cardiothoracic Surgery Housestaff Pager #[phone] documented in this encounter H&P Notes Jhonatan Epstein MD - 09/21/2020 4451 EST Thoracic Surgery Admission H+P Chief Complaint: Spontaneous Pneumothorax HPI: Patient is a 69 y.o. male with a past medical history significant for COPD, and a right lower lobe lung nodule that had been followed by serial CT scans and deemed to be stable. Rhiannon notes he started having trouble breathing approximately 1 week ago, he said this came and went ultimately on Monday e vening his daughter convinced him to go to the ED at [facility], and on 11[facility] he underwent work-upincluding chest CT scan concerning for pneumothorax on the right side, general surgery at that institution was consulted and placed a right-sided 9 Lithuanian trocar guided chest tube, per chart review this resolve the pneumothorax but the patient had persistent air leak over the past 2 days. Surgeon at that institution reached out to Dr. Singh for elevation of care and further management of nonresolved airleak, as such patient presents to [facility] today to our service. Upon speaking to Rhiannon he complains of some right-sided discomfort at the chest tube site but otherwise breathing is much improved since placement of the chest tube, is not having any pain unless he moves around in bed. Says his breathing is close to back to his baseline but a little bit short of breath at times. He notes he is normally able to climb a flight of stairs without shortness of breath, has not had uses albuterol inhaler for quite some time until this current episode. 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 Patient denies Abdominal pain, Nausea, Vomiting, Fever, Chills, Sweats, Constipation, Diarrhea, Melena, Change in bowel habits, dysuria, urinary frequency, numbness, or tingling. Endorses foul taste in his mouth. 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 COPD (chronic obstructive pulmonary disease) ([facility]) ??? GIB (gastrointestinal bleeding) ??? HTN (hypertension) ??? Umbilical hernia recurred after mesh failure Past Surgical History: Procedure Laterality Date ??? UMBILICAL HERNIA REPAIR Social History Family history Social History Tobacco Use ??? Smoking status: Former Smoker Quit date: 2016 Years since quittin.9 Substance Use Topics ??? Alcohol use: Not Currently Comment: Quit 10 years ago No family history on file. Medications No current facility-administered medications on file prior [...] tablet Take 40 mg by mouth daily. Allergies No Known Allergies Objective: Blood pressure 127/79, temperature 36.7 ??C (98.1 ??F), temperature source Oral, resp. rate 20, height 177.8 cm (70), weight 77.8 kg (171 lb 8 oz), SpO2 97 %. Physical Exam: General Appearance: alert, cooperative, no distress Lung: Clear to auscultation bilaterally somewhat diminished at the right base, chest tube in place with active airleak after retracking all connections and changing to [facility] Pleur-evac Heart: Tachycardic but regular sinus tach 100s on telemetry Abdomen: Soft nontender nondistended obvious umbilical hernia with prior well- healed surgical incision reducible Extremities: all extremities warm and well perfused Skin: Skin color, temperature, turgor normal. No rashes or lesions Incision(s)/Wound(s): Chest tube site CDI Data Review: OSH Labs: Labs from OSH: Na 124 Cl 90 BUN 8 K 3.9 CO2 24 Cr 0.66 Glu 94 Hemo 14 WBC 9.5 Plt 263 Hct 42 COVID -19 Negative ECG: sinus tachy Imaging: pending upload to PACS Most recent read 09/20/20 1339 The heart is not enlarged. Left lung remains grossly clear. Right thoracotomy tube again noted. No recurrent pneumothorax. The areas of increased radiodensity in right upper lobe and lower lobe, superimposed pneumonia or contusion not excluded. Please correlate clinically. Assessment: Rhiannon Shelton is a(n) 69 y.o. old male with a past medical history significant for COPD now withright spontaneous ptx s/p 9F chest tube with resolution of ptx but ongoing air leak despite trouble shooting. Has right lung nodule that per report has been stable on serial CT scans. Plan: 1. Admit to CT surg per Dr. Torres 2. CXR stat now, upload disc (pending) 3. Regular diet, npo at midnight with low dose IVF 4. Daily cbc, bmp, monitor Na and WBC 5. Right OSH CT to WS -20 6. Tele 7. Potential need for repeat surgical chest tube to mitigate need for VATS/pleurodesis. 8. Cont. bar captain atorvastatin, albuterol, asa 81, hold PATENT SEARCHER lisinopril for now Jhonatan Epstein MD 09/21/2020 16:17 Surgery Programs Assistant Pager #[phone] Associated attestation - Johan Torres MD - 09/26/2020 1313 EST Attestation: I saw and examined the patient 09/21/2020. I agree with the resident's/fellow's findings and plans as documented. Johan Torres MD 09/26/2020 13:13 documented in this encounter Procedure Notes Vivien Anguiano MD - 09/22/2020 2499 EST Procedure Report Service Date: 09/22/20 Maintenance Service Dispatcher: Vivien Anguiano MD PGY2 Pecan Gatherer: Diogenes Epstein MD PGY4 Procedure: Insertion of 24-Lithuanian left chest tube. Preprocedure Diagnosis: spontaneous pneumothorax Postprocedure Diagnosis: same Preprocedure History: transferred from [facility] where he had a spontaneous pneumothorax treated with a 9Fr left-sided chest tube. Had ongoing airleak through transfer and here. Tube required upsizing. Description: A timeout was performed and the patient was identified prior to the procedure. The existing 9Fr tubewas removed then the chest was prepped and draped in the standard surgical fashion. The skin defect from the prior tube was covered with a sterile tegaderm. An incision was made over the patient???s intercostal interspace cephalad to the prior tube site utilizing a skin knife. The underlying tissue was then parted using a Vilma clamp. The chest was then entered utilizing a Vilma clamp. A 24-Lithuanian chest tube was then advanced into the patient's chest and found to rotate easily with good return of condensation in the tube. The chest tube was secured in place at 16 cm utilizing two interrupted 0-silksutures. A dry sterile dressing was applied. The chest tube was then connected to a Pleurovac. The patient tolerated the procedure well and a postprocedure chest x-ray was requested. Anesthesia: 1% lidocaine (plain), 0.25mg IV HM Estimated Blood Loss: Minimal. Fluids: None Findings: left pneumothorax Complications: None Drains: 24-Lithuanian chest tube. Vivien Anguiano MD PGY2 CT Surgery Pager #[phone] 09/22/2020 14:23 documented in this encounter Consult Notes Desirae Russell MD - 09/29/2020 1927 EST Images from the original note were not included. NEPHROLOGY CONSULT NOTE Admit Date: 09/21/2020 Hospital Day: LOS: 8 days Date of Service: 09/29/2020 Attending Physician: Johan Torres MD Reason for Consult: Hyponatremia Assessment: Euvolemic hyponatremia with normal renal function likely due to low solute intake given low urine osm. He does not seem to be overtly symptomatic from this at this time. His recent history is consistent with low solute intake as he admits to not eating much lately. Urine Na plus urine K equals 30.4 which is far less than his serum Na of 126 which suggests that he is excreting a significant amount of free water. At this time, he needs more solute in order to be able to excrete more free water. Of note, urine studies are NOT c/w SIADH at this time. This was originally suspected given his obvious pulmonary issues (as well as the presence of a lung nodule) but I am not concerned about this currently. Recommendations: - Start Ure-Na 15 g BID (I did warn him that it does not taste good so hopefully he will be able to tolerate it) - Encourage PO intake of protein-rich foods and supplements - If Na is not improving, I would give 250 cc of hypertonic saline at a rate of 40 cc/hr as this will provide a solute load and will help to correct his hyponatremia. - Daily Na levels (if hypertonic saline is started, please check q4 hours) - Fluid restriction of 1L - Strict I/Os HPI: Mr. Shelton is a 70 yo M with medical history notable for HTN and COPD who admitted 09/21 for aspontaneous pnemothorax and is s/p placement of a chest tube on 09/22 and s/p VATS with pleurodesis, RUL wedge resection and RML wedge resection of nodule. His sodium was noted to be 129 on admission and decreased to 125/126 and has remained in that range. No prior diagnosis of hyponatremia is known toexist and Mr. Shelton has not previously been told that he has any problems with his sodium concentration. He has received multiple boluses of fluid during his hospitalization but his sodium level has not changed. He does endorse some decreased PO intake in the weeks PATENT SEARCHER and certainly has not been eating a lot while he is here. Urine studies done on 09/28 were notable for a urine osm of 359 and urine Na of 82.7. Repeat studied done today at my request are notable for urine osm of 140, urine Na of 24.7 and urine K of 5.7. His renal function is normal. TSH is normal. Random cortisol is normal. He has no shortnessof breath at this time and no edema. He denies nausea, significant pain. ROS: 10 point review of system is as above, otherwise negative. PMH PSH Past Medical History: Diagnosis Date ??? COPD (chronic obstructive pulmonary disease) ([facility]) ??? GIB (gastrointestinal bleeding) ??? HTN (hypertension) ??? Umbilical hernia recurred after mesh failure Past Surgical History: Procedure Laterality Date ??? UMBILICAL HERNIA REPAIR Social History Family history Social History Tobacco Use ??? Smoking status: Former Smoker Quit date: 2016 Years since quittin.9 Substance Use Topics ??? Alcohol use: Not Currently Comment: Quit 10 years ago No family history on file. Medications No current facility-administered medications on file prior [...] Take 40 mg by mouth daily. Current medications: Current Facility-Administered Medications Medication Route Frequency ??? [...] (500 mg) per chewable tablet tablet,chewable ??? docusate sodium (COLACE) capsule 100 mg oral BID ??? enoxaparin (LOVENOX) injection 40 mg subcutaneous QHS ??? HYDROmorphone (DILAUDID) tablet 2 mg oral Q4H PRN ??? lidocaine 5 % (LIDODERM) patch 1 Patch transdermal DAILY ??? methocarbamoL (ROBAXIN) tablet 1,000 mg oral QID ??? ondansetron (PF) (ZOFRAN) injection 4 mg intravenous Q6H PRN ??? senna (SENOKOT) tablet 1-2 Tab oral BID PRN ??? urea (URE-NA) oral powder packet 15 g oral BID Allergies No Known Allergies Objective: I+O: Intake/Output Summary (Last 24 hours) at 09/29/2020 1553 Last data filed at 09/29/2020 1430 Gross per 24 hour Intake 1943.45 ml Output 3107 ml Net -1163.55 ml Weight: Wt Readings from Last 5 Encounters: 09/25/20 77.1 kg (169 lb 14.4 oz) Physical Examination: BP 105/63 (BP Cuff Location: Right arm, BP Patient Position: Semi fowlers) Pulse 88 Temp 36.6 ??C (97.9 ??F) (Oral) Resp 20 Ht 177.8 cm (70) Wt 77.1 kg (169 lb 14.4 oz) SpO2 94% BMI 24.38 kg/m?? Wt Readings from Last 3 Encounters: 09/25/20 77.1 kg (169 lb 14.4 oz) General Appearance: No Acute Distress HEENT : Sclerae clear Heart: Regular Rate/Rhythm Lungs: Clear to Auscultation and Breathing non-labored Abdomen: Soft Extremities: No Edema : no waddell (it was just removed) Neuro: No Tremors Psych: Awake, Alert, Oriented to Person, Place and Time Skin: normal coloration and turgor, no rashes, no suspicious skin lesions noted. Extracellular volume is assessed as normal Vascular Access: A dialysis access is not present. Data Review: Reviewed in [facility], notable for the following: CBC: Lab Results Component Value Date WBC 7.66 09/29/2020 RBC 3.61 (L) 09/29/2020 HGB 10.8 (L) 09/29/2020 HCT 31.3 (L) 09/29/2020 MCV 87 09/29/2020 MCH 29.9 09/29/2020 MCHC 34.5 09/29/2020 PLT 271 09/29/2020 NEUTROABS 5.35 09/29/2020 Nephrology profile: Lab Results Component Value Date NA 126 (L) 09/29/2020 K 4.2 09/29/2020 CL 90 (L) 09/29/2020 CO2 33 (H) 09/29/2020 BUN 7 (L) 09/29/2020 CREATININE 0.49 (L) 09/29/2020 CALCIUM 9.0 09/22/2020 LABALBU 2.9 (L) 2020 Recent Labs 09/28/20 0958 09/29/20 0642 CREATININE 0.44* 0.49* Results for RHIANNON SHELTON ( ) as of 09/29/2020 15:54 Ref. Range 2020 10:19 09/29/2020 10:16 Potassium, Ur Latest Ref Range: See Note mEq/L 5.7 Osmolality, Ur Latest Ref Range: 150-1,150 mOsm/kg 359 140 (L) OSMOLALITY, URINE Unknown Rpt Rpt (A) Sodium, Ur Latest Ref Range: See Note mEq/L 82.7 24.7 Creatinine, U Latest Ref Range: See Note mg/dL 10.8 Baseline creatinine: Not known Stable weight: Not known Procedures/Studies during this hospitalization: 09/22/20 - Insertion of 24-Lithuanian left chest tube 09/25/20 - PROCEDURE:?Right video-assisted thorascopic surgery, mechanical and talc pleurodesis, right upper lobe wedge resection, right middle lobe wedge resection of nodule. CXR x 3 Desirae Russell MD 09/29/2020 15:53 documented in this encounter OR Notes OR Surgeon - Jhonatan Epstein MD - 09/25/2020 0000 EST OPERATIVE REPORT SERVICE DATE: 09/25/2020 PREOPERATIVE DIAGNOSIS: Spontaneous pneumothorax with persistent air leak. POSTOPERATIVE DIAGNOSIS: Spontaneous pneumothorax with persistent air leak. PROCEDURE: Right video-assisted thorascopic surgery, mechanical and talc pleurodesis, right upper lobe wedge resection, right middle lobe wedge resection of nodule. SURGEON: Johan Torres MD. NYLON MACHINE OPERATOR: Jhonatan Epstein MD, PGY4. ANESTHESIA: General endotracheal via double-lumen tube. ESTIMATED BLOOD LOSS: 100 mL. URINE OUTPUT: 1.6 liters. TOTAL INTRAVENOUS FLUIDS: 900 mL of crystalloid. TUBES, LINES AND DRAINS: Two right 36-Lithuanian chest tubes. INDICATIONS: This is a 69-year-old gentleman who presented from an outside hospital after undergoingsmall-bore, 9-Lithuanian chest tube decompression of the pneumothorax with persistent air leak. While hewas on our service, we exchanged this tube for a larger surgical tube. However, this did not resolvehis air leak. As such, we elected to bring him to the operating room today for VATS with wedge resection and pleurodesis. NARRATIVE: The patient was brought to the operating room and placed on the operating room table in asupine fashion. We then completed the first portion of our surgical safety checklist, identifying the correct patient, procedure, site and laterality and all equipment in the room. The patient was theninduced under general endotracheal anesthesia using a dual-lumen tube placed by our anesthesia colleagues. This was then confirmed with bronchoscopy. Once the airway was secured and confirmed in the correct position, a waddell catheter was placed and the patient was then placed in the left lateral decubitus position with the right side up and was prepped and draped in the usual sterile fashion. All pres sure points were padded and he was secured to the table. We elected to prep in his right chest tube,and once we were prepped and draped and anesthesia confirmed that the right lung was dropped, we then removed the chest tube and discarded it. The rib space one below the tip of the scapula was then marked out, and following this line around anteriorly, 2 other additional sites were marked, the most anterior one being just medial and inferior to the prior chest tube site. Prior to incision the secondportion of the safety checklist was completed. The mid axillary line site that was selected was thensharply entered with a scalpel then carried down to fascia with electrocautery. A blunt-tipped Kellywas then used to enter the pleural space with a satisfying pop. This was then stretched, and a sterilely gloved finger was then put into the thoracic cavity in order to sweep off any adhesions, findingnone. A trocar was then placed into this incision, and a 10 mm, 0-degree scope was then placed. The t horax was inspected, finding some obvious adhesions of the right upper lobe to the lateral chest wall. However, we were able to safely identify 2 targets near where we selected to place our additional ports. The first one was placed in the anterior position around the fourth or fifth intercostal space, and this was done under direct visualization in the same manner as the initial port one, albeit under direct visualization. The posterior incision was then also created under direct visualization after switching the camera to the anterior port in the same fasion. At this point, we elected to switch to a 30-degree, 10 mm scope in order to better visualize the apex. Two ringed forceps were inserted into the chest cavity, and the adhesions to the lateral chest wall were bluntly taken down. This was actually quite easy and just appeared to have been starting to heal and not chronic in nature. Once we had the lung mobilized, we inspected the cavity further, finding an area of apical bleb disease with a small pinhole and some white, fibrotic tissue near the apex. This was easily grasped and retracted in such a way that we could pass a stapler from the posterior port. This was taken with 2 firings of a 60 purple Endo-FLORES stapler and 1 additional firing of a 45 purple stapler. The specimen was then removed intact, and our staple lines were inspected, finding no signs of bleeding. We then inspected the rest of the thorax and lung and found a nodule on the right middle lobe, consistent with preoperative imaging. Since this was easily accessible, we elected to remove this as a wedge resection as well,so a single firing of an Endo FLORES 60 purple was taken to separate this nodule from the lung parenchyma. The staple line was intact, and the specimen was removed through the anterior port. Both of thesespecimens were then sent for routine pathology. We then turned our attention to performing a pleurodesis. This was done in a mechanical fashion using the Bovie cautery scratch pad on a ring forceps. This was passed into the thorax first from the anterior portion of the posterior wall, taking care to avoid the superior aspect of the thorax and not injury the axillary vessels. This was carried down to the level of the diaphragm in the posterior portion. The Bovie pad was then replaced from the posterior port. Mechanical pleurodesis was then performed along the anterior chest wall. This was also carried down, avoiding the superior subclavian artery and vessel, until the diaphragm. The cavity was quite oozy at this time. Some clots were suctioned and removed with ring forceps. Once we were satisfied that there was no cassy bleeding and just ooze consistent with pleurodesis, we elected to inject aeros olized talc through the posterior port. This was applied first at the apex, working our way inferiorly down along the chest wall, trying to cover as much as we could of the chest wall. Two 36-Lithuanian chest tubes were then placed through the anterior and mid axillary line port sites. These were confirmed to be at the apex and along the anterior and posterior border of the lung. The lung was then inflated by anesthesia, and we ensured that our tubes were in adequate position. The camera was then withdrawn from the posterior port, and the chest tubes were secured to the skin with 0 silk suture. The posterior port was then closed in layers, first with a 2-0 Vicryl then a 3-0 Vicryl suture, and the skin was closed with 4-0 running Monocryl. Dermabond was then applied to this incision. The chest tubes were covered with Vaseline gauze and covered with drain sponges and Medipore tape. The prior chest tube sites were also covered with Vaseline gauze and Medipore tape. The chest tubes were connected to Pleur- evac suction. While there was an initial air leak, it did resolve by the termination of positive pressure. The patient was then extubated and awoke from his anesthesia, suffering no untoward events.He was taken to the recovery room in hemodynamically normal condition. Dr. Johan Torres was scrubbed and present for the entire procedure. SPECIMENS: Right upper lobe wedge resection, right middle lobe wedge resection. DISPOSITION: PACU then floor. CONDITION: Stable. Unless otherwise noted, there were no complications, no blood loss, no cultures obtained, no specimens removed, and no drains retained. Johan Torres MD / Jhonatan Epstein MD / DC Confirmation: [id number] Dictation ID: [id number] cc: Associated attestation - Johan Torres MD - 09/26/2020 1313 EST Attestation: I saw and examined the patient 06/03/2020. I agree with the resident's/fellow's findingsand plans as documented. Johan Torres MD 09/26/2020 13:13 documented in this encounter Miscellaneous Notes Plan of Care - Antonio Harvey RN - 10/01/2020 1504 EST Discharge Note D - Patient ordered for discharge today. A - Patient given prescriptions, medication information sheets and After Visit Summary. Medication list, follow up appointments and care instructions reviewed with patient. IVs and ID band removed. R - Patient questions reviewed and addressed prior to discharge. Patient denied pain. Patient left the unit in a wheelchair in stable condition. No distress noted. 10/01/2020 15:04 ANTONIO HARVEY RN Problem: High Fall Risk: Goal: Patient will Remain Free of Falls due to Med. Side Effects 10/01/2020 1504 by Antonio Harvey RN Outcome: Ongoing at Discharge 10/01/2020 1504 by Antonio Harvey RN Outcome: Ongoing Problem: High Fall Risk: Goal: Patient Will Remain Free from Fall-Related Injury 10/01/2020 1504 by Antonio Harvey RN Outcome: Ongoing at Discharge 10/01/2020 1504 by Antonio Harvey RN Outcome: Ongoing Problem: High Fall Risk: Goal: Patient will Remain Free of Falls due to Altered Elimination 10/01/2020 1504 by Antonio Harvey RN Outcome: Ongoing at Discharge 10/01/2020 1504 by Antonio Harvey RN Outcome: Ongoing Problem: High Fall Risk: Goal: Patient will Remain Free of Falls due to Dizziness/Vertigo 10/01/2020 1504 by Antonio Harvey RN Outcome: Ongoing at Discharge 10/01/2020 1504 by Antonio Harvey RN Outcome: Ongoing Problem: Sensory: Goal: Ability to compensate for vision loss will be supported 10/01/2020 1504 by Antonio Harvey RN Outcome: Ongoing at Discharge 10/01/2020 1504 by Antonio Harvey RN Outcome: Ongoing Problem: High Fall Risk: Goal: Patient will Remain Free of Falls due to Altered Mobility 10/01/2020 1504 by Antonio Harvey RN Outcome: Ongoing at Discharge 10/01/2020 1504 by Antonio Harvey RN Outcome: Ongoing Problem: Daily Care Plan Goals Goal: Care Plan Documentation 10/01/2020 1504 by Antonio Harvey RN Outcome: Ongoing at Discharge 10/01/2020 1504 by Antonio Harvey RN Outcome: Ongoing lan of Care - Sera Sun RN - 10/01/2020 0014 EST Problem: Daily Care Plan Goals Goal: Care Plan Documentation 10/01/2020 0014 by Sera Sun RN Outcome: Ongoing Area of Focus: Sleep Goal This Shift: Pt will get adequate rest this shift D - This is a 70 y.o. male. Patient is POD 6 S/P right VATS and RUL/RML wedge resection. Patient is tachy up to 130 when standing at bedside. Baseline pt has been tachy at 100-110 while sleeping overnight. Pt has denied pain. Waddell is draining. Pt has gotten adequate rest this shift. Pt states he has gotten more sleep than he had previously gotten during this stay. Dressings are CDI. A - Assessed patient. Provided medications per MAR. Made team aware of tachycardia. Clustered care to promote rest. R - Patient is resting comfortably in bed. Will continue to assess and monitor patient. Call light within reach, bed placed in low position and table at bedside. 10/01/2020 0:15 SERA SUN RN Plan of Care - Antonio Harvey RN - 09/30/2020 1531 EST Data: pt. POD 5 s/p right VATS and RUL/RML wedge resection. 1L NC. VSS, Tacky when standing. Team aware. A&Ox3. Action: Gave meds per mar, rounded hourly for safety. Changed dressings when saturated in the morning. Alerted team when HR sustained over 120. Response: pt. Able to make needs known, sitting and standing in the afternoon. Says he feels reallygood today. ANTONIO HARVEY RN 09/30/2020 15:31 Problem: High Fall Risk: Goal: Patient will Remain Free of Falls due to Med. Side Effects Outcome: Ongoing Problem: High Fall Risk: Goal: Patient Will Remain Free from Fall-Related Injury Outcome: Ongoing Problem: High Fall Risk: Goal: Patient will Remain Free of Falls due to Altered Elimination Outcome: Ongoing Problem: High Fall Risk: Goal: Patient will Remain Free of Falls due to Dizziness/Vertigo Outcome: Ongoing Problem: Sensory: Goal: Ability to compensate for vision loss will be supported Outcome: Ongoing Problem: High Fall Risk: Goal: Patient will Remain Free of Falls due to Altered Mobility Outcome: Ongoing Problem: Daily Care Plan Goals Goal: Care Plan Documentation Outcome: Ongoing lan of Care - Sera Sun RN - 09/30/2020 0304 EST Problem: Daily Care Plan Goals Goal: Care Plan Documentation Outcome: Not Met This Shift Flowsheets (Taken 09/29/2020 1915) Area of Focus: Sleep Goal This Shift: pt will get adequate rest this shift TEGAN Note D - This is a 70 y.o. male. Patient is POD 5 S/P right VATS and RUL/RML wedge resection. Patient is on 1L NC. Patient becomes tachycardic when standing OOB. Pt met DTV, performed PVR, volume was 1013. Straight cath for 600. Another bladder scan was performed, volume was >800. Pt reported denied discomfort or pain. CT and epidural were removed prior to this shift. Patient reported not being able toget adequate rest. A - Assessed patient. Performed bladder scan and I&O cath. Provided medications per orders. Provider denied need for immediate intervention of the bladder scan >800, requested a bladder scan at 0500 to determine the best course of action. R - Patient is now resting comfortably in bed. Will continue to assess and monitor patient. Call light within reach, bed placed in low position and table at bedside. 09/30/2020 3:04 SERA SUN RN Plan of Rui - Phi Edwards RN - 09/29/2020 1308 EST Problem: Daily Care Plan Goals Goal: Care Plan Documentation Outcome: Ongoing Flowsheets (Taken 09/29/2020 1229 by Briana Mayorga, ALICIA) Area of Focus: Mobility Goal This Shift: increased mobility Note: Data: Pt 70 yo male 5 days s/p right VATS and RUL/RML wedge resection. Pt A/O x3, pain 0/10. PCEA removed. Class 1 Tele, NSR w/ PVCs. Pt has 2x chest tubes with water seal, draining sanguinous fluid. Pt has productive cough, sputum is clear with scant blood. Course crackles auscultated on the right. 2Liter fluid restrict. Pt had BM at 0700. Waddell was removed at 1030. Pt contact guard assist due to dizzy spells. Action: Pt encouraged to sit bedside for lunch, and stand bedside to try and urinate. Education given on fluid restriction and chocolate boost ordered to increase PO intake. Emotional support for anxiety over vasovagal episode last night. Clustered care to encourage rest. Response: Pt VSS and pain remains 0/10. Pt reports no dizzy feeling, but requests more time to rest.Pt chest tubes still draining with no air leak observed. Pt due to void by 1630. PHI EDWARDS RN 09/29/2020 12:35 lan of Care - Sera Sun RN - 09/29/2020 0055 EST Problem: Daily Care Plan Goals Goal: Care Plan Documentation Flowsheets (Taken 2020 5508) Area of Focus: Sleep Goal This Shift: pt will get adequate rest this shift TEGAN Note D - This is a 70 y.o. male. Patient is POD 4 S/P right VATS and RUL/RML wedge resection. Patient reported lightheadedness, BP 70/51. HR down to low 30s, pt became unresponsive. PCEA was running. Provider, emergency response team, and anesthesiologist came to bedside. Pt reported need to have BM. CT x2to -20 suction. Waddell draining. A - Narcan was given per DEC. Prepared atropine, was NOT administered, pts BP and HR improved with narcan. Normal saline fluid bolus was given. Assisted pt onto bedpan. Provided emotional support. Stopped PCEA per APS. R - Patient is became responsive after narcan administration, HR and BP increased. Pt was unsuccessful having a BM. Pt reported wanting to wait until the morning for a suppository. Pt resting comfortably in bed. Will continue to monitor. 09/29/2020 0:56 SERA SUN RN Plan of Care - Adwoa Becker RN - 2020 1451 EST Problem: Daily Care Plan Goals Goal: Care Plan Documentation Outcome: Ongoing Flowsheets (Taken 2020 1450) Area of Focus: GI//Elimination Goal This Shift: increase mobility, positive BM Data: pt AOx3, VSS on 1 L of oxygen via nasal cannula, CT x2 in place to suction, epidural & waddell in place. Denies pain. Pt reports dizziness when he stands up, states he hasn't ambulated in room.Pt also with no BM since surgery, +flatus. Action: administered colace for constipation, prune juice x2 given to pt. Assisted pt to stand at the bedside to december in place; also provided a bedside commode. Response: pt reported mild dizziness when he was getting his chest xray this morning and states he doesn't feel safe to ambulate. Pt did successfully get up to a bedside commode and sat up for a bit totry a BM, No output yet. Pt continues to deny pain, epidural is continuously infusing but pt has nothit his button for demand doses. BP 100/70 (BP Cuff Location: Right arm, BP Patient Position: Sitting) Pulse 96 Temp 36.8 ??C (98.2 ??F) (Oral) Resp 16 Ht 177.8 cm (70) Wt 77.1 kg (169 lb 14.4 oz) SpO2 96% BMI 24.38 kg/m?? ADWOA BECKER RN 2020 14:51 lan of Care - Nirali Leung RN - 2020 0450 EST Data: Pt POD#3 s/p R VATS, talc pleurodesis, RUL & RML wedge resection. PCEA continuous, no bolus doses demanded overnight, pt reporting 0/10 pain. Plasmalyte running at 50ml/hr. Chest tubes to suction, positive airleak, old drainage on dressing. Waddell draining clear yellow output. SBP's 90's-100's overnight. Pt using IS and acapella independently. No PO BM, positive flatus. Action: Administered meds per MAR. I&O's recorded. Response: Pt declining to sit at bedside overnight, repositioning self frequently in bed. Snacking on applesauce overnight. NIRALI LEUNG RN 2020 4:50 lan of Care - Pati Leblanc RN - 09/27/2020 1249 EST Data: pt post op day 2 lung wedge resection/ vats, admitting dgx spontaneous pneumothorax. Epidural running hydromorphone 8ml/ hr. Pain 0/10 consistently. BP's in the 90-100's/60's, NSR on tele. CT right side draining SS fluids, air leak present. MD aware of air leak, drainage and low BP. Waddell draining esperanza clear. Action: administered med's per mar, plasma-light bolus 500ml. Assisted with mobility around room. Provided waddell care. Response: patient was asymptomatic from low bp, tolerated activity well and remained pain free during the shift. Pati Leblanc RN 09/27/2020 12:49 lan of Care - Nirali Leung RN - 09/27/2020 0200 EST Data: Pt POD #2 s/p R VATS, talc pleurodesis, RUL & RML wedge resection. PCEA continuous, pt hasnt demanded any bolus doses current shift. Plasmalyte running at 50ml/hr. Chest tubes to suction, positive airleak, old drainage on dressing. Waddell draining esperanza clear urine. SBP's in 70's-80's. Action: Administered meds per MAR. I&O's recorded. Encouraged IS usage and repositioning by pt while in bed. Clustered care to promote rest. Response: Pt with no complaints of pain overnight. Sleeping between cares, calling for help appropriately. NIRALI LEUNG RN 09/27/2020 2:00 lan of Care - Pati Leblanc RN - 09/26/2020 1846 EST Data: pt Aox3, VSS, bp low 90/60's, pain 0/10, HR 110s. Ctx2 on the right, draining SS. Waddell in place, draining. Action: pt sat at edge of bed. Administered meds as per dec. Encouraged IS. MD came to bedside as per hypotension and tachycardia. CT tube leaking at incision ss, applied clean dressing. Response: pt reported pain 0/10 throughout shift, tolerated sitting up well. Recommend trying to walk and stand tomorrow. Pati Leblanc RN 09/26/2020 18:46 lan of Care - Bonny De Souza RN - 09/26/2020 0243 EST Data: Patient came back from PACU at around 1999. Patient denies pain. PCEA infusing. CT insertion site with moderate amount of drainage, contained. CT to - 20 suction, + air leak. Waddell patent and draining adequate amount of urine. Action: Patient given snacks as per request. Monitored CT output/dressing. Response: Patient's pain controlled. Patient comfortably sleeping at this time. Continue to monitor and intervene if necessary. BONNY DE SOUZA RN 09/26/2020 2:43 rief Op Note - Jhonatan Epstein MD - 09/25/2020 1519 EST Date: 09/21/2020 - 09/25/2020 Location: [facility] OR Name: Rhiannon Pa Nikita, : 1950, Diagnosis Pre-op Diagnosis * Spontaneous pneumothorax [J93.83] Post-op Diagnosis * Spontaneous pneumothorax [J93.83] Procedures Right Video Assisted Thoracoscopic Surgery Mechanical and talc Pleurodesis Right upper lobe wedge resection Right middle lobe wedge resection of nodule. Surgeons * Johan Torres MD - Primary * Jhonatan Epstein MD - Resident - Assisting Procedure Summary Anesthesia: General ASA: II Estimated Blood Loss: 100cc UOP: 1.6 L Total IV Fluids: 900 mL LDAs: Right 36 Fr Chest tube x2 Staff: Chip Drier: Garrett Oneal RN Scrub Person: Josselin Jaimes RN; Yarelis Mercer RN Patient Health Policy Analyst: Phyllis Tim; Dakota Thomas Indications: Rhiannon Shelton is an 69 y.o. male who is having surgery for right sided bullous disease with prior pneumothorax, since improved with chest tube drainage, however with ongoing and unresolved air leak, as such he presents to the OR today for the above procedures with Dr. Torres. Findings: Some adhesions from upper lung laterally, taken down easily. Apical bleb disease with somefibrosis and a hole, potentially source of leak. Right middle lobe nodule anterior and lateral. Complications: None; patient tolerated the procedure well. Disposition: PACU - hemodynamically stable. Condition: stable Specimens Collected: Right upper lobe wedge resection Right middle lobe wedge resection Plan: ?? Chest tube to LCWS, keep to suction until Monday AM, if no leak, waterseal trial with repeat cxr ?? PCEA, appreciate APS ?? Waddell ?? Advance to reg diet, as tolerated ?? PACU, floor, telemetry Jhonatan Epstein MD 09/25/2020 15:22 lan of Care - Jhonatan Scott RN - 09/25/2020 0519 EST Problem: Daily Care Plan Goals Goal: Care Plan Documentation Outcome: Ongoing Data: Pt was admitted 09/21 with a spontaneous pneumothorax. Action: Pt is A+Ox3, VSS. Chest tube to LCWS, with an air leak and serosang output as documented. NPO since 0000 for the OR today for a VATS procedure. IVF infusing as ordered. Minimal pain reported. Response: CTM and notify the team with any changes. JHONATAN SCOTT RN 09/25/2020 5:19 lan of Care - Ayaka Paz RN - 09/24/2020 2215 EST Data: Patient has right sided chest tube to [facility], plan is for VATS procedure tomorrow. Patient made aware of NPO at midnight orders. Denies pain. On 2LO2 via NC. Action: Medications administered per DEC. See flowsheet for assessment details. Hourly checks completed. Response: Patient is resting at this time. Call terrazas is within reach and patient is able to make needs known. lan of Care - Andre Hunter RN - 09/24/2020 0347 EST Problem: Daily Care Plan Goals Goal: Care Plan Documentation Flowsheets (Taken 09/23/2020 194) Area of Focus: Sleep Goal This Shift: Pt able to rest throughout shift. monitor pain Data: Hospital Day 3 for this 69 y/o male admitted 09/21 from [facility] with a chest tube placed r/t right sided pneumothorax. S/p day 2 of chest tube replacement. Pt again complained of some discomfort to site and not able to get much rest d/t heart burn. Chest tube site cont to have air leak, site is bleeding dark inner layers of dressing, not penetrating to top layer of dressing. NSR/ST w/ PVCs on tele, HR as high as 1teens throughout shift, MD Negron aware- no new orders. LBM per pt 09/19, +BS + flatus, denies need for stronger bowel regimen at this time. Urinating CYU in urinal. ?? Action: Continued to monitor dressing/site/output throughout shift. Medicated per DEC. Applied 0.5 liter via NC as pt would occasionally dip to high 80s, humidified O2. Consulted MD Negron about pt's heart burn, Tums ordered & administered. Clustered care to promote rest. ?? Response: Pt VSS throughout shift. Denied CP & SOB. CT output is sanguineous/dark red with 145ccout this shift, 365cc total in atrium. Positional discomfort cont. Pt resting in bed, call terrazas within reach. No other needs/concerns at this time. ANDRE HUNTER RN 09/24/2020 3:47 lan of [facility] - Gaby Russell - 09/23/2020 0838 EST Initial Case Management/Social Work Assessment and Discharge Plan/Readmission Risk Assessment REASON FOR ADMISSION: Spontaneous pneumothorax Patient understands reason for admission: Yes PATIENT CONTACT INFO VERIFIED: Yes PATIENT ADDRESS VERIFIED: Yes LIVING ARRANGEMENTS AND ACCESSIBILITY ISSUES: Living Arrangements: Alone Levels: 1 Stairs to enter: (P) 3 Handicap access: None Bathroom located on bedroom level?: Yes What in home social supports are available to the patient? None Is / care available? No ADVANCED DIRECTIVES, POA &/or COLST IN PLACE: Healthcare Directive: No, patient does not have advance directive for healthcare treatment Information Provided on Healthcare Directives: No Information on Healthcare Directives Requested: No DIRECTIVES FOR FINANCES: Directive For Finances: No TRANSPORTATION: Transportation: Family, Taxi CULTURAL, ANABAPTIST and/or LANGUAGE factors affecting health care/discharge planning: Any factors affecting health care/discharge planning?: (P) No Insurance in Place: (P) Yes Medical Insurance: (P) Yes Type of insurance: (P) Medicare, Medicaid Medicare type: (P) A, B Medicaid Type: (P) Community Referred to patient financial services: (P) No Nutrition: DISCHARGE RISK ASSESSMENT: Lives at home with limited or no community support Total # selected above: Score > or equal to 5: This patient is HIGH RISK for re-hospitalization Tentative plan to address the risk of re-hospitalization for those at HIGH MODERATE RISK: Bring riskfactors to attention of team to be addressed RAPT TOOL: Age: 66-75 Gender: Male Ambulation distance: 1-2 blocks Gait device: None Community Services: Home health, MOW, SASH-none of one time a week Will you live with someone who will care for you?: No RAPT Tool Score: 7 Patient expects to be discharged to: home SBIRT: SASQ (Single Alcohol Screening Question) How many times in the past year have you had 5 or more drinks in a single day?: (P) Never How many times in the past year have you used an illegal drug or used a prescription medication for non-medical reasons?: (P) Never Intervention in place/initiated?: (P) No, not indicated FUNCTIONAL STATUS: Activities patient requires assistance: None Assistive Device: None COMMUNITY RESOURCES/SUPPORTS: Primary Care Provider: Radha Terrazas PCP Verified: Yes Specialists: (P) None Type of Home Health Services: (P) None DME Provider: Pharmacy: No Pharmacies Listed Home Health: Other: POST HOSPITAL TRANSITION PLAN: pt transferred here from [facility] with pneumothorax. He lives alone in [place], he is independent at baseline. Rhiannon has a dtr who lives nearby, she may be able to transport home, if not I will assist with transportation. I am unsure at this point if HH svcswill be indicated at baseline. GABY RUSSELL 09/23/2020 8:38 lan of Care - Andre Hunter RN - 09/23/2020 0414 EST Data: Hospital Day 2 for this 69 y/o male admitted 09/21 from [facility] with a chest tube placed r/t right sided pneumothorax. Pt complained of discomfort to site and not able to get much rest d/t positional discomfort.Chest tube site cont to have air leak, site is bleeding. NSR w/ PVCs on tele.LBM per pt 09/19. Urinating CYU in urinal. Action: MD Negron aware of bleeding noted on dressing, is okay with the amount present & plans on changing in the morning, came to bedside to asses. Continued to monitor dressing/site throughout shift. Medicated per DEC. Applied 1 liter via NC as pt would occasionally dip to high 80s. Changed IV dressing. Clustered care to promote rest. Response: Pt VSS throughout shift. Denied CP & SOB. CT output is sanguineous with 62cc out this shift, 162cc total. Positional discomfort cont. Pt resting in bed, call terrazas within reach. No other needs/concerns at this time. ANDRE HUNTER RN 09/23/2020 4:14 lan of Care - Nelly Leonard RN - 09/22/2020 1435 EST Problem: High Fall Risk: Goal: Patient Will Remain Free from Fall-Related Injury Outcome: Met This Shift Daily Care Goal: Respiratory: Pt will maintain O2 sats above 94% this shift. D: Pt admitted for right-sided spontaneous pneumothorax, transferred from [facility] on 09/21, w/9Fr trocar chest tube in place. Pt on 4L O2 via NC throughout morning, sats 96-98%. No SOB noted, pt dyspneic on exertion, crepitus anterior and posterior. No pain reported. A: Pt hooked to Pleur-Evac at -20 pressure to wall suction, w/55mL yellow, serous drainage this shift on 9Fr chest tube. MD placed 24-Fr chest tube at bedside, IV pain medication given. Pt has Plasma-Lyte running at 50mL/hr, continues to be NPO. 24Fr chest tube hooked to Pleur-Evac, set at -20, w/15mL drainage since larger tube placement. Running total for shift in chamber is 70mL. R: Pt tolerated procedure, maintaining O2 above 90% throughout. Pt had episode of bradycardia duringprocedure, which resolved. Post-chest tube placement, pt is maintaining sats between 92 and 96% on 2L NC. Pt reports pain post-procedure at 3/10, which he says is tolerable, and does not wish to take pain medication if he doesn't have to. Pt's needs are met. Will continue to monitor. Nelly Leonadr RN 09/22/20 @ 1448 lan of Rui - Alyce Wilkins RN - 09/22/2020 0501 EST Data: Pt comfortable. Crepitus noted and circled. No drainage from chest tube. Action: Maintained NPO for possible OR today. CT to -20 sx. Response: rested without incident ALYCE WILKINS RN 09/22/2020 5:01 lan of Sade Crooks RN - 09/21/2020 1956 EST Admission Note D - This is a(n) 69 y.o. male who is being transfered from [facility] for a right spontaneous pneumothorax. IVF infusing per orders. Significant airleak. Provider changed atrium this afternoon. NPO midnight. Pt has denied pain since arrival. A - Vital signs taken. Patient oriented to unit and room. Call light and bed use reviewed. Call light within reach, bed placed in low position and table at bedside. Room is free of clutter. R - Continue to assess and monitor patient. 09/21/2020 18:57 SADE MCLAIN RN documented in this encounter Plan of Treatment Upcoming Encounters Date Type Specialty Care Team Description 09/26/2022 Office Visit Hematology and Oncology Nessa Sullivan MD [address] [facility], [facility], [facility] [address] [place] [id number] [phone] (Wo rk) Scheduled Referrals Name Type Priority Associated Diagnoses Order S chedule PROVIDER FOLLOW-UP Outpatient Routine Ordered: INSTRUCTIONS Referral 10/01/2020 PROVIDER FOLLOW-UP Outpatient Routine Ordered: INSTRUCTIONS Referral 10/01/2020 PROVIDER FOLLOW-UP Outpatient Routine Ordered: INSTRUCTIONS Referral 10/01/2020 AMB CONS/FOLLOW UP Outpatient Routine Spontaneous Ordered: PRIMARY CARE PHYSICIAN Referral pneumotho rax 10/01/2020 Hyponatremia AMB CONS/FOLLOW UP Outpatient Routine Spontaneous Ordered: CARDIOTHORACIC SURGERY Referral pneumothorax 10/01 AMB CONS/FOLLOW UP Outpatient Routine Urinary retention Orde red: UROLOGY Referral 10/01/2020 AMB CONS/FOLLOW UP Outpatient Routine Spontaneous Ordered: LUNG CANCER [facility] Referral pneumothorax 10/01/2020 Lung nodule AMB CONS/FOLLOW UP Outpatient Routine Hyponatremia Ordered: HOME HEALTH SERVICES Referral Spontaneous 020 pneumothorax documented as of this encounter Procedures Procedure Name Priority Date/Time Associated Diagnosis Comme nts ECG REPORT - SCANNED 12/20/2020 19:42 EST ECG REPORT - SCANNED 11/16/2020 11:35 EST ECG REPORT - SCANNED 11/16/2020 11:35 EST ECG REPORT - SCANNED 11/10/2020 22:00 EST ECG REPORT - SCANNED 10/05/2020 13:[address] OUTSIDE IMAGES Routine 10/01/2020 9:46 Results for this CHEST EST procedure are i n the results section. XR OUTSIDE IMAGES Routine 10/01/2020 9:45 Results for this CHEST EST procedure are i n the results section. XR OUTSIDE IMAGES Routine 10/01/2020 9:45 Results for this CHEST EST procedure are i n the results section. XR OUTSIDE IMAGES Routine 10/01/2020 9:44 Results for this CHEST EST procedure are i n the results section. XR OUTSIDE IMAGES Routine 10/01/2020 9:43 Results for this CHEST EST procedure are i n the results section. BUN Routine 10/01/2020 7:01 Results for this EST procedure are i n the results section. CREATININE Routine 10/01/2020 7:01 Results for this EST procedure are i n the results section. ELECTROLYTES Routine 10/01/2020 7:01 Results for this EST procedure are i n the results section. BUN Routine 09/30/2020 5:44 Results for this EST procedure are i n the results section. CREATININE Routine 09/30/2020 5:44 Results for this EST procedure are i n the results section. ELECTROLYTES Routine 09/30/2020 5:44 Results for this EST procedure are i n the results section. XR CHEST 2 VIEWS Routine 09/29/2020 14:12 Results for this EST procedure are i n the results section. SODIUM, URINE RANDOM Routine 09/29/2020 10:16 Res ults for this EST procedure are i n the results section. POTASSIUM, URINE Routine 09/29/2020 10:16 Results for this RANDOM EST procedure are i n the results section. CREATININE, URINE Routine 09/29/2020 10:16 Result s for this RANDOM EST procedure are i n the results section. OSMOLALITY, URINE Routine 09/29/2020 10:16 Result s for this EST procedure are i n the results section. EKG 12-LEAD 09/29/2020 8:15 Results for this EST procedure are i n the results section. CALCIUM, IONIZED Routine 09/29/2020 6:42 Results for this EST procedure are i n the results section. COMPLETE BLOOD COUNT Routine 09/29/2020 6:42 Resu lts for this AND DIFFERENTIAL EST procedure a re in the results section. OSMOLALITY Add-On 09/29/2020 6:42 Results for this EST procedure are i n the results section. BUN Routine 09/29/2020 6:42 Results for this EST procedure are i n the results section. MAGNESIUM Routine 09/29/2020 6:42 Results for this EST procedure are i n the results section. CREATININE Routine 09/29/2020 6:42 Results for this EST procedure are i n the results section. CORTISOL Routine 09/29/2020 6:42 Results for this EST procedure are i n the results section. ELECTROLYTES Routine 09/29/2020 6:42 Results for this EST procedure are i n the results section. EKG 12-LEAD Routine 09/29/2020 2:14 Results for this EST procedure are i n the results section. XR CHEST PORTABLE 1 STAT 09/29/2020 2:14 Resul ts for this VIEW EST procedure are i n the results section. HOLD SST Routine 09/29/2020 2:05 Results for this EST procedure are i n the results section. HOLD LAVENDER TOP Routine 09/29/2020 2:05 Results for this EST procedure are i n the results section. HOLD GREEN TOP Routine 09/29/2020 2:05 Results fo r this EST procedure are i n the results section. HOLD BLUE TOP Routine 09/29/2020 2:05 Results for this EST procedure are i n the results section. SODIUM, URINE RANDOM Routine 2020 10:19 Res ults for this EST procedure are i n the results section. OSMOLALITY, URINE Routine 2020 10:19 Result s for this EST procedure are i n the results section. COMPLETE BLOOD COUNT Routine 2020 9:58 Resu lts for this EST procedure are i n the results section. OSMOLALITY Routine 2020 9:58 Results for this EST procedure are i n the results section. BILIRUBIN Routine 2020 9:58 Results for this DIRECT/INDIRECT EST procedure ar e in the results section. BUN Routine 2020 9:58 Results for this EST procedure are i n the results section. ALT Routine 2020 9:58 Results for this EST procedure are i n the results section. AST Routine 2020 9:58 Results for this EST procedure are i n the results section. PROTEIN, TOTAL Routine 2020 9:58 Results fo r this EST procedure are i n the results section. ALKALINE PHOSPHATASE Routine 2020 9:58 Resu lts for this EST procedure are i n the results section. GLUCOSE, SERUM Add-On 2020 9:58 Results fo r this EST procedure are i n the results section. CREATININE Routine 2020 9:58 Results for this EST procedure are i n the results section. BILIRUBIN, TOTAL Routine 2020 9:58 Results for this EST procedure are i n the results section. ALBUMIN Routine 2020 9:58 Results for this EST procedure are i n the results section. ELECTROLYTES Routine 2020 9:58 Results for this EST procedure are i n the results section. XR CHEST 2 VIEWS Routine 2020 9:23 Results for this EST procedure are i n the results section. BUN Routine 09/26/2020 9:35 Results for this EST procedure are i n the results section. T3 FREE Add-On 09/26/2020 9:35 Results for this EST procedure are i n the results section. T3, TOTAL Add-On 09/26/2020 9:35 Results for this EST procedure are i n the results section. TSH Add-On 09/26/2020 9:35 Results for this EST procedure are i n the results section. T4 FREE Add-On 09/26/2020 9:35 Results for this EST procedure are i n the results section. ELECTROLYTES Routine 09/26/2020 9:35 Results for this EST procedure are i n the results section. COMPLETE BLOOD COUNT Routine 09/26/2020 6:28 Resu lts for this EST procedure are i n the results section. CREATININE Routine 09/26/2020 6:28 Results for this EST procedure are i n the results section. XR CHEST PORTABLE 1 STAT 09/25/2020 19:13 Resu lts for this VIEW EST procedure are i n the results section. SURGICAL PATHOLOGY Routine 09/25/2020 16:32 Resul ts for this EST procedure are i n the results section. WEDGE RESECTION, LUNG, 09/25/2020 14:56 Spontaneous THORACOSCOPIC EST pneumothorax Special Needs 3gm Sterile Talc Ordered, Ob tain from Pharmacy. WEDGE RESECTION, LUNG, THORACOTOMY 09/25/2020 14 :56 EST Spontaneous pneumothorax APPROACH Special Needs 3gm Sterile Talc Ordered, Ob tain from Pharmacy. PATIENT RE-TYPE Routine 09/25/2020 7:55 EST Resul ts for this procedure are i n the results section . COMPLETE BLOOD COUNT Routine 09/25/2020 7:03 EST Results for this procedure are i n the results section . TYPE AND SCREEN Routine 09/25/2020 7:03 EST Resul ts for this procedure are i n the results section . BUN Routine 09/25/2020 7:03 EST Results for this procedure are i n the results section . CREATININE Routine 09/25/2020 7:03 EST Results for this procedure are i n the results section . ELECTROLYTES Routine 09/25/2020 7:03 EST Results for this procedure are i n the results section . [facility] Today 09/25/2020 6:21 EST COVID-19 TESTING Routine 09/25/2020 6:21 EST Resu lts for this procedure are i n the results section . ELECTROLYTES Routine 09/24/2020 5:52 EST Results for this procedure are i n the results section . COMPLETE BLOOD COUNT AND Routine 09/23/2020 5:36 EST Results for this DIFFERENTIAL procedure are i n the results section . ELECTROLYTES Routine 09/23/2020 5:36 EST Results for this procedure are i n the results section . XR CHEST PORTABLE LINE STAT 09/22/2020 14:59 EST Results for this PLACEMENT procedure are i n the results section . BUN Routine 09/22/2020 6:07 EST Results for this procedure are i n the results section . MAGNESIUM Routine 09/22/2020 6:07 EST Results for this procedure are i n the results section . CREATININE Routine 09/22/2020 6:07 EST Results for this procedure are i n the results section . CALCIUM Routine 09/22/2020 6:07 EST Results for this procedure are i n the results section . ELECTROLYTES Routine 09/22/2020 6:07 EST Results for this procedure are i n the results section . DIFFERENTIAL Add-On 09/21/2020 23:40 EST Results for this procedure are i n the results section . COMPLETE BLOOD COUNT Routine 09/21/2020 23:40 EST Results for this procedure are i n the results section . XR CHEST PORTABLE 1 VIEW STAT 09/21/2020 16:16 EST Results for this procedure are i n the results section . documented in this encounter Results XR CHEST 2 VIEWS (10/14/2020 14:11 EST) Anatomical Region Laterality Modality Computed Radiography Specimen Impressions [facility] - 10/14/2020 14:23 EST Satisfactory appearance of the chest, st atus post right VATS and wedge resection. Tiny amount of residual subcutaneous emp hysema in the right chest wall. Narrative [facility] - 10/14/2020 14:23 EST XR CHEST 2 [...] Organization Address City/State/ZIP Code Phon e Number [facility] CT OUTSIDE IMAGES CHEST (10/01/2020 9:46 EST) Specimen Narrative 10/01/2020 9:46 EST This is a non-reportable exam. XR OUTSIDE IMAGES CHEST (10/01/2020 9:45 EST) Specimen Narrative 10/01/2020 9:45 EST This is a non-reportable exam. XR OUTSIDE IMAGES CHEST (10/01/2020 9:45 EST) Specimen Narrative 10/01/2020 9:45 EST This is a non-reportable exam. XR OUTSIDE IMAGES CHEST (10/01/2020 9:44 EST) Specimen Narrative 10/01/2020 9:44 EST This is a non-reportable exam. XR OUTSIDE IMAGES CHEST (10/01/2020 9:43 EST) Specimen Narrative 10/01/2020 9:43 EST This is a non-reportable exam. (ABNORMAL) ELECTROLYTES (10/01/2020 7:01 EST) Pathologist Sig nature Sodium 130 (L) 136 - 145 mEq/L [facility] Potassium 4.5 3.5 - 5.0 mEq/L [facility] Chloride 94 (L) 96 - 110 mEq/L [facility] ORY SERVICES CO2 Total 31 22 - 32 mEq/L [facility] RY SERVICES Specimen Blood - Venous blood (substance) Performing Organization Address [facility] Phon e Number [facility] [address] [phone] SERVICES (ABNORMAL) CREATININE (10/01/2020 7:01 EST) Creatinine 0.55 (L) 0.66 - 1.25 [facility] mg/dL LABORATORY SERVICES eGFR 105Comment: eGFR >60 [facility] calculated using mL/min/1.73m2 LABORATORY SERVICES CKD-EPI equation for non- Americans. Multiply eGFR by 1.16 for patients. Specimen Blood - Venous blood (substance) Performing Organization Address [facility]/ZIP Code Phon e Number [facility] [address] [place] [address] SERVICES BUN (10/01/2020 7:01 EST) Pathologist Sig nature BUN 17 10 - 26 mg/dL [facility] RY SERVICES Specimen Blood - Venous blood (substance) Performing Organization Address [facility]/ZIP Code Phon e Number [facility] [address] [place] [address] SERVICES (ABNORMAL) ELECTROLYTES (09/30/2020 5:44 EST) Pathologist Sig nature Sodium 130 (L) 136 - 145 mEq/L [facility] Potassium 4.0 3.5 - 5.0 mEq/L [facility] Chloride 92 (L) 96 - 110 mEq/L [facility] ORY SERVICES CO2 Total 30 22 - 32 mEq/L [facility] RY SERVICES Specimen Blood - Venous blood (substance) Performing Organization Address [facility]/ZIP Code Phon e Number [facility] [address] [phone] SERVICES (ABNORMAL) CREATININE (09/30/2020 5:44 EST) Creatinine 0.46 (L) 0.66 - 1.25 [facility] mg/dL LABORATORY SERVICES eGFR 113Comment: eGFR >60 [facility] calculated using mL/min/1.73m2 LABORATORY SERVICES CKD-EPI equation for non- Americans. Multiply eGFR by 1.16 for patients. Specimen Blood - Venous blood (substance) Performing Organization Address [facility]/ZIP Code Phon e Number [facility] [address] [phone] SERVICES BUN (09/30/2020 5:44 EST) Pathologist Sig nature BUN 19 10 - 26 mg/dL [facility] RY SERVICES Specimen Blood - Venous blood (substance) Performing Organization Address [facility]/ZIP [facility] Phon e Number [facility] [address] [place] [address] SERVICES XR CHEST 2 VIEWS (09/29/2020 14:12 EST) Anatomical Region Laterality Modality Computed Radiography Specimen Impressions [facility] - 09/29/2020 14:39 EST 1. ??Pleural thickening on the right likely reflects minimal residual pleural effusion. 2. ??Possible tiny residual right pneumo thorax. 3. ??Improved right lower lung hazy opac ities likely reflecting improved atelectasis status post pleural decompression. I have personally reviewed the images an d the above interpretation and agree with the findings. Narrative [facility] - 09/29/2020 14:39 EST XR CHEST 2 VIEWS ??09/29/2020 1:45 PM CLINICAL HISTORY/COMMENTS: s/p right VATS for persistent airleak, R UL and RML wedge resections, and pleurodesis. Now airleak resolved, waterseal trial with post xray. COMPARISON: Chest radiographs 09/29/2020, 2020, 09/25/2020.. TECHNIQUE: Two views of the chest were performed us ing dual energy technique with bone and soft tissue reconstruction. FINDINGS: Soft tissues and extrathoracic findings: ??Right pleural drains are unchanged in position. The spinal catheter no longer projects over the left hemithorax. Bones: Healed right clavicular fracture. Persistent right chest wall subcutaneous emphysema. Cardiac and mediastinal contours: Within normal limits for technique. Lungs: Persistent, but slightly improved hazy opacity overlying the right lower lung no new opacities. A staple line is again noted in the right apex. ?? Pleura/diaphragms: There is right pleura l thickening similar to prior with a likely residual small pleural effusion. Possible tiny residual right pneumothorax. Procedure Note Leonor Muñoz MD - 09/29/2020 XR CHEST 2 VIEWS 09/29/2020 1:45 PM CLINICAL HISTORY/COMMENTS: s/p right VATS for persistent airleak, R UL and RML wedge resections, and pleurodesis. Now airleak resolved, waterseal trial with post xray. COMPARISON: Chest radiographs 09/29/2020, 2020, 09/25/2020.. TECHNIQUE: Two views of the chest were performed us ing dual energy technique with bone and soft tissue reconstruction. FINDINGS: Soft tissues and extrathoracic findings: Right pleural drains are unchanged in position. The spinal catheter no longer projects over the left hemithorax. Bones: Healed right clavicular fracture. Persistent right chest wall subcutaneous emphysema. Cardiac and mediastinal contours: Within normal limits for technique. Lungs: Persistent, but slightly improved hazy opacity overlying the right lower lung no new opacities. A staple line is again noted in the right apex. Pleura/diaphragms: There is right pleura l thickening similar to prior with a likely residual small pleural effusion. Possible tiny residual right pneumothorax. IMPRESSION 1. Pleural thickening on the right likel y reflects minimal residual pleural effusion. 2. Possible tiny residual right pneumoth orax. 3. Improved right lower lung hazy opacit ies likely reflecting improved atelectasis status post pleural decompression. I have personally reviewed the images an d the above interpretation and agree with the findings. Performing Organization Address [facility] Phon e Number [facility] POTASSIUM, URINE RANDOM (09/29/2020 10:16 EST) Potassium, Urine 5.7 See Note [facility] MEDICAL Comment: mEq/L [facility] LABORATORY NOTE: SERVICES Reference range has not been established for potassium concentration in random urine specimens. Specimen Urine - Urine specimen collection, clean catch (procedure) Performing Organization Address [facility] e Number [facility] [address] [place] [address] SERVICES CREATININE, URINE RANDOM (09/29/2020 10:16 EST) Creatinine, Urine 10.8 See Note [facility] MEDICAL Comment: mg/dL [facility]ENTER LABORATORY NOTE: SERVICES Reference range has not been established for creatinine concentration in random urine specimens. Specimen Urine - Urine specimen collection, clean catch (procedure) Performing Organization Address [facility] Phon e Number [facility] [address] [place] [address] SERVICES SODIUM, URINE RANDOM (09/29/2020 10:16 EST) Sodium, Urine 24.7 See Note [facility] Comment: mEq/L LABORATORY NOTE: SERVICES Reference range has not been established for sodium concentration in random urine specimens. Specimen Urine - Urine specimen collection, clean catch (procedure) Performing Organization Address [facility] Phon e Number [facility] [address] [place] [address] SERVICES (ABNORMAL) OSMOLALITY, URINE (09/29/2020 10:16 EST) Pathologist Sig nature Osmolality, Urine 140 (L) 150-1,150 [facility] mOsm/kg LABORATORY SERVICES Specimen Urine - Urine specimen collection, clean catch (procedure) Performing Organization [facility] Phon e Number [facility] [address] [place] [address] SERVICES EKG 12-LEAD (09/29/2020 8:15 EST) Specimen Narrative [facility] EKG - 10/05/2020 11:0 5 EST ? [facility] ? Test Date: ?2020-09-29 Pat Name: ? RHIANNON NIKITA ?Department: ?? MR3 ? Room: ? Gender: ? Male ? 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 [id number] : ?1950 ? Requested By: REAL NEGRON MD Order Number: ?Reading MD: ?? RAMON ORTEZ MD ? Measurements Intervals ?[place] ? Rate: ? 91 ? P: ?39 WI: ? 180 ?QRS: ?19 QRSD: ? 82 ? T: ?30 QT: ? 336 ? QTc: ?414 ? Interpretive Statements SINUS RHYTHM Compared to ECG 09/29/2020 02:14:25 First degree AV block no longer present Edited by KENDALL SALVADOR MD on 09-29-2020 1 3:59:53 EST. I reviewed the tracing and have either a greed or edited the findings in this report. Electronically Signed On 11:05:37 EST by RAMON ORTEZ MD. 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 I reviewed the tracing and have either a greed or edited the findings in this report. Electronically Signed On 11:05:37 EST by RAMON ORTEZ MD. Performing Organization Address City/State/ZIP Code Phon e Number [facility] EKG (ABNORMAL) OSMOLALITY (09/29/2020 6:42 EST) Pathologist Sig nature Osmolality, Serum 260 (L) 275 - 295 [facility] mOsm/kg LABORATORY SERVICES Specimen Blood - Venous blood (substance) Performing Organization Address [facility]/ZIP Code Phon e Number [facility] [address] [place] [address] SERVICES (ABNORMAL) CALCIUM, IONIZED (09/29/2020 6:42 EST) Calcium, Ionized 1.09 (L)Comment: 1.12 - 1.32 [facility] Tube not filled to mmol/L LABORATORY capacity. Ionized SERVICES calcium results may be falsely decreased. Interpret results with caution. Specimen Blood - Venous blood (substance) Performing Organization Address City/[facility]/ZIP Code Phon e Number [facility] [address] [place] [address] SERVICES MAGNESIUM (09/29/2020 6:42 EST) Pathologist Sig nature Magnesium 1.9 1.7 - 2.8 mg/dL [facility] LABORA TORY SERVICES Specimen Blood - Venous blood (substance) Performing Organization Address [facility]/ZIP [facility] Phon e Number [facility] [address] [place] [address] SERVICES (ABNORMAL) COMPLETE BLOOD COUNT AND DIFFERENTIAL (09/29/2020 6:42 EST) WBC 7.66 4.00 - 10.40 [facility] LABORAT[facility] SERVICES RBC 3.61 (L) 4.36 - 5.78 [facility] LABORATORY SERVICES Hemoglobin 10.8 (L) 13.8 - 17.3 [facility] gm/dL LABORATORY SERVICES HCT 31.3 (L) 39.5 - 50.2 % [facility] LABORATORY SERVICES MCV 87 81 - 95 fl [facility] LABORATORY SERVICES MCH 29.9 27.6 - 33.0 pg [facility] LABORATORY SERVICES MCHC 34.5 32.8 - 36.4 [facility] gm/dL LABORATORY SERVICES RDW-CV 14.3 (H) <14.2 % [facility] LABORATORY SERVICES RDW-SD 45.5 <46.0 fl [facility] LABORATORY SERVICES PLT 271 141 - 377 K/m [facility] LABORATORY SERVICES MPV 9.5 9.5 - 12.7 fl [facility] LABORATORY SERVICES Neutrophils 69.9 % [facility] LABORATORY SERVICES Lymphocytes 16.2 % [facility]OR[facility]ORY SERVICES Monocytes 7.3 % [facility] LAB[facility] SERVICES Eosinophils 5.7 % [facility] SERVICES Basophils 0.4 % [facility] SERVICES Immature Grans 0.5 % [facility] LABORATORY SERVICES Absolute Neutrophils 5.35 2.20 - 8.85 [facility] LABORATORY SERVICES Absolute Lymphocytes 1.24 1.09 - 3.30 [facility] LABORATORY SERVICES Absolute Monocytes 0.56 0.10 - 0.80 [facility] LABORATORY SERVICES Absolute Eosinophils 0.44 0.03 - 0.61 [facility] LABORATORY SERVICES Absolute Basophils 0.03 0.01 - 0.11 [facility] LABORATORY SERVICES Absolute Immature 0.04 0.00 - 0.06 [facility] Grans [facility] LABORATORY SERVICES Type of Differential: Auto [facility] LABORATORY SERVICES Specimen Blood - Venous blood (substance) Performing Organization Address [facility]/ZIP Code Phon e Number [facility] [address] [place] [address] SERVICES (ABNORMAL) ELECTROLYTES (09/29/2020 6:42 EST) Pathologist Sig nature Sodium 126 (L) 136 - 145 mEq/L [facility] LABORA TORY SERVICES Potassium 4.2 3.5 - 5.0 mEq/L [facility] Chloride 90 (L) 96 - 110 mEq/L [facility] LABORAT ORY SERVICES CO2 Total 33 (H) 22 - 32 mEq/L [facility] LABORATO RY SERVICES Specimen Blood - Venous blood (substance) Performing Organization Address [facility]/ZIP Code Phon e Number [facility] [address] [place] [address] SERVICES (ABNORMAL) CREATININE (09/29/2020 6:42 EST) Creatinine 0.49 (L) 0.66 - 1.25 [facility] mg/dL LABORATORY SERVICES eGFR 110Comment: eGFR >60 [facility] calculated using mL/min/1.73m2 LABORATORY SERVICES CKD-EPI equation for non- Americans. Multiply eGFR by 1.16 for patients. Specimen Blood - Venous blood (substance) Performing Organization Address [facility]/ZIP [facility] Phon e Number [facility] [address] [place] [address] SERVICES (ABNORMAL) BUN (09/29/2020 6:42 EST) Pathologist Sig nature BUN 7 (L) 10 - 26 mg/dL [facility] LABORATO RY SERVICES Specimen Blood - Venous blood (substance) Performing Organization Address [facility] Phon e Number [facility] [address] [place] [address] SERVICES CORTISOL (09/29/2020 6:42 EST) Cortisol 15 See Note ug/dL [facility] Comment: LABORATORY SERVICES NOTE: Reference Ranges (from OCD IFU): Collected Before 10:00 AM: ??4 - 23 ug/dL Collected After 5:00 PM: ?2 - 14 ug/dL The results of this assay ca n be falsely elevated due to the consumption of Biotin. Specimen Blood - Venous blood (substance) Performing Organization Address City/[facility] Phon e Number [facility] [address] [place] [address] SERVICES EKG 12-LEAD (09/29/2020 2:14 EST) Specimen Narrative [facility] EKG - 12/20/2020 19:3 6 EST ? [facility] ? Test Date: ?2020-09-29 Pat Name: ? RHIANNON SHELTON ?Department: ?? WOOD 3 ? Room: ? NL2363 Gender: ? Male ? 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 [id number] : ?1950 ? Requested By: REAL NEGRON MD Order Number: [id number] ? Reading : ?? CONNOR CRY MD ? Measurements Intervals ?[place] ? Rate: ? 78 ? P: ?34 WI: ? 222 ?QRS: ?25 QRSD: ? 82 ? T: ?33 QT: ? 371 ? QTc: ?425 ? Interpretive Statements SINUS RHYTHM WITH FIRST DEGREE AV DELAY No previous ECG available for comparison This is a preliminary report. ??Edited Johann HUITRON MD on 09-30-2020 17:27:54 EST. I reviewed the tracing and have either a greed or edited the findings in this report. Electronically Signed On 12-20-19 19:36:25 EST by CONNOR CYR MD. 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 Edited by BRIT HUITRON MD on 09-30-2020 17:27:54 EST. I reviewed the tracing and have either a greed or edited the findings in this report. Electronically Signed On 12-20-19 19:36:25 EST by CONNOR CYR MD. Performing Organization Address City/State/ZIP Code Phon e Number [facility] EKG XR CHEST PORTABLE 1 VIEW (09/29/2020 2:14 EST) Anatomical Region Laterality Modality Computed Radiography Specimen Impressions [facility] - 09/29/2020 9:03 EST 1. ??Ongoing small, laterally loculated right pleural effusion. 2. ??Slightly decreased subcutaneous emp hysema in the right chest wall. 3. ??Very slightly increased right basil ar atelectasis. I have personally reviewed the images an d the above interpretation and agree with the findings. Narrative [facility] - 09/29/2020 9:03 EST XR CHEST PORTABLE 1 VIEW ??09/29/2020 2:05 AM CLINICAL HISTORY/COMMENTS: diminished breath sounds, hypotension COMPARISON: 2020, 09/25/2020. FINDINGS: Single portable AP view of the chest. Lines/tubes: ??Right pleural drains are unchanged in position. Thin gauge spinal pain catheter projecting over the left hemithorax. Soft tissues, bones and extrathoracic fi ndings: Slightly decreased subcutaneous emphysema in the right lateral chest wall. Remote right healed clavicular fracture. Cardiac and mediastinal contours: Within normal limits for technique. Lungs/pleura: Slightly increased hazy op acity in the right lung base, likely representing atelectasis. Otherwise, no new pulmonary opacity. Stable line again noted in the right apex. Small right pleural effusion. Procedure Note Leonor Muñoz MD - 09/29/2020 XR CHEST PORTABLE 1 VIEW 09/29/2020 2:05 AM CLINICAL HISTORY/COMMENTS: diminished breath sounds, hypotension COMPARISON: 2020, 09/25/2020. FINDINGS: Single portable AP view of the chest. Lines/tubes: Right pleural drains are un changed in position. Thin gauge spinal pain catheter projecting over the left hemithorax. Soft tissues, bones and extrathoracic fi ndings: Slightly decreased subcutaneous emphysema in the right lateral chest wall. Remote right healed clavicular fracture. Cardiac and mediastinal contours: Within normal limits for technique. Lungs/pleura: Slightly increased hazy op acity in the right lung base, likely representing atelectasis. Otherwise, no new pulmonary opacity. Stable line again noted in the right apex. Small right pleural effusion. IMPRESSION 1. Ongoing small, laterally loculated ri ght pleural effusion. 2. Slightly decreased subcutaneous emphy sema in the right chest wall. 3. Very slightly increased right basilar atelectasis. I have personally reviewed the images an d the above interpretation and agree with the findings. Performing Organization Address City/State/ZIP Code Phon e Number [facility] HOLD SST (09/29/2020 2:05 EST) Pathologist Sig nature Hold Hold [facility] Y SERVICES Specimen Blood - Venous blood (substance) Performing Organization Address City/State/ZIP Code Phon e Number [facility] [address] [place] [address] SERVICES HOLD GREEN TOP (09/29/2020 2:05 EST) Pathologist Sig nature Hold Hold [facility] SERVICES Specimen Blood - Venous blood (substance) Performing Organization Address City/State/ZIP Code Phon e Number [facility] [address] [place] [address] SERVICES HOLD BLUE TOP (09/29/2020 2:05 EST) Pathologist Sig nature Hold Hold [facility] Y SERVICES Specimen Blood - Venous blood (substance) Performing Organization Address City/State/ZIP Code Phon e Number [facility] [address] [place] [address] SERVICES HOLD LAVENDER TOP (09/29/2020 2:05 EST) Pathologist Sig nature Hold Hold [facility] Y SERVICES Specimen Blood - Venous blood (substance) Performing Organization Address City/State/ZIP Code Phon e Number [facility] [address] [place] [address] SERVICES SODIUM, URINE RANDOM (2020 10:19 EST) Sodium, Urine 82.7 See Note [facility] Comment: mEq/L LABORATORY NOTE: SERVICES Reference range has not been established for sodium concentration in random urine specimens. Specimen Urine - Urine (substance) Performing Organization Address [facility] Phon e Number [facility] [address] [place] [address] SERVICES OSMOLALITY, URINE (2020 10:19 EST) Pathologist Sig nature Osmolality, Urine 359 150-1,150 mOsm/kg [facility] SERVICES Specimen Urine - Urine (substance) Performing Organization Address [facility] Phon e Number [facility] [address] [place] [address] SERVICES (ABNORMAL) GLUCOSE, SERUM (2020 9:58 EST) Pathologist Sig nature Glucose 112 (H) 70 - 100 mg/dL [facility] ORY SERVICES Specimen Blood - Venous blood (substance) Performing Organization Address [facility] Phon e Number [facility] [address] [place] [address] SERVICES (ABNORMAL) OSMOLALITY (2020 9:58 EST) Pathologist Sig nature Osmolality, Serum 258 (L) 275 - 295 [facility] mOsm/kg LABORATORY SERVICES Specimen Blood - Venous blood (substance) Performing Organization Address [facility] Phon e Number [facility] [address] [place] [address] SERVICES BILIRUBIN DIRECT/INDIRECT (2020 9:58 EST) Pathologist Sig nature Conjugated Bilirubin 0.0 0.0 - 0.3 mg/dL [facility] LABORAT[facility] SERVICES Unconjugated Bilirubin 0.6 0.0 - 1.1 mg/dL [facility] LABORATORY SERVICES Specimen Blood - Venous blood (substance) Performing Organization Address [facility] Phon e Number [facility] [address] [place] [address] SERVICES (ABNORMAL) PROTEIN, TOTAL (2020 9:58 EST) Pathologist Sig nature Total Protein 5.4 (L) 6.3 - 8.2 g/dL [facility] SERVICES Specimen Blood - Venous blood (substance) Performing Organization Address [facility]/ZIP Code Phon e Number [facility] [address] [place] [address] SERVICES (ABNORMAL) ALBUMIN (2020 9:58 EST) Pathologist Sig nature Albumin 2.9 (L) 3.4 - 4.9 g/dL [facility] ORY SERVICES Specimen Blood - Venous blood (substance) Performing Organization Address City/[facility]/ZIP Code Phon e Number [facility] [address] [place] [address] SERVICES ALKALINE PHOSPHATASE (2020 9:58 EST) Pathologist Sig nature Alkaline Phosphatase 71 38 - 126 U/L [facility] SERVICES Specimen Blood - Venous blood (substance) Performing Organization Address [facility]/ZIP Code Phon e Number [facility] [address] [place] [address] SERVICES (ABNORMAL) AST (2020 9:58 EST) Pathologist Sig nature AST 51 (H) 15 - 46 U/L [facility] Y SERVICES Specimen Blood - Venous blood (substance) Performing Organization Address City/[facility]/ZIP Code Phon e Number [facility] [address] [place] [address] SERVICES ALT (2020 9:58 EST) Pathologist Sig nature ALT 41 <50 U/L [facility] Y SERVICES Specimen Blood - Venous blood (substance) Performing Organization Address [facility]/ZIP Code Phon e Number [facility] [address] [place] [address] SERVICES BILIRUBIN, TOTAL (2020 9:58 EST) Pathologist Sig nature Bilirubin, Total 0.6 <1.4 mg/dL [facility] LABOR ATORY SERVICES Specimen Blood - Venous blood (substance) Performing Organization Address [facility]/ZIP Code Phon e Number [facility] [address] [place] [address] SERVICES (ABNORMAL) ELECTROLYTES (2020 9:58 EST) Pathologist Sig nature Sodium 125 (L) 136 - 145 mEq/L [facility] TORY SERVICES Potassium 4.2 3.5 - 5.0 mEq/L [facility] TORY SERVICES Chloride 87 (L) 96 - 110 mEq/L [facility] ORY SERVICES CO2 Total 30 22 - 32 mEq/L [facility]O RY SERVICES Specimen Blood - Venous blood (substance) Performing Organization Address City/State/ZIP Code Phon e Number [facility] [address] [place] [address] SERVICES (ABNORMAL) CREATININE (2020 9:58 EST) Creatinine 0.44 (L) 0.66 - 1.25 [facility] mg/dL LABORATORY SERVICES eGFR 115Comment: eGFR >60 [facility] calculated using mL/min/1.73m2 LABORATORY SERVICES CKD-EPI equation for non- Americans. Multiply eGFR by 1.16 for patients. Specimen Blood - Venous blood (substance) Performing Organization Address City/State/ZIP Code Phon e Number [facility] [address] [place] [address] SERVICES (ABNORMAL) BUN (2020 9:58 EST) Pathologist Sig nature BUN 6 (L) 10 - 26 mg/dL [facility] LABORATO RY SERVICES Specimen Blood - Venous blood (substance) Performing Organization Address City/[facility]/ZIP Code Phon e Number [facility] [address] [place] [address] SERVICES (ABNORMAL) COMPLETE BLOOD COUNT (2020 9:58 EST) Pathologist Sig nature WBC 7.40 4.00 - 10.40 K/cmm [facility] SERVICES RBC 3.72 (L) 4.36 - 5.78 M/cmm [facility] SERVICES Hemoglobin 11.3 (L) 13.8 - 17.3 gm/dL [facility] SERVICES HCT 33.3 (L) 39.5 - 50.2 % [facility] SERVICES MCV 90 81 - 95 fl [facility] SERVICES MCH 30.4 27.6 - 33.0 pg [facility] SERVICES MCHC 33.9 32.8 - 36.4 gm/dL [facility] SERVICES RDW-CV 14.5 (H) <14.2 % [facility] SERVICES RDW-SD 47.6 (H) <46.0 fl [facility] SERVICES PLT 283 141 - 377 K/cmm [facility] SERVICES MPV 9.6 9.5 - 12.7 fl [facility] SERVICES Specimen Blood - Venous blood (substance) Performing Organization Address City/State/ZIP Code Phon e Number [facility] [address] [place] [address] SERVICES XR CHEST 2 VIEWS (2020 9:23 EST) Anatomical Region Laterality Modality Computed Radiography Specimen Impressions [facility] - 2020 9:59 EST 1. ??Persistent small right apical pneumothorax with unchanged positioning of 2 right-sided chest tubes. 2. ??Right pleural effusion coursing tatianna ng the lateral aspect of the right hemithorax up to the apex, slightly decreased from prior. I have personally reviewed the images an d the above interpretation and agree with the findings. Narrative [facility] - 2020 9:59 EST XR CHEST 2 VIEWS ??2020 9:15 AM CLINICAL HISTORY/COMMENTS: Status post right VATS for persistent ai rleak with wedges of RUL, RML, pleurodesis. Evaluate for persistent PTX, effusion, tube placement. COMPARISON: Multiple prior chest radiographs, most r ecent of which is from 09/25/2020. TECHNIQUE: Two views of the chest were performed us ing dual energy technique with bone and soft tissue reconstruction. FINDINGS: Lines and tubes: 2 right-sided chest tub es remain in place, one terminating in the apex and one terminating in the anterior, mid thoracic pleural space. Soft tissues and extrathoracic findings: ??Subcutaneous emphysema overlying the right chest wall is improved from prior. Bones: There is a healed fracture of the mid right clavicle noted. Cardiac and mediastinal contours: Normal size and contour. Lungs: Slight interval improvement in ri ght upper lung hazy opacity without significant change in right lower lung hazy opacities since 09/25/2020. Surgical genesis are noted at the right apex. ?? Pleura/diaphragms: There is a small pers istent right apical pneumothorax. There is a small right pleural effusion involving the right costophrenic angle and coursing along the lateral aspect of the righ t hemithorax to the apex, likely slightl y improved from prior with mild persistent thickening of the minor fissure as well. Blunting of the left costophrenic angle may be related to pleural fluid or atelectasis. Procedure Note Mainor Moffett MD - 2020 XR CHEST 2 VIEWS 2020 9:15 AM CLINICAL HISTORY/COMMENTS: Status post right VATS for persistent ai rleak with wedges of RUL, RML, pleurodesis. Evaluate for persistent PTX, effusion, tube placement. COMPARISON: Multiple prior chest radiographs, most r ecent of which is from 09/25/2020. TECHNIQUE: Two views of the chest were performed us ing dual energy technique with bone and soft tissue reconstruction. FINDINGS: Lines and tubes: 2 right-sided chest tub es remain in place, one terminating in the apex and one terminating in the anterior, mid thoracic pleural space. Soft tissues and extrathoracic findings: Subcutaneous emphysema overlying the right chest wall is improved from prior. Bones: There is a healed fracture of the mid right clavicle noted. Cardiac and mediastinal contours: Normal size and contour. Lungs: Slight interval improvement in ri ght upper lung hazy opacity without significant change in right lower lung hazy opacities since 09/25/2020. Surgical genesis are noted at the right apex. Pleura/diaphragms: There is a small pers istent right apical pneumothorax. There is a small right pleural effusion involving the right costophrenic angle and coursing along the lateral aspect of the right hemithorax to the apex, likely slightly improved from prio r with mild persistent thickening of the minor fissure as well. Blunting of the left costophrenic angle may be related to pleural fluid or atelectasis. IMPRESSION 1. Persistent small right apical pneumot horax with unchanged positioning of 2 right-sided chest tubes. 2. Right pleural effusion coursing along the lateral aspect of the right hemithorax up to the apex, slightly decreased from prior. I have personally reviewed the images an d the above interpretation and agree with the findings. Performing Organization Address City/State/ZIP Code Phon e Number [facility] TSH (09/26/2020 9:35 EST) Pathologist Sig nature TSH 0.59 0.47 - 4.68 uIU/mL [facility] SERVICES Specimen Blood - Venous blood (substance) Narrative [facility] SERVICES - 2020 12:23 EST The results of this assay can be falsely lowered due to the consumption of Biotin. Performing Organization Address [facility] Code Phon e Number [facility] [address] [place] [address] SERVICES T4 FREE (09/26/2020 9:35 EST) Pathologist Sig nature T4, Free 2.0 0.8 - 2.2 ng/dL [facility] TORY SERVICES Specimen Blood - Venous blood (substance) Performing Organization Address [facility] Phon e Number [facility] [address] [place] [address] SERVICES (ABNORMAL) T3, TOTAL (09/26/2020 9:35 EST) Pathologist Sig nature T3, Total 67 (L) 97 - 169 ng/dL [facility] ORY SERVICES Specimen Blood - Venous blood (substance) Performing Organization Address [facility] Phon e Number [facility] [address] [place] [address] SERVICES (ABNORMAL) T3 FREE (09/26/2020 9:35 EST) Pathologist Sig nature T3, Free 2.7 (L) 2.8 - 5.3 pg/mL [facility] TORY SERVICES Specimen Blood - Venous blood (substance) Performing Organization Address [facility] Phon e Number [facility] [address] [place] [address] SERVICES (ABNORMAL) ELECTROLYTES (09/26/2020 9:35 EST) Pathologist Sig nature Sodium 125 (L) 136 - 145 mEq/L [facility] T[facility] SERVICES Potassium 3.9 3.5 - 5.0 mEq/L [facility] SERVICES Chloride 89 (L) 96 - 110 mEq/L [facility] ORY SERVICES CO2 Total 26 22 - 32 mEq/L [facility] RY SERVICES Specimen Blood - Venous blood (substance) Performing Organization Address [facility] Phon e Number [facility] [address] [place] [address] SERVICES BUN (09/26/2020 9:35 EST) Pathologist Sig nature BUN 11 10 - 26 mg/dL [facility] RY SERVICES Specimen Blood - Venous blood (substance) Performing [facility] Code Phon e Number [facility] [address] [place] [address] SERVICES (ABNORMAL) CREATININE (09/26/2020 6:28 EST) Creatinine 0.45 (L) 0.66 - 1.25 [facility] mg/dL LABORATORY SERVICES eGFR 115Comment: eGFR >60 [facility] calculated using mL/min/1.73m2 LABORATORY SERVICES CKD-EPI equation for non- Americans. Multiply eGFR by 1.16 for patients. Specimen Blood - Venous blood (substance) Performing Organization Address [facility]/ZIP Code Phon e Number [facility] [address] [place] [address] SERVICES (ABNORMAL) COMPLETE BLOOD COUNT (09/26/2020 6:28 EST) Pathologist Sig nature WBC 9.07 4.00 - 10.40 K/cmm [facility] SERVICES RBC 3.95 (L) 4.36 - 5.78 M/cmm [facility] SERVICES Hemoglobin 11.9 (L) 13.8 - 17.3 gm/dL [facility] SERVICES HCT 33.9 (L) 39.5 - 50.2 % [facility] SERVICES MCV 86 81 - 95 fl [facility] SERVICES MCH 30.1 27.6 - 33.0 pg [facility] SERVICES MCHC 35.1 32.8 - 36.4 gm/dL [facility] SERVICES RDW-CV 14.6 (H) <14.2 % [facility] SERVICES RDW-SD 46.3 (H) <46.0 fl [facility]ORY SERVICES PLT 241 141 - 377 K/cmm [facility] SERVICES MPV 9.8 9.5 - 12.7 fl [facility] SERVICES Specimen Blood - Venous blood (substance) Performing Organization Address City/[facility]/ZIP Code Phon e Number [facility] [address] [place] [address] SERVICES XR CHEST PORTABLE 1 VIEW (09/25/2020 19:13 EST) Anatomical Region Laterality Modality Computed Radiography Specimen Impressions [facility] - 10/06/2020 15:55 EST Interval decrease in the size of ??the right pneumothorax and right lower lung opacity. Final report delayed by downtime. No sig nificant changes to preliminary report. I have personally reviewed the images an d the above interpretation and agree with the findings. Narrative [facility] - 10/06/2020 15:55 EST XR CHEST PORTABLE 1 VIEW ??09/25/2020 6:50 PM CLINICAL HISTORY/COMMENTS: post op VATS COMPARISON: Chest x-ray from September 22, 2020. FINDINGS: Single 70 degrees upright portable AP vi ew of the chest. Lines/tubes: ??2 right-sided chest tubes have replaced the single right-sided chest tube from 3 days prior. Soft tissues, bones and extrathoracic fi ndings: Subcutaneous emphysema along the right lateral chest wall appears marginally improved from prior. Cardiac and mediastinal contours: The ca rdiomediastinal silhouette is normal in size and contour for age. Lungs: Interval improvement in the right lower lung opacity. The pulmonary vasculature is normal. Pleura: Interval reduction in size of th e right apical pneumothorax, now not confidently identified. Procedure Note Mainor Linares MD - 10/06/2020 XR CHEST PORTABLE 1 VIEW 09/25/2020 6:50 PM CLINICAL HISTORY/COMMENTS: post op VATS COMPARISON: Chest x-ray from September 22, 2020. FINDINGS: Single 70 degrees upright portable AP vi ew of the chest. Lines/tubes: 2 right-sided chest tubes h ave replaced the single right-sided chest tube from 3 days prior. Soft tissues, bones and extrathoracic fi ndings: Subcutaneous emphysema along the right lateral chest wall appears marginally improved from prior. Cardiac and mediastinal contours: The ca rdiomediastinal silhouette is normal in size and contour for age. Lungs: Interval improvement in the right lower lung opacity. The pulmonary vasculature is normal. Pleura: Interval reduction in size of th e right apical pneumothorax, now not confidently identified. IMPRESSION Interval decrease in the size of the rig ht pneumothorax and right lower lung opacity. Final report delayed by downtime. No sig nificant changes to preliminary report. I have personally reviewed the images an d the above interpretation and agree with the findings. Performing Organization Address City/State/ZIP Code Phon e Number [facility] RADIOLOGY [facility] [place] [facility] (09/25/2020 16:32 EST) Final Diagnosis A. LUNG, RIGHT, UPPER LOBE, VIDEO-ASSISTED THORACOSCOPIC WEDGE RESECTION: [facility] - Squamous cell carcinoma, i nvasive, non-keratinizing (0.5 cm maximal dimension) (AJCC: pT1a, pNX). See comment and synoptic report. CENTER - Adjacent squamous cell carcinoma in situ. LABORATORY - Vascular invasion present (slide A9). SERVICES - Tumor at least 0.15 cm from parenchymal (stapled) m argin. - Uninvolved lung shows bull ous emphysema with patchy subpleural interstitial fibrosis. - Apical pulmonary cap. 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 B. LUNG, RIGHT, MIDDLE LOBE, VIDEO-ASSISTED THORACOSCO PIC WEDGE RESECTION: - Pulmonary hamartoma (2.0 cm maximal dimension). See comment. - Uninvolved lung shows: - Distal acinar (paraseptal) and centrilobular emphys romi. - Subpleural interstitial f ibrosis with foci of peribronchiolar metaplasia and incipient honeycomb change. - Fibrinous and eosinophilic pleuritis with reactive mesothelial hyperplasia consistent with history of pneumothorax. Diagnosis Comment On histologic [facility] MEDICAL examination, the CENTER right upper lobe LABORATORY shows a 0.5 cm in SERVICES maximal dimension invasive squamous cell carcinoma in a background of severe emphysema. The hamartoma in the right middle lobe features cartilage and fat with some entrapment of adjacent respiratory epithelium. The periphery of the hamartoma exhibits some papillary/villous-lik e fibromyxoid structures with stromal inflammatory cells that are partially lined by cuboid to respiratory-type epithelium. While some of these structures may represent organizing pneumonia, they have the overall appearance of placental transmogrification, which is a benign finding that has been reported to accompany a subset of pulmonary hamartomas and is occasionally seen in the setting of severe bullous emphysema. The etiology of the interstitial fibrosis is uncertain and correlation with the radiographic findings is necessary. Attestation There was significant [facility] MEDICAL Electr onically resident/fellow CENTER signed by Aissatou jones, involvement in the LABORATORY Vilma Bynum MD on diagnostic evaluation SERVICES 2019 at 0938 of this case. By the signature below, the attending physician certifies that they have personally conducted a gross and/or microscopic examination of the described specimens and rendered or confirmed the above diagnosis. Synoptic LUNG ??(LUNG: RESECTION - A) [facility] LABORATORY SERVICES SPECIMEN ?? Procedure: ?Wedge resection ?? Specimen Laterality: ?Right TUMOR ?? Tumor Site: ?Upper lobe of lung ?? Histologic Type: ?Invasive squamous cell carci noma, non-keratinizing ?? Tumor Size: ?Greates t dimension in Centimeters (cm): 0.5 Centimeters (cm) Tumor Focality: ?Single tumor Tumor Extent: ? Visceral Pleura Invasion: ?Not identified ?? Direct Invasion of Adjac ent Structures: ?No adjacent structures present Accessory Findings: ? Treatment Effect: ?No known presurgical therap y ?? Lymphovascular Invasion: ?Present ? : ?Arterial MARGINS Margins: ?All margins are uninvolved by tumor ?? Margins Examined: ?Parenchymal ?? Distance of Invasive Car cinoma from Closest Margin in Centimeters (cm): ?At least: 0.15 cm ??Centimeters (cm) ? Closest Margin: ?Parenchymal ?? Distance of Carcinoma in Situ from Closest Margin in Centimeters (cm): ?At least: 0.15 cm Centimeters (cm) ? Closest Margin: ?Parenchymal LYMPH NODES Regional Lymph Nodes: ?No lymph nodes submitted o r found PATHOLOGIC STAGE CLASSIFICATION (pTNM, AJCC 8th Editio n) Primary Tumor (pT): ?pT1a Regional Lymph Nodes (pN): ?pNX ADDITIONAL FINDINGS Additional Pathologic Findings: ?Emphysema Clinical History Spontaneous [facility] pneumothorax CENTER LABORATORY SERVICES Gross Description A. [facility] Received in normal saline la belled with proper patient identification (initials D, M) and right upper lobe wedge resection is a 15 g (following formalin inflation), 7.5 x 2.3 x 1.8 cm wedge resection CENTER of lung. The pleura is mottl ed purple magdaleno to dozier with a 7.5 cm long staple line. The staple line is removed and the underlying parenchymal cut surface is inked blue. Sectioning reveals spongy red-brown LABORATORY to focally pale magdaleno cut nancy faces with multiple smooth-walled dilated areas scattered throughout the parenchyma (up to 1.5 cm in greatest dimension). No discrete masses are identified. [employer] Console Monitor se SERVICES ctions are submitted in A1-A 5. The remainder of the specimen is subsequently submitted on 09/29/2020 in A6-A16. B. Received in normal saline la belled with proper patient identification (initials D, M) and right middle lobe wedge resection is a 4.7 g (following formalin fixation), 4.3 x 2.8 x 1.5 cm wedge resection of lung tissue. The pleura is mottled magdaleno-dozier to purple with a 4.1 cm long staple line a. The staple line is removed and the underlying parenchyma is inked blue. Sectioning reveals a 2.0 x 1.5 x 1.4 c m well-circumscribed firm, t an-white nodule that is 0.2 cm from the nearest parenchymal margin. The nodule abuts the pleural surface (inked orange). Cut surfaces of the nodule are homogeneous and magdaleno-wh ite. Cut surfaces of the rem ainder of the lung parenchyma are spongy and pale magdaleno. No additional lesions are identified. [employer] Monitor sections are submitted in B1-B5 (nodule with nearest parenchymal m argin is in B1). The remaind er of the nodule is subsequently submitted on 09/29/2020 in B6-B7. MINDA HINOJOSA(ASCP) 2020 9:37 Resident/Fellow: Chuckie Roach, [facility] LABORATORY SERVICES Performing Lab [facility] LAB [facility] LABORATORY SERVICES Scanned Images [facility] LABORATORY SERVICES Specimen Tissue - Entire right upper lobe of lung (body structure) Tissue specimen (specimen) - Entire midd le lobe of right lung (body structure) Performing Organization Address City/[facility]/ZIP Code Phon e Number [facility] LABORATORY [address] [place] [address] SERVICES PATIENT RE-TYPE (09/25/2020 7:55 EST) Pathologist Sig nature ABO O [facility] BLOOD BAN K Rh Factor Positive [facility] BLOOD BAN K Specimen Blood - Venous blood (substance) Performing Organization Address [facility]/ZIP Code Phon e Number [facility] BLOOD BANK [address] [place] [address] (ABNORMAL) COMPLETE BLOOD COUNT (09/25/2020 7:03 EST) Pathologist Sig nature WBC 9.56 4.00 - 10.40 K/cmm [facility] LABORATORY SERVICES RBC 4.40 4.36 - 5.78 M/cmm [facility] LABORATORY SERVICES Hemoglobin 13.5 (L) 13.8 - 17.3 gm/dL [facility] LABORATORY SERVICES HCT 38.0 (L) 39.5 - 50.2 % [facility] LABORATORY SERVICES MCV 86 81 - 95 fl [facility] LABORATORY SERVICES MCH 30.7 27.6 - 33.0 pg [facility] LABORATORY SERVICES MCHC 35.5 32.8 - 36.4 gm/dL [facility] LABORATORY SERVICES RDW-CV 14.6 (H) <14.2 % [facility] LABORATORY SERVICES RDW-SD 46.5 (H) <46.0 fl [facility] LABORATORY SERVICES PLT 234 141 - 377 K/cmm [facility] LABORATORY SERVICES MPV 9.7 9.5 - 12.7 fl [facility] LABORATORY SERVICES Specimen Blood - Venous blood (substance) Performing Organization Address City/[facility] Code Phon e Number [facility] LABORATORY [address] [place] [address] SERVICES (ABNORMAL) ELECTROLYTES (09/25/2020 7:03 EST) Pathologist Sig nature Sodium 125 (L) 136 - 145 mEq/L [facility] LABORATORY SERVICES Potassium 4.9Comment: 3.5 - 5.0 mEq/L [facility] Moderate hemolysis LABORATORY SERVICES identified, interpret with caution as hemolysis will elevate potassium result. Chloride 90 (L) 96 - 110 mEq/L [facility] LABORATORY SERVICES CO2 Total 24 22 - 32 mEq/L [facility] LABORATORY SERVICES Specimen Blood - Venous blood (substance) Performing Organization Address City/[facility] Phon e Number [facility] LABORATORY [address] [place] [address] SERVICES (ABNORMAL) CREATININE (09/25/2020 7:03 EST) Creatinine 0.48 (L) 0.66 - 1.25 [facility] mg/dL LABORATORY SERVICES eGFR 112Comment: eGFR >60 [facility] calculated using mL/min/1.73m2 LABORATORY SERVICES CKD-EPI equation for non- Americans. Multiply eGFR by 1.16 for patients. Specimen Blood - Venous blood (substance) Performing Organization Address [facility]/ZIP Code Phon e Number [facility] LABORATORY [address] [place] [address] SERVICES (ABNORMAL) BUN (09/25/2020 7:03 EST) Pathologist Sig nature BUN 8 (L)Comment: 10 - 26 mg/dL [facility] Moderate hemolysis LABORATORY SERVICES identified, interpret with caution as results may be affected due to hemolysis. Specimen Blood - Venous blood (substance) Performing Organization Address [facility]/ZIP Code Phon e Number [facility] LABORATORY [address] [place] [address] SERVICES TYPE AND SCREEN (09/25/2020 7:03 EST) ABO O [facility] BLOOD BANK Rh Factor Positive [facility] BLOOD BANK Antibody Screen Negative [facility] BLOOD BANK Specimen Expires: 2020 @ 23:59 [facility] BLOOD BANK Specimen Blood - Venous blood (substance) Performing Organization Address [facility] Phon e Number [facility] BLOOD BANK [address] [facility] [place] [address] COVID-19 TEST [facility] PCR (09/25/2020 6:21 EST) Specimen Swab - Entire nasopharynx (body structur e) Performing Organization Address [facility] Phon e Number [facility] LABORATORY [address] [place] [address] SERVICES COVID-19 TESTING (09/25/2020 6:21 EST) COVID-19 rt-PCR Negative Negative [facility] MEDICAL Result Comment: CENTER LABORATORY This test has not been FDA c leared or approved. This test has been authorized by FDA under an EUA for use by authorized laboratories. This test has been authorized only for detection of nucleic acid fro SERVICES m 2019-nCoV, not for any oth er viruses or pathogens. This test is only authorized for the duration of the declaration that circumstances exist justifying the authorization of emergency use of in vitro d iagnostic tests for detectio n and/or diagnosis of 2019-nCoV under section 564(b)(1) of Act, 21 U.S.C ?? 360bbb-3(b) (1), unless the authorization is terminated or revoked sooner. Negative results do not prec lude 2019-nCoV infection and should not be used as the sole basis for treatment or other patient management decisions. Negative results must be combined with clinical observa tions, patient history, and epidemiological informatio n. Performed on the [employer] [place] Fusion instrument Performing Lab [place] [facility] LABORATORY SERVICES Specimen Swab - Entire nasopharynx (body structur e) Performing Organization Address [facility]/ZIP Code Phon e Number [facility] LABORATORY [address] [place] [address] SERVICES (ABNORMAL) ELECTROLYTES (09/24/2020 5:52 EST) Pathologist Sig nature Sodium 125 (L) 136 - 145 mEq/L [facility] LABORA TORY SERVICES Potassium 3.8 3.5 - 5.0 mEq/L [facility] LABORA TORY SERVICES Chloride 89 (L) 96 - 110 mEq/L [facility] LABORAT ORY SERVICES CO2 Total 25 22 - 32 mEq/L [facility] LABORATO RY SERVICES Specimen Blood - Venous blood (substance) Performing Organization Address [facility] Phon e Number [facility] LABORATORY [address] [place] [address] SERVICES (ABNORMAL) COMPLETE BLOOD COUNT AND DIFFERENTIAL (09/23/2020 5:36 EST) WBC 7.86 4.00 - 10.40 [facility] LABORATORY SERVICES RBC 4.18 (L) 4.36 - 5.78 [facility] LABORATORY SERVICES Hemoglobin 12.5 (L) 13.8 - 17.3 [facility] gm/dL LABORATORY SERVICES HCT 35.9 (L) 39.5 - 50.2 % [facility] LABORATORY SERVICES MCV 86 81 - 95 fl [facility] LABORATORY SERVICES MCH 29.9 27.6 - 33.0 pg [facility] LABORATORY SERVICES MCHC 34.8 32.8 - 36.4 [facility] gm/dL LABORATORY SERVICES RDW-CV 14.6 (H) <14.2 % [facility] LABORATORY SERVICES RDW-SD 45.7 <46.0 fl [facility] LABORATORY SERVICES PLT 216 141 - 377 K/m [facility] LABORATORY SERVICES MPV 9.8 9.5 - 12.7 fl [facility] LABORATORY SERVICES Neutrophils 69.5 % [facility] LABORATORY SERVICES Lymphocytes 17.3 % [facility] LABORATORY SERVICES Monocytes 6.9 % [facility] LABORATORY SERVICES Eosinophils 5.6 % [facility] LABORATORY SERVICES Basophils 0.4 % [facility] LABORATORY SERVICES Immature Grans 0.3 % [facility] LABORATORY SERVICES Absolute Neutrophils 5.47 2.20 - 8.85 [facility] LABORATORY SERVICES Absolute Lymphocytes 1.36 1.09 - 3.30 [facility] LABORATORY SERVICES Absolute Monocytes 0.54 0.10 - 0.80 [facility] LABORATORY SERVICES Absolute Eosinophils 0.44 0.03 - 0.61 [facility] LABORATORY SERVICES Absolute Basophils 0.03 0.01 - 0.11 [facility] LABORATORY SERVICES Absolute Immature 0.02 0.00 - 0.06 [facility] Grans [facility] LABORATORY SERVICES Type of Differential: Auto [facility] LABORATORY SERVICES Specimen Blood - Venous blood (substance) Performing Organization Address City/[facility]/ZIP Code Phon e Number [facility] LABORATORY [address] [place] [address] SERVICES (ABNORMAL) ELECTROLYTES (09/23/2020 5:36 EST) Pathologist Sig nature Sodium 125 (L) 136 - 145 mEq/L [facility] LABORA TORY SERVICES Potassium 4.1 3.5 - 5.0 mEq/L [facility] LABORA TORY SERVICES Chloride 89 (L) 96 - 110 mEq/L [facility] LABORAT ORY SERVICES CO2 Total 25 22 - 32 mEq/L [facility] LABORATO RY SERVICES Specimen Blood - Venous blood (substance) Performing Organization Address City/[facility]/ZIP Code Phon e Number [facility] LABORATORY [address] [place] [address] SERVICES XR CHEST PORTABLE LINE PLACEMENT (09/22/2020 14:59 EST) Anatomical Region Laterality Modality Chest Computed Radiography Specimen Impressions [facility] RADIOLOGY MAIN CAMPUS - 10/07/2020 9:27 EST Findings/Impression: New right chest tube positioned at the a pex. Increased right chest wall subcutaneous emphysema. Residual moderate sized apical right pne umothorax. Air space opacity right mid and lower yahir ng; differential diagnosis includes expansion edema (less likely due to persistence) or consolidation from pneumonia. Emphysema. Final report delayed by downtime. No sig nificant changes to preliminary report. Narrative [facility] RADIOLOGY [facility]IN CAMPUS - 10/07/2020 9:27 EST Technique: ??Chest x-ray 1 view (AP portable) Comparison: 09/21/20 Procedure Note Gene Andrade MD - 10/07/2020 Technique: Chest x-ray 1 view (AP portab le) Comparison: 09/21/20 IMPRESSION Findings/Impression: New right chest tube positioned at the a pex. Increased right chest wall subcutaneous emphysema. Residual moderate sized apical right pne umothorax. Air space opacity right mid and lower yahir ng; differential diagnosis includes expansion edema (less likely due to persistence) or consolidation from pneumonia. Emphysema. Final report delayed by downtime. No sig nificant changes to preliminary report. Performing Organization Address City/[facility]/ZIP Code Phon e Number [facility] RADIOLOGY MAIN CAMPUS MAGNESIUM (09/22/2020 6:07 EST) Pathologist Sig nature Magnesium 2.0 1.7 - 2.8 mg/dL [facility] LABORA TORY SERVICES Specimen Blood - Venous blood (substance) Performing Organization Address [facility]/ZIP [facility] Phon e Number [facility] LABORATORY [address] [place] [address] SERVICES CALCIUM (09/22/2020 6:07 EST) Pathologist Sig nature Calcium 9.0 8.5 - 10.5 mg/dL [facility] LABORATORY SERVICES Calculated Calcium 9.1 8.5 - 10.5 mg/dL [facility] LABORATORY SERVICES Specimen Blood - Venous blood (substance) Performing Organization Address [facility]/ZIP Code Phon e Number [facility] LABORATORY [address] [place] [address] SERVICES (ABNORMAL) CREATININE (09/22/2020 6:07 EST) Creatinine 0.59 (L) 0.66 - 1.25 [facility] mg/dL LABORATORY SERVICES eGFR 103Comment: eGFR >60 [facility] calculated using mL/min/1.73m2 LABORATORY SERVICES CKD-EPI equation for non- Americans. Multiply eGFR by 1.16 for patients. Specimen Blood - Venous blood (substance) Performing Organization Address [facility]/ZIP Code Phon e Number [facility] LABORATORY [address] [place] [id number] SERVICES (ABNORMAL) BUN (09/22/2020 6:07 EST) Pathologist Sig nature BUN 7 (L) 10 - 26 mg/dL [facility] LABORATO RY SERVICES Specimen Blood - Venous blood (substance) Performing Organization Address City/[facility]/ZIP Code Phon e Number [facility] LABORATORY [address] [place] [address] SERVICES (ABNORMAL) ELECTROLYTES (09/22/2020 6:07 EST) Pathologist Sig nature Sodium 129 (L) 136 - 145 mEq/L [facility] LABORA TORY SERVICES Potassium 4.7 3.5 - 5.0 mEq/L [facility] LABORA TORY SERVICES Chloride 91 (L) 96 - 110 mEq/L [facility] LABORAT ORY SERVICES CO2 Total 30 22 - 32 mEq/L [facility] RY SERVICES Specimen Blood - Venous blood (substance) Performing Organization Address [facility] Phon e Number [facility] LABORATORY [address] [place] [address] SERVICES (ABNORMAL) DIFFERENTIAL (09/21/2020 23:40 EST) Neutrophils 69.8 % [facility] LABORATORY SERVICES Lymphocytes 18.7 % [facility] LABORATORY SERVICES Monocytes 7.9 % [facility] LABORATORY SERVICES Eosinophils 2.9 % [facility] LABORATORY SERVICES Basophils 0.4 % [facility] LABORATORY SERVICES Immature Grans 0.3 % [facility] LABORATORY SERVICES Absolute Neutrophils 7.31 2.20 - 8.85 [facility] LABORATORY SERVICES Absolute Lymphocytes 1.96 1.09 - 3.30 [facility] LABORATORY SERVICES Absolute Monocytes 0.83 (H) 0.10 - 0.80 [facility] LABORATORY SERVICES Absolute Eosinophils 0.30 0.03 - 0.61 [facility] LABORATORY SERVICES Absolute Basophils 0.04 0.01 - 0.11 [facility] LABORATORY SERVICES Absolute Immature 0.03 0.00 - 0.06 [facility] Grans [facility] LABORATORY SERVICES Type of Differential: Auto [facility] LABORATORY SERVICES Specimen Blood - Venous blood (substance) Performing Organization Address City/[facility]/ZIP Code Phon e Number [facility] LABORATORY [address] [place] [address] SERVICES (ABNORMAL) COMPLETE BLOOD COUNT (09/21/2020 23:40 EST) Pathologist Sig nature WBC 10.47 (H) 4.00 - 10.40 K/cmm [facility] LABORATORY SERVICES RBC 4.55 4.36 - 5.78 M/cmm [facility] LABORATORY SERVICES Hemoglobin 13.9 13.8 - 17.3 gm/dL [facility] LABORATORY SERVICES HCT 39.2 (L) 39.5 - 50.2 % [facility] LABORATORY SERVICES MCV 86 81 - 95 fl [facility] LABORATORY SERVICES MCH 30.5 27.6 - 33.0 pg [facility] LABORATORY SERVICES MCHC 35.5 32.8 - 36.4 gm/dL [facility] LABORATORY SERVICES RDW-CV 14.6 (H) <14.2 % [facility] LABORATORY SERVICES RDW-SD 45.9 <46.0 fl [facility] LABORATORY SERVICES PLT 254 141 - 377 K/cmm [facility] LABORATORY SERVICES MPV 9.4 (L) 9.5 - 12.7 fl [facility] LABORATORY SERVICES Specimen Blood - Venous blood (substance) Performing Organization Address City/State/ZIP Code Phon e Number [facility] LABORATORY [address] [place] [address] SERVICES XR CHEST PORTABLE 1 VIEW (09/21/2020 16:16 EST) Anatomical Region Laterality Modality Computed Radiography Specimen Impressions [facility] RADIOLOGY MAIN CAMPUS - 10/07/2020 9:17 EST 1. Improved middle lobe and right lower lobe opacities. ??These opacities are favored to represent re expansion edema post chest tube placemen t with an atelectatic component. ??Although less likely given the patient's clinical context, these could also represent multifocal pneumonia in the previously collapsed lung. 2. Improved right-sided pneumothorax pos t chest tube placement. ??Tiny residual air. ??Tiny pleural fluid. ??Chest tube positioned laterally. 3. Right thoracic wall subcutaneous emph ysema Final report delayed by downtime. No sig nificant changes to preliminary report. I have personally reviewed the images an d the above interpretation and agree with the findings. Narrative [facility] RADIOLOGY MAIN CAMPUS - 10/07/2020 9:17 EST Indication: Transfer from [facility] with chest tube with air leak, continued pneumothorax on right, evaluate for tube placement after transfer Technique: AP portable view of the chest , 55degrees upright Comparisons: Outside Chest CT from 08/17 and outside chest radiographs from 09/19- Findings: There is a right-sided chest tube with i ts distal tip projecting over the right lateral upper chest. There is subcutaneous emphysema in the soft tissues of the right lateral thoracic wall. ??[employer] stinal silhouette is normal in size and contour for age. ??There is aortic calcification. ??Residual airspace opacities in the middle lobe and right lower lobe are improved from comparison studies. ??Th e left lung is clear. ??The right pneumo thorax is improved. ??The upper abdomen is unremarkable. ??Age-related degenerative changes in the thoracic spine. ??There is evidence of a remote right clavicular injury. Procedure Note Gene Andrade MD - 10/07/2020 Indication: Transfer from OSH with chest tube with air leak, continued pneumothorax on right, evaluate for tube placement after transfer Technique: AP portable view of the chest , 55degrees upright Comparisons: Outside Chest CT from 08/17 and outside chest radiographs from 09/19- Findings: There is a right-sided chest tube with i ts distal tip projecting over the right lateral upper chest. There is subcutaneous emphysema in the soft tissues of the right lateral thoracic wall. Cardiomediastinal silhouette is normal in size and contour for age. T here is aortic calcification. Residual airspace opacities in the middle lobe and right lower lobe are improved from comparison studies. The left lung is clear. The right pneumothorax is improved. The upper abdo men is unremarkable. Age-related degenerative changes in the thoracic spine. There is evidence of a remote right clavicular injury. IMPRESSION 1. Improved middle lobe and right lower lobe opacities. These opacities are favored to represent reexpansion edema post chest tube placement with an atelectatic component. Although less likely given the patient's clinical context, these could also repre sent multifocal pneumonia in the previously collapsed lung. 2. Improved right-sided pneumothorax pos t chest tube placement. Tiny residual air. Tiny pleural fluid. Chest tube positioned laterally. 3. Right thoracic wall subcutaneous emph ysema Final report delayed by downtime. No sig nificant changes to preliminary report. I have personally reviewed the images an d the above interpretation and agree with the findings. Performing Organization Address City/State/ZIP Code Phon e Number [facility] documented in this encounter Visit Diagnoses Diagnosis Spontaneous pneumothorax - Primary Other pneumothorax Hyponatremia Hyposmolality and/or hyponatremia Urinary retention Retention of urine, unspecified Lung nodule Solitary pulmonary nodule Spontaneous pneumothorax Other pneumothorax Spontaneous pneumothorax Other pneumothorax documented in this encounter Administered Medications Inactive Administered Medications - up to 3 most recent administrations Medication Order MAR Action Action Date Dose Rate Site acetaminophen (TYLENOL) tablet Given 2020 17:33 EST 1,000 mg 1,000 mg 1,000 mg, oral, EVERY 6 HOURS PRN, Starting on 09/22/20 at 1607, Until Ivy 10/01/20 at 1736, Pain, Fever, mild pain, Routine Given 2020 12:31 EST 1,000 mg Given 09/24/2020 2:55 EST 1,000 mg aspirin EC tablet 81 mg Given 10/01/2020 9:38 EST 81 mg 81 mg, oral, DAILY, First dose on 09/21/20 at 1615, Until Discontinued, Routine Given 09/30/2020 8:25 EST 81 mg Given 09/29/2020 8:20 EST 81 mg atorvastatin (LIPITOR) tablet 20 mg Given 09/30/2020 21:50 EST 20 mg 20 mg, oral, AT BEDTIME, First dose on 09/21/20 at 2100, Until Discontinued, Routine Given 09/29/2020 20:59 EST 20 mg Given 2020 21:22 EST 20 mg calcium carbonate (TUMS) 200 mg calcium (500 Given 05/2020 14:33 EST 2 Tablets mg) per chewable tablet tablet,chewable 2 Tab 2 Tablet, oral, 4 TIMES DAILY PRN, Starting on Ivy 09/24/20 at 0132, Until Ivy 10/01/20 at 1736, Heartburn, Routine Given 09/24/2020 1:44 EST 2 Tablets calcium carbonate (TUMS) 200 mg calcium (500 mg) per c hewable tablet tablet,chewable 1 dose, Starting on Ivy 09/24/20 at 0142, Until Ivy 08/11 at 1736 docusate sodium (COLACE) capsule 100 mg Given 10/01/2020 9:38 EST 100 mg 100 mg, oral, 2 TIMES DAILY, First dose on 09/21/20 at 2100, Until Discontinued, Routine Given 09/30/2020 21:50 EST 100 mg Given 09/30/2020 8:25 EST 100 mg enoxaparin (LOVENOX) injection 40 mg Given 09/30/2020 21:50 EST 40 mg 40 mg, subcutaneous, AT BEDTIME, First dose (after last modification) on 09/26/20 at 2100, Until Discontinued, Routine Given 09/29/2020 20:59 EST 40 mg Given 2020 21:22 EST 40 mg HYDROmorphone (DILAUDID) tablet 2 mg 2 mg, oral, EVERY 4 HOURS PRN, Starting on 09/28/20 at 0741, Until Ivy 10/01/20 at 1736, Pain, for pain uncontrolled by tylenol and ro baxin, Routine lidocaine 5 % (LIDODERM) Patch Applied 10/01/2020 1:24 EST 1 Patch Right Shoulder patch 1 Patch 1 Patch, transdermal, Administer over 12 Hours, DAILY, First dose on Mon09/23/20 at 0200, Until Discontinued, Routine Patch Applied 09/30/2020 1:26 EST 1 Patch Right S ulder Patch Applied 09/29/2020 1:28 EST 1 Patch Right S ulder methocarbamoL (ROBAXIN) tablet 1,000 mg Given 10/01/2020 13:01 EST 1,000 mg 1,000 mg, oral, 4 TIMES DAILY, First dose (after last modification) on Mon09/23/20 at 1300, Until Discontinued, Routine Given 10/01/2020 9:38 EST 1,000 mg Given 09/30/2020 21:50 EST 1,000 mg sterile talc intrapleural powder Given 09/25/2020 17:08 EST 3 g As needed, Starting on Mon09/25/20 at 1708, Until Mon09/25/20 at 1709, Routine, Intraprocedure TAMSulosin (FLOMAX) capsule 0.4 mg Given 10/01/2020 9:38 EST 0.4 mg 0.4 mg, oral, DAILY, First dose on Mon09/30/20 at 0100, Until Discontinued, Routine Given 09/30/2020 1:25 EST 0.4 mg urea (URE-NA) oral powder packet 15 g Given 10/01/2020 9:37 EST 15 g 15 g, oral, 2 TIMES DAILY, First dose on Mon09/29/20 at 1315, Until Discontinued, Routine Given 09/30/2020 21:50 EST 15 g Given 09/30/2020 8:26 EST 15 g documented in this encounter Discontinued Medications Medication Sig Discontinue Reason Start Date End Date urea (URE-NA) 15 gram Take 15 g by mouth 10/01/2020 10/01/2020 oral powder packet 2 times daily for 30 days. lisinopriL (PRINIVIL) 40 Take 40 mg by mouth 10/01/2020 mg tablet daily. documented as of this encounter Historical Medications This list may reflect changes made after this encounter. Medication Sig Dispensed Refills Start Date End Date aspirin 81 mg EC tablet Take 81 mg by mouth 0 daily. albuterol 90 Inhale 1-2 Puffs as 0 mcg/actuation inhaler directed every 4 hours as needed for Wheezing. atorvastatin (LIPITOR) 10 Take 20 mg by mouth 0 mg tablet at bedtime. lisinopriL (PRINIVIL) 40 Take 40 mg by mouth 0 10/01/2020 mg tablet daily. added in this encounter Active and Recently Administered Medications Times are shown in EST. Scheduled Medication Order 09/29/2020 09/30/2020 10/01/2020 aspirin EC tablet 81 mg 0820 (Given - Provider: Phi rogers RN) 0825 (Given - Provider: Antonio Harvey RN) 09 (Given - Provider: Antonio Harvey RN) 81 mg, oral, DAILY, First dose on Mon at 1615, Until Discontinued, Routine atorvastatin (LIPITOR) tablet 20 mg 2058 (Given - Provider: Sera Sun RN) 2149 (Given - Provider: Sera Sun RN) 20 mg, oral, AT BEDTIME, First dose on M on 09/21/20 at 2100, Until Discontinued, Routine calcium GLUconate 2,000 mg in dextrose 5% (D5W) 50 mL IVPB (COMPLETED) 818 (Given - Provider: Phi Edwards, ALICIA) 2,000 mg (2 g), intravenous, Administer over 60 Minutes, NOW X1, 1 dose, Mon09/29/20 at 0745, Routine docusate sodium (COLACE) capsule 100 mg 08 (Given - Provider: Phi Edwards, ALICIA)2058 (Given - Provider: Sera Sun RN) 0825 (Given - Provider: Antonio Harvey RN)2149 (Given - Provider: Sera Sun RN) 0938 (Given - Provider: Antonio Harvey RN) 100 mg, oral, 2 TIMES DAILY, First dose on 09/21/20 at 2100, Until Discontinued, Routine enoxaparin (LOVENOX) injection 40 mg 2058 (Given - Provider: Sera Sun RN) 2149 (Given - Provider: Sera Sun RN) 40 mg, subcutaneous, AT BEDTIME, First d ose (after last modification) on Mon09/26/20 at 2100, Until Discontinued, Routine lidocaine 5 % (LIDODERM) patch 1 Patch 0128 (Patch Jason lied - Provider: Sera Sun RN)1317 (Patch Removed - Provider: Phi Edwards RN) 0126 (Patch Applied - Provider: Sera Sun RN)1326 (Patch Removed - Provider: Antonio Harvey RN) 0124 (Patch Applied - Provider: Sera santillan RN)1303 (Patch Removed - Provider: Antonio Harvey RN) 1 Patch, transdermal, Administer over 12 Hours, DAILY, First dose on Mon09/23/20 at 0200, Until Discontinued, Routine methocarbamoL (ROBAXIN) tablet 1,000 mg 0820 (Given - Provider: Phi Edwards RN)1220 (Given - Provider: Phi Edwards RN)1644 (Given - Provider: Briana Mayorga RN)2058 (Given - Provider: Sera Sun RN) 0825 (Given - Provider: Antonio Harvey RN)1157 (Given - Provider: Antonio Harvey RN)174 (Given - Provider: Antonio Harvey, ALICIA)2149 (Given - Provider: Sera Sun RN) 0938 (Given - Provider: Antonio Harvey RN)1301 (Given - Provider: Antonio Harvey RN)1700 (Canceled Entry - Provider: Batch Job User Admin - Comment: Automatically canceled at discontinue of medication order) 1,000 mg, oral, 4 TIMES DAILY, First dos e (after last modification) on Mon09/23/20 at 1300, Until Discontinued, Routine TAMSulosin (FLOMAX) capsule 0.4 mg 0125 (Given - Provider: Sera Sun RN) 0938 (Given - Provider: Antonio Harvey RN) 0.4 mg, oral, DAILY, First dose on Mon12/01/19 at 0100, Until Discontinued, Routine urea (URE-NA) oral powder packet 15 g 1644 (Given - Pr ovider: Briana Mayorga RN)2125 (Given - Provider: Sera Sun RN) 08 (Given - Provider: Antonio Harvey RN)2150 (Given - Provider: Sera Sun RN) 0937 (Given - Provider: Antonio Harvey RN) 15 g, oral, 2 TIMES DAILY, First dose on Mon09/29/20 at 1315, Until Discontinued, Routine PRN Medication Order 09/29/2020 09/30/2020 10/01/2020 acetaminophen (TYLENOL) tablet 1,000 mg 1,000 mg, oral, EVERY 6 HOURS PRN, Start ing Mon09/22/20 at 1607, Until Mon10/01/20 at 1736, Pain, Fever, mild pain, Routine albuterol inhaler 90-180 mcg 90-180 mcg (1-2 Puff), inhalation, EVERY 4 HOURS PRN, Starting Mon09/21/20 at 1548, Until Mon10/01/20 at 1736, Wheezing, Routine calcium carbonate (TUMS) 200 mg calcium (500 mg) per chewable tablet tablet,chewable 2 Tab 1433 (Given - Provider: Phi Edwards RN) 2 Tab, oral, 4 TIMES DAILY PRN, Starting Mon09/24/20 at 0132, Until Ivy 10/01/20 at 1736, Heartburn, Routine HYDROmorphone (DILAUDID) tablet 2 mg 2 mg, oral, EVERY 4 HOURS PRN, Starting Mon09/28/20 at 0741, Until Mon10/01/20 at 1736, Pain, for pain uncontrolled by tylenol and robaxin, Routine naloxone (NARCAN) injection 0.1 mg (CANCELED) 0154 (Gi paty - Provider: Sera Sun RN) 0.1 mg, intravenous, PRN, Starting Mon11/26/19 at 1131, Until 09/29/20 at 1049, Opioid Reversal, Routine ondansetron (PF) (ZOFRAN) injection 4 mg 4 mg, intravenous, EVERY 6 HOURS PRN, St arting 09/21/20 at 1404, Until Ivy 10/01/20 at 1736, Nausea, Vomiting, Routine senna (SENOKOT) tablet 1-2 Tab 1-2 Tab, oral, 2 TIMES DAILY PRN, Starti ng Mon 09/21/20 at 1404, Until Ivy 10/01/20 at 1736, Constipation, Routine No Frequency Medication Order 09/29/2020 09/30/2020 10/01/2020 calcium carbonate (TUMS) 200 mg calcium (500 mg) per chewable tablet tablet,chewable 1 dose, Starting Ivy 09/24/20 at 0142, Until Discontinued documented in this encounter Orders Medications Ordered That Might Not Have Count Last Ord ered Date First Ordered Date Been Administered TAMSulosin (FLOMAX) capsule 0.4 mg 1 09/30/2020 atropine 0.1 mg/mL syringe 1 09/29/2020 bisacodyL (DULCOLAX) suppository 10 mg 1 0 calcium GLUconate 2,000 mg in dextrose 5% 1 2019 (D5W) 50 mL IVPB urea (URE-NA) oral powder packet 15 g 1 09/29/2020 HYDROmorphone (DILAUDID) tablet 2 mg 2 2020 09/22/2020 HYDROmorphone-bupivacaine 10 1 2020 mcg/ml-0.0625% in NS 250 ml epidural electrolyte-A (PLASMALYTE-A) bolus 500 mL 1 2019 acetaminophen (TYLENOL) solution unit dose 1 09/25 cup 995 mg acetaminophen (TYLENOL) tablet 1,000 mg 2 09/25/20 20 09/22/2020 atropine 0.1 mg/mL syringe 0.5 mg 1 09/25/2020 diphenhydrAMINE (BENADRYL) injection 12.5 1 2019 mg electrolyte-A (PLASMALYTE-A) solution 4 09/25/2020 09/21/2020 enoxaparin (LOVENOX) injection 40 mg 2 09/25/2020 09/21/2020 fentaNYL citrate (PF) injection 25-50 mcg 1 2019 HYDROmorphone (DILAUDID) tablet 2-4 mg 1 0 HYDROmorphone (PF) (DILAUDID) 0.5 mg/0.5 1 020 mL syringe 0.3-0.5 mg HYDROmorphone-bupivacaine 10 mcg/ml-0.125% 1 09/25 in NS 250 ml epidural lactated ringers (LR) infusion 2 09/25/2020 metoCLOPramide (REGLAN) injection 10 mg 1 09/25/20 20 naloxone (NARCAN) injection 0.1 mg 1 09/25/2020 naloxone (NARCAN) injection 0.2 mg 1 09/25/2020 calcium carbonate (TUMS) 200 mg calcium 1 09/24/20 20 (500 mg) per chewable tablet tablet,chewable calcium carbonate (TUMS) 200 mg calcium 1 09/24/20 20 (500 mg) per chewable tablet tablet,chewable 2 Tab ceFAZolin (ANCEF) syringe 2 g 1 09/24/2020 chlorhexidine gluconate 2 % cloth 1 Each 1 020 potassium chloride SA (K-DUR) tablet 40 1 09/24/20 20 mEq sterile talc intrapleural powder 3 g 1 09/24/2020 HYDROmorphone (DILAUDID) tablet 4 mg 1 09/23/2020 lidocaine 5 % (LIDODERM) patch 1 Patch 1 0 methocarbamoL (ROBAXIN) tablet 1,000 mg 1 09/23/20 20 HYDROmorphone (DILAUDID) 2 mg tablet 1 09/22/2020 HYDROmorphone (PF) (DILAUDID) 0.5 mg/0.5 2 020 mL syringe HYDROmorphone (PF) (DILAUDID) 0.5 mg/0.5 2 020 mL syringe 0.25 mg methocarbamoL (ROBAXIN) 750 mg tablet 1 09/22/2020 methocarbamoL (ROBAXIN) tablet 750 mg 1 09/22/2020 acetaminophen (TYLENOL) tablet 500-1,000 1 020 mg albuterol inhaler 90-180 mcg 1 09/21/2020 aspirin EC tablet 81 mg 1 09/21/2020 atorvastatin (LIPITOR) tablet 20 mg 1 09/21/2020 dextrose 5 % and 0.45 % NaCl with KCl 20 1 020 mEq/L infusion docusate (COLACE) liquid 100 mg 1 09/21/2020 docusate sodium (COLACE) capsule 100 mg 1 09/21/20 20 ondansetron (PF) (ZOFRAN) injection 4 mg 1 020 senna (SENOKOT) tablet 1-2 Tab 1 09/21/2020 Procedures Count Last Ordered Date First Ordered Date ECG REPORT - SCANNED 5 12/21/2020 10/05/2020 Diet Count Last Ordered Date First Ordered Date DISCHARGE DIET 2 10/01/2020 Nursing Count Last Ordered Date First Ordered Date ACTIVITY INSTRUCTIONS 5 10/01/2020 BATHING INSTRUCTIONS 1 10/01/2020 WOUND CARE INSTRUCTIONS 5 10/01/2020 DIRECTOR NON PROFIT,CLASS II 1 09/21/2020 PT Count Last Ordered Date First Ordered Date PT EVALUATION AND TREAT 1 09/30/2020 IV Count Last Ordered Date First Ordered Date IV REQUEST 2 09/30/2020 09/21/2020 Admission Count Last Ordered Date First Ordered Date ADMIT TO INPATIENT 1 09/21/2020 Transfer Count Last Ordered Date First Ordered Date TEACHING SERVICE 1 09/21/2020 Discharge Count Last Ordered Date First Ordered Date DISCHARGE PATIENT 1 10/01/2020 Legal Count Last Ordered Date First Ordered Date MISCELLANEOUS DISCHARGE INSTRUCTIONS 2 10/01/2020 Case Request Count Last Ordered Date First Ordered Date CASE REQUEST OPERATING ROOM 1 09/24/2020 documented in this encounter Care Teams Slot Floorperson Relationship Specialty Start Date End Date Radha Terrazas, RESERVOIR ENGINEERING MANAGER PCP - General 08/23/20 [address] [place] [id number] documented as of this encounter
--- OUTSIDE RECORDS SUMMARY | 2022-05-05 12:09 | XMS_ITS | Encounter Summary ---
:1950 Author Organization [facility] Address [address] [place] [address] Care Team Providers Name Role Phone Radha Terrazas APRN Primary Care Provider Reason for Referral Referral (Routine/Next Available) - Authorization Not Required Specialty Diagnoses / Procedures Referred By Contact Refer red To Contact Diagnoses Hyponatremia Spontaneous pneumothorax Randee Castro, VERNA - [facility] 111 [facility], [address] 5 [address] [place] [address] [place] [address] Fax: Referral ID Status Reason Start Expiration Visits Visits Date Date Requested Authorized [id number] Authorization Specialty 10/01/20 1 1 Not Required Services 20 Required Question Answer I certify that this patient is under my 10/01/2020 care and that I, or another Medicare allowed practitioner (DO ADEBAYO, JASON) working with me, had a jbwd-av-tucx encounter with this patient on this date: I further certify that the bqnq-yk-njql Yes encounter was in whole or in part related to the reason the patient needs home health care. The discharge summary or progress note will Yes provide further details that support the need for the home health services and the plan of care. Enter the allowed practitioner (DO ADEBAYO, Dr. Torres JASON) who will provide oversight of this patient's home heatlh care needs and plan of care The patient? s/p right VATS and wedge resection of yahir ng s homebound status is related to the following diagnoses, illness or condition (describe): Patient needs one or more of the following Assistance not necessary, but medically to leave home: contraindicated as indicated below. Leaving the home is medically Post surgical restrictio ns or conditions contraindicated due to: The following conditions illustrate the Post surgical or post procedure patient? restrictions limit ambulation and activi ty s normal inability to leave home AND that leaving home requires a considerable and taxing effort: Skilled Care Requested Nursing asessment, Social wo rk long-term assessment needed related CP Status, G U Status, Post Surgical, to this encounter: Nutrition Status Social Work Referral: Assess Need for Choices of C are, Assess [facility] Planning Needs, Di scuss Advance Directives Comments Please assist with waddell care, and if po ssible help with voiding trial in coordination with [facility], Dr. James gomez's office Please assess surgical sites and remove chest tube sutures in 7-10 days. Please draw labs (BMP) weekly and send t o PCP for review. onsult (Routine) - Authorization Not Required Specialty Diagnoses / Referred By Contact Referred To Contact Procedures Hematology and Diagnoses Spontaneous pneumothorax Lung nodule Lung cancer (HCC-CMS) (HCC) Johan Torres MD Ep2 Hem/Onc Oncology [address] [place] [id number] [place] [address], Level 5 [place], [place] Fax: [phone] Referral ID Status Reason Start Expiration Visits Visits Date Date Requested Authorized [id number] Authorization Specialty 10/01/20 1 1 Not Required Services 20 Required Question Answer Reason for Request: new dx of squam cell carcino ma, hx of copd s/p vats and right wedge resection onsult (Routine) - Receiving Office to Obtain Authorization Specialty Diagnoses / Procedures Referred By Contact Refer red To Contact Diagnoses Urinary retention Johan Torres MD [address] [address] Referral ID Status Reason Start Expiration Visits Visits Date Date Requested Authorized [id number] Receiving Office Specialty 10/01/20 1 1 to Obtain Services 20 Authorization Required Question Answer Reason for Request: urinary retention post-op, p lease f/u in [facility] for a voiding trial Scheduling Comments (optional ? 1 week describe specific scheduling needs if applicable): adiology Services (Routine) - Authorization Not Required Specialty Diagnoses / Procedures Referred By Contact Refer red To Contact Diagnoses Spontaneous pneumothorax Randee Castro, AGRICULTURE LABORATORY TECHNICIAN Procedures XR CHEST 2 VIEWS [address] [address] Referral ID Status Reason Start Expiration Visits Visits Date Date Requested Authorized [id number] Authorization Not 1 1 Required 0 ollow Up (Other (Specify in Question)) - Authorization Not Required Specialty Diagnoses / Procedures Referred By Contact Refer red To Contact Cardiothoracic Surgery Diagnoses Spontaneous pneumothorax Johan Torres, Ep5 Ct Surgery 111 [facility] [address] [place], [place] [address] [facility] Fax: [phone] [place] [phone] Referral ID Status Reason Start Expiration Visits Visits Date Date Requested Authorized [id number] Authorization Specialty 10/01/20 1 1 Not Required Services 20 Required Question Answer Reason for Request: s/p vats Scheduling Comments (optional ? 2-3 weeks describe specific scheduling needs if applicable): ollow Up (Routine) - Authorization Not Required Specialty Diagnoses / Procedures Referred By Contact Refer red To Contact Diagnoses Spontaneous pneumothorax Hyponatremia Johan Torres MD Alfano, Emily J, ALGOLOGIST [address] [facility],MIHAELA [address] [place], [place] [id number] [place] [address] [place] [address] Referral ID Status Reason Start Expiration Visits Visits Date Date Requested Authorized [id number] Authorization Continuity of 10/01/20 1 1 Not Required Care 20 Question Answer Reason for Request: s/p VATS and RUL wedge resec tion Scheduling Comments (optional ? 1 week describe specific scheduling needs if applicable): Comments Follow up within 1-2 weeks (Routine) - Receiving Office to Obtain Authorization Specialty Diagnoses / Procedures Referred By Contact Refer mauro To Contact Randee Castro NP [address] [address] Referral ID Status Reason Start Expiration Visits Visits Date Date Requested Authorized [id number] Receiving Office Specialty 10/01/20 1 1 to Obtain Services 20 Authorization Required Comments Follow Up Appointments: --A referral was made for you to follow up with your Primary Care Provider in about 1 week for review of your medications and hospitalization. --A referral was made for you to follow up with your Thoracic Surgeon in about 2 weeks. --A referral was made for you to follow up with Urology at Dr. Asad Alonso's office in about 1-2 weeks for a voiding trial, can also be facilitated with home health nursing (Routine) - Receiving Office to Obtain Authorization Specialty Diagnoses / Procedures Referred By Contact Jorge wade To Contact Randee Castro NP [address] [address] Referral ID Status Reason Start Expiration Visits Visits Date Date Requested Authorized [id number] Receiving Office Specialty 10/01/20 1 to Obtain Services 20 Authorization Required (Routine) - Receiving Office to Obtain Authorization Specialty Diagnoses / Procedures Referred By Contact Refer red To Contact Randee Castro, AGRICULTURE LABORATORY TECHNICIAN 111 [facility] 5 [place] [address] Referral ID Status Reason Start Expiration Visits Visits Date Date Requested Authorized [id number] Receiving Office Specialty 10/01/20 1 to Obtain Services 20 Authorization Required Comments - Check in at Registration on level 3 (s treet level) at [facility] 45 minutes prior to your scheduled appointment with the surgeon. - If you have a chest x-ray prior to you r appointment with the surgeon, contact the surgeon's office at or [phone]- [phone] to see if this x-ray will still be needed. Reason for Visit Auth/Cert Specialty Diagnoses / Procedures Referred By Contact Refer mauro To Contact Diagnoses Spontaneous pneumothorax Pleural fistula Referral ID Status Reason Start Date Expiration Date Visits Requ ested Visits Authorized [id number] 1 1 Encounter Details Date Type Department Care Team Description 09/21/2020 - [facility] Brian JohanOdin ntaneous pneumothorax (Primary Dx); 10/01/2020 Encounter Specialty Surgery Hyponatremia; [address] Urinary retention; [address] [facility] [address] Lung nodule [address] [place] [phone] Social History Tobacco Use Types Packs/Day Years [...] Sign Reading Time Taken Comments Blood Pressure 110/75 10/01/2020 0943 EST Pulse 88 2020 1731 EST Temperature 36.8 ??C (98.2 ??F) 10/01/2020 0943 EST Respiratory Rate 20 10/01/2020 0943 EST Oxygen Saturation 96% 10/01/2020 0943 EST Inhaled Oxygen Concentration - - Weight 77.1 kg (169 lb 14.4 oz) 09/25/2020 0630 EST Height 177.8 cm (5' 10) 09/21/2020 1440 EST Body Mass Index 24.38 09/21/2020 1440 EST documented in this encounter Discharge Summaries Herminiajerson Randee Gray, ALGOLOGIST - 09/23/2020 0905 EST Cardiothoracic Surgery Discharge [...] him to go to the ED at [facility], and on 1119 [facility] he underwent work-upincluding chest CT scan concerning for pneumothorax on the right side, general surgery at that institution was consulted and placed a right-sided 9 Gambian trocar guided chest tube, per chart review this resolve the pneumothorax but the patient had persistent air leak over the past 2 days. Surgeon at that institution reached out to Dr. Singh for elevation of care and further management of nonresolved airleak, as such patient presents to [facility] today to our service. ?? 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 Patient denies Abdominal pain, Nausea, Vomiting, Fever, Chills, Sweats, Constipation, Diarrhea, Melena, Change in bowel habits, dysuria, urinary frequency, numbness, or tingling. Endorses foul taste in his mouth. Hospital Course Rhiannon Shelton was admitted to the [facility] on 09/21/2020 via the transfer from [facility] ED. He had a refractory right-sided [...] catheter. He was referred to Urology at [facility] to have an outpatient voiding trial. [...] his PCP. He is being referred to [facility] for further review and [...] The patient was referred to Urology at [facility] in 1 week for an outpatient voiding trial. ?? The patient was referred to his PCP, Radha Terrazas in 1-2 weeks for review of his hospitalization and medications. ?? The patient was referred to Lung MDC at [facility] in the next few weeks for follow [...] Disposition Code Departure Means Destination Home-Health Care [facility] documented in this encounter Progress Notes Gaby Russell - 10/01/2020 1500 EST COMMUNITY FACILITATOR DISCHARGE NOTE: DISCHARGE DATE/TIME: Today 10/[address] OF DISCHARGE: home MODE OF TRANSPORT: dtr will come pick and shovel man IM SIGNED (Y/): n/a FORMS ON CHART (Y/N): n/a ACCEPTING MD AND NUMBER: PCP Radha Terrazas [phone] ALICIA REPORT/UNIT: [facility] for SN and JUNIOR LEGAL SECRETARY [phone] PATIENT AWARE AND IN AGREEMENT OF PLAN: yes FAMILY NOTIFIED (IF APPLICABLE- Y/N): Yes dtr Dorcas HUMAN SERVICES PROFESSIONAL/CHARGE/MD NOTIFIED (Y/N): yes Juana Russell RN CM #[id number] Deangelo Rao, PT - 10/01/2020 9486 EST [facility] Rehabilitation Therapy Acute Therapies [facility] Physical Therapy Discontinue/Discharge Note Date of [...] other consults recommended at this time Pager: [phone] DEANGELO MILLER, PT 10/01/2020 15:16 Desirae Benedict [...] Rao, PT - 09/30/2020 1317 EST [facility] Rehabilitation Therapy Acute Therapies [facility] Physical Therapy Initial Evaluation Note Date [...] him to go to the ED at [facility], and on 1119 [facility] he underwent work-upincluding chest CT scan concerning for pneumothorax on the right side, general surgery at that institution was consulted and placed a right-sided 9 Gambian trocar guided chest tube, per chart review this resolve the pneumothorax but the patient had persistent air leak over the past 2 days. Surgeon at that institution reached out to Dr. Singh for elevation of care and further management of nonresolved airleak, as such patient presents to [facility] today to our service. ?? 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 Patient denies [...] MD. ?? The patient lives at [address] [place] [id number] Home environment Lives:alone Caregiver Support: Part-time assist Equipment Available: None Home Environment: apartment Home Layout: One story. 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 Spontaneous pneumothorax Past: Past Medical History: Diagnosis Date ??? COPD (chronic obstructive pulmonary disease) ([facility]) ??? GIB (gastrointestinal bleeding) ??? HTN [...] provided by physical therapist and/or physical therapist program services assistant when medically appropriate. Frequency: daily for [...] other consults recommended at this time Pager: [phone] DEANGELO MILLER, PT 09/30/2020 15:20 Deangelo Rao, PT - 09/30/2020 0964 EST [facility] Rehabilitation Therapy Acute Therapy [facility] Physical Therapy Contact Note Date of [...] care services likely PT assessment ongoing DEANGELO MILLER PT 09/30/2020 13:15 5627 Crow Sousa, ALICIA - 09/30/2020 1127 EST CM spoke with daughter who would be closest assist for patient upon discharge. Dorcas, daughter, can be reached at [phone] ext [phone] daily until 3pm and at [phone] after 3pm. Dorcas is tryingto coordinate when she would expect to pick and shovel man patient and what that may entail as [...] spoken with an MD since last Monday. CM will continue to assist with discharge planning [...] 90 87 PLT 283 271 Recent Labs 09/28/20 0958 09/29/20 0642 09/30/20 [...] skin Basil Benitez, MS RD CD Pager: [phone] Alyce Escudero CN - 09/29/2020 1036 EST [...] time of rounds 8. Epidural solution: bupivacaine 0.62231% and hydromorphone 10mcg/ml Recommendations: 1. Pt without pain in light of epidural infusion dc. Decision to pull epidural catheter. Lovenox given 12hr prior to removal. Catheter removed by Dr. Duran Guerra,tip of epidural catheter intact. Minimal bleeding noted at epidural site. 2. APS to sign off. Please page APS at #[phone] with any questions. ALYCE ESCUDERO APRN 09/29/2020 10:37 Associated attestation - Rocky Light III, MD - 09/29/2020 1305 EST Attending Attestation: I have seen and evaluated the patient. I agree with the findings and plan of care as documented in the above note. Rocky Light MD 09/29/20 Jhonatan Epstein MD - 09/29/2020 3294 EST Surgery Progress Note Service Date: 09/29/2020 [...] student's documentation. Jhonatan Epstein MD 09/29/2020 9:28 ToddgiChase rose MD - 09/29/2020 0445 EST Rapid [...] notable for: Most recent CXR on 09/28 pr0042 with persistent small right apical pneumothorax, decreased [...] 09/29/2020 6:41 Mame Pearce MD - 09/29/2020 1900 EST BRIEF ESS UPDATE NOTE Patient noted [...] and new 1st degree AV block with WA of 222. Unable to find previous EKG [...] MD 09/29/2020 4:39 General Surgery PGY-4 Pager [phone] Naresh Paz RN - 09/29/2020 0223 EST Rapid Response Team Nursing Note (SBAR) Team Times: Call Type: RHIT Call Time: 199 Call Date: 09/29/20 Call Originator: Nurse ROBYN Arrival at Bedside: 020 Team Completion Time: 219 ROBYN Completion Time: [...] ROBYN (Name): Adwoa Ness Hospitalist (Name): Jason WISE (Name): Natasha Patient Support (Name): Torsten Additional Detail: Called [...] well c/d/i, will switch solution to bupivacaine 0.58525% and hydromorphone 10mcg/mlto address hypotension Continue epidural with chest tube Please page APS at #[phone] with any questions. AMAYA GUERRA MD 2020 [...] and he hasn't had to use the DIRECTOR REVENUE button. Tolerating PO and using IC frequently. [...] with chest tube Please page APS at #[phone] with any questions. Matt Farias MD, PGY5 Fellow Pain Medicine, Anesthesiology 09/27/2020 9:56 Associated attestation - Jose Charles MD - 09/27/2020 0197 EST Attending attestation: I saw and examined the patient with the pain fellow/resident. I agree with the findings and plan of care documented in this note. Barbara Charles MD 09/27/2020 17:17 Real Negron MD - 09/27/[address] Surgery Progress Note Admit Date: [...] working well c/d/i Please page APS at #[phone] with any questions. Matt Farias MD, PGY5 Fellow Pain Medicine, Anesthesiology 09/26/2020 10:18 Associated attestation - Jose Charles MD - 09/26/2020 8080 EST Attending attestation: I saw and examined the patient with the pain fellow/resident. I agree with the findings and plan of care documented in this note. Barbara Charles MD 09/26/2020 17:27 Vivien Anguiano MD - 09/26/[address] Surgery Progress Note Admit Date: [...] MD 09/26/20 7:39 Cardiothoracic Surgery Housestaff Pager #[phone] I am post-call today and will be leaving the hospital by 10am. Please page the on-call CT Surgery resident with needs. Vivien Hopkins MD - 09/25/2020 2136 EST CARDIOTHORACIC SURGERY POST-OP CHECK PROCEDURE: R [...] Pt has left for pre op . Basil Alvarez - 09/25/2020 1038 EST Nutrition Initial Assessment: [...] sterile talc intrapleural powder 3 g intrapleural ART PROFESSOR TO O.R. Relevant Labs: Lab Results Component [...] Needs: BEE: 1542kcal @ 77.1kg (MSJ) Kcal: 3037-5946 @ 1.1-1.2x BEE Protein: 93g @ 1.2g/kg/bw [...] ?? Basil Benitez, MS RD CD Pager: [phone] Jhonatan Epstein MD - 09/25/2020 0704 EST [...] WBC/Hgb/Hct/Plts: 7.86/12.5/35.9/216 (09/23 0536) Na/K/Cl/CO2: 125/3.8/89/25 (09/24 0552) Assessment: Rhiannon Shelton is a 69 y.o. [...] [x] Book [x] Horacio [x] 2g ancef substation operator automatic to OR [x] re do covid [x] [...] Book [ ] Horacio [x] 2g ancef substation operator automatic to OR - O2 to maintain sats >88% - chest tube to -20 cmH20 suction - Jhonatan Epstein MD 09/24/20 8:10 Cardiothoracic Surgery Housestaff edJhonatan figueroa MD - 09/23/[address] Surgery [...] Response/Results Weaning and Toleration of treatments; PRN RT JUVENCIO 09/22/20 Vivien Hopkins MD - 09/22/2020 1112 [...] MD 09/22/20 11:12 Cardiothoracic Surgery Housestaff Pager #[phone] documented in this encounter H&P Notes Jhonatan Epstein MD - 09/21/2020 1415 EST Thoracic Surgery Admission H+P Chief Complaint: [...] him to go to the ED at [facility], and on 1119 [facility] he underwent work-upincluding chest CT scan concerning for pneumothorax on the right side, general surgery at that institution was consulted and placed a right-sided 9 Gambian trocar guided chest tube, per chart review this resolve the pneumothorax but the patient had persistent air leak over the past 2 days. Surgeon at that institution reached out to Dr. Singh for elevation of care and further management of nonresolved airleak, as such patient presents to [facility] today to our service. Upon speaking to [...] until this current episode. 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 Patient denies Abdominal pain, Nausea, Vomiting, Fever, Chills, Sweats, Constipation, Diarrhea, Melena, Change in bowel habits, dysuria, urinary frequency, numbness, or tingling. Endorses foul taste in his mouth. 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 COPD (chronic obstructive pulmonary disease) ([facility]) ??? GIB (gastrointestinal bleeding) ??? HTN [...] after retracking all connections and changing to [facility] Pleur-evac Heart: Tachycardic but regular sinus tach [...] to mitigate need for VATS/pleurodesis. 8. 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 I agree with the resident's/fellow's findings and plans as documented. Johan Torres MD 09/26/2020 13:13 documented in this encounter Procedure Notes Vivien Anguiano MD - 09/22/2020 1423 EST Procedure Report Service Date: 09/22/20 Frame Maker: Vivien Anguiano MD PGY2 Testing Analyst: Diogenes Epstein MD PGY4 Procedure: Insertion of 24-Gambian left chest tube. Preprocedure Diagnosis: spontaneous pneumothorax Postprocedure Diagnosis: same Preprocedure History: transferred from [facility] where he had a spontaneous pneumothorax [...] then entered utilizing a Vilma clamp. A 24-Gambian chest tube was then advanced into the [...] None Findings: left pneumothorax Complications: None Drains: 24-Gambian chest tube. Vivien Anguiano MD PGY2 CT Surgery Pager #[phone] 09/22/2020 14:23 documented in this encounter Consult Notes Desirae Russell MD - 09/29/2020 2565 EST Images from the original note were [...] some decreased PO intake in the weeks TWISTING FRAME CHANGER and certainly has not been eating a [...] Date ??? COPD (chronic obstructive pulmonary disease) ([facility]) ??? GIB (gastrointestinal bleeding) ??? HTN [...] during this hospitalization: 09/22/20 - Insertion of 24-Gambian left chest tube 09/25/20 - PROCEDURE:?Right video-assisted [...] resection of nodule. SURGEON: Johan Torres MD. FIELD CONTACT TECHNICIAN: Jhonatan Epstein MD, PGY4. ANESTHESIA: General endotracheal via double-lumen tube. ESTIMATED BLOOD LOSS: 100 mL. URINE OUTPUT: 1.6 liters. TOTAL INTRAVENOUS FLUIDS: 900 mL of crystalloid. TUBES, LINES AND DRAINS: Two right 36-Gambian chest tubes. INDICATIONS: This is a 69-year-old gentleman who presented from an outside hospital after undergoingsmall-bore, 9-Gambian chest tube decompression of the pneumothorax with [...] we could of the chest wall. Two 36-Gambian chest tubes were then placed through the [...] / Jhonatan Epstein MD / DC Confirmation: [id number] Dictation ID: [id number] cc: Associated attestation - Johan Torres MD [...] A - Assessed patient. Provided medications per DEC. Made team aware of tachycardia. Clustered care [...] Goal: Care Plan Documentation Flowsheets (Taken 2020 2315) Area of Focus: Sleep Goal This Shift: [...] draining. A - Narcan was given per MAR. Prepared atropine, was NOT administered, pts BP [...] 1519 EST Date: 09/21/2020 - 09/25/2020 Location: [facility] OR Name: Rhiannon Shelton, : 1950, Diagnosis Pre-op Diagnosis * Spontaneous [...] Right 36 Fr Chest tube x2 Staff: Pelletizer Operator: Garrett Oneal RN Scrub Person: Josselin Jaimes, ALICIA; Yarelis Mercer RN Patient Pattern Illustrator: Phyllis Tim; Dakota Thomas Indications: Rhiannon Shelton [...] Patient has right sided chest tube to [facility], plan is for VATS procedure tomorrow. Patient [...] Goal: Care Plan Documentation Flowsheets (Taken 09/23/2020 1945) Area of Focus: Sleep Goal This Shift: [...] ANDRE HUNTER RN 09/24/2020 3:47 lan of [facility] - Gaby Russell - 09/23/2020 0838 EST [...] are available to the patient? None Is 15/05 care available? No ADVANCED DIRECTIVES, POA &/or COLST IN PLACE: Healthcare Directive: No, patient does not have advance directive for healthcare treatment Information Provided on Healthcare Directives: No Information on Healthcare Directives Requested: No DIRECTIVES FOR FINANCES: Directive For Finances: No TRANSPORTATION: Transportation: Family, Taxi CULTURAL, LATTER-DAY and/or LANGUAGE factors affecting health care/discharge planning: [...] HOSPITAL TRANSITION PLAN: pt transferred here from [facility] with pneumothorax. He lives alone in [place], he is independent at baseline. Rhiannon has a dtr who lives nearby, she may be able to transport home, if not I will assist with transportation. I am unsure at this point if HH svcswill be indicated at baseline. GABY RUSSELL 09/23/2020 8:38 lan of Andre Arriaza RN - 09/23/2020 0414 EST Data: Hospital [...] admitted for right-sided spontaneous pneumothorax, transferred from [facility] on 09/21, w/9Fr trocar chest tube [...] are met. Will continue to monitor. Nelly Leonard RN 09/22/20 @ 1448 lan of Rui - Alyce Wilkins RN - 09/22/2020 0501 EST Data: Pt comfortable. Crepitus noted and circled. No drainage from chest tube. Action: Maintained NPO for possible OR today. CT to -20 sx. Response: rested without incident ALYCE WILKINS RN 09/22/2020 5:01 lan of Sade Crooks RN - 09/21/2020 1856 EST Admission Note D - This is [...] Hematology and Oncology Nessa Sullivan MD [address] [facility], [facility] [address] [place], [place] [address] (Wo rk) Scheduled Referrals Name Type [...] n the results section . COVID-19 TEST [facility] PCR Today 09/25/2020 6:21 EST COVID-19 [...] Region Laterality Modality Computed Radiography Specimen Impressions [facility] - 10/14/2020 14:23 EST Satisfactory appearance of the chest, st atus post right VATS and wedge resection. Tiny amount of residual subcutaneous emp hysema in the right chest wall. Narrative [facility] - 10/14/2020 14:23 [...] Staple line noted in the right lower jrodan g, and there is slight tenting of [...] Organization Address City/State/ZIP Code Phon e Number [facility] CT OUTSIDE IMAGES [...] Sodium 130 (L) 136 - 145 mEq/L [facility] Potassium 4.5 3.5 - 5.0 mEq/L [facility] Chloride 94 (L) 96 - 110 mEq/L [facility] OR[facility] SERVICES CO2 Total 31 22 - 32 mEq/L [facility] R[facility] SERVICES Specimen Blood - Venous blood (substance) Performing Organization Address [facility] Phon e Number [facility] [address] [place] [address] SERVICES (ABNORMAL) CREATININE (10/01/2020 7:01 EST) Creatinine 0.55 (L) 0.66 - 1.25 [facility] mg/dL LABORATORY SERVICES eGFR 105Comment: eGFR >60 [facility] calculated using mL/min/1.73m2 LABORATORY SERVICES CKD-EPI equation for non- Americans. Multiply eGFR by 1.16 for patients. Specimen Blood - Venous blood (substance) Performing Organization Address [facility]/ZIP Code Phon e Number [facility] [address] [place] [address] SERVICES BUN (10/01/2020 7:01 EST) Pathologist Sig nature BUN 17 10 - 26 mg/dL [facility] SERVICES Specimen Blood - Venous blood (substance) Performing Organization Address City/[facility]/ZIP Code Phon e Number [facility] [address] [place] [address] SERVICES (ABNORMAL) ELECTROLYTES (09/30/2020 5:44 EST) Pathologist Sig nature Sodium 130 (L) 136 - 145 mEq/L [facility] Potassium 4.0 3.5 - 5.0 mEq/L [facility] Chloride 92 (L) 96 - 110 mEq/L [facility] CO2 Total 30 22 - 32 [facility] Specimen Blood - Venous blood (substance) Performing Organization Address [facility]/ZIP Code Phon e Number [facility] [address] [place] [phone] SERVICES (ABNORMAL) CREATININE (09/30/2020 5:44 EST) Creatinine 0.46 (L) 0.66 - 1.25 [facility] mg/dL LABORATORY SERVICES eGFR 113Comment: eGFR >60 [facility] calculated using mL/min/1.73m2 LABORATORY SERVICES CKD-EPI equation for non- Americans. Multiply eGFR by 1.16 for patients. Specimen Blood - Venous blood (substance) Performing Organization Address [facility]/ZIP Code Phon e Number [facility] [address] [place] [address] SERVICES BUN (09/30/2020 5:44 EST) Pathologist Sig nature BUN 19 10 - 26 mg/dL [facility] SERVICES Specimen Blood - Venous blood (substance) Performing Organization Address City/[facility]/ZIP Code Phon e Number [facility] [address] [place] [address] SERVICES XR CHEST 2 VIEWS (09/29/2020 14:12 EST) Anatomical Region Laterality Modality Computed Radiography Specimen Impressions [facility] - 09/29/2020 14:39 EST 1. ??Pleural thickening on the right likely reflects minimal residual pleural effusion. 2. ??Possible tiny residual right pneumo thorax. 3. ??Improved right lower lung hazy opac ities likely reflecting improved atelectasis status post pleural decompression. I have personally reviewed the images an d the above interpretation and agree with the findings. Narrative [facility] - 09/29/2020 14:39 [...] agree with the findings. Performing Organization Address [facility] Phon e Number [facility] POTASSIUM, URINE RANDOM (09/29/2020 10:16 EST) Potassium, Urine 5.7 See Note [facility] Comment: mEq/L [facility] LABORATORY NOTE: SERVICES Reference range has not been established for potassium concentration in random urine specimens. Specimen Urine - Urine specimen collection, clean catch (procedure) Performing Organization Address [facility] Phon e Number [facility] [address] [place] [address] SERVICES CREATININE, URINE RANDOM (09/29/2020 10:16 EST) Creatinine, Urine 10.8 See Note [facility] Comment: mg/dL CENTER LABORATORY NOTE: SERVICES Reference range has not been established for creatinine concentration in random urine specimens. Specimen Urine - Urine specimen collection, clean catch (procedure) Performing Organization Address [facility] Phon e Number [facility] [address] [place] [address] SERVICES SODIUM, URINE RANDOM (09/29/2020 10:16 EST) Sodium, Urine 24.7 See Note [facility] Comment: mEq/L LABORATORY NOTE: SERVICES Reference range has not been established for sodium concentration in random urine specimens. Specimen Urine - Urine specimen collection, clean catch (procedure) Performing Organization Address [facility] Phon e Number [facility] [address] [place] [address] SERVICES (ABNORMAL) OSMOLALITY, URINE (09/29/2020 10:16 EST) Pathologist Sig nature Osmolality, Urine 140 (L) 150-1,150 [facility] mOsm/kg LABORATORY SERVICES Specimen Urine - Urine specimen collection, clean catch (procedure) Performing Organization [facility] Phon e Number [facility] [address] [place] [address] SERVICES EKG 12-LEAD (09/29/2020 8:15 EST) Specimen Narrative [facility] EKG - 10/05/2020 11:0 5 EST ? [facility] ? Test Date: ?2020-09-29 Pat Name: ? RHIANNON NARESH ?Department: ?? MR3 ? Room: ? Gender: ? Male ? Certified Corporate Travel Executive: ?? [id number] : ?1950 ? Requested By: REAL NEGRON MD Order Number: ?Reading MD: ?? RAMON ORTEZ MD ? Measurements Intervals ?[place] ? Rate: ? 91 ? P: ?39 WA: ? 180 ?QRS: ?19 QRSD: ? 82 [...] Note Ramon Ortez MD - 10/05/2020 [facility] Test Date: 2020-09-29 Pat Name: RHIANNON SHELTON Department: MR 3 Room: Gender: Male Certified Corporate Travel Executive: [id number] : 1950 Requested By: REAL NEGRON MD Order Number: Reading MD: RAMON Rodriguez MD Measurements Intervals [place] Rate: 91 P: 39 WA: 180 QRS: 19 QRSD: 82 T: 30 [...] Organization Address City/State/ZIP Code Phon e Number [facility] EKG (ABNORMAL) OSMOLALITY (09/29/2020 6:42 EST) Pathologist Sig nature Osmolality, Serum 260 (L) 275 - 295 [facility] mOsm/kg LABORATORY SERVICES Specimen Blood - Venous blood (substance) Performing Organization Address [facility]/ZIP Code Phon e Number [facility] [address] [place] [address] SERVICES (ABNORMAL) CALCIUM, IONIZED (09/29/2020 6:42 EST) Calcium, Ionized 1.09 (L)Comment: 1.12 - 1.32 [facility] Tube not filled to mmol/L LABORATORY capacity. Ionized SERVICES calcium results may be falsely decreased. Interpret results with caution. Specimen Blood - Venous blood (substance) Performing Organization Address City/[facility]/ZIP Code Phon e Number [facility] [address] [place] [address] SERVICES MAGNESIUM (09/29/2020 6:42 EST) Pathologist Sig nature Magnesium 1.9 1.7 - 2.8 mg/dL [facility] SERVICES Specimen Blood - Venous blood (substance) Performing Organization Address [facility] Phon e Number [facility] [address] [place] [address] SERVICES (ABNORMAL) COMPLETE BLOOD COUNT AND DIFFERENTIAL (09/29/2020 6:42 EST) WBC 7.66 4.00 - 10.40 [facility] K/[facility] LABORATORY SERVICES RBC 3.61 (L) 4.36 - 5.78 [facility] M/[facility] LABORATORY SERVICES Hemoglobin 10.8 (L) 13.8 - 17.3 [facility] gm/dL LABORATORY SERVICES HCT 31.3 (L) 39.5 - 50.2 % [facility] SERVICES MCV 87 81 - 95 fl [facility] SERVICES MCH 29.9 27.6 - 33.0 pg [facility] SERVICES MCHC 34.5 32.8 - 36.4 [facility] gm/dL LABORATORY SERVICES RDW-CV 14.3 (H) <14.2 % [facility] SERVICES RDW-SD 45.5 <46.0 fl [facility] SERVICES PLT 271 141 - 377 K/m [facility] SERVICES MPV 9.5 9.5 - 12.7 fl [facility] SERVICES Neutrophils 69.9 % [facility] Lymphocytes 16.2 % [facility] Monocytes 7.3 % [facility] Eosinophils 5.7 % [facility] Basophils 0.4 % [facility] Immature Grans 0.5 % [facility] SERVICES Absolute Neutrophils 5.35 2.20 - 8.85 [facility] LABORATORY SERVICES Absolute Lymphocytes 1.24 1.09 - 3.30 [facility] LABORATORY SERVICES Absolute Monocytes 0.56 0.10 - 0.80 [facility] LABORATORY SERVICES Absolute Eosinophils 0.44 0.03 - 0.61 [facility] LABORATORY SERVICES Absolute Basophils 0.03 0.01 - 0.11 [facility] LABORATORY SERVICES Absolute Immature 0.04 0.00 - 0.06 [facility] LABORATORY SERVICES Type of Differential: Auto [facility] SERVICES Specimen Blood - Venous blood (substance) Performing Organization Address [facility]/ZIP Code Phon e Number [facility] [address] [place] [address] SERVICES (ABNORMAL) ELECTROLYTES (09/29/2020 6:42 EST) Pathologist Sig nature Sodium 126 (L) 136 - 145 mEq/L [facility] Potassium 4.2 3.5 - 5.0 mEq/L [facility] Chloride 90 (L) 96 - 110 mEq/L [facility] SERVICES CO2 Total 33 (H) 22 - 32 mEq/L [facility] R[facility] SERVICES Specimen Blood - Venous blood (substance) Performing Organization Address [facility] Phon e Number [facility] [address] [place] [address] SERVICES (ABNORMAL) CREATININE (09/29/2020 6:42 EST) Creatinine 0.49 (L) 0.66 - 1.25 [facility] mg/dL LABORATORY SERVICES eGFR 110Comment: eGFR >60 [facility] calculated using mL/min/1.73m2 LABORATORY SERVICES CKD-EPI equation for non- Americans. Multiply eGFR by 1.16 for patients. Specimen Blood - Venous blood (substance) Performing Organization Address [facility]/ZIP Code Phon e Number [facility] [address] [place] [address] SERVICES (ABNORMAL) BUN (09/29/2020 6:42 EST) Pathologist Sig nature BUN 7 (L) 10 - 26 mg/dL [facility] LABORATO RY SERVICES Specimen Blood - Venous blood (substance) Performing Organization Address [facility]/ZIP Code Phon e Number [facility] [address] [place] [address] SERVICES CORTISOL (09/29/2020 6:42 EST) Cortisol 15 See Note ug/dL [facility] Comment: LABORATORY SERVICES NOTE: Reference Ranges (from OCD IFU): Collected Before 10:00 AM: ??4 - 23 ug/dL Collected After 5:00 PM: ?2 - 14 ug/dL The results of this assay ca n be falsely elevated due to the consumption of Biotin. Specimen Blood - Venous blood (substance) Performing Organization Address [facility] Code Phon e Number [facility] [address] [place] [address] SERVICES EKG 12-LEAD (09/29/2020 2:14 EST) Specimen Narrative [facility] E[facility] - 12/20/2020 19:3 6 EST ? [facility] ? Test Date: ?2020-09-29 Pat Name: ? RHIANNON SHELTON ?Department: ?? WOOD 3 ? Room: ? [id number] Gender: ? Male ? Certified Corporate Travel Executive: ?? [id number] : ?1950 ? Requested By: REAL NEGRON MD Order Number: [id number] ? Reading : ?? CONNOR CYR MD ? Measurements Intervals ?[place] ? Rate: ? 78 ? P: ?34 WA: ? 222 ?QRS: ?25 QRSD: ? 82 [...] Note Connor Cyr MD - 12/20/2020 [facility] Test Date: 2020-09-29 Pat Name: RHIANNON SHELTON Department: DE LLER 3 Room: [facility] Gender: Male Certified Corporate Travel Executive: [id number] : 1950 Requested By: REAL NEGRON MD Order Number: [id number] Reading MD: Angeli CYR MD Measurements Intervals [place] Rate: 78 P: 34 WA: 222 QRS: 25 QRSD: 82 T: 33 [...] Organization Address City/State/ZIP Code Phon e Number [facility] EKG XR CHEST PORTABLE 1 VIEW (09/29/2020 2:14 EST) Anatomical Region Laterality Modality Computed Radiography Specimen Impressions [facility] - 09/29/2020 9:03 EST 1. ??Ongoing small, laterally loculated right pleural effusion. 2. ??Slightly decreased subcutaneous emp hysema in the right chest wall. 3. ??Very slightly increased right basil ar atelectasis. I have personally reviewed the images an d the above interpretation and agree with the findings. Narrative [facility] - 09/29/2020 9:03 [...] Organization Address City/State/ZIP Code Phon e Number [facility] HOLD SST (09/29/2020 2:05 EST) Pathologist Sig nature Hold Hold [facility] LABORATOR Y SERVICES Specimen Blood - Venous blood (substance) Performing Organization Address City/State/ZIP Code Phon e Number [facility] [address] [place] [address] SERVICES HOLD GREEN TOP (09/29/2020 2:05 EST) Pathologist Sig nature Hold Hold [facility] SERVICES Specimen Blood - Venous blood (substance) Performing Organization Address City/State/ZIP Code Phon e Number [facility] [address] [place] [address] SERVICES HOLD BLUE TOP (09/29/2020 2:05 EST) Pathologist Sig nature Hold Hold [facility] SERVICES Specimen Blood - Venous blood (substance) Performing Organization Address City/State/ZIP Code Phon e Number [facility] [address] [place] [address] SERVICES HOLD LAVENDER TOP (09/29/2020 2:05 EST) Pathologist Sig nature Hold Hold [facility] SERVICES Specimen Blood - Venous blood (substance) Performing Organization Address City/State/ZIP Code Phon e Number [facility] [address] [place] [address] SERVICES SODIUM, URINE RANDOM (2020 10:19 EST) Sodium, Urine 82.7 See Note [facility] Comment: mEq/L LABORATORY NOTE: SERVICES Reference range has not been established for sodium concentration in random urine specimens. Specimen Urine - Urine (substance) Performing Organization Address [facility] Phon e Number [facility] [address] [place] [address] SERVICES OSMOLALITY, URINE (2020 10:19 EST) Pathologist Sig nature Osmolality, Urine 359 150-1,150 mOsm/kg [facility] SERVICES Specimen Urine - Urine (substance) Performing Organization Address [facility] Phon e Number [facility] [address] [place] [address] SERVICES (ABNORMAL) GLUCOSE, SERUM (2020 9:58 EST) Pathologist Sig nature Glucose 112 (H) 70 - 100 mg/dL [facility]ORAT ORY SERVICES Specimen Blood - Venous blood (substance) Performing Organization Address [facility] Phon e Number [facility] [address] [place] [address] SERVICES (ABNORMAL) OSMOLALITY (2020 9:58 EST) Pathologist Sig nature Osmolality, Serum 258 (L) 275 - 295 [facility] mOsm/kg LABORATORY SERVICES Specimen Blood - Venous blood (substance) Performing Organization Address [facility] Phon e [facility] LABORATORY [address] [place] [address] SERVICES BILIRUBIN DIRECT/INDIRECT (2020 9:58 EST) Pathologist Sig nature Conjugated Bilirubin 0.0 0.0 - 0.3 mg/dL [facility] LABORATORY SERVICES Unconjugated Bilirubin 0.6 0.0 - 1.1 mg/dL [facility] LABORATORY SERVICES Specimen Blood - Venous blood (substance) Performing Organization Address [facility] Phon e Number [facility] [address] [place] [address] SERVICES (ABNORMAL) PROTEIN, TOTAL (2020 9:58 EST) Pathologist Sig nature Total Protein 5.4 (L) 6.3 - 8.2 g/dL [facility] LABORAT[facility] SERVICES Specimen Blood - Venous blood (substance) Performing Organization Address [facility]/ZIP Code Phon e Number [facility] [address] [place] [address] SERVICES (ABNORMAL) ALBUMIN (2020 9:58 EST) Pathologist Sig nature Albumin 2.9 (L) 3.4 - 4.9 g/dL [facility] LAB[facility]AT ORY SERVICES Specimen Blood - Venous blood (substance) Performing Organization Address [facility]/ZIP Code Phon e Number [facility] [address] [place] [address] SERVICES ALKALINE PHOSPHATASE (2020 9:58 EST) Pathologist Sig nature Alkaline Phosphatase 71 38 - 126 U/L [facility] SERVICES Specimen Blood - Venous blood (substance) Performing Organization Address [facility]/ZIP [facility] Phon e Number [facility] [address] [place] [address] SERVICES (ABNORMAL) AST (2020 9:58 EST) Pathologist Sig nature AST 51 (H) 15 - 46 U/L [facility] Y SERVICES Specimen Blood - Venous blood (substance) Performing Organization Address City/[facility]/ZIP Code Phon e Number [facility] [address] [place] [address] SERVICES ALT (2020 9:58 EST) Pathologist Sig nature ALT 41 <50 U/L [facility] SERVICES Specimen Blood - Venous blood (substance) Performing Organization Address [facility]/ZIP [facility] Phon e Number [facility] [address] [place] [address] SERVICES BILIRUBIN, TOTAL (2020 9:58 EST) Pathologist Sig nature Bilirubin, Total 0.6 <1.4 mg/dL [facility] LABOR ATORY SERVICES Specimen Blood - Venous blood (substance) Performing Organization Address [facility]/ZIP Code Phon e Number [facility] [address] [place] [address] SERVICES (ABNORMAL) ELECTROLYTES (2020 9:58 EST) Pathologist Sig nature Sodium 125 (L) 136 - 145 mEq/L [facility] Potassium 4.2 3.5 - 5.0 mEq/L [facility] Chloride 87 (L) 96 - 110 mEq/L [facility]AT ORY SERVICES CO2 Total 30 22 - 32 mEq/L [facility] LABORATO RY SERVICES Specimen Blood - Venous blood (substance) Performing Organization Address [facility]/ZIP Code Phon e Number [facility] [address] [place] [address] SERVICES (ABNORMAL) CREATININE (2020 9:58 EST) Creatinine 0.44 (L) 0.66 - 1.25 [facility] mg/dL LABORATORY SERVICES eGFR 115Comment: eGFR >60 [facility] calculated using mL/min/1.73m2 LABORATORY SERVICES CKD-EPI equation for non- Americans. Multiply eGFR by 1.16 for patients. Specimen Blood - Venous blood (substance) Performing Organization Address [facility] Code Phon e Number [facility] [address] [place] [address] SERVICES (ABNORMAL) BUN (2020 9:58 EST) Pathologist Sig nature BUN 6 (L) 10 - 26 mg/dL [facility]ORAT[facility] R[facility] SERVICES Specimen Blood - Venous blood (substance) Performing Organization Address City/[facility]/ZIP [facility] Phon e Number [facility] [address] [place] [address] SERVICES (ABNORMAL) COMPLETE BLOOD COUNT (2020 9:58 EST) Pathologist Sig nature WBC 7.40 4.00 - 10.40 K/cmm [facility] SERVICES RBC 3.72 (L) 4.36 - 5.78 M/cmm [facility] SERVICES Hemoglobin 11.3 (L) 13.8 - 17.3 gm/dL [facility] SERVICES HCT 33.3 (L) 39.5 - 50.2 % [facility] SERVICES MCV 90 81 - 95 fl [facility] SERVICES MCH 30.4 27.6 - 33.0 pg [facility] SERVICES MCHC 33.9 32.8 - 36.4 gm/dL [facility] SERVICES RDW-CV 14.5 (H) <14.2 % [facility] SERVICES RDW-SD 47.6 (H) <46.0 fl [facility] SERVICES PLT 283 141 - 377 K/cmm [facility] SERVICES MPV 9.6 9.5 - 12.7 fl [facility] SERVICES Specimen Blood - Venous blood (substance) Performing Organization Address City/State/ZIP Code Phon e Number [facility] [address] [place] [address] SERVICES XR CHEST 2 VIEWS (2020 9:23 EST) Anatomical Region Laterality Modality Computed Radiography Specimen Impressions [facility] - 2020 9:59 EST 1. ??Persistent small right apical pneumothorax with unchanged positioning of 2 right-sided chest tubes. 2. ??Right pleural effusion coursing tatianna ng the lateral aspect of the right hemithorax up to the apex, slightly decreased from prior. I have personally reviewed the images an d the above interpretation and agree with the findings. Narrative [facility] - 2020 9:59 EST XR CHEST 2 [...] Organization Address City/State/ZIP Code Phon e Number [facility] TSH (09/26/2020 9:35 EST) Pathologist Sig nature TSH 0.59 0.47 - 4.68 uIU/mL [facility] LABORAT[facility] SERVICES Specimen Blood - Venous blood (substance) Narrative [facility] SERVICES - 2020 12:23 EST The results of this assay can be falsely lowered due to the consumption of Biotin. Performing Organization Address [facility]/ZIP Code Phon e Number [facility] [address] [place] [address] SERVICES T4 FREE (09/26/2020 9:35 EST) Pathologist Sig nature T4, Free 2.0 0.8 - 2.2 ng/dL [facility] LABOR[facility] SERVICES Specimen Blood - Venous blood (substance) Performing Organization Address [facility] Phon e Number [facility] [address] [place] [address] SERVICES (ABNORMAL) T3, TOTAL (09/26/2020 9:35 EST) Pathologist Sig nature T3, Total 67 (L) 97 - 169 ng/dL [facility]ORAT ORY SERVICES Specimen Blood - Venous blood (substance) Performing Organization Address [facility] Phon e Number [facility] [address] [place] [address] SERVICES (ABNORMAL) T3 FREE (09/26/2020 9:35 EST) Pathologist Sig nature T3, Free 2.7 (L) 2.8 - 5.3 pg/mL [facility] Specimen Blood - Venous blood (substance) Performing Organization Address [facility] Phon e Number [facility] [address] [place] [address] SERVICES (ABNORMAL) ELECTROLYTES (09/26/2020 9:35 EST) Pathologist Sig nature Sodium 125 (L) 136 - 145 mEq/L [facility] Potassium 3.9 3.5 - 5.0 mEq/L [facility] Chloride 89 (L) 96 - 110 mEq/L [facility] CO2 Total 26 22 - 32 mEq/L [facility] Specimen Blood - Venous blood (substance) Performing Organization Address [facility] Phon e Number [facility] [address] [place] [address] SERVICES BUN (09/26/2020 9:35 EST) Pathologist Sig nature BUN 11 10 - 26 mg/dL [facility] Specimen Blood - Venous blood (substance) Performing Organization Address [facility]/ZIP Code Phon e Number [facility] [address] [place] [address] SERVICES (ABNORMAL) CREATININE (09/26/2020 6:28 EST) Creatinine 0.45 (L) 0.66 - 1.25 [facility] mg/dL LABORATORY SERVICES eGFR 115Comment: eGFR >60 [facility] calculated using mL/min/1.73m2 LABORATORY SERVICES CKD-EPI equation for non- Americans. Multiply eGFR by 1.16 for patients. Specimen Blood - Venous blood (substance) Performing Organization Address [facility] Code Phon e Number [facility] [address] [place] [address] SERVICES (ABNORMAL) COMPLETE BLOOD COUNT (09/26/2020 6:28 EST) Pathologist Sig nature WBC 9.07 4.00 - 10.40 K/cmm [facility] RBC 3.95 (L) 4.36 - 5.78 M/cmm [facility] Hemoglobin 11.9 (L) 13.8 - 17.3 gm/dL [facility] HCT 33.9 (L) 39.5 - 50.2 % [facility] MCV 86 81 - 95 fl [facility] MCH 30.1 27.6 - 33.0 pg [facility] MCHC 35.1 32.8 - 36.4 gm/dL [facility] RDW-CV 14.6 (H) <14.2 % [facility] RDW-SD 46.3 (H) <46.0 fl [facility] PLT 241 141 - 377 K/cmm [facility] MPV 9.8 9.5 - 12.7 fl [facility] Specimen Blood - Venous blood (substance) Performing Organization Address [facility] Code Phon e Number [facility] [address] [place] [address] SERVICES XR CHEST PORTABLE 1 VIEW (09/25/2020 19:13 EST) Anatomical Region Laterality Modality Computed Radiography Specimen Impressions [facility] - 10/06/2020 15:55 EST Interval decrease in the size of ??the right pneumothorax and right lower lung opacity. Final report delayed by downtime. No sig nificant changes to preliminary report. I have personally reviewed the images an d the above interpretation and agree with the findings. Narrative [facility] - 10/06/2020 15:55 [...] Organization Address City/State/ZIP Code Phon e Number [facility] (09/25/2020 16:32 EST) Final Diagnosis A. LUNG, RIGHT, UPPER LOBE, VIDEO-ASSISTED THORACOSCOPIC WEDGE RESECTION: [facility] - Squamous cell carcinoma, i nvasive, [...] history of pneumothorax. Diagnosis Comment On histologic [facility] examination, the CENTER right upper [...] findings is necessary. Attestation There was significant [facility] Electr onically resident/fellow CENTER signed by Aissatou jones, involvement in the LABORATORY Vilma Bynum MD on diagnostic evaluation SERVICES 2019 at 0938 of this case. By the signature below, the attending physician certifies that they have personally conducted a gross and/or microscopic examination of the described specimens and rendered or confirmed the above diagnosis. Synoptic LUNG ??(LUNG: RESECTION - A) [facility] SERVICES SPECIMEN ?? Procedure: ?Wedge resection [...] Additional Pathologic Findings: ?Emphysema Clinical History Spontaneous [facility] pneumothorax [facility] SERVICES Gross Description A. [facility] Received in normal saline la belled with [...] greatest dimension). No discrete masses are identified. Assistant Professor se SERVICES ctions are submitted in A1-A [...] pale magdaleno. No additional lesions are identified. Assistant Professor sections are submitted in B1-B5 (nodule with nearest parenchymal m argin is in B1). The remaind er of the nodule is subsequently submitted on 09/29/2020 in B6-B7. MINDA HINOJOSA([facility]) 2020 9:37 Resident/Fellow: Chuckie Roach, [facility] Performing Lab [facility] Scanned Images [facility] Specimen Tissue - Entire right upper lobe of lung (body structure) Tissue specimen (specimen) - Entire midd le lobe of right lung (body structure) Performing Organization Address City/[facility]/ZIP Code Phon e Number [facility] [address] [place] [address] SERVICES PATIENT RE-TYPE (09/25/2020 7:55 EST) Pathologist Sig nature ABO O [facility] Rh Factor Positive [facility] K Specimen Blood - Venous blood (substance) Performing Organization Address City/[facility]/ZIP Code Phon e Number [facility] [address] [facility] [place] [address] (ABNORMAL) COMPLETE BLOOD COUNT (09/25/2020 7:03 EST) Pathologist Sig nature WBC 9.56 4.00 - 10.40 K/cmm [facility] RBC 4.40 4.36 - 5.78 M/cmm [facility] Hemoglobin 13.5 (L) 13.8 - 17.3 gm/dL [facility] HCT 38.0 (L) 39.5 - 50.2 % [facility] MCV 86 81 - 95 fl [facility] MCH 30.7 27.6 - 33.0 pg [facility] MCHC 35.5 32.8 - 36.4 gm/dL [facility] RDW-CV 14.6 (H) <14.2 % [facility] RDW-SD 46.5 (H) <46.0 fl [facility] PLT 234 141 - 377 K/cmm [facility] MPV 9.7 9.5 - 12.7 fl [facility] Specimen Blood - Venous blood (substance) Performing Organization Address City/[facility] Phon e Number [facility] [address] [place] [address] SERVICES (ABNORMAL) ELECTROLYTES (09/25/2020 7:03 EST) Pathologist Sig nature Sodium 125 (L) 136 - 145 mEq/L [facility] Potassium 4.9Comment: 3.5 - 5.0 mEq/L [facility] Moderate hemolysis LABORATORY SERVICES identified, interpret with caution as hemolysis will elevate potassium result. Chloride 90 (L) 96 - 110 mEq/L [facility] CO2 Total 24 22 - 32 mEq/L [facility] Specimen Blood - Venous blood (substance) Performing Organization Address City/[facility] Phon e Number [facility] [address] [place] [address] SERVICES (ABNORMAL) CREATININE (09/25/2020 7:03 EST) Creatinine 0.48 (L) 0.66 - 1.25 [facility] mg/dL LABORATORY SERVICES eGFR 112Comment: eGFR >60 [facility] calculated using mL/min/1.73m2 LABORATORY SERVICES CKD-EPI equation for non- Americans. Multiply eGFR by 1.16 for patients. Specimen Blood - Venous blood (substance) Performing Organization Address [facility]/ZIP Code Phon e Number [facility] [address] [place] [address] SERVICES (ABNORMAL) BUN (09/25/2020 7:03 EST) Pathologist Sig nature BUN 8 (L)Comment: 10 - 26 mg/dL [facility] Moderate hemolysis LABORATORY SERVICES identified, interpret with caution as results may be affected due to hemolysis. Specimen Blood - Venous blood (substance) Performing Organization Address [facility]/ZIP Code Phon e Number [facility] [address] [place] [address] SERVICES TYPE AND SCREEN (09/25/2020 7:03 EST) ABO O [facility] Rh Factor Positive [facility] Antibody Screen Negative [facility] Specimen Expires: 2020 @ 23:59 [facility] R BLOOD [facility] Specimen Blood - Venous blood (substance) Performing Organization Address [facility] Phon e Number [facility] [address] [facility] [place] [address] COVID-19 TEST [facility] PCR (09/25/2020 6:21 EST) Specimen Swab - Entire nasopharynx (body structur e) Performing Organization Address [facility] Phon e Number [facility] [address] [place] [address] SERVICES COVID-19 TESTING (09/25/2020 6:21 EST) COVID-19 rt-PCR Negative Negative [facility] Result Comment: CENTER LABORATORY This [...] and epidemiological informatio n. Performed on the [employer] [place] Fusion instrument Performing Lab [place] [facility] Specimen Swab - Entire nasopharynx (body structur e) Performing Organization Address [facility] Code Phon e Number [facility] [address] [place] [address] SERVICES (ABNORMAL) ELECTROLYTES (09/24/2020 5:52 EST) Pathologist Sig nature Sodium 125 (L) 136 - 145 mEq/L [facility] Potassium 3.8 3.5 - 5.0 mEq/L [facility] Chloride 89 (L) 96 - 110 mEq/L [facility] CO2 Total 25 22 - 32 mEq/L [facility] Specimen Blood - Venous blood (substance) Performing Organization Address [facility] Phon e Number [facility] [address] [place] [address] SERVICES (ABNORMAL) COMPLETE BLOOD COUNT AND DIFFERENTIAL (09/23/2020 5:36 EST) WBC 7.86 4.00 - 10.40 [facility] K/[facility] LABORATORY SERVICES RBC 4.18 (L) 4.36 - 5.78 [facility] M/[facility] LABORATORY SERVICES Hemoglobin 12.5 (L) 13.8 - 17.3 [facility] gm/dL LABORATORY SERVICES HCT 35.9 (L) 39.5 - 50.2 % [facility] MCV 86 81 - 95 fl [facility] MCH 29.9 27.6 - 33.0 pg [facility] MCHC 34.8 32.8 - 36.4 [facility] gm/dL LABORATORY SERVICES RDW-CV 14.6 (H) <14.2 % [facility] RDW-SD 45.7 <46.0 fl [facility] PLT 216 141 - 377 K/m [facility] MPV 9.8 9.5 - 12.7 fl [facility] Neutrophils 69.5 % [facility] Lymphocytes 17.3 % [facility] Monocytes 6.9 % [facility] Eosinophils 5.6 % [facility] Basophils 0.4 % [facility] Immature Grans 0.3 % [facility] Absolute Neutrophils 5.47 2.20 - 8.85 [facility] K/[facility] LABORATORY SERVICES Absolute Lymphocytes 1.36 1.09 - 3.30 [facility] LABORATORY SERVICES Absolute Monocytes 0.54 0.10 - 0.80 [facility] LABORATORY SERVICES Absolute Eosinophils 0.44 0.03 - 0.61 [facility] LABORATORY SERVICES Absolute Basophils 0.03 0.01 - 0.11 [facility] LABORATORY SERVICES Absolute Immature 0.02 0.00 - 0.06 [facility] LABORATORY SERVICES Type of Differential: Auto [facility] Specimen Blood - Venous blood (substance) Performing Organization Address City/State/ZIP Code Phon e Number [facility] [address] [place] [address] SERVICES (ABNORMAL) ELECTROLYTES (09/23/2020 5:36 EST) Pathologist Sig nature Sodium 125 (L) 136 - 145 mEq/L [facility] Potassium 4.1 3.5 - 5.0 mEq/L [facility] Chloride 89 (L) 96 - 110 mEq/L [facility] CO2 Total 25 22 - 32 mEq/L [facility] Specimen Blood - Venous blood (substance) Performing Organization Address City/State/ZIP Code Phon e Number [facility] [address] [place] [address] SERVICES XR CHEST PORTABLE LINE PLACEMENT (09/22/2020 14:59 EST) Anatomical Region Laterality Modality Chest Computed Radiography Specimen Impressions [facility] - 10/07/2020 9:27 [...] sig nificant changes to preliminary report. Narrative [facility] - 10/07/2020 9:27 [...] changes to preliminary report. Performing Organization Address City/State/ZIP Code Phon e Number [facility] MAGNESIUM (09/22/2020 6:07 EST) Pathologist Sig nature Magnesium 2.0 1.7 - 2.8 mg/dL [facility] Specimen Blood - Venous blood (substance) Performing Organization Address [facility]/ZIP Code Phon e Number [facility] [address] [place] [address] SERVICES CALCIUM (09/22/2020 6:07 EST) Pathologist Sig nature Calcium 9.0 8.5 - 10.5 mg/dL [facility] Calculated Calcium 9.1 8.5 - 10.5 mg/dL [facility] Specimen Blood - Venous blood (substance) Performing Organization Address [facility]/ZIP Code Phon e Number [facility] [address] [place] [address] SERVICES (ABNORMAL) CREATININE (09/22/2020 6:07 EST) Creatinine 0.59 (L) 0.66 - 1.25 [facility] mg/dL LABORATORY SERVICES eGFR 103Comment: eGFR >60 [facility] calculated using mL/min/1.73m2 LABORATORY SERVICES CKD-EPI equation for non- Americans. Multiply eGFR by 1.16 for patients. Specimen Blood - Venous blood (substance) Performing Organization Address [facility]/ZIP Code Phon e Number [facility] [address] [place] [address] SERVICES (ABNORMAL) BUN (09/22/2020 6:07 EST) Pathologist Sig nature BUN 7 (L) 10 - 26 mg/dL [facility] Specimen Blood - Venous blood (substance) Performing Organization Address City/[facility]/ZIP Code Phon e Number [facility] [address] [place] [address] SERVICES (ABNORMAL) ELECTROLYTES (09/22/2020 6:07 EST) Pathologist Sig nature Sodium 129 (L) 136 - 145 mEq/L [facility] Potassium 4.7 3.5 - 5.0 mEq/L [facility] Chloride 91 (L) 96 - 110 mEq/L [facility] CO2 Total 30 22 - 32 [facility]Eq/L [facility] Specimen Blood - Venous blood (substance) Performing Organization Address [facility] Phon e Number [facility] [address] [place] [address] SERVICES (ABNORMAL) DIFFERENTIAL (09/21/2020 23:40 EST) Neutrophils 69.8 % [facility] Lymphocytes 18.7 % [facility] Monocytes 7.9 % [facility] Eosinophils 2.9 % [facility] Basophils 0.4 % [facility] Immature Grans 0.3 % [facility] Absolute Neutrophils 7.31 2.20 - 8.85 [facility] K/[facility] LABORATORY SERVICES Absolute Lymphocytes 1.96 1.09 - 3.30 [facility] K/[facility] LABORATORY SERVICES Absolute Monocytes 0.83 (H) 0.10 - 0.80 [facility] K/[facility] LABORATORY SERVICES Absolute Eosinophils 0.30 0.03 - 0.61 [facility] K/[facility] LABORATORY SERVICES Absolute Basophils 0.04 0.01 - 0.11 [facility] K/[facility] LABORATORY SERVICES Absolute Immature 0.03 0.00 - 0.06 [facility] K/[facility] LABORATORY SERVICES Type of Differential: Auto [facility] Specimen Blood - Venous blood (substance) Performing Organization Address City/[facility]/ZIP Code Phon e Number [facility] [address] [place] [address] SERVICES (ABNORMAL) COMPLETE BLOOD COUNT (09/21/2020 23:40 EST) Pathologist Sig nature WBC 10.47 (H) 4.00 - 10.40 K/cmm [facility] RBC 4.55 4.36 - 5.78 M/cmm [facility] Hemoglobin 13.9 13.8 - 17.3 gm/dL [facility] HCT 39.2 (L) 39.5 - 50.2 % [facility] MCV 86 81 - 95 fl [facility] MCH 30.5 27.6 - 33.0 pg [facility] MCHC 35.5 32.8 - 36.4 gm/dL [facility] RDW-CV 14.6 (H) <14.2 % [facility] RDW-SD 45.9 <46.0 fl [facility] PLT 254 141 - 377 K/cmm [facility] MPV 9.4 (L) 9.5 - 12.7 fl [facility] Specimen Blood - Venous blood (substance) Performing Organization Address City/State/ZIP Code Phon e Number [facility] [address] [place] [address] SERVICES XR CHEST PORTABLE 1 VIEW (09/21/2020 16:16 EST) Anatomical Region Laterality Modality Computed Radiography Specimen Impressions [facility] - 10/07/2020 9:17 [...] interpretation and agree with the findings. Narrative [facility] - 10/07/2020 9:17 [...] Organization Address City/State/ZIP Code Phon e Number [facility] documented in this encounter Visit Diagnoses Diagnosis Spontaneous pneumothorax - Primary Other pneumothorax Hyponatremia Hyposmolality and/or hyponatremia Urinary retention Retention of urine, unspecified Lung nodule Solitary pulmonary nodule Spontaneous pneumothorax Other pneumothorax documented in this [...] mg Given 09/24/2020 2:55 EST 1,000 mg acetaminophen (TYLENOL) tablet 500-1,000 mg Given 09/22/2020 15:37 EST 1,000 mg 500-1,000 mg, oral, EVERY 6 HOURS PRN, Starting on Mon09/21/20 at 1412, Until Mon09/22/20 at 1608, Pain, Fever, mild pain, Routine aspirin EC tablet 81 mg Given 10/01/2020 9:38 EST 81 mg 81 mg, oral, DAILY, First dose on Mon09/21/20 at 1615, Until Discontinued, Routine Given 09/30/2020 8:25 EST 81 mg Given 09/29/2020 8:20 EST 81 mg atorvastatin (LIPITOR) tablet 20 mg Given 09/30/2020 21:50 EST 20 mg 20 mg, oral, AT BEDTIME, First dose on Mon09/21/20 at 2100, Until Discontinued, Routine Given 09/29/2020 [...] at 0142, Until Ivy 08/11 at 1736 calcium GLUconate 2,000 mg in dextrose 5% Given 09/29/2020 8:19 EST 2,000 mg (D5W) 50 mL IVPB 2,000 mg (2 g), intravenous, Administer over 60 Minutes, NOW X1, 1 dose, On Mon09/29/20 at 0745, Routine chlorhexidine gluconate 2 % cloth 1 Each Given 09/25/2020 8:16 EST 1 Each 1 Each, topical, DAILY, First dose on Ivy 09/24/20 at 0900, Until Discontinued, Routine Given 09/24/2020 12:00 EST 1 Each dextrose 5 % and 0.45 % NaCl with KCl Rate Change 09/22/2020 1:43 EST 100 mL/hr 20 mEq/L infusion at 100 mL/hr, intravenous, CONTINUOUS, Starting on Mon09/21/20 at 1430, Until Mon09/22/20 at 0608, Routine New Bag 09/21/2020 17:36 EST 50 mL/hr docusate sodium (COLACE) capsule 100 mg Given 10/01/2020 9:38 EST 100 mg 100 mg, oral, 2 TIMES DAILY, First dose on Mon09/21/20 at 2100, Until Discontinued, Routine Given 09/30/2020 21:50 EST 100 mg Given 09/30/2020 8:25 EST 100 mg electrolyte-A (PLASMALYTE-A) bolus 500 m L Given 09/27/2020 7:39 EST 500 mL 500 mL, intravenous, NOW X1, 1 dose, On Mon09/27/20 at 0730 electrolyte-A (PLASMALYTE-A) Rate Documented 09/22/2020 13:15 EST 50 mL/hr solution at 50 mL/hr, intravenous, CONTINUOUS, Starting on Mon09/22/20 at 0630, Until Mon09/22/20 at 1452, Routine Rate Documented 09/22/2020 9:41 EST 50 mL/hr New Bag 09/22/2020 6:10 EST 50 mL/hr electrolyte-A (PLASMALYTE-A) solution New Bag 09/25/2020 18:45 EST 50 mL/hr at 50 mL/hr, intravenous, CONTINUOUS, Starting on Mon09/25/20 at 0000, Until Mon09/25/20 at 2029, Routine Rate Documented 09/25/2020 3:00 EST 50 mL/hr New Bag 09/25/2020 0:44 EST 50 mL/hr electrolyte-A (PLASMALYTE-A) Rate Documented 2020 7:00 EST 50 mL/hr solution at 50 mL/hr, intravenous, CONTINUOUS, Starting on 09/25/20 at 2045, Until 09/28/20 at 0744, Routine New Bag 09/27/2020 19:53 EST 50 mL/hr Rate Documented 09/26/2020 22:40 EST 50 mL/hr enoxaparin (LOVENOX) injection 40 mg Given 09/23/2020 20:51 EST 40 mg 40 mg, subcutaneous, AT BEDTIME, First dose on 09/21/20 at 2100, Until Discontinued, Routine Given 09/22/2020 20:09 EST 40 mg Given 09/21/2020 21:20 EST 40 mg Abdomin al Tissue enoxaparin (LOVENOX) injection 40 mg Given 09/30/2020 21:50 EST 40 mg 40 mg, subcutaneous, AT BEDTIME, First dose (after last modification) on 09/26/20 at 2100, Until Discontinued, Routine Given 09/29/2020 20:59 EST 40 mg Given 2020 21:22 EST 40 mg HYDROmorphone (DILAUDID) tablet 2 mg Given 09/23/2020 3:22 EST 2 mg 2 mg, oral, EVERY 4 HOURS PRN, Starting on Mon09/22/20 at 1607, Until 09/23/20 at 0947, Pain, for pain uncontrolled by tylenol and robaxin, Routine Given 09/22/2020 18:27 EST 2 mg HYDROmorphone (DILAUDID) tablet 2 mg 2 mg, oral, EVERY 4 HOURS PRN, Starting on 09/28/20 at 0741, Until Ivy 10/01/20 at 1736, Pain, for pain uncontrolled by tylenol and ro baxin, Routine HYDROmorphone (PF) (DILAUDID) 0.5 mg/0.5 mL Given 09/22/2020 13: 40 EST 0.25 mg syringe 0.25 mg 0.25 mg, intravenous, NOW X1, 1 dose, On Mon09/22/20 at 1345 HYDROmorphone (PF) (DILAUDID) 0.5 mg/0.5 mL Given 09/22/2020 14: 18 EST 0.25 mg syringe 0.25 mg 0.25 mg, intravenous, NOW X1, 1 dose, On Mon09/22/20 at 1430 HYDROmorphone-bupivacaine 10 Rate Documented 2020 19:20 EST mcg/ml-0.0625% in NS 250 ml epidural epidural, CONTINUOUS, Starting on Mon09/28/20 at 1015, Until Mon09/29/20 at 1040, Hold. Do Not Restart until APS contacted #[phone] PCEA Dose: 2 mL LOCKOUT Interval: 20 minutes ONE HOUR Dose Limit: 14 mL BASAL Rate: 8 mL/hr, STAT HYDROmorphone-bupivacaine 10 mcg/ml-0.125% in NS New Bag 0 0:20 EST 250 ml epidural epidural, CONTINUOUS, Starting on Mon09/25/20 at 1200, Until Mon09/28/20 at 0954, PCEA Dose: 2 mL LOCKOUT Interval: 20 minutes ONE HOUR Dose Limit: 14 mL BASAL Rate: 8 mL/hr, STAT Rate Documented 09/27/2020 19:54 EST New Bag 09/26/2020 21:05 EST lactated ringers (LR) infusion Rate Change 09/25/2020 18:15 EST 75 mL/hr at 75 mL/hr, intravenous, CONTINUOUS, Starting on Mon09/25/20 at 1800, Until Mon09/25/20 at 2029, Routine, Recovery (only) lidocaine 5 % (LIDODERM) Patch Applied 10/01/2020 1:24 EST 1 Patch Right Shoulder patch 1 Patch 1 Patch, transdermal, Administer over 12 Hours, DAILY, First dose on Mon09/23/20 at 0200, Until Discontinued, Routine Patch Applied 09/30/2020 1:26 EST 1 Patch Right S houlder Patch Applied 09/29/2020 1:28 EST 1 Patch Right S [place] methocarbamoL (ROBAXIN) tablet 1,000 mg Given 10/01/2020 13:01 EST 1,000 mg 1,000 mg, oral, 4 TIMES DAILY, First dose (after last modification) on Mon09/23/20 at 1300, Until Discontinued, Routine Given 10/01/2020 9:38 EST 1,000 mg Given 09/30/2020 21:50 EST 1,000 mg methocarbamoL (ROBAXIN) tablet 750 mg Given 09/23/2020 9:01 EST 750 mg 750 mg, oral, 4 TIMES DAILY PRN, Starting on Mon09/22/20 at 1452, Until Mon09/23/20 at 0947, muscle spasms, Routine Given 09/23/2020 2:02 EST 750 mg Given 09/22/2020 17:47 EST 750 mg naloxone (NARCAN) injection 0.1 mg Given 09/29/2020 1:54 EST 0.1 mg 0.1 mg, intravenous, PRN, Starting on Mon09/25/20 at 1131, Until Mon09/29/20 at 1049, Opioid Reversal, Routine potassium chloride SA (K-DUR) tablet 40 mEq Given 09/24/2020 14:10 EST 40 mEq 40 mEq, oral, NOW X1, 1 dose, On Mon09/24/20 at 1245, Routine TAMSulosin (FLOMAX) capsule 0.4 mg Given 10/01/2020 [...] 0825 (Given - Provider: Antonio Harvey RN) 0938 (Given - Provider: Antonio Harvey RN) 81 [...] IVPB (COMPLETED) 818 (Given - Provider: Phi Edwards RN) 2,000 mg (2 g), intravenous, Administer over 60 Minutes, NOW X1, 1 dose, 09/29/20 at 0745, Routine docusate sodium (COLACE) capsule 100 mg 819 (Given - Provider: Phi Edwards RN)2058 (Given - Provider: Sera Sun RN) 0825 (Given - Provider: Antonio Harvey RN)2149 (Given - Provider: Sera Sun RN) 0938 (Given - Provider: Antonio Harvey RN) 100 mg, oral, 2 TIMES DAILY, First dose on Mon09/21/20 at 2100, Until Discontinued, Routine enoxaparin (LOVENOX) injection 40 mg 2058 (Given - Provider: Sera Sun RN) 2149 (Given - Provider: Sera Sun RN) 40 mg, subcutaneous, AT BEDTIME, First d ose (after last modification) on 09/26/20 at 2100, Until Discontinued, Routine lidocaine 5 [...] Provider: Phi Edwards RN)1644 (Given - Provider: Birana Mayorga RN)2059 (Given - Provider: Sera Sun RN) 0825 (Given - Provider: Antonio Harvey RN)1157 (Given - Provider: Antonio Harvey RN)1748 (Given - Provider: Antonio Harvey RN)2150 (Given - Provider: Sera Sun RN) 0938 [...] RN)2125 (Given - Provider: Sera Sun RN) 0826 (Given - Provider: Antonio Harvey RN)2150 (Given [...] 2 Tab 1433 (Given - Provider: Phi Edwards, RN) 2 Tab, oral, 4 TIMES DAILY PRN, Starting Mon09/24/20 at 0132, Until Mon10/01/20 at 1736, Heartburn, Routine HYDROmorphone (DILAUDID) tablet 2 mg 2 mg, oral, EVERY 4 HOURS PRN, Starting Mon09/28/20 at 0741, Until Mon10/01/20 at 1736, Pain, for pain uncontrolled by tylenol and robaxin, Routine naloxone (NARCAN) injection 0.1 mg (CANCELED) 0154 (Gi paty - Provider: Sera Sun RN) 0.1 mg, intravenous, PRN, Starting Mon11/26/19 at 1131, Until Mon09/29/20 at 1049, Opioid Reversal, Routine ondansetron (PF) (ZOFRAN) injection 4 mg 4 mg, intravenous, EVERY 6 [address] PRN, St arting Mon09/21/20 at 1404, Until Mon10/01/20 at 1736, Nausea, Vomiting, Routine senna (SENOKOT) tablet 1-2 Tab 1-2 Tab, oral, 2 TIMES DAILY PRN, Starti ng Mon09/21/20 at 1404, Until Mon10/01/20 at 1736, Constipation, Routine No Frequency Medication Order 09/29/2020 09/30/2020 10/01/2020 calcium carbonate (TUMS) 200 mg calcium (500 mg) per chewable tablet tablet,chewable 1 dose, Starting Mon09/24/20 at 0142, Until Discontinued documented in this encounter Orders Medications Ordered That Might Not Have Count Last Ord ered Date First Ordered Date Been Administered atropine 0.1 mg/mL syringe 1 09/29/2020 bisacodyL (DULCOLAX) suppository 10 mg 1 0 HYDROmorphone (DILAUDID) tablet 2 mg 1 2020 acetaminophen (TYLENOL) solution unit dose 1 09/25 cup 995 mg acetaminophen (TYLENOL) tablet 1,000 mg 1 09/25/20 20 atropine 0.1 mg/mL syringe 0.5 mg 1 09/25/2020 diphenhydrAMINE (BENADRYL) injection 12.5 1 2019 mg fentaNYL citrate (PF) injection 25-50 mcg 1 2019 HYDROmorphone (DILAUDID) tablet 2-4 mg 1 0 HYDROmorphone (PF) (DILAUDID) 0.5 mg/0.5 1 020 mL syringe 0.3-0.5 mg lactated ringers (LR) infusion 1 09/25/2020 metoCLOPramide (REGLAN) injection 10 mg 1 09/25/20 20 naloxone (NARCAN) injection 0.2 mg 1 09/25/2020 sterile talc intrapleural powder 1 09/25/2020 calcium carbonate (TUMS) 200 mg calcium 1 09/24/20 20 (500 mg) per chewable tablet tablet,chewable ceFAZolin (ANCEF) syringe 2 g 1 09/24/2020 sterile talc intrapleural powder 3 g 1 09/24/2020 HYDROmorphone (DILAUDID) tablet 4 mg 1 09/23/2020 HYDROmorphone (DILAUDID) 2 mg tablet 1 09/22/2020 HYDROmorphone (PF) (DILAUDID) 0.5 mg/0.5 2 020 mL syringe methocarbamoL (ROBAXIN) 750 mg tablet 1 09/22/2020 albuterol inhaler 90-180 mcg 1 09/21/2020 docusate (COLACE) liquid 100 mg 1 09/21/2020 electrolyte-A (PLASMALYTE-A) solution 1 09/21/2020 ondansetron (PF) (ZOFRAN) injection 4 mg 1 020 senna (SENOKOT) tablet 1-2 Tab 1 09/21/2020 Procedures Count Last Ordered Date First Ordered Date ECG REPORT - SCANNED 5 12/21/2020 10/05/2020 Diet Count Last Ordered Date First Ordered Date DISCHARGE DIET 2 10/01/2020 Nursing Count Last Ordered Date First Ordered Date ACTIVITY INSTRUCTIONS 5 10/01/2020 BATHING INSTRUCTIONS 1 10/01/2020 WOUND CARE INSTRUCTIONS 5 10/01/2020 OPHTHALMIC TECHNOLOGIST,CLASS II 1 09/21/2020 PT Count Last Ordered [...] 09/24/2020 documented in this encounter Care Teams Newspaper Delivery Driver Relationship Specialty Start Date End Date Radha Terrazas, ALGOLOGIST PCP - General 08/23/[address] [place] [phone] documented as of this encounter
--- OUTSIDE RECORDS SUMMARY | 2022-05-05 12:09 | XMS_ITS | Encounter Summary ---
:[address] [facility] Address [address] [place] [address] Care Team Providers Name Role Phone Unknown, Provider Primary Care Provider Encounter Details Date Type Department Care Team Description 08/17/2020 Hospital Encounter [facility] Secondary Reads [place] Social History Tobacco Use Types Packs/Day Years Used Date Never Assessed Sex Assigned at Date Recorded Male 02/19/2021 14:37 EDT documented as of this encounter Discharge Disposition Disposition Code Departure Means Destination Home or Self Care documented in this encounter Plan of Treatment Upcoming Encounters Date Type Specialty Care Team Description 09/26/2022 Office Visit Hematology and Oncology NateNessa MD [address] [facility], [facility], [facility] [address] [place], [place] [phone] (Wo rk) documented as of this encounter Procedures Procedure Name Priority Date/Time Associated Diagnosis Comme nts CT OUTSIDE IMAGES Routine 10/01/2020 9:46 EST Res ults for this CHEST procedure are i n the results section. documented in this encounter Results CT OUTSIDE IMAGES CHEST (10/01/2020 9:46 EST) Specimen Narrative 10/01/2020 9:46 EST This is a non-reportable exam. documented in this encounter Visit Diagnoses Not on filedocumented in this encounter Care Teams Procurement Accountant Relationship Specialty Start Date End Date Unknown, Provider, PCP - General 10/06/17 08/22/20 documented as of this encounter
--- OUTSIDE RECORDS SUMMARY | 2022-05-05 12:10 | XMS_ITS | CCD ---
:1950 Author Care Team Providers Name Role Phone ELEANOR MALONEY Attending Physician Unavailable TANYA WHITMORE Er Physician 1 Unavailable TANYA WHITMORE Rounding (Secondary) Physician Unavailab KERWIN Celis Registered Nurse Unavailable Vital Signs Vital Sign Value Unit Date/Time Recent/Initial? BMI (Body Mass Index) 28.19 kg/m^2 11/12/2021 16:55 In itial VS Weight Measured 180 lbs 11/12/2021 16:55 Initial VS Height 67 in 11/12/2021 16:55 Initial VS BSA (Body Surface Area) 1.96 m^2 11/12/2021 16:55 Initial VS BP Systolic 191 mmHg 11/12/2021 16:55 Initial VS BP Diastolic 115 mmHg 11/12/2021 16:55 Initial VS Respiratory Rate 38 bpm 11/12/2021 16:55 Initial VS Heart Rate 136 bpm 11/12/2021 16:55 Initial VS O2 % BldC Oximetry 93 % 11/12/2021 16:55 Initi al VS Body Temperature 36.8 degrees 11/12/2021 16:55 Initial VS BMI (Body Mass Index) 24.83 kg/m^2 11/12/2021 20:[address] Recent VS Weight Measured 173.03 lbs 11/12/2021 20:50 Most Rec ent VS Height 70 in 11/12/2021 20:50 Most Recent VS BSA (Body Surface Area) 1.97 m^2 11/12/2021 20:50 Most Recent VS BP Systolic 140 mmHg 11/15/2021 14:59 Most Recent VS BP Diastolic 82 mmHg 11/15/2021 14:59 Most Recent VS Body Temperature 36.2 degrees 11/15/2021 14:59 Most Re cent VS Respiratory Rate 20 bpm 11/15/2021 15:20 Most Re cent VS Heart Rate 96 bpm 11/15/2021 15:20 Most Recent VS O2 % BldC Oximetry 95 % 11/15/2021 15:20 Most Recent VS Allergies Unknown or Not Available. Procedures Unknown or Not Available. History of Immunizations Unknown or Not Available. Problems Problem Code Start Date Resolved Date Status HTN 41875760 Active COPD with exacerbation 792572087 Activ e Hypoxia 905464674 Active Hypercapnic respiratory failure 505805201 Active Anxiety disorder 171074162 Active COPD 01347200 11/12/2021 Resolved Results BASIC METABOLIC PANEL (BMP) - Collect Da te/Time: 11/14/2021 06:30 Test Name Code Test Result Test Units Test Ref Range GLUCOSE 2345-7 111 mg/dL L=70 H=116 BUN 3094-0 16 mg/dL L=6 H=25 CREATININE 2160-0 0.84 mg/dL L=0.67 H=1.17 SODIUM SERUM 2951-2 133 mmol/L L=136 H=145 POTASSIUM SERUM 2823-3 4.8 mmol/L L=3.4 H=5.2 CHLORIDE SERUM 2075-0 97 mmol/L L=96 H=110 CARBON DIOXIDE (CO2) 2028-9 36 mmol/L L=22 H= 34 ANION GAP 99320-3 0.5 mmol/L CALCIUM SERUM 19667-7 9.0 mg/dL L=8.2 H=10.2 AGE 71 years eGFR (non-Afr.Amer.) 87758-9 90 mL/min eGFR (Afr-Emirati) 50977-1 109 mL/min BASIC METABOLIC PANEL (BMP) - Collect Da te/Time: 11/13/2021 07:03 Test Name Code Test Result Test Units Test Ref Range GLUCOSE 2345-7 171 mg/dL L=70 H=116 BUN 3094-0 13 mg/dL L=6 H=25 CREATININE 2160-0 0.68 mg/dL L=0.67 H=1.17 SODIUM SERUM 2951-2 133 mmol/L L=136 H=145 POTASSIUM SERUM 2823-3 4.0 mmol/L L=3.4 H=5.2 CHLORIDE SERUM 2075-0 96 mmol/L L=96 H=110 CARBON DIOXIDE (CO2) 2028-9 29 mmol/L L=22 H= 34 ANION GAP 16403-9 7.8 mmol/L CALCIUM SERUM 22446-5 9.1 mg/dL L=8.2 H=10.2 AGE 71 years eGFR (non-Afr.Amer.) 75384-0 115 mL/min eGFR (Afr-Emirati) 51438-3 >120 mL/min BNP (PRO-B NATRIURETIC PEPTIDE) - [facility] t Date/Time: 11/12/2021 16:40 Test Name Code Test Result Test Units Test Ref Range NT-proBNP 33916-1 72.0 pg/mL L=0.0 H=125 COMPREHENSIVE METABOLIC PANEL (CMP) - Ok llect Date/Time: 11/12/2021 16:40 Test Name Code Test Result Test Units Test Ref Range GLUCOSE 2345-7 101 mg/dL L=70 H=116 BUN 3094-0 9 mg/dL L=6 H=25 CREATININE 2160-0 0.76 mg/dL L=0.67 H=1.17 SODIUM SERUM 2951-2 134 mmol/L L=136 H=145 POTASSIUM SERUM 2823-3 4.0 mmol/L L=3.4 H=5.2 CHLORIDE SERUM 2075-0 94 mmol/L L=96 H=110 CARBON DIOXIDE (CO2) 2028-9 32 mmol/L L=22 H= 34 ANION GAP 10651-2 8.0 mmol/L CALCIUM SERUM 77165-6 9.3 mg/dL L=8.2 H=10.2 BILIRUBIN TOTAL 1975-2 0.8 mg/dL L=0.0 H=1.3 ALK. PHOS. 6768-6 107 U/L L=46 H=116 SGOT (AST) 1920-8 33 U/L L=15 H=37 SGPT (ALT) 1742-6 32 U/L L=12 H=78 TOTAL PROTEIN 2885-2 8.9 gm/dL L=6.0 H=8.0 ALBUMIN 1751-7 4.7 gm/dL L=3.4 H=5.0 AGE 71 years eGFR (non-Afr.Amer.) 31835-1 101 mL/min eGFR (Afr-Emirati) 69118-4 >120 mL/min LACTIC ACID - Collect Date/Time: 022 16:40 Test Name Code Test Result Test Units Test Ref Range LACTIC ACID 63964-2 2.0 mmol/L L=0.7 H=2.1 TROPONIN HIGH SENSITIVITY* - Collect [place] e/Time: 11/12/2021 16:40 Test Name Code Test Result Test Units Test Ref Range TROPONIN HS 10.7 pg/mL L=0.0 H=60.4 Specimen seq. ADM. N/A TROPONIN-I* - Collect Date/Time: 16:40 Test Name Code Test Result Test Units Test Ref Range TROPONIN-I 69311-6 <0.017 ng/mL L=0.000 H=0.060 Specimen seq. ADM. N/A CBC W/ DIFFERENTIAL* - Collect Date/Time : 11/14/2021 06:30 Test Name Code Test Result Test Units Test Ref Range WBC 6690-2 9.10 th/cmm L=5.00 H=10.00 NEUT % 80.8 % L=40.0 H=80.0 LYMPH % 11.5 % L=10.0 H=50.0 MONO % 30045-2 7.0 % L=2.0 H=12.0 EOS % 0.1 % L=0.0 H=8.0 BASO % 0.2 % L=0.0 H=3.0 IG % 2514-8 0.4 % L=0.0 H=1.1 NRBC % 55476-5 0.0 % L=0.0 H=0.0 NEUT abs count 751-8 7.3 th/cmm L=1.6 H=8.4 LYMPH abs count 731-0 1.1 th/cmm L=1.5 H=4.0 MONO abs count 742-7 0.6 th/cmm L=0.2 H=1.0 EOS abs count 711-2 0.0 th/cmm L=0.0 H=0.5 BASO abs count 704-7 0.0 th/cmm L=0.0 H=0.2 IG abs count 56200-2 0.0 th/cmm L=0.0 H=0.1 NRBC abs count 25849-4 0.0 mil/cmm L=0.0 H=0.0 RBC 789-8 4.24 mil/cmm L=4.30 H=6.20 HEMOGLOBIN 718-7 14.0 gm/dL L=13.0 H=17.0 HEMATOCRIT 4544-3 42 % L=45 H=52 MCV 787-2 98 fL L=82 H=92 MCH 785-6 33.0 pg L=27.0 H=31.0 MCHC 786-4 33.7 % L=32.0 H=36.0 RDW-SD 788-0 48.3 fL L=39.0 H=49.0 PLATELET COUNT 777-3 199 th/cmm L=150 H=450 CBC W/ DIFFERENTIAL* - Collect Date/Time : 11/13/2021 07:03 Test Name Code Test Result Test Units Test Ref Range WBC 6690-2 5.33 th/cmm L=5.00 H=10.00 NEUT % 86.1 % L=40.0 H=80.0 LYMPH % 12.4 % L=10.0 H=50.0 MONO % 50951-7 0.9 % L=2.0 H=12.0 EOS % 0.0 % L=0.0 H=8.0 BASO % 0.2 % L=0.0 H=3.0 IG % 2514-8 0.4 % L=0.0 H=1.1 NRBC % 98810-9 0.0 % L=0.0 H=0.0 NEUT abs count 751-8 4.6 th/cmm L=1.6 H=8.4 LYMPH abs count 731-0 0.7 th/cmm L=1.5 H=4.0 MONO abs count 742-7 0.1 th/cmm L=0.2 H=1.0 EOS abs count 711-2 0.0 th/cmm L=0.0 H=0.5 BASO abs count 704-7 0.0 th/cmm L=0.0 H=0.2 IG abs count 11159-9 0.0 th/cmm L=0.0 H=0.1 NRBC abs count 84745-6 0.0 mil/cmm L=0.0 H=0.0 RBC 789-8 4.68 mil/cmm L=4.30 H=6.20 HEMOGLOBIN 718-7 15.0 gm/dL L=13.0 H=17.0 HEMATOCRIT 4544-3 45 % L=45 H=52 MCV 787-2 95 fL L=82 H=92 MCH 785-6 32.1 pg L=27.0 H=31.0 MCHC 786-4 33.6 % L=32.0 H=36.0 RDW-SD 788-0 46.7 fL L=39.0 H=49.0 PLATELET COUNT 777-3 181 th/cmm L=150 H=450 CBC W/ DIFFERENTIAL* - Collect Date/Time : 11/12/2021 16:40 Test Name Code Test Result Test Units Test Ref Range WBC 6690-2 9.01 th/cmm L=5.00 H=10.00 NEUT % 53.3 % L=40.0 H=80.0 LYMPH % 21.2 % L=10.0 H=50.0 MONO % 85365-9 6.1 % L=2.0 H=12.0 EOS % 18.4 % L=0.0 H=8.0 BASO % 0.9 % L=0.0 H=3.0 IG % 2514-8 0.1 % L=0.0 H=1.1 NRBC % 22664-2 0.0 % L=0.0 H=0.0 NEUT abs count 751-8 4.8 th/cmm L=1.6 H=8.4 LYMPH abs count 731-0 1.9 th/cmm L=1.5 H=4.0 MONO abs count 742-7 0.6 th/cmm L=0.2 H=1.0 EOS abs count 711-2 1.7 th/cmm L=0.0 H=0.5 BASO abs count 704-7 0.1 th/cmm L=0.0 H=0.2 IG abs count 82312-1 0.0 th/cmm L=0.0 H=0.1 NRBC abs count 58743-2 0.0 mil/cmm L=0.0 H=0.0 RBC 789-8 5.08 mil/cmm L=4.30 H=6.20 HEMOGLOBIN 718-7 16.5 gm/dL L=13.0 H=17.0 HEMATOCRIT 4544-3 50 % L=45 H=52 MCV 787-2 98 fL L=82 H=92 MCH 785-6 32.5 pg L=27.0 H=31.0 MCHC 786-4 33.3 % L=32.0 H=36.0 RDW-SD 788-0 48.5 fL L=39.0 H=49.0 PLATELET COUNT 777-3 180 th/cmm L=150 H=450 BRYAN COVID FLU RSV GENEXPERT - Collect Date/Time: 11/12/2021 16:42 Test Name Code Test Result Test Units Test Ref Range COVID 76844-3 NEGATIVE N/A Normal: Negativ e INFLUENZA A DNA 41712-3 NEGATIVE N/A Normal: Nega tive INFLUENZA B DNA 97235-9 NEGATIVE N/A Normal: Nega tive RSV DNA 21894-8 NEGATIVE N/A Normal: Negativ e ORDER VENOUS BLOOD GAS* - Collect Date/T park: 11/12/2021 22:23 Test Name Code Test Result Test Units Test Ref Range pH (venous) 2746-6 7.37 L=7.31 H=7.41 2 (venous) 54.9 PO2 (venous) 2705-2 46 mm Hg L=30 H=50 HCO3 1960-4 31 mmol/L L=22 H=26 TCO2 (venous) 3533-7 33 mmol/L L=22 H=28 BASE EXCESS (venous) 3097-3 6 mmol/L L=-2 H= 3 Specimen type: VENOUS N/A Assist vent. Bipap 7/5 N/A ORDER VENOUS BLOOD GAS* - Collect Date/T park: 11/12/2021 18:00 Test Name Code Test Result Test Units Test Ref Range pH (venous) 2746-6 7.29 L=7.31 H=7.41 2 (venous) 67 PO2 (venous) 2705-2 33 mm Hg L=30 H=50 HCO3 1960-4 32 mmol/L L=22 H=26 TCO2 (venous) 3533-7 34 mmol/L L=22 H=28 BASE EXCESS (venous) 3097-3 6 mmol/L L=-2 H= 3 Specimen type: VENOUS N/A ORDER VENOUS BLOOD GAS* - Collect Date/T park: 11/12/2021 17:20 Test Name Code Test Result Test Units Test Ref Range pH (venous) 2746-6 7.28 L=7.31 H=7.41 2 (venous) 64.6 PO2 (venous) 2705-2 45 mm Hg L=30 H=50 HCO3 1960-4 30 mmol/L L=22 H=26 TCO2 (venous) 3533-7 32 mmol/L L=22 H=28 BASE EXCESS (venous) 3097-3 3 mmol/L L=-2 H= 3 Specimen type: VENOUS N/A Assist vent. 2L NC N/A Resp. Rate 35 N/A /min. Active Medications Medications Administered During Visit Medication Dose Units Frequency Route Date/Time of L ast Dose ALBUTEROL INH SOLN 0.5% 20ML 5 MG X1 INH 11/12/2021 18:03 BOTTLE SODIUM CHLORIDE 0.9% FLUSH 10ML 2 ML Q8H IVP 11/15/2021 14:23 SYRINGE DOCUSATE SODIUM CAPSULE: 100MG 100 MG BID PO 11/15/2021 09:31 ALBUTEROL/IPRATROP 3 ML Q4H RESP INH 2021 08:29 UPDRAFT:2.5/0.5MG/3ML ARFORMOTEROL NEB SOLN: 15MCG/2ML 15 MCG BID RESP INH 11/13/2021 08:25 BUDESONIDE UPDRAFT: 0.5MG/2ML 0.5 MG BID RESP INH 11/13/2021 08:24 MethylPREDNISolone SUC INJ 40 MG Q6H IVP 11/13/2021 09:35 SDV:40MG/1ML GuaiFENesin/DM SYRUP: 10 ML PRN Q4H PO 21:01 200/20MG/10ML ASPIRIN TABLET E.C.: 81MG 81 MG DAILY PO 11/15/2021 09:32 LOSARTAN TABLET: 25MG 25 MG DAILY PO 09:32 ATORVASTATIN TABLET: 40MG 40 MG BEDTIME PO 11/14/2021 21:39 IPRATROPIUM INH ALMAZ UD: 0.5 MG QID RESP INH 0 11/15/2021 15:20 0.5MG/2.5ML LEVALBUTEROL UPDRAFT CONC: 1.25 MG PRN Q4H INH 11/14/2021 19:08 1.25MG/0.5ML ENOXAPARIN INJ SYRINGE: 30 MG Q24H SUBQ 0 11/13/2021 14:20 30MG/0.3ML MethylPREDNISolone SUC INJ 40 MG Q12H IVP 11/14/2021 08:21 SDV:40MG/1ML CALCIUM CARBONATE TAB CHEWABLE 1000 MG PRN Q2H CHEW 11/14/2021 04:18 UD: 500MG ENOXAPARIN INJ SYRINGE: 30 MG Q24H SUBQ 0 11/15/2021 14:23 30MG/0.3ML MethylPREDNISolone SUC INJ 30 MG Q12H IVP 11/15/2021 09:30 SDV:40MG/1ML PredniSONE TABLET: 10MG 30 MG X1 PO 0 11/15/2021 14:22 Encounters Encounter Diagnosis Diagnosis Code Start Date Chronic obstructive pulmonary disease with (acute) J441 11/12/2021 exacerbation Social History Smoking Status Code Start Date End Date Former smoker [id number] Patient Decision Aids Patient Decision Aid Patient Portal Access Discharge Instructions You were admitted to on 11/12/2021 20:15 with a principal diagnosis of Chronic obstructive pulmonary disease with (acute) exacerbation You had the following tests done: BASIC METABOLIC PANEL (BMP) CBC W/ DIFFERENTIAL* BASIC METABOLIC PANEL (BMP) CBC W/ DIFFE RENTIAL* ORDER VENOUS BLOOD GAS* ORDER VENOUS BLOOD GAS* ORDER VENOUS BLOOD GAS* COPLE Y COVID FLU RSV GENEXPERT BNP (PRO-B NATRIURETIC PEPTIDE) CBC W/ DIFFERENTIAL * COMPREHENSIVE METABOLIC PANEL (CMP) LACTIC ACID TROPONIN HIGH SENSITIVITY* TROPONIN -I* You were discharged from on 11/15/2021 16:20 Should you have any questions prior to d ischarge, please contact a member of your healthcare team. If you have left the ho spital and have any questions, please contact your primary care physician. Chief Complaint and Reason For Visit Chief Complaint Date of Onset COPD EXACERBATION 11/12/2021 Function Status Unknown or Not Available. Plan of Care Unknown or Not Available. Referral/Transition of Care Unknown or Not Available.
--- OUTSIDE RECORDS SUMMARY | 2022-05-05 12:10 | XMS_ITS | CCD ---
:1950 Author Care Team Providers Name Role Phone AMI HUTCHISON Attending Physician Unavailable AMI HUTCHISON Rounding (Secondary) Physician Unavailab le Vital Signs Unknown or Not Available. Allergies Unknown or Not Available. Procedures Unknown or Not Available. History of Immunizations Unknown or Not Available. Problems Problem Code Start Date Resolved Date Status HTN 03914086 Active COPD with exacerbation 348676841 Activ e Hypoxia 251008496 Active Hypercapnic respiratory failure 601696295 Active Anxiety disorder 864390604 Active Cancer 568026468 10/20/2021 Resolved Hypertension 87653260 10/20/2021 Resolved COPD 38015075 11/12/2021 Resolved Results Unknown or Not Available. Active Medications Medication Code Dose Units Frequency Route Modification Start Date/Time LORazepam 228992 0.5 MILLIGRAMS FOUR TIMES A ORAL 2021 0.5MG Oral DAY 09:46 Tablet Prescription Detail TAKE 0.5 MILLIGRAMS ORAL FOU R TIMES A DAY predniSONE 5MG Oral Tablet 236585 6 TABLET DAILY ORAL 12/13/2021 09:45 Prescription Detail TAKE 6 TABLET ORAL DAILY Sertraline HCl 100MG 189402 100 MILLIGRAMS BEDTIME ORAL 12/13/2021 09:44 Oral Tablet Prescription Detail TAKE 100 MILLIGRAMS ORAL BED TIME Atorvastatin Calcium 584363 40 MILLIGRAMS BEDTIME ORAL 11/15/2021 09:43 AvPak 40MG Oral Tablet Prescription Detail TAKE 40 MILLIGRAMS ORAL BEDT DEYA Aspir 81 81MG Oral Tablet, 293699 81 MILLIGRAMS DAILY ORAL 10/22/2021 11:22 Enteric Coated Prescription Detail TAKE 81 MILLIGRAMS ORAL TOSIN Y Cozaar 25MG Oral Tablet 809916 25 MILLIGRAMS DAILY ORAL 10/22/2021 11:22 Prescription Detail TAKE 25 MILLIGRAMS ORAL TOSIN Y Ipratropium 9856518 1 UNIT FOUR TIMES A INHALATION 09/24 11:21 [place]-Albuterol DAY Sulfate 0.5MG/3ML-3MG/3ML Inhalation Solution Prescription Detail 1 UNIT INHALATION FOUR TIME S A DAY (with nebulizer) Medications Administered During Visit Unknown or Not Available. Encounters Encounter Diagnosis Diagnosis Code Start Date Acute exacerbation of chronic obstructive airways disease 19 [id number] 10/20/2021 Social History Smoking Status Code Start Date End Date Former smoker [id number] Patient Decision Aids Unknown or Not Available. Discharge Instructions You were admitted to [facility] on 10/20/2021 05:54 with a principal diagnosis of Chronic obstructive pulmonary disease with (acute) exacerbation You were discharged from [facility] on 10/22/2021 05:54 Should you have any questions prior to d ischarge, please contact a member of your healthcare team. If you have left the ho spital and have any questions, please contact your primary care physician. Chief Complaint and Reason For Visit Unknown or Not Available. Function Status Unknown or Not Available. Plan of Care Unknown or Not Available. Referral/Transition of Care Unknown or Not Available.
--- OUTSIDE RECORDS SUMMARY | 2022-05-05 12:10 | XMS_ITS | CCD ---
:1950 Author Care Team Providers Name Role Phone MARIE ORDAZ Attending Physician Unavailable Vital Signs Unknown or Not Available. Allergies Unknown or Not Available. Procedures Unknown or Not Available. History of Immunizations Unknown or Not Available. Problems Problem Code Start Date Resolved Date Status HTN 16155861 Active COPD with exacerbation 174989083 Activ e Hypoxia 572143658 Active Hypercapnic respiratory failure 357910765 Active Anxiety disorder 910740810 Active Cancer 745306316 10/20/2021 Resolved Hypertension 91751692 10/20/2021 Resolved COPD 47648778 11/12/2021 Resolved Results Unknown or Not Available. Active Medications Medication Code Dose Units Frequency Route Modification Start Date/Time LORazepam 866930 0.5 MILLIGRAMS FOUR TIMES A ORAL 2021 0.5MG Oral DAY 09:46 Tablet Prescription Detail TAKE 0.5 MILLIGRAMS ORAL FOU R TIMES A DAY predniSONE 5MG Oral Tablet 386641 6 TABLET DAILY ORAL 12/13/2021 09:45 Prescription Detail TAKE 6 TABLET ORAL DAILY Sertraline HCl 100MG 686886 100 MILLIGRAMS BEDTIME ORAL 12/13/2021 09:44 Oral Tablet Prescription Detail TAKE 100 MILLIGRAMS ORAL BED TIME Atorvastatin Calcium 752726 40 MILLIGRAMS BEDTIME ORAL 11/15/2021 09:43 AvPak 40MG Oral Tablet Prescription Detail TAKE 40 MILLIGRAMS ORAL BEDT DEYA Aspir 81 81MG Oral Tablet, 984797 81 MILLIGRAMS DAILY ORAL 10/22/2021 11:22 Enteric Coated Prescription Detail TAKE 81 MILLIGRAMS ORAL TOSIN Y Cozaar 25MG Oral Tablet 354074 25 MILLIGRAMS DAILY ORAL 10/22/2021 11:22 Prescription Detail TAKE 25 MILLIGRAMS ORAL TOSIN Y Ipratropium 9317658 1 UNIT FOUR TIMES A INHALATION 09/24 11:21 [place]-Albuterol DAY Sulfate 0.5MG/3ML-3MG/3ML Inhalation Solution Prescription Detail 1 UNIT INHALATION FOUR TIME S A DAY (with nebulizer) Medications Administered During Visit Unknown or Not Available. Encounters Encounter Diagnosis Diagnosis Code Start Date Chronic obstructive pulmonary disease with (acute) J441 10/20/2021 exacerbation Social History Unknown or Not Available. Patient Decision Aids Unknown or Not Available. Discharge Instructions You were admitted to [facility] on 10/20/2021 08:20 with a principal diagnosis of Chronic obstructive pulmonary disease with (acute) exacerbation You were discharged from [facility] on 10/20/2021 12:08 Should you have any questions prior to [...]
--- OUTSIDE RECORDS SUMMARY | 2022-05-05 12:10 | XMS_ITS | CCD ---
:1950 Author Care Team Providers Name Role Phone AMI HUTCHISON Attending Physician Unavailable Vital Signs Unknown or Not Available. Allergies Allergy Code Allergy Type Reaction Status No Known Drug Allergies 0 No known drug allergies Active Procedures Unknown or Not Available. History of Immunizations Unknown or Not Available. Problems Problem Code Start Date Resolved Date Status HTN 72281961 Active COPD with exacerbation 194764303 Activ e Hypoxia 169086220 Active Hypercapnic respiratory failure 525613299 Active Anxiety disorder 217941734 Active Results Unknown or Not Available. Active Medications Medication Code Dose Units Frequency Route Modification Start Date/Time LORazepam 897459 0.5 MILLIGRAMS FOUR TIMES A ORAL 2021 0.5MG Oral DAY 09:46 Tablet Prescription Detail TAKE 0.5 MILLIGRAMS ORAL FOU R TIMES A DAY predniSONE 5MG Oral Tablet 580689 6 TABLET DAILY ORAL 12/13/2021 09:45 Prescription Detail TAKE 6 TABLET ORAL DAILY Sertraline HCl 100MG 294476 100 MILLIGRAMS BEDTIME ORAL 12/13/2021 09:44 Oral Tablet Prescription Detail TAKE 100 MILLIGRAMS ORAL BED TIME Atorvastatin Calcium 326613 40 MILLIGRAMS BEDTIME ORAL 11/15/2021 09:43 AvPak 40MG Oral Tablet Prescription Detail TAKE 40 MILLIGRAMS ORAL BEDT DEYA Aspir 81 81MG Oral Tablet, 041660 81 MILLIGRAMS DAILY ORAL 10/22/2021 11:22 Enteric Coated Prescription Detail TAKE 81 MILLIGRAMS ORAL TOSIN Y Cozaar 25MG Oral Tablet 939397 25 MILLIGRAMS DAILY ORAL 10/22/2021 11:22 Prescription Detail TAKE 25 MILLIGRAMS ORAL TOSIN Y Ipratropium 2248194 1 UNIT FOUR TIMES A INHALATION 09/24 11:21 [place]-Albuterol DAY Sulfate 0.5MG/3ML-3MG/3ML Inhalation Solution Prescription Detail 1 UNIT INHALATION FOUR TIME S A DAY (with nebulizer) Medications Administered During Visit Unknown or Not Available. Encounters Encounter Diagnosis Diagnosis Code Start Date Chronic obstructive pulmonary disease with (acute) J441 12/06/2021 exacerbation Social History Smoking Status Code Start Date End Date Former smoker [id number] Patient Decision Aids Unknown or Not Available. Discharge Instructions You were admitted to [facility] on 12/06/2021 11:30 with a principal diagnosis of Chronic obstructive pulmonary disease with (acute) exacerbation You were discharged from [facility] on 12/13/2021 11:30 Should you have any questions prior to d ischarge, please contact a member of your healthcare team. If you have left the spital and have any questions, please contact your primary care physician. Chief Complaint and Reason For Visit Unknown or Not Available. Function Status Unknown or Not Available. Plan of Care Unknown or Not Available. Referral/Transition of Care Unknown or Not Available.
--- OUTSIDE RECORDS SUMMARY | 2022-05-05 12:10 | XMS_ITS | CCD ---
:1950 Author Care Team Providers Name Role Phone MIAH ENRIQUEZ Attending Physician Unavailable Vital Signs Unknown or Not Available. Allergies Allergy Code Allergy Type Reaction Status No Known Drug Allergies 0 No known drug allergies Active Procedures Unknown or Not Available. History of Immunizations Unknown or Not Available. Problems Problem Code Start Date Resolved Date Status HTN 47118024 Active COPD with exacerbation 883514860 Activ e Hypoxia 159649684 Active Hypercapnic respiratory failure 615452236 Active Anxiety disorder 354571729 Active Results BUN (UREA NITROGEN)* - Collect Date/Time : 03/10/2022 09:26 Test Name Code Test Result Test Units Test Ref Range BUN 3094-0 15 mg/dL L=6 H=25 CREATININE SERUM - Collect Date/Time: 09:26 Test Name Code Test Result Test Units Test Ref Range CREATININE 2160-0 0.79 mg/dL L=0.67 H=1.17 AGE 71 years eGFR (non-Afr.Amer.) 71942-0 96 mL/min eGFR (Afr-Samoan) 46306-3 117 mL/min Active Medications Medication Code Dose Units Frequency Route Modification Start Date/Time LORazepam 722359 0.5 MILLIGRAMS FOUR TIMES A ORAL 2021 0.5MG Oral DAY 09:46 Tablet Prescription Detail TAKE 0.5 MILLIGRAMS ORAL FOU R TIMES A DAY predniSONE 5MG Oral Tablet 062722 6 TABLET DAILY ORAL 12/13/2021 09:45 Prescription Detail TAKE 6 TABLET ORAL DAILY Sertraline HCl 100MG 467783 100 MILLIGRAMS BEDTIME ORAL 12/13/2021 09:44 Oral Tablet Prescription Detail TAKE 100 MILLIGRAMS ORAL BED TIME Atorvastatin Calcium 499091 40 MILLIGRAMS BEDTIME ORAL 11/15/2021 09:43 AvPak 40MG Oral Tablet Prescription Detail TAKE 40 MILLIGRAMS ORAL BEDT DEYA Aspir 81 81MG Oral Tablet, 261824 81 MILLIGRAMS DAILY ORAL 10/22/2021 11:22 Enteric Coated Prescription Detail TAKE 81 MILLIGRAMS ORAL TOSIN Y Cozaar 25MG Oral Tablet 272233 25 MILLIGRAMS DAILY ORAL 10/22/2021 11:22 Prescription Detail TAKE 25 MILLIGRAMS ORAL TOSIN Y Ipratropium 0611445 1 UNIT FOUR TIMES A INHALATION 09/24 11:21 [place]-Albuterol DAY Sulfate 0.5MG/3ML-3MG/3ML Inhalation Solution Prescription Detail 1 UNIT INHALATION FOUR TIME S A DAY (with nebulizer) Medications Administered During Visit Unknown or Not Available. Encounters Encounter Diagnosis Diagnosis Code Start Date Malignant neoplasm of unspecified part of right bronchus C34 91 03/10/2022 or lung Social History Smoking Status Code Start Date End Date Former smoker [id number] Patient Decision Aids Unknown or Not Available. Discharge Instructions You were admitted to on 03/10/2022 08:53 with a principal diagnosis of Malignant neoplasm of unspecified par t of right bronchus or lung You had the following tests done: BUN ( UREA NITROGEN)* CREATININE SERUM You were discharged from on 03/10/2022 08:53 Should you have any questions prior to d ischarge, please contact a member of your healthcare team. If you have left the ho spital and have any questions, please contact your primary care physician. Chief Complaint and Reason For Visit Chief Complaint Date of Onset NSCLC RT LUNG Function Status Unknown or Not Available. Plan of Care Unknown or Not Available. Referral/Transition of Care Unknown or Not Available.
--- OUTSIDE RECORDS SUMMARY | 2022-05-05 12:10 | XMS_ITS | Encounter Summary ---
:1950 Author Organization [facility] Address [address] [place] [address] Care Team Providers Name Role Phone Unknown, Provider Primary Care Provider Encounter Details Date Type Department Care Team Description 11/20/2018 Results Only [facility]- Unknown, [facility] ProviderMD [phone] Social History Tobacco Use Types Packs/Day Years Used Date Never Assessed Sex Assigned at Date Recorded Male 02/19/2021 14:37 EDT documented as of this encounter Plan of Treatment Upcoming Encounters Date Type Specialty Care Team Description 09/26/2022 Office Visit Hematology and Oncology Nessa Sullivan MD [address] [facility], [facility], [facility] [address] [place], [place] [phone] (Wo rk) Pending Results Name Type Priority Associated Diagnoses Date/Ti me OUTSIDE IMAGES - US BODY Imaging 14:32 EST documented as of this encounter Visit Diagnoses Not on filedocumented in this encounter Care Teams Diesel Engineer Relationship Specialty Start Date End Date Unknown, Provider, PCP - General 10/06/17 08/22/20 documented as of this encounter
--- OUTSIDE RECORDS SUMMARY | 2022-05-05 12:10 | XMS_ITS | CCD ---
:1950 Author Care Team Providers Name Role Phone AMI HUTCHISON Attending Physician Unavailable JESSIE LOMELI Er Physician 1 Unavailable JESSIE LOMELI Rounding (Secondary) Physician UnavailREGIS Allan Registered Nurse Unavailable SKERWIN Banegas Registered Nurse Unavailable JOHNATHAN Espinoza Registered Nurse Unavailable Vital Signs Vital Sign Value Unit Date/Time Recent/Initial? BMI (Body Mass Index) 25.83 kg/m^2 12/06/2021 03:13 In itial VS Weight Measured 180 lbs 12/06/2021 03:13 Initial VS Height 70 in 12/06/2021 03:13 Initial VS BSA (Body Surface Area) 2.01 m^2 12/06/2021 03:13 Initial VS Respiratory Rate 25 bpm 12/06/2021 03:17 Initial VS Heart Rate 118 bpm 12/06/2021 03:17 Initial VS O2 % BldC Oximetry 96 % 12/06/2021 03:17 Initi al VS Body Temperature 36.4 degrees 12/06/2021 03:17 Initial VS BP Systolic 157 mmHg 12/06/2021 03:27 Initial VS BP Diastolic 97 mmHg 12/06/2021 03:27 Initial VS BMI (Body Mass Index) 25.83 kg/m^2 12/08/2021 08:[address] Recent VS Weight Measured 180.01 lbs 12/08/2021 08:16 Most Rec ent VS Height 70 in 12/08/2021 08:16 Most Recent VS BSA (Body Surface Area) 2.01 m^2 12/08/2021 08:16 Most Recent VS BP Systolic 145 mmHg 12/13/2021 07:10 Most Recent VS BP Diastolic 93 mmHg 12/13/2021 07:10 Most Recent VS Body Temperature 36.7 degrees 12/13/2021 07:10 Most Re cent VS O2 % BldC Oximetry 95 % 12/13/2021 07:30 Most Recent VS Respiratory Rate 22 bpm 12/13/2021 11:06 Most Re cent VS Heart Rate 108 bpm 12/13/2021 11:06 Most Recent VS Allergies Allergy Code Allergy Type Reaction Status No Known Drug Allergies 0 No known drug allergies Active Procedures Unknown or Not Available. History of Immunizations Unknown or Not Available. Problems Problem Code Start Date Resolved Date Status HTN 93267351 Active COPD with exacerbation 248672086 Activ e Hypoxia 692006829 Active Hypercapnic respiratory failure 184374686 Active Anxiety disorder 536082512 Active Results BASIC METABOLIC PANEL (BMP) - Collect Da te/Time: 12/12/2021 06:25 Test Name Code Test Result Test Units Test Ref Range GLUCOSE 2345-7 96 mg/dL L=70 H=116 BUN 3094-0 10 mg/dL L=6 H=25 CREATININE 2160-0 0.68 mg/dL L=0.67 H=1.17 SODIUM SERUM 2951-2 133 mmol/L L=136 H=145 POTASSIUM SERUM 2823-3 3.5 mmol/L L=3.4 H=5.2 CHLORIDE SERUM 2075-0 94 mmol/L L=96 H=110 CARBON DIOXIDE (CO2) 2028-9 35 mmol/L L=22 H= 34 ANION GAP 92484-4 4.3 mmol/L CALCIUM SERUM 06656-7 8.9 mg/dL L=8.2 H=10.2 AGE 71 years eGFR (non-Afr.Amer.) 03602-4 115 mL/min eGFR (Afr-French) 51312-5 >120 mL/min BASIC METABOLIC PANEL (BMP) - Collect Da te/Time: 12/07/2021 06:15 Test Name Code Test Result Test Units Test Ref Range GLUCOSE 2345-7 113 mg/dL L=70 H=116 BUN 3094-0 7 mg/dL L=6 H=25 CREATININE 2160-0 0.60 mg/dL L=0.67 H=1.17 SODIUM SERUM 2951-2 130 mmol/L L=136 H=145 POTASSIUM SERUM 2823-3 3.8 mmol/L L=3.4 H=5.2 CHLORIDE SERUM 2075-0 93 mmol/L L=96 H=110 CARBON DIOXIDE (CO2) 2028-9 32 mmol/L L=22 H= 34 ANION GAP 85736-6 5.1 mmol/L CALCIUM SERUM 03668-9 8.1 mg/dL L=8.2 H=10.2 AGE 71 years eGFR (non-Afr.Amer.) 37773-6 >120 mL/min eGFR (Afr-French) 33909-1 >120 mL/min COMPREHENSIVE METABOLIC PANEL (CMP) - Co llect Date/Time: 12/06/2021 03:09 Test Name Code Test Result Test Units Test Ref Range GLUCOSE 107 mg/dL L=70 H=116 BUN 11 mg/dL L=6 H=25 CREATININE 0.68 mg/dL L=0.67 H=1.17 SODIUM SERUM 125 mmol/L L=136 H=145 POTASSIUM SERUM 4.7 mmol/L L=3.4 H=5.2 CHLORIDE SERUM 88 mmol/L L=96 H=110 CARBON DIOXIDE (CO2) 34 mmol/L L=22 H= 34 ANION GAP 3.5 mmol/L CALCIUM SERUM 8.7 mg/dL L=8.2 H=10.2 BILIRUBIN TOTAL 1.3 mg/dL L=0.0 H=1.3 ALK. PHOS. 91 U/L L=46 H=116 SGOT (AST) 50 U/L L=15 H=37 SGPT (ALT) 43 U/L L=12 H=78 TOTAL PROTEIN 8.0 gm/dL L=6.0 H=8.0 ALBUMIN 4.3 gm/dL L=3.4 H=5.0 AGE 71 years eGFR (non-Afr.Amer.) 115 mL/min eGFR (Afr-French) 139 mL/min LACTIC ACID - Collect Date/Time: 03:09 Test Name Code Test Result Test Units Test Ref Range LACTIC ACID 55994-2 2.2 mmol/L L=0.7 H=2.1 MAGNESIUM SERUM* - Collect Date/Time: 03:09 Test Name Code Test Result Test Units Test Ref Range MAGNESIUM 03456-6 2.0 mg/dL L=1.8 H=2.4 TROPONIN HIGH SENSITIVITY* - Collect [place] e/Time: 12/06/2021 03:09 Test Name Code Test Result Test Units Test Ref Range TROPONIN HS 10.8 pg/mL L=0.0 H=60.4 Specimen seq. Random N/A CBC W/ DIFFERENTIAL* - Collect Date/Time : 12/12/2021 06:25 Test Name Code Test Result Test Units Test Ref Range WBC 6690-2 7.02 th/cmm L=5.00 H=10.00 NEUT % 61.0 % L=40.0 H=80.0 LYMPH % 24.4 % L=10.0 H=50.0 MONO % 36552-2 7.5 % L=2.0 H=12.0 EOS % 5.8 % L=0.0 H=8.0 BASO % 0.4 % L=0.0 H=3.0 IG % 2514-8 0.9 % L=0.0 H=1.1 NRBC % 71498-6 0.0 % L=0.0 H=0.0 NEUT abs count 751-8 4.3 th/cmm L=1.6 H=8.4 LYMPH abs count 731-0 1.7 th/cmm L=1.5 H=4.0 MONO abs count 742-7 0.5 th/cmm L=0.2 H=1.0 EOS abs count 711-2 0.4 th/cmm L=0.0 H=0.5 BASO abs count 704-7 0.0 th/cmm L=0.0 H=0.2 IG abs count 87227-4 0.1 th/cmm L=0.0 H=0.1 NRBC abs count 75692-5 0.0 mil/cmm L=0.0 H=0.0 RBC 789-8 4.44 mil/cmm L=4.30 H=6.20 HEMOGLOBIN 718-7 14.6 gm/dL L=13.0 H=17.0 HEMATOCRIT 4544-3 43 % L=45 H=52 MCV 787-2 98 fL L=82 H=92 MCH 785-6 32.9 pg L=27.0 H=31.0 MCHC 786-4 33.7 % L=32.0 H=36.0 RDW-SD 788-0 50.0 fL L=39.0 H=49.0 PLATELET COUNT 777-3 208 th/cmm L=150 H=450 CBC W/ DIFFERENTIAL* - Collect Date/Time : 12/07/2021 06:15 Test Name Code Test Result Test Units Test Ref Range WBC 6690-2 5.88 th/cmm L=5.00 H=10.00 NEUT % 79.8 % L=40.0 H=80.0 LYMPH % 12.4 % L=10.0 H=50.0 MONO % 23034-5 7.1 % L=2.0 H=12.0 EOS % 0.2 % L=0.0 H=8.0 BASO % 0.2 % L=0.0 H=3.0 IG % 2514-8 0.3 % L=0.0 H=1.1 NRBC % 59761-9 0.0 % L=0.0 H=0.0 NEUT abs count 751-8 4.7 th/cmm L=1.6 H=8.4 LYMPH abs count 731-0 0.7 th/cmm L=1.5 H=4.0 MONO abs count 742-7 0.4 th/cmm L=0.2 H=1.0 EOS abs count 711-2 0.0 th/cmm L=0.0 H=0.5 BASO abs count 704-7 0.0 th/cmm L=0.0 H=0.2 IG abs count 62203-7 0.0 th/cmm L=0.0 H=0.1 NRBC abs count 49312-6 0.0 mil/cmm L=0.0 H=0.0 RBC 789-8 4.51 mil/cmm L=4.30 H=6.20 HEMOGLOBIN 718-7 14.7 gm/dL L=13.0 H=17.0 HEMATOCRIT 4544-3 43 % L=45 H=52 MCV 787-2 94 fL L=82 H=92 MCH 785-6 32.6 pg L=27.0 H=31.0 MCHC 786-4 34.6 % L=32.0 H=36.0 RDW-SD 788-0 45.5 fL L=39.0 H=49.0 PLATELET COUNT 777-3 162 th/cmm L=150 H=450 CBC W/ DIFFERENTIAL* - Collect Date/Time : 12/06/2021 03:09 Test Name Code Test Result Test Units Test Ref Range WBC 6690-2 10.03 th/cmm L=5.00 H=10.00 NEUT % 67.3 % L=40.0 H=80.0 LYMPH % 17.2 % L=10.0 H=50.0 MONO % 32906-3 8.9 % L=2.0 H=12.0 EOS % 5.6 % L=0.0 H=8.0 BASO % 0.7 % L=0.0 H=3.0 IG % 2514-8 0.3 % L=0.0 H=1.1 NRBC % 35114-3 0.0 % L=0.0 H=0.0 NEUT abs count 751-8 6.8 th/cmm L=1.6 H=8.4 LYMPH abs count 731-0 1.7 th/cmm L=1.5 H=4.0 MONO abs count 742-7 0.9 th/cmm L=0.2 H=1.0 EOS abs count 711-2 0.6 th/cmm L=0.0 H=0.5 BASO abs count 704-7 0.1 th/cmm L=0.0 H=0.2 IG abs count 38840-2 0.0 th/cmm L=0.0 H=0.1 NRBC abs count 63089-0 0.0 mil/cmm L=0.0 H=0.0 RBC 789-8 4.89 mil/cmm L=4.30 H=6.20 HEMOGLOBIN 718-7 16.0 gm/dL L=13.0 H=17.0 HEMATOCRIT 4544-3 46 % L=45 H=52 MCV 787-2 95 fL L=82 H=92 MCH 785-6 32.7 pg L=27.0 H=31.0 MCHC 786-4 34.6 % L=32.0 H=36.0 RDW-SD 788-0 46.3 fL L=39.0 H=49.0 PLATELET COUNT 777-3 154 th/cmm L=150 H=450 BRYAN COVID FLU RSV GENEXPERT - Collect Date/Time: 12/06/2021 03:21 Test Name Code Test Result Test Units Test Ref Range COVID 86287-2 NEGATIVE N/A Normal: Negativ e INFLUENZA A DNA 56478-3 NEGATIVE N/A Normal: Nega tive INFLUENZA B DNA 80481-8 NEGATIVE N/A Normal: Nega tive RSV DNA 45720-7 NEGATIVE N/A Normal: Negativ e ORDER VENOUS BLOOD GAS* - Collect Date/T park: 12/06/2021 03:33 Test Name Code Test Result Test Units Test Ref Range pH (venous) 2746-6 7.35 L=7.31 H=7.41 2 (venous) 63 HCO3 1960-4 35 mmol/L L=22 H=26 TCO2 (venous) 3533-7 37 mmol/L L=22 H=28 BASE EXCESS (venous) 3097-3 10 mmol/L L=-2 H= 3 Specimen type: VENOUS N/A Active Medications Medication Code Dose Units Frequency Route Modification Start Date/Time LORazepam 103656 0.5 MILLIGRAMS FOUR TIMES A ORAL 2021 0.5MG Oral DAY 09:46 Tablet Prescription Detail TAKE 0.5 MILLIGRAMS ORAL FOU R TIMES A DAY predniSONE 5MG Oral Tablet 648673 6 TABLET DAILY ORAL 12/13/2021 09:45 Prescription Detail TAKE 6 TABLET ORAL DAILY Sertraline HCl 100MG 721885 100 MILLIGRAMS BEDTIME ORAL 12/13/2021 09:44 Oral Tablet Prescription Detail TAKE 100 MILLIGRAMS ORAL BED TIME Atorvastatin Calcium 947505 40 MILLIGRAMS BEDTIME ORAL 11/15/2021 09:43 AvPak 40MG Oral Tablet Prescription Detail TAKE 40 MILLIGRAMS ORAL BEDT [place] Aspir 81 81MG Oral Tablet, 965364 81 MILLIGRAMS DAILY ORAL 10/22/2021 11:22 Enteric Coated Prescription Detail TAKE 81 MILLIGRAMS ORAL TOSIN Y Cozaar 25MG Oral Tablet 524534 25 MILLIGRAMS DAILY ORAL 10/22/2021 11:22 Prescription Detail TAKE 25 MILLIGRAMS ORAL TOSIN Y Ipratropium 0774062 1 UNIT FOUR TIMES A INHALATION 09/24 11:21 [place]-Albuterol DAY Sulfate 0.5MG/3ML-3MG/3ML Inhalation Solution Prescription Detail 1 UNIT INHALATION FOUR TIME S A DAY (with nebulizer) Medications Administered During Visit Medication Dose Units Frequency Route Date/Time of L ast Dose PredniSONE TABLET: 20MG 40 MG DAILY WITH FOOD PO 12/11/2021 08:32 PredniSONE TABLET: 10MG 30 MG DAILY WITH FOOD PO 12/13/2021 09:20 AZITHROMYCIN TABLET: 250MG 250 MG DAILY PO 12/11/2021 08:32 ALBUTEROL/IPRATROP 3 ML X1 INH 2021 03:26 UPDRAFT:2.5/0.5MG/3ML SODIUM CHLORIDE 0.9% 500ML 500 ML X1 IV 12/06/2021 04:00 AZITHROMYCIN IVPB: 500 MG X1 IVPB 2021 05:26 500MG/250ML CefTRIAXone IVPB: 1GM/50ML 1 GM X1 IVPB 12/06/2021 04:44 ALBUTEROL/IPRATROP 3 ML X1 INH 2021 06:18 UPDRAFT:2.5/0.5MG/3ML ALBUTEROL/IPRATROP 3 ML QID RESP INH 2021 11:05 UPDRAFT:2.5/0.5MG/3ML LOSARTAN TABLET: 25MG 25 MG DAILY PO 09:19 ATORVASTATIN TABLET: 40MG 40 MG BEDTIME PO 12/12/2021 20:19 ASPIRIN TABLET E.C.: 81MG 81 MG DAILY WITH FOOD PO 12/13/2021 09:21 ARFORMOTEROL NEB SOLN: 15 MCG BID RESP INH 07:30 15MCG/2ML LACTOBACILLUS ACIDOPHILUS 250 M BID PO 12/09/2021 08:15 CAPLET: 250MG LACTOBACILLUS ACIDOPHILUS 250 M X1 PO 12/07/2021 14:53 CAPLET: 250MG CefTRIAXone IVPB: 1GM/50ML 1 GM Q24H IVPB 12/06/2021 20:23 BUDESONIDE UPDRAFT: 0.5 MG BID RESP INH 12/13 07:26 0.5MG/2ML SODIUM CHLORIDE 0.9% 1000 ML CONT IV 11/23 06:01 1000ML PredniSONE TABLET: 20MG 40 MG BID PO 0 12/08/2021 08:21 LORazepam TABLET: 0.5MG 0.5 MG PRN Q4H PO 0 12/09/2021 09:56 LORazepam TABLET: 0.5MG 0.5 MG X1 PO 0 12/08/2021 09:54 LACTOBACILLUS ACIDOPHILUS 250 M BID PO 12/13/2021 09:22 CAPLET: 250MG GuaiFENesin EXT RELEASE 600 MG Q12H PO 0 12/13/2021 09:20 TABLET: 600MG LORazepam TABLET: 0.5MG 0.5 MG QID PO 0 12/13/2021 12:40 SERTRALINE TABLET: 50MG 50 MG BEDTIME PO 0 12/08/2021 20:45 SERTRALINE TABLET: 100MG 100 MG BEDTIME PO 12/12/2021 20:19 Encounters Encounter Diagnosis Diagnosis Code Start Date Chronic obstructive pulmonary disease with (acute) J441 12/06/2021 exacerbation Social History Smoking Status Code Start Date End Date Former smoker [id number] Patient Decision Aids Unknown or Not Available. Discharge Instructions You were admitted to [facility] on 12/06/2021 10:02 with a principal diagnosis of Chronic Obstructive Pulmonary Disease You had the following tests done: BASIC METABOLIC PANEL (BMP) CBC W/ DIFFERENTIAL* BASIC METABOLIC PANEL (BMP) CBC W/ DIFFE RENTIAL* ORDER VENOUS BLOOD GAS* [facility] COVID FLU RSV GENEXPERT CBC W/ DIFFERENTIAL* C OMPREHENSIVE METABOLIC PANEL (CMP) LACTIC ACID MAGNESIUM SERUM* TROPONIN HIGH SENS ITIVITY* You were discharged from [facility] on 12/13/2021 15:05 Should you have any questions prior to d ischarge, please contact a member of your healthcare team. If you have left the ho spital and have any questions, please contact your primary care physician. Chief Complaint and Reason For Visit Chief Complaint Date of Onset COPD EXACERBATION 12/06/2021 Function Status Unknown or Not Available. Plan of Care Unknown or Not Available. Referral/Transition of Care Unknown or Not Available.
--- OUTSIDE RECORDS SUMMARY | 2022-05-05 12:10 | XMS_ITS | CCD ---
:1950 Author Care Team Providers Name Role Phone ELEANOR MALONEY Attending Physician Unavailable TANYA WHITMORE (Secondary) Physician Unavailab zi Vital Signs Unknown or Not Available. Allergies Unknown or Not Available. Procedures Unknown or Not Available. History of Immunizations Unknown or Not Available. Problems Problem Code Start Date Resolved Date Status HTN 28336371 Active COPD with exacerbation 864577147 Activ e Hypoxia 546683718 Active Hypercapnic respiratory failure 306117243 Active Anxiety disorder 307681677 Active COPD 21363362 11/12/2021 Resolved Results Unknown or Not Available. Active Medications Medication Code Dose Units Frequency Route Modification Start Date/Time LORazepam 0.5 MILLIGRAMS FOUR TIMES A ORAL 2021 0.5MG Oral DAY 09:46 Tablet Prescription Detail TAKE 0.5 MILLIGRAMS ORAL FOU R TIMES A DAY predniSONE 5MG Oral Tablet 626526 6 TABLET DAILY ORAL 12/13/2021 09:45 Prescription Detail TAKE 6 TABLET ORAL DAILY Sertraline HCl 100MG 555557 100 MILLIGRAMS BEDTIME ORAL 12/13/2021 09:44 Oral Tablet Prescription Detail TAKE 100 MILLIGRAMS ORAL BED TIME Atorvastatin Calcium 241254 40 MILLIGRAMS BEDTIME ORAL 11/15/2021 09:43 AvPak 40MG Oral Tablet Prescription Detail TAKE 40 MILLIGRAMS ORAL BEDT DEYA Aspir 81 81MG Oral Tablet, 958429 81 MILLIGRAMS DAILY ORAL 10/22/2021 11:22 Enteric Coated Prescription Detail TAKE 81 MILLIGRAMS ORAL TOSIN Y Cozaar 25MG Oral Tablet 927512 25 MILLIGRAMS DAILY ORAL 10/22/2021 11:22 Prescription Detail TAKE 25 MILLIGRAMS ORAL TOSIN Y Ipratropium 7533451 1 UNIT FOUR TIMES A INHALATION 09/24 11:21 [place]-Albuterol DAY Sulfate 0.5MG/3ML-3MG/3ML Inhalation Solution Prescription Detail 1 UNIT INHALATION FOUR TIME S A DAY (with nebulizer) Medications Administered During Visit Unknown or Not Available. Encounters Encounter Diagnosis Diagnosis Code Start Date Acute respiratory failure with hypercapnia J9602 11/12/2021 Social History Unknown or Not Available. Patient Decision Aids Unknown or Not Available. Discharge Instructions You were admitted to [facility] on 11/12/2021 16:40 with a principal diagnosis of Acute respiratory failure with hyperc apnia You were discharged from [facility] on 11/12/2021 20:15 Should you have any questions prior to [...]
--- OUTSIDE RECORDS SUMMARY | 2022-05-05 12:10 | XMS_ITS | CCD ---
:1950 Author Care Team Providers Name Role Phone ELEANOR MALONEY Attending Physician Unavailable ELEANOR MALONEY Rounding (Secondary) Physician Unavailab le Vital Signs Unknown or Not Available. Allergies Unknown or Not Available. Procedures Unknown or Not Available. History of Immunizations Unknown or Not Available. Problems Problem Code Start Date Resolved Date Status HTN 02619361 Active COPD with exacerbation 995853980 Activ e Hypoxia 005527920 Active Hypercapnic respiratory failure 817261890 Active Anxiety disorder 847612487 Active COPD 62361541 11/12/2021 Resolved Results Unknown or Not Available. Active Medications Medication Code Dose Units Frequency Route Modification Start Date/Time LORazepam 0.5 MILLIGRAMS FOUR TIMES A ORAL 2021 0.5MG Oral DAY 09:46 Tablet Prescription Detail TAKE 0.5 MILLIGRAMS ORAL FOU R TIMES A DAY predniSONE 5MG Oral Tablet 587453 6 TABLET DAILY ORAL 12/13/2021 09:45 Prescription Detail TAKE 6 TABLET ORAL DAILY Sertraline HCl 100MG 689306 100 MILLIGRAMS BEDTIME ORAL 12/13/2021 09:44 Oral Tablet Prescription Detail TAKE 100 MILLIGRAMS ORAL BED TIME Atorvastatin Calcium 668090 40 MILLIGRAMS BEDTIME ORAL 11/15/2021 09:43 AvPak 40MG Oral Tablet Prescription Detail TAKE 40 MILLIGRAMS ORAL BEDT DEYA Aspir 81 81MG Oral Tablet, 171462 81 MILLIGRAMS DAILY ORAL 10/22/2021 11:22 Enteric Coated Prescription Detail TAKE 81 MILLIGRAMS ORAL TOSIN Y Cozaar 25MG Oral Tablet 078719 25 MILLIGRAMS DAILY ORAL 10/22/2021 11:22 Prescription Detail TAKE 25 MILLIGRAMS ORAL TOSIN Y Ipratropium 8312256 1 UNIT FOUR TIMES A INHALATION 09/24 11:21 [place]-Albuterol DAY Sulfate 0.5MG/3ML-3MG/3ML Inhalation Solution Prescription Detail 1 UNIT INHALATION FOUR TIME S A DAY (with nebulizer) Medications Administered During Visit Unknown or Not Available. Encounters Encounter Diagnosis Diagnosis Code Start Date Chronic obstructive pulmonary disease with (acute) J441 11/12/2021 exacerbation Social History Smoking Status Code Start Date End Date Former smoker [id number] Patient Decision Aids Unknown or Not Available. Discharge Instructions You were admitted to [facility] on 11/12/2021 08:50 with a principal diagnosis of Chronic obstructive pulmonary disease with (acute) exacerbation You were discharged from [facility] on 11/15/2021 08:50 Should you have any questions prior to [...]
--- OUTSIDE RECORDS SUMMARY | 2022-05-05 12:10 | XMS_ITS | Encounter Summary ---
:1950 Author Organization [facility] Address [address] [place] [address] Care Team Providers Name Role Phone Unknown, Provider Primary Care Provider Reason for Visit Reason Onset Date Comments Appointment Related 12/18/2018 Encounter Details Date Type Department Care Team Description 12/18/2018 Telephone [facility] Jigar Dowling Appoin tment Related Pulmonology & Critical MD [facility] - [phone] [place] [address] [place] [address] (Wo rk) Social History Tobacco Use Types Packs/Day Years Used Date Never Assessed Sex Assigned at Date Recorded Male 02/19/2021 14:37 EDT documented as of this encounter Miscellaneous Notes Telephone Encounter - Janet Tejeda - 12/18/2018 1226 EST Received letter from patient stating that he will not be coming to the 01/07/[address] Dowling due to poor road conditions and travel difficulties. Appointment has been cancelled and the patients PCP has been notified. (Letter scaned into patients chart) documented in this encounter Plan of Treatment Upcoming Encounters Date Type Specialty Care Team Description 09/26/2022 Office Visit Hematology and Oncology Nessa Sullivan MD [address] [facility], [address] [place], [place] [phone] (Wo rk) documented as of this encounter Visit Diagnoses Not on filedocumented in this encounter Care Teams Malter Operator Relationship Specialty Start Date End Date Unknown, Provider, PCP - General 10/06/17 08/22/20 documented as of this encounter
--- OUTSIDE RECORDS SUMMARY | 2022-05-05 12:10 | XMS_ITS | CCD ---
:1950 Author Care Team Providers Name Role Phone AMI HUTCHISON Attending Physician Unavailable MINA PRAKASH Er Physician 1 Unavailable MARIE ORDAZ (Secondary) Physician UnavailISREAL Donohue Registered Nurse Unavailable Vital Signs Vital Sign Value Unit Date/Time Recent/Initial? BMI (Body Mass Index) 25.83 kg/m^2 10/20/2021 08:45 In itial VS Weight Measured 180 lbs 10/20/2021 08:45 Initial VS Height 70 in 10/20/2021 08:45 Initial VS BSA (Body Surface Area) 2.01 m^2 10/20/2021 08:45 Initial VS BP Systolic 158 mmHg 10/20/2021 08:45 Initial VS BP Diastolic 105 mmHg 10/20/2021 08:45 Initial VS Respiratory Rate 22 bpm 10/20/2021 08:45 Initial VS Heart Rate 125 bpm 10/20/2021 08:45 Initial VS O2 % BldC Oximetry 82 % 10/20/2021 08:45 Initi al VS Body Temperature 36.7 degrees 10/20/2021 08:45 Initial VS BP Systolic 137 mmHg 10/22/2021 11:56 Most Recent VS BP Diastolic 74 mmHg 10/22/2021 11:56 Most Recent VS Body Temperature 36.9 degrees 10/22/2021 11:56 Most Re cent VS Respiratory Rate 18 bpm 10/22/2021 12:12 Most Re cent VS Heart Rate 130 bpm 10/22/2021 12:31 Most Recent VS O2 % BldC Oximetry 91 % 10/22/2021 12:31 Most Recent VS Allergies Unknown or Not Available. Procedures Unknown or Not Available. History of Immunizations Unknown or Not Available. Problems Problem Code Start Date Resolved Date Status HTN 71493627 Active COPD with exacerbation 396146991 Activ e Hypoxia 639202296 Active Hypercapnic respiratory failure 260817605 Active Anxiety disorder 613788067 Active Cancer 168658190 10/20/2021 Resolved Hypertension 69700486 10/20/2021 Resolved COPD 03139061 11/12/2021 Resolved Results BASIC METABOLIC PANEL (BMP) - Collect Da te/Time: 10/21/2021 06:38 Test Name Code Test Result Test Units Test Ref Range GLUCOSE 2345-7 117 mg/dL L=70 H=116 BUN 3094-0 11 mg/dL L=6 H=25 CREATININE 2160-0 0.75 mg/dL L=0.67 H=1.17 SODIUM SERUM 2951-2 134 mmol/L L=136 H=145 POTASSIUM SERUM 2823-3 4.3 mmol/L L=3.4 H=5.2 CHLORIDE SERUM 2075-0 98 mmol/L L=96 H=110 CARBON DIOXIDE (CO2) 2028-9 32 mmol/L L=22 H= 34 ANION GAP 58157-1 4.5 mmol/L CALCIUM SERUM 13383-1 9.3 mg/dL L=8.2 H=10.2 AGE 71 years eGFR (non-Afr.Amer.) 33113-1 102 mL/min eGFR (Afr-Fijian) 91830-7 >120 mL/min COMPREHENSIVE METABOLIC PANEL (CMP) - Co llect Date/Time: 10/20/2021 08:30 Test Name Code Test Result Test Units Test Ref Range GLUCOSE 2345-7 114 mg/dL L=70 H=116 BUN 3094-0 8 mg/dL L=6 H=25 CREATININE 2160-0 0.78 mg/dL L=0.67 H=1.17 SODIUM SERUM 2951-2 133 mmol/L L=136 H=145 POTASSIUM SERUM 2823-3 3.9 mmol/L L=3.4 H=5.2 CHLORIDE SERUM 2075-0 93 mmol/L L=96 H=110 CARBON DIOXIDE (CO2) 2028-9 30 mmol/L L=22 H= 34 ANION GAP 94899-0 9.6 mmol/L CALCIUM SERUM 17308-7 9.5 mg/dL L=8.2 H=10.2 BILIRUBIN TOTAL 1975-2 0.7 mg/dL L=0.0 H=1.3 ALK. PHOS. 6768-6 131 U/L L=46 H=116 SGOT (AST) 1920-8 33 U/L L=15 H=37 SGPT (ALT) 1742-6 27 U/L L=12 H=78 TOTAL PROTEIN 2885-2 8.7 gm/dL L=6.0 H=8.0 ALBUMIN 1751-7 4.9 gm/dL L=3.4 H=5.0 AGE 71 years eGFR (non-Afr.Amer.) 47308-9 98 mL/min eGFR (Afr-Fijian) 38487-4 118 mL/min TROPONIN-I ADM.* - Collect Date/Time: 08:30 Test Name Code Test Result Test Units Test Ref Range TROPONIN-I 69441-7 <0.017 ng/mL L=0.000 H=0.060 CBC W/ DIFFERENTIAL* - Collect Date/Time : 10/21/2021 06:38 Test Name Code Test Result Test Units Test Ref Range WBC 6690-2 6.77 th/cmm L=5.00 H=10.00 NEUT % 77.7 % L=40.0 H=80.0 LYMPH % 15.2 % L=10.0 H=50.0 MONO % 60944-0 6.4 % L=2.0 H=12.0 EOS % 0.0 % L=0.0 H=8.0 BASO % 0.3 % L=0.0 H=3.0 IG % 2514-8 0.4 % L=0.0 H=1.1 NRBC % 26298-6 0.0 % L=0.0 H=0.0 NEUT abs count 751-8 5.3 th/cmm L=1.6 H=8.4 LYMPH abs count 731-0 1.0 th/cmm L=1.5 H=4.0 MONO abs count 742-7 0.4 th/cmm L=0.2 H=1.0 EOS abs count 711-2 0.0 th/cmm L=0.0 H=0.5 BASO abs count 704-7 0.0 th/cmm L=0.0 H=0.2 IG abs count 88193-3 0.0 th/cmm L=0.0 H=0.1 NRBC abs count 23225-2 0.0 mil/cmm L=0.0 H=0.0 RBC 789-8 4.71 mil/cmm L=4.30 H=6.20 HEMOGLOBIN 718-7 15.1 gm/dL L=13.0 H=17.0 HEMATOCRIT 4544-3 45 % L=45 H=52 MCV 787-2 95 fL L=82 H=92 MCH 785-6 32.1 pg L=27.0 H=31.0 MCHC 786-4 33.7 % L=32.0 H=36.0 RDW-SD 788-0 46.5 fL L=39.0 H=49.0 PLATELET COUNT 777-3 239 th/cmm L=150 H=450 CBC W/ DIFFERENTIAL* - Collect Date/Time : 10/20/2021 08:30 Test Name Code Test Result Test Units Test Ref Range WBC 6690-2 8.59 th/cmm L=5.00 H=10.00 NEUT % 58.5 % L=40.0 H=80.0 LYMPH % 18.2 % L=10.0 H=50.0 MONO % 30568-6 5.9 % L=2.0 H=12.0 EOS % 15.9 % L=0.0 H=8.0 BASO % 1.2 % L=0.0 H=3.0 IG % 2514-8 0.3 % L=0.0 H=1.1 NRBC % 98987-0 0.0 % L=0.0 H=0.0 NEUT abs count 751-8 5.0 th/cmm L=1.6 H=8.4 LYMPH abs count 731-0 1.6 th/cmm L=1.5 H=4.0 MONO abs count 742-7 0.5 th/cmm L=0.2 H=1.0 EOS abs count 711-2 1.4 th/cmm L=0.0 H=0.5 BASO abs count 704-7 0.1 th/cmm L=0.0 H=0.2 IG abs count 75327-6 0.0 th/cmm L=0.0 H=0.1 NRBC abs count 98289-9 0.0 mil/cmm L=0.0 H=0.0 RBC 789-8 4.95 mil/cmm L=4.30 H=6.20 HEMOGLOBIN 718-7 16.1 gm/dL L=13.0 H=17.0 HEMATOCRIT 4544-3 48 % L=45 H=52 MCV 787-2 96 fL L=82 H=92 MCH 785-6 32.5 pg L=27.0 H=31.0 MCHC 786-4 33.9 % L=32.0 H=36.0 RDW-SD 788-0 47.0 fL L=39.0 H=49.0 PLATELET COUNT 777-3 236 th/cmm L=150 H=450 BRYAN COVID FLU RSV GENEXPERT - Collect Date/Time: 10/20/2021 08:30 Test Name Code Test Result Test Units Test Ref Range COVID 53696-4 NEGATIVE N/A Normal: Negativ e INFLUENZA A DNA 85680-2 NEGATIVE N/A Normal: Nega tive INFLUENZA B DNA 12741-0 NEGATIVE N/A Normal: Nega tive RSV DNA 03363-6 NEGATIVE N/A Normal: Negativ e Active Medications Medications Administered During Visit Medication Dose Units Frequency Route Date/Time of L ast Dose MethylPREDNISolone SUC INJ 125 MG X1 IVP 10/20/2021 08:58 SDV:125MG/2ML ALBUTEROL/IPRATROP 3 ML X1 INH 2020 08:58 UPDRAFT:2.5/0.5MG/3ML CefTRIAXone IVPB: 1GM/50ML 1 GM X1 10/20/2021 09:43 AZITHROMYCIN IVPB: 500MG/250ML 500 MG X1 10/20/2021 09:43 ALBUTEROL/IPRATROP 3 ML X1 INH 2020 10:11 UPDRAFT:2.5/0.5MG/3ML ACETAMINOPHEN TABLET: 325MG 650 MG PRN Q4H PO 10/20/2021 20:21 POLYETHYLENE GLYCOL PACKET 17 GRAMS DAILY PO 10/21/2021 08:49 3350:17GM ALBUTEROL/IPRATROP 3 ML QID RESP INH 2020 12:11 UPDRAFT:2.5/0.5MG/3ML AZITHROMYCIN TABLET: 250MG 250 MG DAILY PO 10/22/2021 08:25 CefTRIAXone IVPB: 1GM/50ML 1 GM X1 10/21/2021 11:32 MethylPREDNISolone SUC INJ 40 MG Q8H IVP 10/22/2021 05:12 SDV:40MG/1ML BUDESONIDE UPDRAFT: 0.5MG/2ML 0.5 MG BID RESP INH 10/22/2021 08:35 ARFORMOTEROL NEB SOLN: 15MCG/2ML 15 MCG BID RESP INH 10/22/2021 08:35 PANTOPRAZOLE TABLET: 40MG 40 MG BID PO 10/22/2021 08:25 LOSARTAN TABLET: 25MG 25 MG DAILY PO 08:25 ASPIRIN TABLET E.C.: 81MG 81 MG DAILY PO 10/22/2021 08:25 ATORVASTATIN TABLET: 40MG 40 MG DAILY PO 10/22/2021 08:25 CefTRIAXone IVPB: 1GM/50ML 1 GM Q24H 10/22/2021 09:20 PredniSONE TABLET: 20MG 20 MG X1 PO 1 12:57 Encounters Encounter Diagnosis Diagnosis Code Start Date Chronic obstructive pulmonary disease with (acute) J441 10/20/2021 exacerbation Social History Smoking Status Code Start Date End Date Former smoker [id number] Patient Decision Aids Patient Decision Aid COPD (Chronic Obstructive Pulmonary Dise ase) Patient Portal Access Discharge Instructions You were admitted to [facility] on 10/20/2021 12:08 with a principal diagnosis of Chronic obstructive pulmonary disease with (acute) exacerbation You had the following tests done: BASIC METABOLIC PANEL (BMP) CBC W/ DIFFERENTIAL* CBC W/ DIFFERENTIAL* COMPREHENSIVE METAB OLIC PANEL (CMP) [facility] TROPONIN-I ADM.* You were discharged from [facility] on 10/22/2021 14:00 Should you have any questions prior to d ischarge, please contact a member of your healthcare team. If you have left the ho spital and have any questions, please contact your primary care physician. Chief Complaint and Reason For Visit Chief Complaint Date of Onset ACUTE COPD EXACERBATION 10/20/2021 Function Status Unknown or Not Available. Plan of Care Unknown or Not Available. Referral/Transition of Care Unknown or Not Available.
--- OUTSIDE RECORDS SUMMARY | 2022-05-05 12:10 | XMS_ITS | Encounter Summary ---
:1950 Author Organization [facility] Address [address] [place] [address] Care Team Providers Name Role Phone Unavailable Primary Care Provider Unavailable Encounter Details Date Type Department Care Team Description 10/04/2017 Hospital Encounter [facility] - Unknown, [facility] [phone] [place] [address] (Work) [place] [address] Social History Tobacco Use Types Packs/Day Years Used Date Never Assessed Sex Assigned at Date Recorded Male 02/19/2021 14:37 EDT documented as of this encounter Discharge Disposition Disposition Code Departure Means Destination Home or Self Usp documented in this encounter Plan of Treatment Upcoming Encounters Date Type Specialty Care Team Description 09/26/2022 Office Visit Hematology and Oncology Nessa Sullivan MD [address] [facility], [facility] [address] [place], [place] [address] (Wo rk) documented as of this encounter Visit Diagnoses Not on filedocumented in this encounter
--- OUTSIDE RECORDS SUMMARY | 2022-05-05 12:10 | XMS_ITS | Encounter Summary ---
:1950 Author Organization [facility] Address [address] [place] [address] Care Team Providers Name Role Phone Unknown, Provider Primary Care Provider Encounter Details Date Type Department Care Team Description 10/04/2017 Historical Results Only [facility] - Titi Terrazas, [facility] [place] [address] [place] [address] [place], [place] [phone] Social History Tobacco Use Types Packs/Day Years Used Date Never Assessed Sex Assigned at Date Recorded Male 02/19/2021 14:37 EDT documented as of this encounter Plan of Treatment Upcoming Encounters Date Type Specialty Care Team Description 09/26/2022 Office Visit Hematology and Oncology Nessa Sullivan MD [address] [facility], [facility], [facility] [address] [place], [place] [address] (Wo rk) documented as of this encounter Procedures Procedure Name Priority Date/Time Associated Diagnosis Comme nts CT CHEST LOW DOSE 10/04/2017 10:48 Result s for this LUNG SCREENING EST procedure are in the results section. US ABDOMINAL 10/04/2017 9:20 EST Results for this AORTA-ILIAC DUPLEX procedure are in (NC) the results section. CT CHEST LOW DOSE 10/04/2017 7:42 EST Res ults for this LUNG SCREENING procedure are in the results section. documented in this encounter Results CT CHEST LOW DOSE LUNG SCREENING (10/04/2017 10:48 EST) Specimen Narrative [facility] - 10/04/2017 10:48 EST ? EXAM: CAT SCAN/CHEST LOW DOSE LUNG SCREEN EX. D/ (0805) ? CLINICAL INFORMATION: ? Z72.0 TOBACCO USE, CURRENT SMOKER ? NO SIGNS OR SX'S OF LUNG CA, ASYM PTOMATIC OF URI ? 1PPD X 40+ YEARS, SHARED DECISION ? CHEST LOW DOSE LUNG SCREENING ??1 12/05/2016 8:39 AM ? Clinical History/Comments: ? tobacco use, current smoker no si gns or sx's of lung ca, ? asymptomatic of uri 1ppd x 40 + y ears, shared decision ? Technique: ? A single breath-hold helical CT a cquisition was performed through ? the chest on a multidetector-row scanner with a reconstructed slice ? thickness of 3 mm and retrospecti vely reconstructed 0.9 mm thick ? sections with 0.45 mm overlapping intervals. ??The scans were ? obtained from the lung apices thr ough the bases without IV contrast. ? Dose was adjusted between 1.0 and 1.5 milliSieverts for low dose ? screening purposes. Scans were re viewed on a dedicated PACS ? workstation for analysis. ? Comparison: ? None ? Findings: ? Lung Screening Specific (LungRADS ) findings: ? *There is a well-circumscribed, s lightly lobulated solid nodule ? within the right middle lobe late ral segment abutting the pleural ? surface. This measures 1.8 x 1.3 x 1.8 cm, and demonstrates small ? regions of fat on histogram rae sis. There may be a small focal ? calcification within. There are a few scattered calcified granulomas. ? Potentially Significant Incidenta ls (LungRADS Category S): None ? Pulmonary Incidentals: Extensive centrilobular emphysema, diffuse ? large airways thickening consiste nt with chronic bronchitis. ? Other incidentals: Calcified plaq ues of the coronary arteries and ? aorta. ? ACR Reportable Incidentals: ??Cor onary Arterial Calcification - ? Moderate ? Impression: ? 1. LungRADS category 1 (Negative) ??Findings: ??The nodule detailed ? above within the right middle lob e has features consistent with a ? benign hamartoma. As these can gr ow over time, this can be ? reassessed annually with low dose lung cancer screening CT. ? 2. LungRADS category S: ??Negativ e, no new or potentially significant ? incidental findings requiring urg ent additional evaluation. ? 3. Incidental findings as above. ? RECOMMENDATIONS: ??Routine low do se CT lung screening. ??Suggest next ? PAGE 1 ? Jane d Report ? (CONTINUED) ? low dose CT exam or follow up on or around 12 months from today. ? Continued ??low dose CT lung canc er screening should be based upon ? continued eligibility depending u tin age and smoking history. ? This report utilizes the CT Lung Screening Reporting and Data System ? (ACR LungRADS version 1.0) as bel ow: ? Category 0: Incomplete (part or a ll of lung cannot be evaluated, or ? prior chest CT being located for comparison) ? Category 1: Negative (no nodules or definitely benign nodules) ? Category 2: Benign appearance or behavior (nodules with very low ? likelihood of becoming a clinical ly active cancer, risk of ? malignancy <1%) ? Category 3: Probably benign (prob ably benign finding - short term ? follow up suggested, risk of rafaela gnancy 1-2%) ? Category 4: Suspicious (additiona l diagnostic testing or tissue ? sampling recommended) ? Modifiers to Categories 1-4: ? Category C: Prior diagnosis of lakesha ng cancer returning to screening ? Category S: Potentially significa nt ancillary finding requiring ? urgent additional evaluation. ? REPORT SIGNED IN OTHER VENDOR SYSTEM 10/04/2017 ?Reported B y: Gene Andarde MD ? CC: ? Transcribed Date/Time: 10/04/2017 (1048) ? Application Development Consultant: [facility] ? Printed Date/Time: 04/10/2019 (14 37) ? PAGE 2 ? Jane d Report ? Procedure Note Gene Andrade MD - 08/28/2019 EXAM: CAT SCAN/CHEST LOW DOSE LUNG SCRE EN EX. D/ (0805) CLINICAL INFORMATION: Z72.0 TOBACCO USE, CURRENT SMOKER NO SIGNS OR SX'S OF LUNG CA, ASYMPTOMAT IC OF URI 1PPD X 40+ YEARS, SHARED DECISION CHEST LOW DOSE LUNG SCREENING 7 8:39 AM Clinical History/Comments: tobacco use, current smoker no signs or sx's of lung ca, asymptomatic of uri 1ppd x 40 + years, shared decision Technique: A single breath-hold helical CT acquisi tion was performed through the chest on a multidetector-row scanne r with a reconstructed slice thickness of 3 mm and retrospectively r econstructed 0.9 mm thick sections with 0.45 mm overlapping inter vals. The scans were obtained from the lung apices through t he bases without IV contrast. Dose was adjusted between 1.0 and 1.5 m illiSieverts for low dose screening purposes. Scans were reviewed on a dedicated PACS workstation for analysis. Comparison: None Findings: Lung Screening Specific (LungRADS) find ings: *There is a well-circumscribed, slightl y lobulated solid nodule within the right middle lobe lateral se gment abutting the pleural surface. This measures 1.8 x 1.3 x 1.8 cm, and demonstrates small regions of fat on histogram analysis. T here may be a small focal calcification within. There are a few s cattered calcified granulomas. Potentially Significant Incidentals (Lakesha ngRADS Category S): None Pulmonary Incidentals: Extensive centri lobular emphysema, diffuse large airways thickening consistent wit h chronic bronchitis. Other incidentals: Calcified plaques of the coronary arteries and aorta. ACR Reportable Incidentals: Coronary Ar terial Calcification - Moderate Impression: 1. LungRADS category 1 (Negative) Findi ngs: The nodule detailed above within the right middle lobe has features consistent with a benign hamartoma. As these can grow ove r time, this can be reassessed annually with low dose lung cancer screening CT. 2. LungRADS category S: Negative, no ne w or potentially significant incidental findings requiring urgent ad ditional evaluation. 3. Incidental findings as above. RECOMMENDATIONS: Routine low dose CT lakesha ng screening. Suggest next PAGE 1 Signed Report (CONTINUED) low dose CT exam or follow up on or tee und 12 months from today. Continued low dose CT lung cancer scree shannon should be based upon continued eligibility depending upon ag e and smoking history. This report utilizes the CT Lung Screen ing Reporting and Data System (ACR LungRADS version 1.0) as below: Category 0: Incomplete (part or all of lung cannot be evaluated, or prior chest CT being located for compar juanpablo) Category 1: Negative (no nodules or def initely benign nodules) Category 2: Benign appearance or behavi or (nodules with very low likelihood of becoming a clinically act sheila cancer, risk of malignancy <1%) Category 3: Probably benign (probably b enign finding - short term follow up suggested, risk of malignancy 1-2%) Category 4: Suspicious (additional diag nostic testing or tissue sampling recommended) Modifiers to Categories 1-4: Category C: Prior diagnosis of lung can cer returning to screening Category S: Potentially significant anc illary finding requiring urgent additional evaluation. REPORT SIGNED IN OTHER VENDOR SYSTEM 10/04/2017 Reported By: Gene Andrade MD CC: Transcribed Date/Time: 10/04/2017 (1048 ) Application Development Consultant: Printed Date/Time: 04/10/2019 (8664) PAGE 2 Signed Report Performing Organization Address City/State/ZIP Code Phon e Number [facility] US ABDOMINAL AORTA-ILIAC DUPLEX ([place]) (10/04/2017 9:20 EST) Specimen Narrative [facility] - 10/04/2017 9:23 EST ? EXAM: ULTRASOUND/AORTA WELCOME TO MEDICAR EX. D/ (0852) ? CLINICAL INFORMATION: ? WELCOME TO MEDICARE SCREENING ? Z72.0 TOBACCO USE ? INDICATION: Assess abdominal aort a. Rule out aneurysm. WELCOME TO ? MEDICARE SCREENING, Z72.0 TOBACCO USE TOBACCO USE ? TECHNIQUE: Transabdominal ultraso und imaging of the abdominal aorta ? was performed. ? COMPARISON: None. ? FINDINGS: The proximal abdominal aorta measures up to 2.2 cm in ? diameter. The mid abdominal aorta measures up to 1.9 cm in diameter. ? The distal abdominal aorta measur es up to 2.3 cm in diameter. The ? proximal right common iliac arter y measures 1.1 cm in diameter, and ? the proximal left common iliac ar meliton measures 1.0 cm in diameter. ? IMPRESSION: ? 1. No abdominal aortic aneurysm d etected. ? REPORT SIGNED IN OTHER VENDOR SYSTEM 10/04/2017 ?Reported B y: Antonio Duran MD ? CC: ? Transcribed Date/Time: 10/04/2017 (922) ? Application Development Consultant: ? Printed Date/Time: 04/10/2019 (14 37) ? PAGE 1 ? Jane d Report ? Procedure Note Antonio Duran MD - 08/28/2019 EXAM: ULTRASOUND/AORTA WELCOME TO MEDIC AR EX. D/ (0852) CLINICAL INFORMATION: WELCOME TO MEDICARE SCREENING Z72.0 TOBACCO USE INDICATION: Assess abdominal aorta. Rul e out aneurysm. WELCOME TO MEDICARE SCREENING, Z72.0 TOBACCO USE T OBACCO USE TECHNIQUE: Transabdominal ultrasound im aging of the abdominal aorta was performed. COMPARISON: None. FINDINGS: The proximal abdominal aorta measures up to 2.2 cm in diameter. The mid abdominal aorta measu res up to 1.9 cm in diameter. The distal abdominal aorta measures up to 2.3 cm in diameter. The proximal right common iliac artery jonas ures 1.1 cm in diameter, and the proximal left common iliac artery m easures 1.0 cm in diameter. IMPRESSION: 1. No abdominal aortic aneurysm detecte d. REPORT SIGNED IN OTHER VENDOR SYSTEM 10/04/2017 Reported By: Antonio Duran MD CC: Transcribed Date/Time: 10/04/2017 (922 ) Application Development Consultant: Printed Date/Time: 04/10/2019 (3488) PAGE 1 Signed Report Performing Organization Address City/State/ZIP Code Phon e Number [facility] CT CHEST LOW DOSE LUNG SCREENING (10/04/2017 7:42 EST) Specimen Narrative [facility] - 10/04/2017 10:48 EST ? EXAM: CAT SCAN/CHEST LOW DOSE LUNG SCREEN EX. D/ (0805) ? CLINICAL INFORMATION: ? Z72.0 TOBACCO USE, CURRENT SMOKER ? NO SIGNS OR SX'S OF LUNG CA, ASYM PTOMATIC OF URI ? 1PPD X 40+ YEARS, SHARED DECISION ? CHEST LOW DOSE LUNG SCREENING ??1 12/05/2016 8:39 AM ? Clinical History/Comments: ? tobacco use, current smoker no si gns or sx's of lung ca, ? asymptomatic of uri 1ppd x 40 + y ears, shared decision ? Technique: ? A single breath-hold helical CT a cquisition was performed through ? the chest on a multidetector-row scanner with a reconstructed slice ? thickness of 3 mm and retrospecti vely reconstructed 0.9 mm thick ? sections with 0.45 mm overlapping intervals. ??The scans were ? obtained from the lung apices thr ough the bases without IV contrast. ? Dose was adjusted between 1.0 and 1.5 milliSieverts for low dose ? screening purposes. Scans were re viewed on a dedicated PACS ? workstation for analysis. ? Comparison: ? None ? Findings: ? Lung Screening Specific (LungRADS ) findings: ? *There is a well-circumscribed, s lightly lobulated solid nodule ? within the right middle lobe late ral segment abutting the pleural ? surface. This measures 1.8 x 1.3 x 1.8 cm, and demonstrates small ? regions of fat on histogram rae sis. There may be a small focal ? calcification within. There are a few scattered calcified granulomas. ? Potentially Significant Incidenta ls (LungRADS Category S): None ? Pulmonary Incidentals: Extensive centrilobular emphysema, diffuse ? large airways thickening consiste nt with chronic bronchitis. ? Other incidentals: Calcified plaq ues of the coronary arteries and ? aorta. ? ACR Reportable Incidentals: ??Cor onary Arterial Calcification - ? Moderate ? Impression: ? 1. LungRADS category 1 (Negative) ??Findings: ??The nodule detailed ? above within the right middle lob e has features consistent with a ? benign hamartoma. As these can gr ow over time, this can be ? reassessed annually with low dose lung cancer screening CT. ? 2. LungRADS category S: ??Negativ e, no new or potentially significant ? incidental findings requiring urg ent additional evaluation. ? 3. Incidental findings as above. ? RECOMMENDATIONS: ??Routine low do se CT lung screening. ??Suggest next ? PAGE 1 ? Jane d Report ? (CONTINUED) ? low dose CT exam or follow up on or around 12 months from today. ? Continued ??low dose CT lung canc er screening should be based upon ? continued eligibility depending u tin age and smoking history. ? This report utilizes the CT Lung Screening Reporting and Data System ? (ACR LungRADS version 1.0) as bel ow: ? Category 0: Incomplete (part or a ll of lung cannot be evaluated, or ? prior chest CT being located for comparison) ? Category 1: Negative (no nodules or definitely benign nodules) ? Category 2: Benign appearance or behavior (nodules with very low ? likelihood of becoming a clinical ly active cancer, risk of ? malignancy <1%) ? Category 3: Probably benign (prob ably benign finding - short term ? follow up suggested, risk of rafaela gnancy 1-2%) ? Category 4: Suspicious (additiona l diagnostic testing or tissue ? sampling recommended) ? Modifiers to Categories 1-4: ? Category C: Prior diagnosis of lakesha ng cancer returning to screening ? Category S: Potentially significa nt ancillary finding requiring ? urgent additional evaluation. ? REPORT SIGNED IN OTHER VENDOR SYSTEM 10/04/2017 ?Reported B y: Gene Andrade MD ? CC: ? Transcribed Date/Time: 10/04/2017 (1048) ? Application Development Consultant: [facility] ? Printed Date/Time: 04/10/2019 (14 37) ? PAGE 2 ? Jane d Report ? Performing Organization Address City/State/ZIP Code Phon e Number [facility] documented in this encounter Visit Diagnoses Not on filedocumented in this encounter Care Teams Drug Counselor Relationship Specialty Start Date End Date Unknown, Provider, PCP - General 10/06/17 08/22/20 documented as of this encounter
== END 2022-05-05 12:03 | disposition home or self-care (01) ==
LOC: NCHCN 12:02
PROVIDERS: PCP Nurse Practitioner Family; Visit Provider Nurse Practitioner Family
DX: C44.629 Squamous cell carcinoma of skin of left upper limb, including shoulder (principal)
CPT/HCPCS: 88305

== ENCOUNTER 2022-08-25 10:30 | Outpatient (REF) | payer MEDICARE, MEDICAID, SELFPAY ==
[2022-08-25 15:02] LABS: ALT 23 U/L (16-63); AST 27 U/L (15-37); Albumin 4.1 g/dL (3.4-5.0); Alkaline Phosphatase 94 U/L (46-116); Anion Gap 4.5 mmol/L (3-11); BUN 6 mg/dL (7-18); Bilirubin, Total 0.4 mg/dL (0.2-1.0); CO2 32.5 mmol/L (21.0-32.0); CREATININE 0.7 mg/dL (0.70-1.30); Calculated LDL 58 mg/dL (<100); Chloride 94 mmol/L (98-107); Cholesterol 143 mg/dL (<200); Glucose 113 mg/dL (74-106); HDL Cholesterol 78 mg/dL (40-60); Potassium 4.1 mmol/L (3.5-5.1); Sodium 131 mmol/L (136-145); Total Protein 7.4 g/dL (6.4-8.2); Triglyceride 36 mg/dL (<150)
[2022-08-29 09:41] LABS: Hepatitis C Ab w Rflx HCV PCR Negative (Negative)
[2022-08-29 10:35] LABS: HIV-1/2 Ag & Ab Screen Negative (Negative)
== END 2022-08-25 10:31 | disposition home or self-care (01) ==
LOC: NCHCN 10:30
PROVIDERS: PCP Nurse Practitioner Family; Visit Provider Nurse Practitioner Family
DX: Z11.4 Encounter for screening for human immunodeficiency virus [HIV] (principal); Z11.59 Encounter for screening for other viral diseases; E78.5 Hyperlipidemia, unspecified; I10 Essential (primary) hypertension; R74.8 Abnormal levels of other serum enzymes
CPT/HCPCS: 80053; 80061; 86803; 87389

== ENCOUNTER 2022-09-01 18:21 | Outpatient (REF) | payer MEDICARE, MEDICAID, SELFPAY ==
[2022-09-01 14:57] LABS: Anion Gap 3.2 mmol/L (3-11); BUN 9 mg/dL (7-18); CO2 30.8 mmol/L (21.0-32.0); CREATININE 0.7 mg/dL (0.70-1.30); Calcium 9.1 mg/dL (8.5-10.1); Chloride 93 mmol/L (98-107); Glucose 108 mg/dL (74-106); Potassium 4.5 mmol/L (3.5-5.1); Sodium 127 mmol/L (136-145)
== END 2022-09-01 18:22 | disposition home or self-care (01) ==
LOC: NCHCN 18:21
PROVIDERS: PCP Nurse Practitioner Family; Visit Provider Nurse Practitioner Family
DX: E87.1 Hypo-osmolality and hyponatremia (principal)
CPT/HCPCS: 80048

== ENCOUNTER 2022-09-02 14:16 | Outpatient (REF) | payer MEDICARE, MEDICAID, SELFPAY ==
[2022-09-02 15:02] LABS: Anion Gap 4.9 mmol/L (3-11); BUN 9 mg/dL (7-18); CO2 33.1 mmol/L (21.0-32.0); Chloride 96 mmol/L (98-107); Estimated GFR 79.97 (mL/min/1.73m2); Glucose 107 mg/dL (74-106); Potassium 4.5 mmol/L (3.5-5.1); Sodium 134 mmol/L (136-145)
== END 2022-09-02 14:17 | disposition home or self-care (01) ==
LOC: NCHCN 14:16
PROVIDERS: PCP Nurse Practitioner Family; Visit Provider Nurse Practitioner Family
DX: E87.1 Hypo-osmolality and hyponatremia (principal)
CPT/HCPCS: 80048

== ENCOUNTER 2022-10-27 13:24 | Outpatient (REF) | payer MEDICARE, MEDICAID, SELFPAY ==
[2022-10-27 14:31] LABS: Abs Immature Grans 0.02 10^3/uL (0.0-0.06); Absolute Basophil Count 0.05 10^3/uL (0.0-0.2); Absolute Eosinophil Count 0.15 10^3/uL (0.0-0.7); Absolute Lymphocyte Count 0.63 10^3/uL (1.2-3.4); Absolute Monocyte Count 0.27 10^3/uL (0.1-0.8); Absolute Neutrophil Count 5.31 10^3/uL (1.2-6.7); Basophils % 0.8; Eosinophils % 2.3; HCT 42.4 % (40.0-50.0); HGB 14.2 g/dL (13.5-17.5); Immature Grans % 0.3; Lymphocytes % 9.8; MCH 32.3 pg (27.0-33.0); MCHC 33.5 % (32.0-36.0); MCV 97 fL (80-95); MPV 9.8 fL (8.0-11.0); Monocytes % 4.2; Neutrophils % 82.6; Platelet Count 189 10^3/uL (130-400); RBC 4.39 10^6/uL (4.36-5.78); RDW 13.4 % (11.8-14.1); RDW-SD 48.3 fL; WBC 6.43 10^3/uL (4.4-10.8)
[2022-10-27 15:17] LABS: Vitamin D 25 Total 19.9 ng/mL (30-100)
== END 2022-10-27 13:25 | disposition home or self-care (01) ==
LOC: NCHCN 13:24
PROVIDERS: PCP Nurse Practitioner Family; Visit Provider Nurse Practitioner Family
DX: E55.9 Vitamin D deficiency, unspecified (principal); R06.02 Shortness of breath
CPT/HCPCS: 82306; 85025

== ENCOUNTER 2023-06-15 12:58 | Outpatient (REF) | payer MEDICARE, MEDICAID, SELFPAY ==
[2023-06-15 17:53] LABS: Anion Gap 6.2 mmol/L (3-11); BUN 11 mg/dL (7-18); CO2 31.8 mmol/L (21.0-32.0); CREATININE 0.9 mg/dL (0.70-1.30); Calcium 9.2 mg/dL (8.5-10.1); Chloride 97 mmol/L (98-107); Estimated GFR 90.18 (mL/min/1.73m2); Glucose 120 mg/dL (74-106); Potassium 4.3 mmol/L (3.5-5.1); Sodium 135 mmol/L (136-145)
[2023-06-15 18:13] LABS: Vitamin D 25 Total 19.8 ng/mL (30-100)
== END 2023-06-15 12:59 | disposition home or self-care (01) ==
LOC: NCHCN 12:58
PROVIDERS: PCP Nurse Practitioner Family; Visit Provider Family Medicine
DX: I10 Essential (primary) hypertension (principal); E55.9 Vitamin D deficiency, unspecified
CPT/HCPCS: 80048; 82306

== ENCOUNTER 2023-12-12 14:34 | Outpatient (REF) | payer MEDICARE, MEDICAID, SELFPAY ==
[2023-12-12 21:39] LABS: ALT 23 U/L (16-63); AST 32 U/L (15-37); Albumin 4.2 g/dL (3.4-5.0); Alkaline Phosphatase 81 U/L (46-116); Anion Gap 7.7 mmol/L (3-11); BUN 12 mg/dL (7-18); Bilirubin, Total 0.6 mg/dL (0.2-1.0); CO2 30.3 mmol/L (21.0-32.0); Calcium 9.7 mg/dL (8.5-10.1); Chloride 100 mmol/L (98-107); Estimated GFR 78.98 (mL/min/1.73m2); Glucose 95 mg/dL (74-106); Potassium 4.2 mmol/L (3.5-5.1); Sodium 138 mmol/L (136-145); Total Protein 7.8 g/dL (6.4-8.2)
[2023-12-12 21:42] LABS: Hemoglobin A1C 5.5 % (<5.7)
[2023-12-12 22:22] LABS: Vitamin D 25 Total 62.3 ng/mL (30-100)
== END 2023-12-12 14:35 | disposition home or self-care (01) ==
LOC: NCHCN 14:34
PROVIDERS: PCP Nurse Practitioner Family; Visit Provider Family Medicine
DX: R73.9 Hyperglycemia, unspecified (principal); I10 Essential (primary) hypertension; E55.9 Vitamin D deficiency, unspecified
CPT/HCPCS: 80053; 82306; 83036

== ENCOUNTER 2024-09-09 18:22 | Outpatient (REF) | payer MEDICARE, MEDICAID, SELFPAY ==
--- NOTE | 2024-09-09 14:00 | SKI_PTH ---
PATIENT: Chris Shelton LOC: [facility]#:[id number] AGE/SX: 73/M ROOM: RE09/09/[address]: Yamilet Alcantar : 1950 BED: DIS: 09/09/2024 SPEC #: [id number] RECD: 09/10/24 12:15 STATUS: SHAILESH REDawood #: [id number] BURT: 09/09/24 14:[address]: Yamilet Alcantar DEPT: Surgical Specimen RECD BY: Franny Dempsey ENTERED: 09/10/24 12:16 SP TYPE: ROGER ALFORD DR: Radha Terrazas Tissues: 1 - SKIN BIOPSY(SHAVE/PUNCH) 2 - SKIN BIOPSY(SHAVE/PUNCH) Procedures: SKIN LEVEL 4 Comments: [id number]
== END 2024-09-09 18:23 | disposition home or self-care (01) ==
LOC: NCHCN 18:22
PROVIDERS: PCP Nurse Practitioner Family; Visit Provider Family Medicine
DX: L82.1 Other seborrheic keratosis (principal)
CPT/HCPCS: 88305

== ENCOUNTER 2025-07-07 14:00 | Outpatient (REF) | payer MEDICARE, MEDICAID, SELFPAY ==
[2025-07-07 22:02] LABS: ALT 26 U/L (16-63); AST 26 U/L (15-37); Albumin 3.9 g/dL (3.4-5.0); Alkaline Phosphatase 102 U/L (46-116); Anion Gap 8.8 mmol/L (3-11); BUN 10 mg/dL (7-18); Bilirubin, Total 0.8 mg/dL (0.2-1.0); CO2 33.2 mmol/L (21.0-32.0); Calcium 9.6 mg/dL (8.5-10.1); Chloride 97 mmol/L (98-107); Estimated GFR 96.09 (mL/min/1.73m2); Glucose 91 mg/dL (74-106); Potassium 4.0 mmol/L (3.5-5.1); Sodium 139 mmol/L (136-145); Total Protein 6.8 g/dL (6.4-8.2); Vitamin D 25 Total 54 ng/mL (30-100)
== END 2025-07-07 14:01 | disposition home or self-care (01) ==
LOC: NCHCN 14:00
PROVIDERS: PCP Nurse Practitioner Family; Visit Provider Family Medicine
DX: M80.00XS Age-related osteoporosis with current pathological fracture, unspecified site, sequela (principal)
CPT/HCPCS: 80053; 82306